=== PATIENT | female | born 1965 | race Caucasian/White ===

== ENCOUNTER 2016-03-17 17:38 | Inpatient (IN) | payer OTHER ==
[~2016-03-17] VITALS: Ht 157.5 cm; Wt 71.2 kg
[~2016-03-17 17:38] MED LIST: ATV/1 PO; BIOTIN PO; CALC-388 PO; CPR500 PO; DIPH25CA65 PO; IRON PO; LCTL45 PO; LSX20 PO; MAGNTAB4 PO; OMEP40CA PO; ONDA8TAB7 PO; POTASSIUM OTC PO; PRED10TA PO; PROP1TAB PO; SPIR50TA2 PO; VITAMIN C PO; [UNRECOGNIZED DRUG - CODE] PO
[2016-03-17 18:11] VITALS: BP 103/70; PULSE 68; TEMP 36.6; Ht 157.5 cm; Wt 71.2 kg
[2016-03-17 18:34] VITALS: O2SAT 100
--- NOTE | 2016-03-17 20:06 | History and Physical ---
History & Physical Date & Time of Service: Mar 17, 2016 at 19:18 Chief Complaint: Renal Failure Primary Care Physician: Osorio Chase M.D. History of Present Illness Source: patient, partner, clinic records, hospital records Patient seen and examined. 50 year old female with PMHx of alcoholic cirrhosis, portal HTN with esophageal varices, HTN, HLD, bipolar disorder and other problems listed below is seen as a direct admission for Dr. Rosas's office for acute renal failure. Patient was admitted to this hospital from 02/21- 02/24 for abdominal pain, ascites and possible SBP. She had a therapeutic paracentesis and was empirically treated for SBP with Rocephin and then discharged home on Cipro. She reports feeling well until today. Today she states she feels more drowsy and forgetful. She reports increase suprapubic abdominal pain that she describes as an annoyance. She states she forgot to take her afternoon dose of lactulose but otherwise has been compliant with her medications. She states her Lasix has been decreased to 20mg daily and her spironolactone to 50mg daily. She states her abdomen is starting to feel mildly distended. She reports chills and minimal dyspnea with exertion. She denies fevers URI symptoms, chest pain, palpitations, nausea, vomiting, diarrhea, dysuria, calf pain and edema. She reports she has not had alcohol in several months. As an outpatient patient's patient crea has increased from 0.8 to 2.2. K + has been elevated at 5.7. Sodium has been around 130. She was directly admitted to the medical floor. She will be transferred to [facility] for further workup and treatment. Past Medical/Surgical History Medical Problems: (1) Alcohol dependence Status: Chronic (2) Alcoholic liver disease Status: Chronic (3) Allergic rhinitis Status: Chronic (4) Anxiety Status: Chronic (5) Bipolar 1 disorder Status: Chronic (6) Depression Status: Chronic (7) GERD (gastroesophageal reflux disease) Status: Chronic (8) HTN (hypertension) Status: Chronic (9) Hypothyroidism Status: Chronic (10) Migraine Status: Chronic Surgical Problems: (1) History of section Status: Resolved (2) History of tubal ligation Status: Resolved Family History Patient reports no known family medical history. Social History Smoking Status: Former Smoker Alcohol Use: heavy (reports recent sobriety ) Drug Use: none Marital Status: , in relationship Housing status: lives with family Occupational Status: unemployed Immunizations History of Influenza Vaccine: N/A History of Tetanus Vaccine?: Yes Tetanus Immunization Date: Apr 12, 2010 History of Pneumococcal: Unknown Pneumococcal Date: Nov 09, 2010 History of Hepatitis B Vaccine: Unknown Multi-Drug Resistant Organisms History of MDRO: Yes Type of MDRO: MRSA Allergies Coded Allergies: Citalopram (Verified Allergy, Severe, ENLARED HEART VALVES, 02/22/16) Quetiapine (Verified Allergy, Intermediate, unknown., 01/30/16) Home Medications Scheduled Calcium Carbonate-Vitamin D (Calcium + D3 600-200 mg-Unit), 1 TAB PO DAILY Cyanocobalamin (Vitamin B12), 1,000 MCG PO DAILY Diphenhydramine Hcl (Benadryl Allergy), 1 CAP PO HS Folic Acid (Folvite), 1 TAB PO DAILY Furosemide (Furosemide), 20 MG PO DAILY Lactulose (Lactulose), 30 GM PO TID Levothyroxine Sodium (Levothyroxine Sodium), 1 TAB PO DAILY Magnesium Chloride (Slow-Mag Tab), 64 MG PO DAILY Multivitamin (Multivitamin), 1 TAB PO DAILY Omeprazole (Prilosec), 40 MG PO DAILY Pot Phosphate Monobasic W/ Sod (Phospha 250 Neutral), 1 TAB PO DAILY Prednisone Tab (Prednisone), 40 MG PO DAILY Propranolol (Inderal), 60 MG PO BID Rifaximin (Xifaxan), 550 MG PO BID Spironolactone (Aldactone), 1 TAB PO DAILY [Iron], 65 MG PO DAILY [Potassium Otc], 1 TAB PO DAILY [vitamin c+biotin], 1 TAB PO DAILY Scheduled PRN Albuterol (Ventolin Hfa), 2 PUFFS INH Q4H PRN for SOB/Wheezing Loratadine (Claritin), 10 MG PO DAILY PRN for ALLERGIC REACTION Lorazepam (Ativan), 1 MG PO BID PRN for Anxiety Ondansetron Tab (Zofran), 1 TAB PO Q8 PRN for Nausea Phenol (Antiseptic) (Chloraseptic), 1 SPRAY PO DAILY PRN for SORE THROAT Sumatriptan Succinate (Imitrex), 50 MG PO PRN PRN for Headache Review of Systems See above for pertinent positives & negatives. A total of 10 systems reviewed and were otherwise negative. Physical Exam Vital Signs Date Time Temp Pulse Resp B/P Pulse Ox O2 Delivery O2 Flow Rate FiO2 03/17/16 18:34 100 Room Air 03/17/16 18:11 36.6 68 18 103/70 Room Air General Appearance: + pertinent finding (Pleasant WD/WN 50 year old female lying in bed in NAD with partner at bedside ) Head: normocephalic, atraumatic Eyes: PERRL, EOMI, + pertinent finding (scleral icterus ) ENT: hearing grossly normal, pharynx normal Neck: supple, no JVD, trachea midline Respiratory/Chest: chest non-tender, lungs clear, normal breath sounds, no respiratory distress, no accessory muscle use Cardiovascular: regular rate, rhythm, no edema, no gallop, no JVD, no murmur, normal peripheral pulses Abdomen/GI: normal bowel sounds, soft, + tenderness (suprapubic, mild ), + distended (mildly ) Back: normal inspection, no muscle spasm Extremities/Musculoskelatal: no calf tenderness, normal capillary refill, no pedal edema Neurologic/Psych: + pertinent finding (Alert&Ox3, no asterixis, no focal deficits noted on gross exam ) Skin: normal color, warm/dry, no rash Lymphatic: no adenopathy Impression Assessment and Plan 50 year old female is seen as a direct admission by Dr. Rosas for acute renal failure ACUTE RENAL FAILURE -Ad[facility] 0.8 [facility] February now 2.2 -? cause, consider SBP, Hepatorenal syndrome, Medication related and other causes -blood work, urine studies pending -Dr. Rosas recommends Octerotide, Midodrine, and albumin -May need to consider nephrology consult -Additional management pending further workup -Please see Dr. Callahan's addendum for additional management HYPERKALEMIA -was 5.7 as an outpatient -repeat pending -transfer to to telemetry for close monitoring -check EKG -additional management pending workup HYPONATREMIA -130 as outpatient, repeat pending -serial daily -likely secondary to alcohol abuse -check urine sodium -additional management pending further workup ALCOHOLIC CIRRHOSIS/ABDOMINAL PAIN/MILD DISTENTION - Follows with Dr. Rosas -as outpatient has been on Bactrim for SBP prophylaxis per Dr. Rosas's recommendations switch to Rocephin while inpatient -? hepatorenal syndrome for ARF -Dr. Rosas recommends midodrine albumin and octreotide -GI consult placed -Continue outpatient prednisone for alcoholic hepatitis -continue Lactulose, Rifaximin -Follow LFTs, Ammonia level, admission lab work pending -check UA -additional management per Dr. Callahan H/O ALCOHOL ABUSE -states she has been sober for a few months -monitor closely for withdraw symptoms -alcohol level pending HTN -stable -continue Inderal per previous admission for prophylaxis for variceal bleed/ portal HTN MARY JANE -not on CPAP HYPOTHYROIDISM -continue Synthroid H/O MIGRAINES -stable -on Imitrex prn GERD -continue PPI ANXIETY -continue Ativan prn H/O MRSA -contact precautions DVT PROPHYLAXIS: SCDs RE: h/o hepatic coagulopathy CODE STATUS: FULL CODE DISPO:In my clinical judgment this beneficiary meets acute admission criteria, established by [facility], that includes being hospitalized through two midnights. Patient seen in collaboration with Dr. Callahan Advanced Directives Existing Living Will: No Existing Power of Plant Tech: No Assessment/Plan IM ATTENDING : Patient seen and examined. Preceding documentation by Ms. Alesha Mancera PA-C, reviewed. FINAL ASSESSMENT AND PLAN as follows: 1. Acute renal failure, hyperkalemia likey secondary to home meds ? developing hepatorenal syndrome history of alcoholic cirrhosis past alcohol abuse 2. abd pain ? recurrent SBP no sepsis 3. acute (?on chronic) hyponatremia, 4. chronic anemia, outpx Hg at baseline 5. hx past tobacco abuse 6. hx bipolar DSO 7. hx MRSA 8. chronic thrombocytopenia 2 to cirrhosis PCU repeat chemistries baseline UA, monitor crea response to IVF CS Limited abdominal ultrasound for ascites to determined need for paracentesis. (As per patient, no significant change in abdominal distention; what is more distressing for her is lower abdominal pain.) GI consult for abdominal pain Dr. Rosas had sent patient to hospital as a direct floor admission. He had specific recommendations for Nephrology opinion for ARF, IV Ceftriaxone for possible SBP; albumin, Midodrine, and Octreotide for poss incipient HRS. DVT prophylaxis, SCDs RE thrombocytopenia Full code.
[2016-03-17] MEDS ORDERED: LORAZEPAM 2 MG/ML 1 ML VIAL IV PRN (20:30)
[2016-03-17] MEDS ORDERED: HYDROmorphone INJ 0.5 MG/0.5 ML SYR IV PRN (20:30)
[2016-03-17] MEDS ORDERED: ALBUT/IPRATROP 3MG/0.5MG NEB 3 ML VIAL INH PRN (20:30)
[2016-03-17] MEDS ORDERED: TRAMADOL HCL 50 MG TAB PO PRN (20:30)
[2016-03-17] MEDS ORDERED: ACETAMINOPHEN 325 MG TAB PO PRN (20:30)
[2016-03-17] MEDS ORDERED: LORATADINE 10 MG TAB PO PRN (20:30)
[2016-03-17] MEDS ORDERED: LORAZEPAM 1 MG TAB PO PRN (20:30)
[2016-03-17] MEDS ORDERED: ONDANSETRON INJ 2 MG/ML 2 ML VIAL IV PRN (20:30)
[2016-03-17] MEDS ORDERED: NITROGLYCERIN 0.4 MG SL PER TAB CHARGE SL PRN (20:30)
--- NOTE | 2016-03-17 20:33 | DIAGNOSTIC IMAGING REPORT ---
CHEST ONE VIEW PORTABLE CLINICAL HISTORY: sob dyspnea COMPARISON STUDY: 02/22/2016 FINDINGS: The bones soft tissues and hemidiaphragms are normal. The cardiomediastinal silhouette is normal. The lungs are clear. The pulmonary vasculature is normal. IMPRESSION: Negative chest. Electronically signed by: Leroy Candelaria M.D. 03/17/2016 8:32 PM Dictated Date/Time: 03/17/2016 8:31 PM
[2016-03-17 20:36] LABS: INR 1.6 (0.9-1.1); PROTHROMBIN TIME (PATIENT) 17.3 SECONDS (9.0-12.0)
[2016-03-17] MEDS ORDERED: LACTULOSE SYRUP 30 GM/45 ML UDP PO SCH (21:00)
[2016-03-17] MEDS ORDERED: MIDODRINE 2.5 MG TAB PO ONE (21:00)
[2016-03-17 21:36] LABS: ALB/GLOB RATIO 0.6 (0.9-2); ALKALINE PHOSPHATASE 135 U/L (45-117); ALT/SGPT 73 U/L (12-78); AST/SGOT 68 U/L (15-37); BLOOD UREA NITROGEN 23 mg/dl (7-18); BUN/CREATININE RATIO 10.8 (10-20); CALCIUM 8.2 mg/dl (8.5-10.1); CARBON DIOXIDE 16 mmol/L (21-32); CHLORIDE 105 mmol/L (98-107); GLUCOSE 90 mg/dl (70-99); MAGNESIUM 1.7 mg/dl (1.8-2.4); POTASSIUM 5.5 mmol/L (3.5-5.1); SODIUM 130 mmol/L (136-145); THYROID STIMULATING HORMONE 0.374 uIu/ml (0.300-4.500)
[2016-03-17] MEDS: RIFAXIMIN TAB 550 MG TAB PO SCH (21:49)
--- NOTE | 2016-03-17 21:49 | DIAGNOSTIC IMAGING REPORT ---
Limited abdominal ultrasound ASCITES-ABDOMEN LIMITED CLINICAL HISTORY: abd distension ascites TECHNIQUE: Ultrasound COMPARISON STUDY: 02/23/2016 FINDINGS: Survey film of the abdomen shows no significant ascites IMPRESSION: No significant ascites by survey ultrasound Electronically signed by: Leroy Candelaria M.D. 03/17/2016 9:48 PM Dictated Date/Time: 03/17/2016 9:47 PM
[2016-03-17] MEDS: OCTREOTIDE ACETATE 100 MCG/ML VIAL SQ SCH (21:50)
[2016-03-17] MEDS: CEFTRIAXONE SOD INJ 1 GM in DEXTROSE 5% ADD-VANTAGE 50ML 50 ML IV SCH (21:51)
[2016-03-17] MEDS ORDERED: MAGNESIUM SULFATE 1GM / D5W 1 GM in PREMIXED IN D5W 100 ML IV ONE (22:00)
[2016-03-17] MEDS ORDERED: SODIUM BICARB 8.4% INJ 50 MEQ/50 ML SYR IV STA (22:14)
[2016-03-17] MEDS ORDERED: SODIUM CHLORIDE 0.9% 1000ML 1,000 ML IV ONE (22:15)
[2016-03-17] MEDS: ALBUMIN HUMAN 25% 12.5 GM/50 ML VIAL IV SCH (22:27)
[2016-03-17] MEDS: HYDROmorphone INJ 1 MG/ML SYR IV PRN (22:28)
[2016-03-17 22:41] VITALS: BP 123/73; PULSE 70; O2SAT 97
[2016-03-17 23:25] VITALS: BP 107/69; PULSE 69; TEMP 36.8; O2SAT 94
[2016-03-17 23:32] LABS: HEMATOCRIT 30.1 % (37-47); MEAN CELL VOLUME 104.9 fL (80-100); MEAN CORPUSCULAR HEMOGLOBIN 36.9 pg (25-34); RED BLOOD COUNT 2.87 M/uL (4.2-5.4); WHITE BLOOD COUNT 12.62 K/uL (4.8-10.8)
[2016-03-17 23:44] LABS: BASO % 0.6 %; BASO ABS # 0.07 K/uL (0-0.2); COMPLETE YES; EOS % 2.9 %; IG% 0.9 %; LYMPH % 20.8 %; LYMPH ABS # 2.62 K/uL (1.2-3.4); MEAN CORPUSCULAR HGB CONC 35.2 g/dl (32-36); MEAN PLATELET VOLUME 10.9 fL (7.4-10.4); MONO % 11.9 %; NEUT % 62.9 %; PLATELET COUNT 85 K/uL (130-400)
[2016-03-18] VITALS (13 sets, daily range): BP systolic 94–120; BP diastolic 58–78; PULSE 68–77; TEMP 36.3–36.8; O2SAT 91–97
[2016-03-18 00:44] LABS: URINE APPEARANCE CLEAR (CLEAR); URINE COLOR DK YELLOW; URINE EPITHELIAL CELL AUTO 20-30 /lpf (0-5); URINE NITRITE NEG (NEG); URINE PH 6.5 (4.5-7.5); URINE SPECIFIC GRAVITY 1.012 (1.000-1.030); UROBILINOGEN NEG (NEG); ZZUR CULT IF INDIC CLEAN CATCH NO
[2016-03-18 01:06] LABS: MANUAL MICROSCOPIC REQUIRED? NO; REVIEW REQ? NO; URINE BILIRUBIN 1+ (NEG)
--- NOTE | 2016-03-18 01:43 | HISTORY & PHYSICAL EXAMINATION ---
DATE OF ADMISSION: 03/17/2016 IM ATTENDING : Patient seen and examined. Preceding documentation by Ms. Alesha Mancera PA-C, reviewed. FINAL ASSESSMENT AND PLAN as follows: 1. Acute renal failure, hyperkalemia likey secondary to home meds ? developing hepatorenal syndrome history of alcoholic cirrhosis past alcohol abuse 2. abd pain ? recurrent SBP no sepsis 3. acute (?on chronic) hyponatremia, 4. chronic anemia, outpx Hg at baseline 5. hx past tobacco abuse 6. hx bipolar DSO 7. hx MRSA 8. chronic thrombocytopenia 2 to cirrhosis PCU repeat chemistries baseline UA, monitor crea response to IVF CS Limited abdominal ultrasound for ascites to determined need for paracentesis. (As per patient, no significant change in abdominal distention; what is more distressing for her is lower abdominal pain.) GI consult for abdominal pain Dr. Rosas had sent patient to hospital as a direct floor admission. He had specific recommendations for Nephrology opinion for ARF, IV Ceftriaxone for possible SBP; albumin, Midodrine, and Octreotide for poss incipient HRS. DVT prophylaxis, SCDs RE thrombocytopenia Full code. MTDD
[2016-03-18 03:17] LABS: HEMATOCRIT 31.7 % (37-47); MEAN CORPUSCULAR HEMOGLOBIN 36.1 pg (25-34); MEAN CORPUSCULAR HGB CONC 34.4 g/dl (32-36); RED BLOOD COUNT 3.02 M/uL (4.2-5.4); WHITE BLOOD COUNT 11.06 K/uL (4.8-10.8)
[2016-03-18 03:19] LABS: MEAN PLATELET VOLUME 11.1 fL (7.4-10.4); PLATELET COUNT 78 K/uL (130-400)
[2016-03-18 03:36] LABS: BUN/CREATININE RATIO 11.9 (10-20); CALCIUM 8.2 mg/dl (8.5-10.1); CREATININE 1.7 mg/dl (0.60-1.20); MAGNESIUM 1.9 mg/dl (1.8-2.4); POTASSIUM 4.9 mmol/L (3.5-5.1)
[2016-03-18 04:03] LABS: COMPLETE YES; ECHINOCYTES 1+; EOSINOPHIL % 0.9 %; LYMPH ABS # 2.52 K/uL (1.2-3.4); LYMPHOCYTE % 22.8 %; METAMYELOCYTE % 1.8 %
[2016-03-18] MEDS ORDERED: NURSING DECISION MEDICATION ORDER SCH (04:45)
[2016-03-18] MEDS ORDERED: COUGH DROP (SUGAR FREE) LOZ 24 LOZ/1 BOX PO PRN (05:00)
[2016-03-18] MEDS: OXYCODONE HCL IR 5 MG TAB (IMMEDIATE RELEASE) PO PRN ×3 (05:12→19:24)
[2016-03-18] MEDS: OCTREOTIDE ACETATE 100 MCG/ML VIAL SQ SCH ×3 (05:13→20:55)
[2016-03-18] MEDS: LEVOTHYROXINE 137 MCG TAB PO SCH (05:13)
[2016-03-18] MEDS ORDERED: MIDODRINE 2.5 MG TAB PO SCH (08:00)
--- NOTE | 2016-03-18 09:15 | GASTROINTESTINAL CONSULTATION ---
DATE OF CONSULTATION: 03/18/2016 CHIEF COMPLAINT: Abnormal labs and confusion. HISTORY OF PRESENT ILLNESS: The patient is a 50-year-old female, followed by Dr. Rosas for a history of alcohol-related cirrhosis. The patient has had numerous admissions over the past 6 months as a result of her complications from this disease. She has been abstinent for approximately 2 months per outpatient records and patient report. She was recently hospitalized from 02/22/2016 through 02/25/2016 for abdominal pain and ascites and suspected SBP. She underwent a paracentesis at that time and was placed onto antibiotic coverage. She was then placed onto an outpatient regimen which included Bactrim at home. Approximately 24-48 hours ago, the patient notes having some worsening confusion and abdominal discomfort. This morning she notes that her confusion has resolved completely but she does have some epigastric discomfort associated with cramping and occasional diarrhea. The patient was undergoing routine outpatient labs yesterday and found to have new onset renal failure. She was advised to come to the Emergency Room for further evaluation. PAST MEDICAL HISTORY: 1. Alcoholism. 2. Cirrhosis. 3. Bipolar disorder. 4. Depression. 5. Reflux. 6. Hypertension. 7. Hypothyroidism. 8. Migraine. PAST SURGICAL HISTORY: section, tubal ligation. FAMILY HISTORY: No family history of colorectal cancer, stomach cancer or liver cancer. SOCIAL HISTORY: The patient is a prior smoker. The patient did drink heavily until about 2 months ago. She is and lives with family and has a boyfriend. ALLERGIES: CITALOPRAM, QUETIAPINE. OUTPATIENT MEDICATIONS: 1. Calcium, vitamin D. 2. Vitamin B12. 3. Benadryl 25 mg at bedtime. 4. Folic acid 1 tablet daily. 5. Lasix 20 mg daily. 6. Lactulose 30 grams t.i.d. 7. Levothyroxine 1 tablet daily. 8. Magnesium chloride 64 mg daily. 9. Multivitamin 1 tablet daily. 10. Omeprazole 40 mg daily. 11. Phosphate. 12. Prednisone 40 mg daily, the patient presently off. 13. Inderal 60 mg twice daily. 14. Rifaximin 550 mg twice daily. 15. Aldactone 125 mg daily. 16. Potassium 1 tablet daily. REVIEW OF SYSTEMS: GENERAL: No fevers, no chills. CARDIAC: No chest pain, no palpitations. PULMONARY: No shortness of breath today. No cough today. NEUROLOGIC: No headache. No double vision noted. MUSCULOSKELETAL: No joint pains. No muscle pains. GASTROINTESTINAL: Please see history of present illness. GENITOURINARY: No dysuria noted by the patient. SKIN: No rashes, no itching noted by the patient. PSYCHIATRIC: No worsening depression. No suicidal ideation. ENT: No difficulty swallowing. VITAL SIGNS: Temperature is 36.5, pulse is 77, respiratory rate 20, blood pressure 104/68. PHYSICAL EXAMINATION: HEENT: Scleral icterus noted. NECK: No JVD noted. LUNGS: Clear to auscultation. CARDIAC: Regular rhythm with a faint systolic ejection murmur. ABDOMEN: Obese, soft, nontender. No fluid wave appreciated. EXTREMITIES: No edema noted today. NEUROLOGIC: No asterixis noted. Cranial nerves grossly intact. Motor grossly intact. LABORATORIES: Sodium 134 this morning, potassium 4.9, chloride 107, BUN 20, creatinine 1.7, calcium 8.2, magnesium 1.7, total bilirubin 7.5, AST 68, ALT is 73, alkaline phosphatase 135, albumin 2.5. TSH 0.34. White blood cell count 11.06, hemoglobin is 10.9, hematocrit is 31.7, platelet count is 78. PT is 17.3, INR 1.6. Alcohol screening upon admission was negative. IMAGING: Ultrasound dated 03/17/2016, no ascites noted. IMPRESSION: A 50-year-old female admitted with new onset renal failure and subtle confusion. I wonder if the patient's renal failure may be related to medications given her use of diuretics and lactulose (less likley HRS). At this point in time, I would recommend continued albumin as you are doing today at 1.5 grams per kilogram on day 1 of admission and 1 gram per kilogram on day 3 of admission. Also agree with empiric treatment for suspected SBP as per Dr. Rosas. I would suggest that we decrease her lactulose to one time daily and consult nephrology with regard to her renal insufficiency. RECOMMENDATIONS: 1. Nephrology consultation. 2. Urine sodium, urine osms, serum sodium, serum osms. 3. Decrease lactulose to one time daily. 4. Albumin 1.5 grams per kilogram on admission (done already) and 1.0 gram per kilogram on day 3 which would be Jovan. Please call with any questions or concerns. MTDD
--- NOTE | 2016-03-18 10:19 | NEPHROLOGY CONSULTATION ---
DATE OF CONSULTATION: 03/18/2016 ATTENDING OF RECORD: Dr. Morton. REASON FOR CONSULTATION: ELIZABETH with hyponatremia and hyperkalemia. HISTORY OF PRESENT ILLNESS: This is a 50-year-old female with significant history of alcoholic cirrhosis with portal hypertension and esophageal varices, who has had several hospitalizations for ELIZABETH with possible SBP and hepatorenal syndrome. The patient was doing well up until the last couple days, where she was becoming more forgetful, having some abdominal distention, nausea and abdominal pain; however, appetite was good and denies any fevers or chills. The patient had lab work done, which showed acute renal failure and hyperkalemia with hyponatremia and the patient was directly admitted. The patient admits that she has been drinking lots and lots of water. Her main complaint is overall fatigue. REVIEW OF SYSTEMS: Positive fatigue. Positive nausea. No headaches, no blurry vision, no dysphagia, no chest pain, and no shortness of breath. No vomiting. Positive abdominal tenderness. Positive loose stools. No dysuria or hematuria. No rash or itching. All other review of systems otherwise negative. PAST MEDICAL HISTORY: Alcoholic cirrhosis with portal hypertension, hypertension, hyperlipidemia, bipolar, and hypothyroidism. PAST SURGICAL HISTORY: Tubal ligation and . FAMILY HISTORY: No renal disease in the family. SOCIAL HISTORY: Former smoker. Heavy alcohol use; however, none recently in the last several months. No drugs. Lives with family. CURRENT MEDICATIONS: Folic acid 1 mg daily, multivitamin daily, propranolol 60 mg p.o. b.i.d., Protonix 40 mg daily, lactulose 30 grams daily, midodrine 5 mg p.o. t.i.d., Synthroid 137 mcg daily, normal saline at 75 mL an hour, rifaximin 550 mg p.o. b.i.d., octreotide 50 mg subQ q. 8 hours, albumin 12.5 grams IV t.i.d., and ceftriaxone 1 gram IV q. 24 hours. PHYSICAL EXAMINATION: VITAL SIGNS: Temperature 36.8, pulse 68, respiratory rate 16, blood pressure 94/58, and satting 96% on room air. GENERAL: Awake, alert, and oriented x3. EYES: Positive scleral icterus. ENT: Mucous membranes are dry. NECK: Supple. PULMONARY: Clear to auscultation. CARDIAC: Regular rate and rhythm. ABDOMEN: Mild abdominal tenderness. Mild distention. Positive bowel sounds. EXTREMITIES: No clubbing, cyanosis or edema. NEUROLOGICALLY: Nonfocal. DERMATOLOGIC: No rash or ulcers noted. LABORATORIES: Sodium level is improved from 130 to 134. Potassium has improved from 5.5 down to 4.9. Chlorides 107, bicarb 17, BUN is 20, and creatinine improved from 2.1 down to 1.7. Serum osmolality is 282. Calcium is 8.2. Ammonia level is 22. Thyroid level is 0.37. Albumin is 2.5. White count is 11, H\T\H 10 and 31, and platelet count 78. INR is 1.6. Urine random sodium 103. Ethyl alcohol is negative. Blood cultures and urine cultures are pending. Abdominal ultrasound shows no significant ascites by survey ultrasound. Chest x-ray is normal. IMPRESSION: 1. Nonoliguric acute kidney injury with random urine sodium of 103. There is a possible concern with her underlying alcoholic cirrhosis and a prior history of hepatorenal syndrome of her developing hepatorenal syndrome again. The patient was started on albumin, midodrine and octreotide. The patient's kidney function is improving this morning and the patient is urinating well. In my personal opinion, would continue the albumin and IV fluids; I would stop the midodrine and octreotide; however, I will respectfully defer to GI and primary hospitalist on this matter. I do not feel that this is hepatorenal syndrome at this time. 2. Hyponatremia. The patient's sodium levels were low at 130. The patient admits to drinking lots of water and sodium levels are improving in the setting of normal saline. Would continue the normal saline at this time and place the patient on a fluid restriction. 3. Hyperkalemia. Potassium levels are improving on a low potassium diet as well as kidney function improving, which should help mobilize the extra potassium. The patient's home meds were significant for spironolactone as well as over the counter potassium, both of which have been on hold and should continue to improve with the current therapy. Overall, I do not feel this is hepatorenal syndrome; however, would benefit from continued albumin, normal saline, low potassium diet and 1500 mL fluid restriction. It does not appear that there is any significant amount of ascites to do a diagnostic tap; however, she is prophylactically on ceftriaxone. We will discuss the case further with the primary hospitalist. LEONOR
[2016-03-18] MEDS: RIFAXIMIN TAB 550 MG TAB PO SCH ×2 (10:39→20:51)
[2016-03-18] MEDS: LACTULOSE SYRUP 30 GM/45 ML UDP PO SCH (10:39)
[2016-03-18] MEDS: MIDODRINE 2.5 MG TAB PO SCH ×3 (10:39→18:27)
[2016-03-18] MEDS: PROPRANOLOL HCL 20 MG TAB PO SCH ×2 (10:40→20:51)
[2016-03-18] MEDS: MULTIVITAMIN TAB PO SCH (10:41)
[2016-03-18] MEDS: PANTOprazole SOD 40 MG TAB PO SCH (10:41)
[2016-03-18] MEDS: ALBUMIN HUMAN 25% 12.5 GM/50 ML VIAL IV SCH ×3 (10:52→20:49)
--- NOTE | 2016-03-18 13:17 | Progress Note ---
Subjective Date of Service: Mar 18, 2016. Subjective Pt evaluation today including: conversation w/ patient, physical exam, lab review, review of studies, conversation w/ claims consultant, review of inpatient medication list Saw/examined the patient in room 277 she presented with acute kidney injury sent over by gastroenterology her diuretic dose was recently increased she feels better today, no problems/issues to note Problem List Medical Problems: (1) Abdominal pain Status: Acute (2) Abdominal pain Status: Acute (3) Headache Status: Acute (4) Hyperammonemia Status: Acute (5) Hyperbilirubinemia Status: Acute (6) Hyperbilirubinemia Status: Acute (7) Hypocalcemia Status: Acute (8) Hypomagnesemia Status: Acute (9) Hypomagnesemia Status: Acute (10) Hypophosphatemia Status: Acute (11) Thrombocytopenia Status: Acute Review of Systems Constitutional: + weakness, No chills, No fever Respiratory: No cough, No shortness of breath, No sputum Cardiac: No chest pain Abdomen: + diarrhea, No nausea, No pain, No vomiting Medications Current Inpatient Medications Medications (Trade) Dose Ordered Sig/Fariba Route Start Time Stop Time Status Last Admin Dose Admin Ceftriaxone Sodium/Dextrose (Rocephin Inj/ Dextrose Add-[place] 50ML) 50 ml @ 100 mls/hr Q24H IV 03/17/16 20:30 03/27/16 20:29 03/17/16 21:51 100 MLS/HR Acetaminophen (Tylenol Tab) 325 mg Q6H PRN PO 03/17/16 20:30 04/16/16 20:29 Nitroglycerin (Nitrostat Tab) 0.4 mg UD PRN SL 03/17/16 20:30 04/16/16 20:29 Tramadol HCl (Ultram Tab) 25 mg Q6H PRN PO 03/17/16 20:30 04/16/16 20:29 Oxycodone HCl (Roxicodone Immediate Rel Tab) 5 mg Q6H PRN PO 03/17/16 20:30 03/31/16 20:29 03/18/16 05:12 5 MG Ondansetron HCl (Zofran Inj) 4 mg Q6H PRN IV 03/17/16 20:30 04/16/16 20:29 Lorazepam (Ativan Inj) 0.5 mg Q4H PRN IV 03/17/16 20:30 04/16/16 20:29 Folic Acid (Folvite Tab) 1 mg DAILY PO 03/18/16 09:00 04/17/16 08:59 03/18/16 10:42 1 MG Levothyroxine Sodium (Synthroid Tab) 137 mcg DAILYBB PO 03/18/16 06:30 04/17/16 06:29 03/18/16 05:13 137 MCG Loratadine (Claritin Tab) 10 mg DAILY PRN PO 03/17/16 20:30 04/16/16 20:29 Lorazepam (Ativan Tab) 1 mg BID PRN PO 03/17/16 20:30 04/16/16 20:29 Multivitamins (Multivitamin Tab) 1 tab DAILY PO 03/18/16 09:00 04/17/16 08:59 03/18/16 10:41 1 TAB Propranolol HCl (Inderal Tab) 60 mg BID PO 03/18/16 09:00 04/17/16 08:59 03/18/16 10:40 60 MG Rifaximin (Xifaxan Tab) 550 mg BID PO 03/17/16 21:00 04/16/16 20:59 03/18/16 10:39 550 MG Pantoprazole Sodium (Protonix Tab) 40 mg DAILY PO 03/18/16 09:00 04/17/16 08:59 03/18/16 10:41 40 MG Midodrine (Proamatine Tab) 5 mg TID@08,,17 PO 03/18/16 08:00 04/17/16 07:59 03/18/16 10:39 5 MG Octreotide Acetate (Sandostatin Inj) 50 mcg Q8H SQ 03/17/16 21:00 04/16/16 20:29 03/18/16 05:13 50 MCG Albumin Human (Albumin 25%) 12.5 gm TID IV 03/17/16 21:00 03/20/16 20:59 03/18/16 10:52 12.5 GM Albuterol/ Ipratropium (Duoneb) 3 ml Q2H PRN INH 03/17/16 20:30 04/16/16 20:29 Hydromorphone HCl (Dilaudid Inj) 0.5 mg Q3H PRN IV 03/17/16 22:15 03/31/16 22:14 03/17/16 22:28 0.5 MG Menthol (Nice Hasmukh) 1 hasmukh PRN PRN PO 03/18/16 05:00 04/17/16 04:59 03/18/16 05:13 1 HASMUKH Lactulose (Chronulac Syrup) 30 gm DAILY PO 03/18/16 09:00 04/22/16 20:59 03/18/16 10:39 30 GM Objective Vital Signs Date Time Temp Pulse Resp B/P Pulse Ox O2 Delivery O2 Flow Rate FiO2 03/18/16 11:50 36.7 69 18 111/78 97 Room Air 03/18/16 11:10 69 18 105/62 97 Room Air 03/18/16 10:55 36.7 69 18 101/68 97 Room Air 03/18/16 08:00 96 Room Air 03/18/16 07:16 36.8 68 16 94/58 96 Room Air 03/18/16 04:48 36.5 77 20 104/68 97 Room Air 03/18/16 04:07 Room Air 03/18/16 00:07 Room Air 03/17/16 23:25 36.8 69 20 107/69 94 Room Air 03/17/16 22:41 70 18 123/73 97 Room Air 03/17/16 21:45 Room Air 03/17/16 18:34 100 Room Air 03/17/16 18:11 36.6 68 18 103/70 Room Air Physical Exam General Appearance: no apparent distress Eyes: + abnormal sclerae exam Respiratory/Chest: lungs clear, normal breath sounds, no respiratory distress, no accessory muscle use Cardiovascular: regular rate, rhythm, no edema, no murmur Abdomen: non tender, soft, + distended Extremities: normal inspection, no pedal edema Skin: + jaundice Laboratory Results Last 24 Hours Test 03/17/16 20:00 03/17/16 20:05 03/17/16 23:24 03/18/16 00:15 Prothrombin Time 17.3 SECONDS Prothromb Time International Ratio 1.6 Sodium Level 130 mmol/L Potassium Level 5.5 mmol/L Chloride Level 105 mmol/L Carbon Dioxide Level 16 mmol/L Anion Gap 9.0 mmol/L Blood Urea Nitrogen 23 mg/dl Creatinine 2.10 mg/dl Est Creatinine Clear Calc Drug Dose 29.7 ml/min Estimated GFR () 31.0 Estimated GFR (Non- 26.8 BUN/Creatinine Ratio 10.8 Random Glucose 90 mg/dl Calcium Level 8.2 mg/dl Magnesium Level 1.7 mg/dl Total Bilirubin 7.5 mg/dl Aspartate Amino Transf (AST/SGOT) 68 U/L Alanine Aminotransferase (ALT/SGPT) 73 U/L Alkaline Phosphatase 135 U/L Troponin I < 0.015 ng/ml Total Protein 7.0 gm/dl Albumin 2.5 gm/dl Globulin 4.5 gm/dl Albumin/Globulin Ratio 0.6 Thyroid Stimulating Hormone (TSH) 0.374 uIu/ml Ethyl Alcohol mg/dL < 3.0 mg/dl White Blood Count 12.62 K/uL Red Blood Count 2.87 M/uL Hemoglobin 10.6 g/dL Hematocrit 30.1 % Mean Corpuscular Volume 104.9 fL Mean Corpuscular Hemoglobin 36.9 pg Mean Corpuscular Hemoglobin Concent 35.2 g/dl Platelet Count 85 K/uL Mean Platelet Volume 10.9 fL Neutrophils (%) (Auto) 62.9 % Lymphocytes (%) (Auto) 20.8 % Monocytes (%) (Auto) 11.9 % Eosinophils (%) (Auto) 2.9 % Basophils (%) (Auto) 0.6 % Neutrophils # (Auto) 7.96 K/uL Lymphocytes # (Auto) 2.62 K/uL Monocytes # (Auto) 1.50 K/uL Eosinophils # (Auto) 0.36 K/uL Basophils # (Auto) 0.07 K/uL RDW Standard Deviation 54.8 fL RDW Coefficient of Variation 14.3 % Immature Granulocyte % (Auto) 0.9 % Immature Granulocyte # (Auto) 0.11 K/uL Osmolality 282 mOsm/kg Ammonia 22.0 umol/L Urine Color DK YELLOW Urine Appearance CLEAR Urine pH 6.5 Urine Specific [place] 1.012 Urine Protein NEG Urine Glucose (UA) NEG Urine Ketones NEG Urine Occult Blood TRACE Urine Nitrite NEG Urine Bilirubin 1+ Urine Urobilinogen NEG Urine Leukocyte Esterase TRACE Urine WBC (Auto) 1-5 /hpf Urine RBC (Auto) 0-4 /hpf Urine Hyaline Casts (Auto) 1-5 /lpf Urine Epithelial Cells (Auto) 20-30 /lpf Urine Bacteria (Auto) NEG Urine Random Sodium 103 mEq/L Test 03/18/16 03:02 03/18/16 12:00 White Blood Count 11.06 K/uL Red Blood Count 3.02 M/uL Hemoglobin 10.9 g/dL Hematocrit 31.7 % Mean Corpuscular Volume 105.0 fL Mean Corpuscular Hemoglobin 36.1 pg Mean Corpuscular Hemoglobin Concent 34.4 g/dl Platelet Count 78 K/uL Mean Platelet Volume 11.1 fL RDW Standard Deviation 55.1 fL RDW Coefficient of Variation 14.2 % Neutrophils % (Manual) 71.0 % Lymphocytes % (Manual) 22.8 % Monocytes % (Manual) 3.5 % Eosinophils % (Manual) 0.9 % Metamyelocytes % 1.8 % Neutrophils # (Manual) 7.85 K/uL Total Absolute Neutrophils 7.85 K/uL Lymphocytes # (Manual) 2.52 K/uL Total Absolute Lymphocytes 2.52 K/uL Monocytes # (Manual) 0.39 K/uL Eosinophils # (Manual) 0.10 K/uL Metamyelocytes # 0.20 K/uL Echinocytes 1+ Sodium Level 134 mmol/L Potassium Level 4.9 mmol/L Chloride Level 107 mmol/L Carbon Dioxide Level 17 mmol/L Anion Gap 10.0 mmol/L Blood Urea Nitrogen 20 mg/dl Creatinine 1.70 mg/dl Est Creatinine Clear Calc Drug Dose 36.7 ml/min Estimated GFR () 40.1 Estimated GFR (Non- 34.6 BUN/Creatinine Ratio 11.9 Random Glucose 91 mg/dl Calcium Level 8.2 mg/dl Magnesium Level 1.9 mg/dl Assessment and Plan This is a 50 year old female with PMH of alcoholic liver cirrhosis with complications including esophageal varices, and hx. of hepatorenal syndrome, HTN , HLD, bipolar disorder sent over to the ER by gastroenterology due to acute kidney injury Acute Kidney Injury Hepatorenal syndrome? appreciate nephrology management patient presented with 2.1 creat after an increase in diuretics at this point, giving albumin and fluids creat down to 1.7 for now, I'll continue midodrine and octreotide as per GI fluid restriction and monitor BMP daily Alcoholic Liver Cirrhosis appreciate GI input for now, continue Rocephin for possible SBP abdomen does not seem distended enough for tap patient jaundiced and icteric continue Protonix, rifaximin, lactulose, propranolol holding diuretics: Lasix and Aldactone until improvement in kidney function HTN blood pressure stable continue propranolol for esophageal varices ppx hold diuretics and giving fluids, monitor BP Hypothyroidism continue home medds Bipolar Disorder continue home medications DVT ppx SCDs FULL CODE
[2016-03-18] MEDS: CEFTRIAXONE SOD INJ 1 GM in DEXTROSE 5% ADD-VANTAGE 50ML 50 ML IV SCH (20:55)
[2016-03-19] VITALS (9 sets, daily range): BP systolic 96–111; BP diastolic 57–70; PULSE 79–87; TEMP 36.7–37.1; O2SAT 93–97
[2016-03-19] MEDS: OXYCODONE HCL IR 5 MG TAB (IMMEDIATE RELEASE) PO PRN (04:04)
[2016-03-19] MEDS: LEVOTHYROXINE 137 MCG TAB PO SCH (05:28)
[2016-03-19] MEDS: OCTREOTIDE ACETATE 100 MCG/ML VIAL SQ SCH (05:28)
[2016-03-19 06:33] LABS: HEMATOCRIT 28.1 % (37-47); MEAN CELL VOLUME 106.8 fL (80-100); MEAN CORPUSCULAR HEMOGLOBIN 36.5 pg (25-34); MEAN CORPUSCULAR HGB CONC 34.2 g/dl (32-36); RED BLOOD COUNT 2.63 M/uL (4.2-5.4); WHITE BLOOD COUNT 11.37 K/uL (4.8-10.8)
[2016-03-19 06:37] LABS: BASO % 0.6 %; BASO ABS # 0.07 K/uL (0-0.2); COMPLETE YES; EOS % 2.6 %; IG% 0.6 %; LYMPH % 19.3 %; LYMPH ABS # 2.19 K/uL (1.2-3.4); NEUT % 64.9 %; PLATELET COUNT 80 K/uL (130-400)
[2016-03-19 07:01] LABS: BUN/CREATININE RATIO 15.3 (10-20); CALCIUM 8.1 mg/dl (8.5-10.1); POTASSIUM 5.1 mmol/L (3.5-5.1)
--- NOTE | 2016-03-19 07:03 | Gastroenterology Progress Note ---
Progress Note Date of Service: Mar 19, 2016 Subjective Pt evaluation today including: conversation w/ patient, physical exam The patient notes feeling improved today. No nausea or vomiting overnight. She does have periodic abdominal pain although it is better since we decreased her lactulose dose yesterday. Review of Systems Constitutional: No chills, No fatigue, No fever Respiratory: No cough, No dyspnea at rest, No wheezing Cardiac: No chest pain, No palpitations Abdomen: No GI bleeding, No pain Medications Current Inpatient Medications Medications (Trade) Dose Ordered Sig/Fariba Route Start Time Stop Time Status Last Admin Dose Admin Ceftriaxone Sodium/Dextrose (Rocephin Inj/ Dextrose Add-[place] 50ML) 50 ml @ 100 mls/hr Q24H IV 03/17/16 20:30 03/27/16 20:29 03/18/16 20:55 100 MLS/HR Nitroglycerin (Nitrostat Tab) 0.4 mg UD PRN SL 03/17/16 20:30 04/16/16 20:29 Tramadol HCl (Ultram Tab) 25 mg Q6H PRN PO 03/17/16 20:30 04/16/16 20:29 Oxycodone HCl (Roxicodone Immediate Rel Tab) 5 mg Q6H PRN PO 03/17/16 20:30 03/31/16 20:29 03/19/16 04:04 5 MG Ondansetron HCl (Zofran Inj) 4 mg Q6H PRN IV 03/17/16 20:30 04/16/16 20:29 Lorazepam (Ativan Inj) 0.5 mg Q4H PRN IV 03/17/16 20:30 04/16/16 20:29 Folic Acid (Folvite Tab) 1 mg DAILY PO 03/18/16 09:00 04/17/16 08:59 03/18/16 10:42 1 MG Levothyroxine Sodium (Synthroid Tab) 137 mcg DAILYBB PO 03/18/16 06:30 04/17/16 06:29 03/19/16 05:28 137 MCG Loratadine (Claritin Tab) 10 mg DAILY PRN PO 03/17/16 20:30 04/16/16 20:29 Lorazepam (Ativan Tab) 1 mg BID PRN PO 03/17/16 20:30 04/16/16 20:29 Multivitamins (Multivitamin Tab) 1 tab DAILY PO 03/18/16 09:00 04/17/16 08:59 03/18/16 10:41 1 TAB Propranolol HCl (Inderal Tab) 60 mg BID PO 03/18/16 09:00 04/17/16 08:59 03/18/16 20:51 60 MG Rifaximin (Xifaxan Tab) 550 mg BID PO 03/17/16 21:00 04/16/16 20:59 03/18/16 20:51 550 MG Pantoprazole Sodium (Protonix Tab) 40 mg DAILY PO 03/18/16 09:00 04/17/16 08:59 03/18/16 10:41 40 MG Midodrine (Proamatine Tab) 5 mg TID@ PO 03/18/16 08:00 04/17/16 07:59 03/18/16 18:27 5 MG Octreotide Acetate (Sandostatin Inj) 50 mcg Q8H SQ 03/17/16 21:00 04/16/16 20:29 03/19/16 05:28 50 MCG Albumin Human (Albumin 25%) 12.5 gm TID IV 03/17/16 21:00 03/20/16 20:59 03/18/16 20:49 12.5 GM Albuterol/ Ipratropium (Duoneb) 3 ml Q2H PRN INH 03/17/16 20:30 04/16/16 20:29 Hydromorphone HCl (Dilaudid Inj) 0.5 mg Q3H PRN IV 03/17/16 22:15 03/31/16 22:14 03/17/16 22:28 0.5 MG Menthol (Nice Hasmukh) 1 hasmukh PRN PRN PO 03/18/16 05:00 04/17/16 04:59 03/18/16 05:13 1 HASMUKH Lactulose (Chronulac Syrup) 30 gm DAILY PO 03/18/16 09:00 04/22/16 20:59 03/18/16 10:39 30 GM Objective Vital Signs Date Time Temp Pulse Resp B/P Pulse Ox O2 Delivery O2 Flow Rate FiO2 03/19/16 04:13 Room Air 03/19/16 03:49 36.7 80 20 97/58 94 Room Air 03/19/16 00:36 Room Air 03/18/16 23:05 36.6 70 16 109/64 94 03/18/16 20:12 95 Room Air 03/18/16 19:06 36.3 70 20 113/66 95 Room Air 03/18/16 18:28 73 117/74 03/18/16 16:00 Room Air 03/18/16 15:30 70 16 114/73 Room Air 03/18/16 15:01 36.7 69 16 118/76 91 Room Air 03/18/16 14:35 72 18 120/71 97 Room Air 03/18/16 12:00 Room Air 03/18/16 11:50 36.7 69 18 111/78 97 Room Air 03/18/16 11:10 69 18 105/62 97 Room Air 03/18/16 10:55 36.7 69 18 101/68 97 Room Air 03/18/16 08:00 96 Room Air 03/18/16 07:16 36.8 68 16 94/58 96 Room Air Physical Exam General Appearance: no apparent distress Eyes: PERRL Neck: no JVD Respiratory/Chest: normal breath sounds Cardiovascular: + systolic murmur Abdomen: soft Extremities: no pedal edema Neurologic/Psych: oriented x 3 Laboratory Results Last 24 Hours Test 03/18/16 12:00 03/19/16 06:11 Urine Osmolality 483 mOms/kg White Blood Count 11.37 K/uL Red Blood Count 2.63 M/uL Hemoglobin 9.6 g/dL Hematocrit 28.1 % Mean Corpuscular Volume 106.8 fL Mean Corpuscular Hemoglobin 36.5 pg Mean Corpuscular Hemoglobin Concent 34.2 g/dl Platelet Count 80 K/uL Mean Platelet Volume 11.0 fL Neutrophils (%) (Auto) 64.9 % Lymphocytes (%) (Auto) 19.3 % Monocytes (%) (Auto) 12.0 % Eosinophils (%) (Auto) 2.6 % Basophils (%) (Auto) 0.6 % Neutrophils # (Auto) 7.38 K/uL Lymphocytes # (Auto) 2.19 K/uL Monocytes # (Auto) 1.36 K/uL Eosinophils # (Auto) 0.30 K/uL Basophils # (Auto) 0.07 K/uL RDW Standard Deviation 55.9 fL RDW Coefficient of Variation 14.2 % Immature Granulocyte % (Auto) 0.6 % Immature Granulocyte # (Auto) 0.07 K/uL Assessment and Plan Patient appears to have had prerenal azotemia likely from her use of diuretics and lactulose. As per nephrology I would suggest discontinuing the octreotide admitted to drinking at this point in time. This can be done by the hospitalist service. Recommendations Continue with antibiotic coverage Please give albumin on Sunday 1 g/kg Please discontinue octreotide admitted to drinking Please call with any questions or concerns
[2016-03-19] MEDS: MIDODRINE 2.5 MG TAB PO SCH (08:07)
[2016-03-19] MEDS: LACTULOSE SYRUP 30 GM/45 ML UDP PO SCH (08:08)
[2016-03-19] MEDS: RIFAXIMIN TAB 550 MG TAB PO SCH ×2 (08:09→21:07)
[2016-03-19] MEDS: PROPRANOLOL HCL 20 MG TAB PO SCH ×2 (08:10→21:06)
[2016-03-19] MEDS: PANTOprazole SOD 40 MG TAB PO SCH (08:10)
[2016-03-19] MEDS: MULTIVITAMIN TAB PO SCH (08:11)
[2016-03-19] MEDS: ALBUMIN HUMAN 25% 12.5 GM/50 ML VIAL IV SCH ×3 (09:19→19:44)
--- NOTE | 2016-03-19 12:17 | Nephrology Progress Note ---
Nephrology Progress Note Date of Service: Mar 19, 2016. Subjective 50 yo female seen for follow up of adria in setting of liver cirrhosis. pt was on lasix 40, spironolactone 100 for the past month and was complaining of frequent urination. complaining of mild abdominal pain. pt treated with albumin and fluids and creatinine improving. Objective Date Time Temp Pulse Resp B/P Pulse Ox O2 Delivery O2 Flow Rate FiO2 03/19/16 11:51 36.8 81 20 111/70 94 Room Air 03/19/16 08:00 93 Room Air 03/19/16 07:34 36.9 82 20 97/60 93 Room Air 03/19/16 04:13 Room Air 03/19/16 03:49 36.7 80 20 97/58 94 Room Air 03/19/16 00:36 Room Air 03/18/16 23:05 36.6 70 16 109/64 94 03/18/16 20:12 95 Room Air 03/18/16 19:06 36.3 70 20 113/66 95 Room Air 03/18/16 18:28 73 117/74 03/18/16 16:00 Room Air 03/18/16 15:30 70 16 114/73 Room Air 03/18/16 15:01 36.7 69 16 118/76 91 Room Air 03/18/16 14:35 72 18 120/71 97 Room Air Physical Exam: General-[id number] Eyes-+scleral icterus ENT-mmm Neck-supple Lungs-cta Heart-rrr Abdomen-bs+ s, +mild tendernes Extremities-no c/c/e Neuro-nonfocal Current Inpatient Medications Medications (Trade) Dose Ordered Sig/Fariba Route Start Time Stop Time Status Last Admin Dose Admin Ceftriaxone Sodium/Dextrose (Rocephin Inj/ Dextrose Add-[place] 50ML) 50 ml @ 100 mls/hr Q24H IV 03/17/16 20:30 03/27/16 20:29 03/18/16 20:55 100 MLS/HR Nitroglycerin (Nitrostat Tab) 0.4 mg UD PRN SL 03/17/16 20:30 04/16/16 20:29 Tramadol HCl (Ultram Tab) 25 mg Q6H PRN PO 03/17/16 20:30 04/16/16 20:29 Oxycodone HCl (Roxicodone Immediate Rel Tab) 5 mg Q6H PRN PO 03/17/16 20:30 03/31/16 20:29 03/19/16 04:04 5 MG Ondansetron HCl (Zofran Inj) 4 mg Q6H PRN IV 03/17/16 20:30 04/16/16 20:29 Lorazepam (Ativan Inj) 0.5 mg Q4H PRN IV 03/17/16 20:30 04/16/16 20:29 Folic Acid (Folvite Tab) 1 mg DAILY PO 03/18/16 09:00 04/17/16 08:59 03/19/16 08:10 1 MG Levothyroxine Sodium (Synthroid Tab) 137 mcg DAILYBB PO 03/18/16 06:30 04/17/16 06:29 03/19/16 05:28 137 MCG Loratadine (Claritin Tab) 10 mg DAILY PRN PO 03/17/16 20:30 04/16/16 20:29 Lorazepam (Ativan Tab) 1 mg BID PRN PO 03/17/16 20:30 04/16/16 20:29 Multivitamins (Multivitamin Tab) 1 tab DAILY PO 03/18/16 09:00 04/17/16 08:59 03/19/16 08:11 1 TAB Propranolol HCl (Inderal Tab) 60 mg BID PO 03/18/16 09:00 04/17/16 08:59 03/18/16 20:51 60 MG Rifaximin (Xifaxan Tab) 550 mg BID PO 03/17/16 21:00 04/16/16 20:59 03/19/16 08:09 550 MG Pantoprazole Sodium (Protonix Tab) 40 mg DAILY PO 03/18/16 09:00 04/17/16 08:59 03/19/16 08:10 40 MG Midodrine (Proamatine Tab) 5 mg TID@ PO 03/18/16 08:00 04/17/16 07:59 03/19/16 08:07 5 MG Albumin Human (Albumin 25%) 12.5 gm TID IV 03/17/16 21:00 03/20/16 20:59 03/19/16 09:19 12.5 GM Albuterol/ Ipratropium (Duoneb) 3 ml Q2H PRN INH 03/17/16 20:30 04/16/16 20:29 Hydromorphone HCl (Dilaudid Inj) 0.5 mg Q3H PRN IV 03/17/16 22:15 03/31/16 22:14 03/17/16 22:28 0.5 MG Menthol (Nice Nic) 1 nic PRN PRN PO 03/18/16 05:00 04/17/16 04:59 03/18/16 05:13 1 NIC Lactulose (Chronulac Syrup) 30 gm DAILY PO 03/18/16 09:00 04/22/16 20:59 03/19/16 08:08 30 GM Last 24 Hours Test 03/19/16 06:11 White Blood Count 11.37 K/uL Red Blood Count 2.63 M/uL Hemoglobin 9.6 g/dL Hematocrit 28.1 % Mean Corpuscular Volume 106.8 fL Mean Corpuscular Hemoglobin 36.5 pg Mean Corpuscular Hemoglobin Concent 34.2 g/dl Platelet Count 80 K/uL Mean Platelet Volume 11.0 fL Neutrophils (%) (Auto) 64.9 % Lymphocytes (%) (Auto) 19.3 % Monocytes (%) (Auto) 12.0 % Eosinophils (%) (Auto) 2.6 % Basophils (%) (Auto) 0.6 % Neutrophils # (Auto) 7.38 K/uL Lymphocytes # (Auto) 2.19 K/uL Monocytes # (Auto) 1.36 K/uL Eosinophils # (Auto) 0.30 K/uL Basophils # (Auto) 0.07 K/uL RDW Standard Deviation 55.9 fL RDW Coefficient of Variation 14.2 % Immature Granulocyte % (Auto) 0.6 % Immature Granulocyte # (Auto) 0.07 K/uL Sodium Level 134 mmol/L Potassium Level 5.1 mmol/L Chloride Level 108 mmol/L Carbon Dioxide Level 16 mmol/L Anion Gap 10.0 mmol/L Blood Urea Nitrogen 15 mg/dl Creatinine 1.00 mg/dl Est Creatinine Clear Calc Drug Dose 62.7 ml/min Estimated GFR () 76.1 Estimated GFR (Non- 65.6 BUN/Creatinine Ratio 15.3 Random Glucose 85 mg/dl Calcium Level 8.1 mg/dl Assessment & Plan [id number]-do not feel she has hepatorenal syndrome. creatinine improving. currently off octreotide and fluids. still on midodrine and albumin. will stop the midodrine today and continue the albumin. feel she was more volume depleted compared to HRS. would recommend lasix 20/spironolactone 50 upon discharge however respectfully defer to GI. would need repeat bmp a week after discharge to follow creatinine trend. metabolic acidosis-perhaps from continued diarrhea from the lactulose. to start sodium bicarb 650mg po bid. hyponatremia-likely from drinking lots of water in setting of adria. has improved wiht nromal saline. currently off fluids. on a fluid restriction. sodium is stable at 134. hyperkalemia-k is trending up. may improve is acidosis is corrected. on low k diet. continue to monitor.
--- NOTE | 2016-03-19 12:50 | Progress Note ---
Subjective Date of Service: Mar 19, 2016. Subjective Pt evaluation today including: conversation w/ patient, physical exam, lab review, review of studies, conversation w/ category consultant, review of inpatient medication list Saw/examined the patient in room 277 She is doing well today, eating well Ambulating, no other issues Denies abdominal pain, denies fevers/chills Problem List Medical Problems: (1) Abdominal pain Status: Acute (2) Abdominal pain Status: Acute (3) Headache Status: Acute (4) Hyperammonemia Status: Acute (5) Hyperbilirubinemia Status: Acute (6) Hyperbilirubinemia Status: Acute (7) Hypocalcemia Status: Acute (8) Hypomagnesemia Status: Acute (9) Hypomagnesemia Status: Acute (10) Hypophosphatemia Status: Acute (11) Thrombocytopenia Status: Acute Review of Systems Constitutional: No chills, No fever Respiratory: No shortness of breath Cardiac: No chest pain Abdomen: No diarrhea, No nausea, No pain, No vomiting Heme: No abnormal bleeding/bruising Medications Current Inpatient Medications Medications (Trade) Dose Ordered Sig/Fariba Route Start Time Stop Time Status Last Admin Dose Admin Ceftriaxone Sodium/Dextrose (Rocephin Inj/ Dextrose Add-[place] 50ML) 50 ml @ 100 mls/hr Q24H IV 03/17/16 20:30 03/27/16 20:29 03/18/16 20:55 100 MLS/HR Nitroglycerin (Nitrostat Tab) 0.4 mg UD PRN SL 03/17/16 20:30 04/16/16 20:29 Tramadol HCl (Ultram Tab) 25 mg Q6H PRN PO 03/17/16 20:30 04/16/16 20:29 Oxycodone HCl (Roxicodone Immediate Rel Tab) 5 mg Q6H PRN PO 03/17/16 20:30 03/31/16 20:29 03/19/16 04:04 5 MG Ondansetron HCl (Zofran Inj) 4 mg Q6H PRN IV 03/17/16 20:30 04/16/16 20:29 Lorazepam (Ativan Inj) 0.5 mg Q4H PRN IV 03/17/16 20:30 04/16/16 20:29 Folic Acid (Folvite Tab) 1 mg DAILY PO 03/18/16 09:00 04/17/16 08:59 03/19/16 08:10 1 MG Levothyroxine Sodium (Synthroid Tab) 137 mcg DAILYBB PO 03/18/16 06:30 04/17/16 06:29 03/19/16 05:28 137 MCG Loratadine (Claritin Tab) 10 mg DAILY PRN PO 03/17/16 20:30 04/16/16 20:29 Lorazepam (Ativan Tab) 1 mg BID PRN PO 03/17/16 20:30 04/16/16 20:29 Multivitamins (Multivitamin Tab) 1 tab DAILY PO 03/18/16 09:00 04/17/16 08:59 03/19/16 08:11 1 TAB Propranolol HCl (Inderal Tab) 60 mg BID PO 03/18/16 09:00 04/17/16 08:59 03/18/16 20:51 60 MG Rifaximin (Xifaxan Tab) 550 mg BID PO 03/17/16 21:00 04/16/16 20:59 03/19/16 08:09 550 MG Pantoprazole Sodium (Protonix Tab) 40 mg DAILY PO 03/18/16 09:00 04/17/16 08:59 03/19/16 08:10 40 MG Albumin Human (Albumin 25%) 12.5 gm TID IV 03/17/16 21:00 03/20/16 20:59 03/19/16 09:19 12.5 GM Albuterol/ Ipratropium (Duoneb) 3 ml Q2H PRN INH 03/17/16 20:30 04/16/16 20:29 Hydromorphone HCl (Dilaudid Inj) 0.5 mg Q3H PRN IV 03/17/16 22:15 03/31/16 22:14 03/17/16 22:28 0.5 MG Menthol (Nice Hasmukh) 1 hasmukh PRN PRN PO 03/18/16 05:00 04/17/16 04:59 03/18/16 05:13 1 HASMUKH Lactulose (Chronulac Syrup) 30 gm DAILY PO 03/18/16 09:00 04/22/16 20:59 03/19/16 08:08 30 GM Sodium Bicarbonate (Sodium Bicarbonate Tab) 650 mg BID PO 03/19/16 12:45 04/18/16 12:44 Objective Vital Signs Date Time Temp Pulse Resp B/P Pulse Ox O2 Delivery O2 Flow Rate FiO2 03/19/16 11:51 36.8 81 20 111/70 94 Room Air 03/19/16 08:00 93 Room Air 03/19/16 07:34 36.9 82 20 97/60 93 Room Air 03/19/16 04:13 Room Air 03/19/16 03:49 36.7 80 20 97/58 94 Room Air 03/19/16 00:36 Room Air 03/18/16 23:05 36.6 70 16 109/64 94 03/18/16 20:12 95 Room Air 03/18/16 19:06 36.3 70 20 113/66 95 Room Air 03/18/16 18:28 73 117/74 03/18/16 16:00 Room Air 03/18/16 15:30 70 16 114/73 Room Air 03/18/16 15:01 36.7 69 16 118/76 91 Room Air 03/18/16 14:35 72 18 120/71 97 Room Air Physical Exam General Appearance: no apparent distress Eyes: + abnormal sclerae exam (icteric) Respiratory/Chest: lungs clear, normal breath sounds, no respiratory distress, no accessory muscle use Cardiovascular: regular rate, rhythm, no edema, no murmur Abdomen: normal bowel sounds, non tender, soft Skin: + jaundice Laboratory Results Last 24 Hours Test 03/19/16 06:11 White Blood Count 11.37 K/uL Red Blood Count 2.63 M/uL Hemoglobin 9.6 g/dL Hematocrit 28.1 % Mean Corpuscular Volume 106.8 fL Mean Corpuscular Hemoglobin 36.5 pg Mean Corpuscular Hemoglobin Concent 34.2 g/dl Platelet Count 80 K/uL Mean Platelet Volume 11.0 fL Neutrophils (%) (Auto) 64.9 % Lymphocytes (%) (Auto) 19.3 % Monocytes (%) (Auto) 12.0 % Eosinophils (%) (Auto) 2.6 % Basophils (%) (Auto) 0.6 % Neutrophils # (Auto) 7.38 K/uL Lymphocytes # (Auto) 2.19 K/uL Monocytes # (Auto) 1.36 K/uL Eosinophils # (Auto) 0.30 K/uL Basophils # (Auto) 0.07 K/uL RDW Standard Deviation 55.9 fL RDW Coefficient of Variation 14.2 % Immature Granulocyte % (Auto) 0.6 % Immature Granulocyte # (Auto) 0.07 K/uL Sodium Level 134 mmol/L Potassium Level 5.1 mmol/L Chloride Level 108 mmol/L Carbon Dioxide Level 16 mmol/L Anion Gap 10.0 mmol/L Blood Urea Nitrogen 15 mg/dl Creatinine 1.00 mg/dl Est Creatinine Clear Calc Drug Dose 62.7 ml/min Estimated GFR () 76.1 Estimated GFR (Non- 65.6 BUN/Creatinine Ratio 15.3 Random Glucose 85 mg/dl Calcium Level 8.1 mg/dl Assessment and Plan This is a 50 year old female with PMH of alcoholic liver cirrhosis with complications including esophageal varices, and hx. of hepatorenal syndrome, HTN , HLD, bipolar disorder sent over to the ER by gastroenterology due to acute kidney injury Acute Kidney Injury Hepatorenal syndrome? 03/19 doing well, creat is now down to 1.0 d/c midodrine and octreotide albumin tomorrow / appreciate nephrology management patient presented with 2.1 creat after an increase in diuretics at this point, giving albumin and fluids creat down to 1.7 for now, I'll continue midodrine and octreotide as per GI fluid restriction and monitor BMP daily Alcoholic Liver Cirrhosis appreciate GI input for now, continue Rocephin for possible SBP abdomen does not seem distended enough for tap patient jaundiced and icteric continue Protonix, rifaximin, lactulose, propranolol holding diuretics: Lasix and Aldactone until improvement in kidney function HTN blood pressure stable continue propranolol for esophageal varices ppx hold diuretics and giving fluids, monitor BP Hypothyroidism continue home medds Bipolar Disorder continue home medications DVT ppx SCDs FULL CODE
[2016-03-19] MEDS: SODIUM BICARBONATE 650 MG TAB PO SCH ×2 (15:01→21:07)
[2016-03-19] MEDS: HYDROmorphone INJ 1 MG/ML SYR IV PRN (19:43)
[2016-03-19] MEDS: CEFTRIAXONE SOD INJ 1 GM in DEXTROSE 5% ADD-VANTAGE 50ML 50 ML IV SCH (21:07)
[2016-03-20] VITALS (10 sets, daily range): BP systolic 92–114; BP diastolic 54–65; PULSE 70–83; TEMP 36.8–37.1; O2SAT 93–95
[2016-03-20] MEDS: OXYCODONE HCL IR 5 MG TAB (IMMEDIATE RELEASE) PO PRN ×3 (00:09→23:57)
[2016-03-20] MEDS: HYDROmorphone INJ 1 MG/ML SYR IV PRN (03:31)
[2016-03-20] MEDS: LEVOTHYROXINE 137 MCG TAB PO SCH (06:42)
[2016-03-20] MEDS: LACTULOSE SYRUP 30 GM/45 ML UDP PO SCH (07:37)
--- NOTE | 2016-03-20 07:55 | Clinical Documentation Query ---
RICH Champion : CLINICAL DOCUMENTATION QUERY Patient is a 50 year old female admitted for acute kidney injury, ?hepatorenal syndrome. Documentation includes note of "Rocephin for possible SBP". Unfortunately, "SBP" is not a hospital approved abbreviation and therefore is not amenable to coding. Please explicitly state the clinical diagnosis associated with this acronym. Thank you. In your clinical opinion is this patient being managed for: ( X ) Possible spontaneous bacterial peritonitis ( ) Other explanation of clinical findings (Please Explain) ( ) Unable to determine (Please Define) ( ) Need to Discuss ( ) Not Agree The medical record reflects the following clinical findings, treatment, and risk factors. Clinical Indicators: As above Treatment: IV Rocephin Risk Factors: Alcoholic liver cirrhosis. Please clarify and document your clinical opinion in the progress notes and discharge summary. Terms such as "probable", "suspected", "likely", "questionable", "possible", or "still to be ruled out" are acceptable. IF IN AGREEMENT, YOU MUST DOCUMENT ABOVE DIAGNOSTIC STATEMENT IN DAILY PROGRESS NOTES AND DISCHARGE SUMMARY. This document is not part of the patient's record. Thank You, Bao Ackerman, RN [phone]
[2016-03-20 08:10] LABS: BUN/CREATININE RATIO 11.3 (10-20); CALCIUM 8.1 mg/dl (8.5-10.1); CREATININE 0.85 mg/dl (0.60-1.20); POTASSIUM 4.6 mmol/L (3.5-5.1)
[2016-03-20 08:24] LABS: HEMATOCRIT 26.3 % (37-47); MEAN CELL VOLUME 109.1 fL (80-100); MEAN CORPUSCULAR HEMOGLOBIN 36.9 pg (25-34); MEAN CORPUSCULAR HGB CONC 33.8 g/dl (32-36); MEAN PLATELET VOLUME 11.3 fL (7.4-10.4); PLATELET COUNT 77 K/uL (130-400); RED BLOOD COUNT 2.41 M/uL (4.2-5.4)
[2016-03-20 08:25] LABS: BASO % 0.5 %; BASO ABS # 0.04 K/uL (0-0.2); COMPLETE YES; ECHINOCYTES 2+; EOS % 2.6 %; IG% 0.5 %; LYMPH % 25.5 %; LYMPH ABS # 2.17 K/uL (1.2-3.4); MONO % 10.1 %; NEUT % 60.8 %; VACUOLIZATION 1+
[2016-03-20] MEDS: MULTIVITAMIN TAB PO SCH (09:41)
[2016-03-20] MEDS: SODIUM BICARBONATE 650 MG TAB PO SCH ×2 (09:41→20:44)
[2016-03-20] MEDS: ALBUMIN HUMAN 25% 12.5 GM/50 ML VIAL IV SCH ×2 (09:41→15:53)
[2016-03-20] MEDS: PROPRANOLOL HCL 20 MG TAB PO SCH ×3 (09:42→20:45)
[2016-03-20] MEDS: PANTOprazole SOD 40 MG TAB PO SCH (09:42)
[2016-03-20] MEDS: RIFAXIMIN TAB 550 MG TAB PO SCH ×2 (09:43→20:44)
--- NOTE | 2016-03-20 10:57 | Gastroenterology Progress Note ---
Progress Note Date of Service: Mar 20, 2016 Subjective Pt evaluation today including: conversation w/ patient, physical exam, chart review, lab review Patient was seen and examined this morning. She has no complaints. He abdominal distention and cramping is slightly relieved since decreasing her lactulose to once daily. She has been having difficulty complying with a fluid restriction as an outpatient and has been drinking a lot of water. She denies any relapse in ETOH use for me this morning. Review of Systems Constitutional: No chills, No fever, No weight loss Respiratory: No cough, No shortness of breath, No sputum, No wheezing Cardiac: No chest pain, No edema Abdomen: No GI bleeding, No constipation, No diarrhea, No nausea, No pain, No vomiting Medications Current Inpatient Medications Medications (Trade) Dose Ordered Sig/Fariba Route Start Time Stop Time Status Last Admin Dose Admin Ceftriaxone Sodium/Dextrose (Rocephin Inj/ Dextrose Add-[place] 50ML) 50 ml @ 100 mls/hr Q24H IV 03/17/16 20:30 03/27/16 20:29 03/19/16 21:07 100 MLS/HR Nitroglycerin (Nitrostat Tab) 0.4 mg UD PRN SL 03/17/16 20:30 04/16/16 20:29 Tramadol HCl (Ultram Tab) 25 mg Q6H PRN PO 03/17/16 20:30 04/16/16 20:29 03/19/16 18:04 25 MG Oxycodone HCl (Roxicodone Immediate Rel Tab) 5 mg Q6H PRN PO 03/17/16 20:30 03/31/16 20:29 03/20/16 00:09 5 MG Ondansetron HCl (Zofran Inj) 4 mg Q6H PRN IV 03/17/16 20:30 04/16/16 20:29 Lorazepam (Ativan Inj) 0.5 mg Q4H PRN IV 03/17/16 20:30 04/16/16 20:29 Folic Acid (Folvite Tab) 1 mg DAILY PO 03/18/16 09:00 04/17/16 08:59 03/20/16 09:41 1 MG Levothyroxine Sodium (Synthroid Tab) 137 mcg DAILYBB PO 03/18/16 06:30 04/17/16 06:29 03/20/16 06:42 137 MCG Loratadine (Claritin Tab) 10 mg DAILY PRN PO 03/17/16 20:30 04/16/16 20:29 Lorazepam (Ativan Tab) 1 mg BID PRN PO 03/17/16 20:30 04/16/16 20:29 Multivitamins (Multivitamin Tab) 1 tab DAILY PO 03/18/16 09:00 04/17/16 08:59 03/20/16 09:41 1 TAB Propranolol HCl (Inderal Tab) 60 mg BID PO 03/18/16 09:00 04/17/16 08:59 03/20/16 09:53 60 MG Rifaximin (Xifaxan Tab) 550 mg BID PO 03/17/16 21:00 04/16/16 20:59 03/20/16 09:43 550 MG Pantoprazole Sodium (Protonix Tab) 40 mg DAILY PO 03/18/16 09:00 04/17/16 08:59 03/20/16 09:42 40 MG Albumin Human (Albumin 25%) 12.5 gm TID IV 03/17/16 21:00 03/20/16 20:59 03/20/16 09:41 12.5 GM Albuterol/ Ipratropium (Duoneb) 3 ml Q2H PRN INH 03/17/16 20:30 04/16/16 20:29 Hydromorphone HCl (Dilaudid Inj) 0.5 mg Q3H PRN IV 03/17/16 22:15 03/31/16 22:14 03/20/16 03:31 0.5 MG Menthol (Nice Hasmukh) 1 hasmukh PRN PRN PO 03/18/16 05:00 04/17/16 04:59 03/18/16 05:13 1 HASMUKH Lactulose (Chronulac Syrup) 30 gm DAILY PO 03/18/16 09:00 04/22/16 20:59 03/19/16 08:08 30 GM Sodium Bicarbonate (Sodium Bicarbonate Tab) 650 mg BID PO 03/19/16 12:45 04/18/16 12:44 03/20/16 09:41 650 MG Objective Vital Signs Date Time Temp Pulse Resp B/P Pulse Ox O2 Delivery O2 Flow Rate FiO2 03/20/16 10:15 74 100/62 03/20/16 09:40 76 100/62 Room Air 03/20/16 08:00 Room Air 03/20/16 07:25 36.9 72 16 101/54 93 Room Air 03/20/16 04:35 37.0 83 20 93/57 95 Room Air 03/20/16 04:00 Room Air 03/20/16 00:00 Room Air 03/19/16 22:59 37.0 79 18 98/57 94 Room Air 03/19/16 20:13 37.1 79 18 96/60 97 Room Air 03/19/16 20:00 Room Air 03/19/16 16:00 93 Room Air 03/19/16 14:58 36.7 87 22 99/63 93 Room Air 03/19/16 12:00 95 Room Air 03/19/16 11:51 36.8 81 20 111/70 94 Room Air Physical Exam General Appearance: no apparent distress Eyes: PERRL Neck: supple, trachea midline Respiratory/Chest: lungs clear, normal breath sounds, no respiratory distress, no accessory muscle use Cardiovascular: regular rate, rhythm, no edema, no gallop, no JVD, no murmur Abdomen: normal bowel sounds, non tender, soft, no organomegaly, + pertinent finding (no ascites appreciated) Extremities: normal range of motion, no pedal edema Neurologic/Psych: alert, normal mood/affect, oriented x 3 Skin: warm/dry, no rash Laboratory Results Last 24 Hours Test 03/20/16 07:00 White Blood Count 8.50 K/uL Red Blood Count 2.41 M/uL Hemoglobin 8.9 g/dL Hematocrit 26.3 % Mean Corpuscular Volume 109.1 fL Mean Corpuscular Hemoglobin 36.9 pg Mean Corpuscular Hemoglobin Concent 33.8 g/dl Platelet Count 77 K/uL Mean Platelet Volume 11.3 fL Neutrophils (%) (Auto) 60.8 % Lymphocytes (%) (Auto) 25.5 % Monocytes (%) (Auto) 10.1 % Eosinophils (%) (Auto) 2.6 % Basophils (%) (Auto) 0.5 % Neutrophils # (Auto) 5.17 K/uL Lymphocytes # (Auto) 2.17 K/uL Monocytes # (Auto) 0.86 K/uL Eosinophils # (Auto) 0.22 K/uL Basophils # (Auto) 0.04 K/uL RDW Standard Deviation 56.6 fL RDW Coefficient of Variation 14.3 % Immature Granulocyte % (Auto) 0.5 % Immature Granulocyte # (Auto) 0.04 K/uL Toxic Vacuolation 1+ Echinocytes 2+ Sodium Level 136 mmol/L Potassium Level 4.6 mmol/L Chloride Level 108 mmol/L Carbon Dioxide Level 18 mmol/L Anion Gap 10.0 mmol/L Blood Urea Nitrogen 10 mg/dl Creatinine 0.85 mg/dl Est Creatinine Clear Calc Drug Dose 73.3 ml/min Estimated GFR () 92.6 Estimated GFR (Non- 79.9 BUN/Creatinine Ratio 11.3 Random Glucose 86 mg/dl Calcium Level 8.1 mg/dl Assessment and Plan Patient appears to have had prerenal azotemia likely from her use of diuretics and lactulose Continue with antibiotic coverage Please give albumin 1g/kg today Nephrology suggest lasix 20/spironolactone 50 at discharge - we will use this dosing of diuretics and monitor fluid status Please call with any questions or concerns Attg addendum: I interviewed and examined pt, reviewed chart and labs. Pt without complaints. Creat promptly improved with volume, suggesting that renal failure was due to volume depletion. Plan for d/c tomorrow - can cont rocephin until d/c for empiric rx SBP.
--- NOTE | 2016-03-20 12:08 | Progress Note ---
Subjective Date of Service: Mar 20, 2016. Subjective Pt evaluation today including: conversation w/ patient, physical exam, lab review, review of studies, review of inpatient medication list Saw/examined the patient in room 277 Doing well today; some abdominal discomfort, but soft good PO intake Problem List Medical Problems: (1) Abdominal pain Status: Acute (2) Abdominal pain Status: Acute (3) Headache Status: Acute (4) Hyperammonemia Status: Acute (5) Hyperbilirubinemia Status: Acute (6) Hyperbilirubinemia Status: Acute (7) Hypocalcemia Status: Acute (8) Hypomagnesemia Status: Acute (9) Hypomagnesemia Status: Acute (10) Hypophosphatemia Status: Acute (11) Thrombocytopenia Status: Acute Review of Systems Constitutional: No chills, No fever Respiratory: No cough, No shortness of breath Cardiac: No chest pain Abdomen: + pain, No diarrhea, No nausea, No vomiting Medications Current Inpatient Medications Medications (Trade) Dose Ordered Sig/Fariba Route Start Time Stop Time Status Last Admin Dose Admin Ceftriaxone Sodium/Dextrose (Rocephin Inj/ Dextrose Add-[place] 50ML) 50 ml @ 100 mls/hr Q24H IV 03/17/16 20:30 03/27/16 20:29 03/19/16 21:07 100 MLS/HR Nitroglycerin (Nitrostat Tab) 0.4 mg UD PRN SL 03/17/16 20:30 04/16/16 20:29 Tramadol HCl (Ultram Tab) 25 mg Q6H PRN PO 03/17/16 20:30 04/16/16 20:29 03/19/16 18:04 25 MG Oxycodone HCl (Roxicodone Immediate Rel Tab) 5 mg Q6H PRN PO 03/17/16 20:30 03/31/16 20:29 03/20/16 00:09 5 MG Ondansetron HCl (Zofran Inj) 4 mg Q6H PRN IV 03/17/16 20:30 04/16/16 20:29 Lorazepam (Ativan Inj) 0.5 mg Q4H PRN IV 03/17/16 20:30 04/16/16 20:29 Folic Acid (Folvite Tab) 1 mg DAILY PO 03/18/16 09:00 04/17/16 08:59 03/20/16 09:41 1 MG Levothyroxine Sodium (Synthroid Tab) 137 mcg DAILYBB PO 03/18/16 06:30 04/17/16 06:29 03/20/16 06:42 137 MCG Loratadine (Claritin Tab) 10 mg DAILY PRN PO 03/17/16 20:30 04/16/16 20:29 Lorazepam (Ativan Tab) 1 mg BID PRN PO 03/17/16 20:30 04/16/16 20:29 Multivitamins (Multivitamin Tab) 1 tab DAILY PO 03/18/16 09:00 04/17/16 08:59 03/20/16 09:41 1 TAB Propranolol HCl (Inderal Tab) 60 mg BID PO 03/18/16 09:00 04/17/16 08:59 03/20/16 09:53 60 MG Rifaximin (Xifaxan Tab) 550 mg BID PO 03/17/16 21:00 04/16/16 20:59 03/20/16 09:43 550 MG Pantoprazole Sodium (Protonix Tab) 40 mg DAILY PO 03/18/16 09:00 04/17/16 08:59 03/20/16 09:42 40 MG Albumin Human (Albumin 25%) 12.5 gm TID IV 03/17/16 21:00 03/20/16 20:59 03/20/16 09:41 12.5 GM Albuterol/ Ipratropium (Duoneb) 3 ml Q2H PRN INH 03/17/16 20:30 04/16/16 20:29 Hydromorphone HCl (Dilaudid Inj) 0.5 mg Q3H PRN IV 03/17/16 22:15 03/31/16 22:14 03/20/16 03:31 0.5 MG Menthol (Nice Hasmukh) 1 hasmukh PRN PRN PO 03/18/16 05:00 04/17/16 04:59 03/18/16 05:13 1 HASMUKH Lactulose (Chronulac Syrup) 30 gm DAILY PO 03/18/16 09:00 04/22/16 20:59 03/19/16 08:08 30 GM Sodium Bicarbonate (Sodium Bicarbonate Tab) 650 mg BID PO 03/19/16 12:45 04/18/16 12:44 03/20/16 09:41 650 MG Objective Vital Signs Date Time Temp Pulse Resp B/P Pulse Ox O2 Delivery O2 Flow Rate FiO2 03/20/16 11:48 37.1 73 16 99/58 94 03/20/16 10:15 74 100/62 03/20/16 09:40 76 100/62 Room Air 03/20/16 08:00 Room Air 03/20/16 07:25 36.9 72 16 101/54 93 Room Air 03/20/16 04:35 37.0 83 20 93/57 95 Room Air 03/20/16 04:00 Room Air 03/20/16 00:00 Room Air 03/19/16 22:59 37.0 79 18 98/57 94 Room Air 03/19/16 20:13 37.1 79 18 96/60 97 Room Air 03/19/16 20:00 Room Air 03/19/16 16:00 93 Room Air 03/19/16 14:58 36.7 87 22 99/63 93 Room Air Physical Exam General Appearance: no apparent distress Eyes: + pertinent finding (scleral icterus) Respiratory/Chest: lungs clear, normal breath sounds, no respiratory distress, no accessory muscle use Cardiovascular: regular rate, rhythm, no edema, no murmur Abdomen: normal bowel sounds, non tender, soft Extremities: normal inspection, no pedal edema Neurologic/Psychiatric: no motor/sensory deficits, alert, normal mood/affect Skin: + jaundice Laboratory Results Last 24 Hours Test 03/20/16 07:00 White Blood Count 8.50 K/uL Red Blood Count 2.41 M/uL Hemoglobin 8.9 g/dL Hematocrit 26.3 % Mean Corpuscular Volume 109.1 fL Mean Corpuscular Hemoglobin 36.9 pg Mean Corpuscular Hemoglobin Concent 33.8 g/dl Platelet Count 77 K/uL Mean Platelet Volume 11.3 fL Neutrophils (%) (Auto) 60.8 % Lymphocytes (%) (Auto) 25.5 % Monocytes (%) (Auto) 10.1 % Eosinophils (%) (Auto) 2.6 % Basophils (%) (Auto) 0.5 % Neutrophils # (Auto) 5.17 K/uL Lymphocytes # (Auto) 2.17 K/uL Monocytes # (Auto) 0.86 K/uL Eosinophils # (Auto) 0.22 K/uL Basophils # (Auto) 0.04 K/uL RDW Standard Deviation 56.6 fL RDW Coefficient of Variation 14.3 % Immature Granulocyte % (Auto) 0.5 % Immature Granulocyte # (Auto) 0.04 K/uL Toxic Vacuolation 1+ Echinocytes 2+ Sodium Level 136 mmol/L Potassium Level 4.6 mmol/L Chloride Level 108 mmol/L Carbon Dioxide Level 18 mmol/L Anion Gap 10.0 mmol/L Blood Urea Nitrogen 10 mg/dl Creatinine 0.85 mg/dl Est Creatinine Clear Calc Drug Dose 73.3 ml/min Estimated GFR () 92.6 Estimated GFR (Non- 79.9 BUN/Creatinine Ratio 11.3 Random Glucose 86 mg/dl Calcium Level 8.1 mg/dl Assessment and Plan This is a 50 year old female with PMH of alcoholic liver cirrhosis with complications including esophageal varices, and hx. of hepatorenal syndrome, HTN , HLD, bipolar disorder sent over to the ER by gastroenterology due to acute kidney injury Acute Kidney Injury Hepatorenal syndrome? 03/20 resolved creat < 1.0 today will give albumin today discharge on Lasix 20/Aldactone 50 on discharge likely d/c in AM (03/21) if okay with GI 03/19 doing well, creat is now down to 1.0 d/c midodrine and octreotide albumin tomorrow 03/18 appreciate nephrology management patient presented with 2.1 creat after an increase in diuretics at this point, giving albumin and fluids creat down to 1.7 for now, I'll continue midodrine and octreotide as per GI fluid restriction and monitor BMP daily Alcoholic Liver Cirrhosis appreciate GI input for now, continue Rocephin for possible SBP abdomen does not seem distended enough for tap patient jaundiced and icteric continue Protonix, rifaximin, lactulose, propranolol holding diuretics: Lasix and Aldactone until improvement in kidney function HTN blood pressure stable continue propranolol for esophageal varices ppx hold diuretics and giving fluids, monitor BP Hypothyroidism continue home medds Bipolar Disorder continue home medications DVT ppx SCDs FULL CODE
[2016-03-20] MEDS: CEFTRIAXONE SOD INJ 1 GM in DEXTROSE 5% ADD-VANTAGE 50ML 50 ML IV SCH (20:43)
[2016-03-21 00:06] VITALS: BP 110/61; PULSE 70; TEMP 36.8; O2SAT 94
[2016-03-21 04:51] VITALS: BP 106/62; PULSE 71; TEMP 36.8; O2SAT 95
[2016-03-21] MEDS: OXYCODONE HCL IR 5 MG TAB (IMMEDIATE RELEASE) PO PRN (05:40)
[2016-03-21] MEDS: LEVOTHYROXINE 137 MCG TAB PO SCH (05:40)
[2016-03-21] MEDS: LACTULOSE SYRUP 30 GM/45 ML UDP PO SCH (07:38)
[2016-03-21] MEDS: PANTOprazole SOD 40 MG TAB PO SCH (07:38)
[2016-03-21] MEDS: RIFAXIMIN TAB 550 MG TAB PO SCH (07:38)
[2016-03-21] MEDS: PROPRANOLOL HCL 20 MG TAB PO SCH (07:38)
[2016-03-21] MEDS: SODIUM BICARBONATE 650 MG TAB PO SCH (07:38)
[2016-03-21] MEDS: MULTIVITAMIN TAB PO SCH (07:38)
[2016-03-21 07:40] VITALS: BP 89/50; PULSE 70; TEMP 37.7; O2SAT 95
[2016-03-21 07:47] LABS: HEMATOCRIT 25.3 % (37-47); MEAN CELL VOLUME 107.2 fL (80-100); MEAN CORPUSCULAR HEMOGLOBIN 36.4 pg (25-34); MEAN PLATELET VOLUME 10.7 fL (7.4-10.4); PLATELET COUNT 71 K/uL (130-400); RED BLOOD COUNT 2.36 M/uL (4.2-5.4)
[2016-03-21 08:13] LABS: BUN/CREATININE RATIO 9.7 (10-20); CALCIUM 7.9 mg/dl (8.5-10.1); CREATININE 0.63 mg/dl (0.60-1.20); POTASSIUM 3.9 mmol/L (3.5-5.1)
[2016-03-21 08:18] LABS: ACANTHOCYTES 1+; BASO % 0.7 %; BASO ABS # 0.04 K/uL (0-0.2); COMPLETE YES; EOS % 2.6 %; IG% 0.3 %; LYMPH % 33.4 %; LYMPH ABS # 1.94 K/uL (1.2-3.4); VACUOLIZATION 1+
[2016-03-21 11:16] VITALS: BP 93/52; PULSE 76; TEMP 37.1; O2SAT 94
--- NOTE | 2016-03-21 14:17 | Progress Note ---
Internal Med Progress Note Date of Service: Mar 21, 2016. Provider Documentation: SUBJECTIVE: Patient is alert/awake and is lying in her bed in no apparent distress. Denies any chest pain/pressure or SOB. No nausea/vomiting. Has been able to ambulate in the hallway. No other new change or complaint. OBJECTIVE: Vital Signs-as noted below Examination: General Appearance: Alert/Awake and is in no apparent distress Eyes: + pertinent finding (scleral icterus) ENT: Ears, Nose & Throat are normal looking. Neck: Supple, Midline trachea Respiratory/Chest: lungs clear, normal breath sounds, no respiratory distress, no accessory muscle use Cardiovascular: regular rate, rhythm, no edema, no murmur Abdomen: normal bowel sounds, non tender, soft Extremities: normal inspection, no pedal edema Neurologic/Psychiatric: no motor/sensory deficits, alert, normal mood/affect Skin: + jaundice Lab data as noted below. ASSESSMENT & PLAN: 50 year old female with PMH of alcoholic liver cirrhosis with complications including esophageal varices, and hx. of hepatorenal syndrome, HTN, HLD, bipolar disorder sent over to the ER by gastroenterology due to acute kidney injury Acute Kidney Injury: Resolved now and Creatinine is at baseline. Hepatorenal syndrome? -Will discharge on Lasix 20/Aldactone 25 on discharge -Educated patient in detail about dietary precautions. Alcoholic Liver Cirrhosis: Stable. -Appreciate GI input -Abdomen does not seem distended enough for tap -Continue Protonix, rifaximin, lactulose, propranolol -Lasix and Aldactone to be started after discharge at reduced dose Hypertension: BP is stable. -Continue propranolol for esophageal varices ppx -Holding diuretics and giving fluids, monitor BP Hypothyroidism: Continue home meds Bipolar Disorder: Continue home medications DVT Prophylaxis: SCDs FULL CODE Disposition: Discharge home later today. Follow up with PCP on 03/27/2016 @ 11.10 AM. Follow up with GI in 1-2 weeks. Patient to call to make appointment. Vital Signs: Date Time Temp Pulse Resp B/P Pulse Ox O2 Delivery O2 Flow Rate FiO2 03/21/16 12:00 Room Air 03/21/16 11:16 37.1 76 16 93/52 94 Room Air 03/21/16 07:45 Room Air 03/21/16 07:40 37.7 70 16 89/50 95 Room Air 03/21/16 04:51 36.8 71 16 106/62 95 Room Air 03/21/16 04:00 Room Air 03/21/16 00:06 36.8 70 16 110/61 94 Room Air 03/21/16 00:00 Room Air 03/20/16 20:41 77 107/58 03/20/16 20:10 37.0 75 17 92/59 94 Room Air 03/20/16 20:00 Room Air 03/20/16 16:15 74 101/61 03/20/16 16:08 36.8 77 19 95/58 95 Room Air 03/20/16 16:00 Room Air 03/20/16 15:50 70 16 114/65 Room Air Lab Results: Results Past 24 Hours Test 03/21/16 06:40 Range/Units White Blood Count 5.80 4.8-10.8 K/uL Red Blood Count 2.36 4.2-5.4 M/uL Hemoglobin 8.6 12.0-16.0 g/dL Hematocrit 25.3 37-47 % Mean Corpuscular Volume 107.2 80-100 fL Mean Corpuscular Hemoglobin 36.4 25-34 pg Mean Corpuscular Hemoglobin Concent 34.0 32-36 g/dl Platelet Count 71 130-400 K/uL Mean Platelet Volume 10.7 7.4-10.4 fL Neutrophils (%) (Auto) 49.0 % Lymphocytes (%) (Auto) 33.4 % Monocytes (%) (Auto) 14.0 % Eosinophils (%) (Auto) 2.6 % Basophils (%) (Auto) 0.7 % Neutrophils # (Auto) 2.84 1.4-6.5 K/uL Lymphocytes # (Auto) 1.94 1.2-3.4 K/uL Monocytes # (Auto) 0.81 0.11-0.59 K/uL Eosinophils # (Auto) 0.15 0-0.5 K/uL Basophils # (Auto) 0.04 0-0.2 K/uL RDW Standard Deviation 55.6 36.4-46.3 fL RDW Coefficient of Variation 14.3 11.5-14.5 % Immature Granulocyte % (Auto) 0.3 % Immature Granulocyte # (Auto) 0.02 0.00-0.02 K/uL Toxic Vacuolation 1+ Acanthocytes 1+ Sodium Level 136 136-145 mmol/L Potassium Level 3.9 3.5-5.1 mmol/L Chloride Level 109 98-107 mmol/L Carbon Dioxide Level 17 21-32 mmol/L Anion Gap 10.0 3-11 mmol/L Blood Urea Nitrogen 6 7-18 mg/dl Creatinine 0.63 0.60-1.20 mg/dl Est Creatinine Clear Calc Drug Dose 98.7 ml/min Estimated GFR () 121.2 Estimated GFR (Non- 104.6 BUN/Creatinine Ratio 9.7 10-20 Random Glucose 80 70-99 mg/dl Calcium Level 7.9 8.5-10.1 mg/dl
[2016-03-21] MEDS ORDERED: SPIR25TA PO (14:26)
[2016-03-21] MEDS ORDERED: PROP10TA7 PO (14:26)
--- NOTE | 2016-03-21 14:28 | Discharge Instructions ---
Discharge Instructions Admission Reason for Admission: Renal Failure Discharge Discharge Diagnosis / Problem: Acute Renal failure (Resolved) Discharge Goals Goal(s): Decrease discomfort, Improve function, Increase independence, Improve disease control, Learn about illness, Diagnostic testing, Therapeutic intervention Activity Recommendations Activity Limitations: resume your previous activity ( Tolerated.) Exercise/Sports Limitations: as tolerated May Resume Sexual Activity: when tolerated Shower/Bathe: no limitations Driving or Machine Use: no limitations . Instructions / Follow-Up Instructions / Follow-Up 1. Follow dietary precautions as explained. 2. Please clarify with your PCP and/or GI regarding Prednisone. Follow up with PCP on 03/27/2016 @ 11.10 AM. Follow up with GI in 1-2 weeks. Patient to call to make appointment. Current Hospital Diet Patient's current hospital diet: Low Sodium Diet (2gm Na), Low Potassium Diet ( 2g K) Discharge Diet Recommended Diet: Low Potassium Diet (2g K) (Low Sodium Low Potassium Diet with 1800 ml fluid daily) Pending Studies Studies pending at discharge: no Medical Emergencies . Who to Call and When: Medical Emergencies: If at any time you feel your situation is an emergency, please call 911 immediately. . Non-Emergent Contact Non-Emergency issues call your: Primary Care Provider . . "Provider Documentation" section prepared by Guillermo Bee. VTE Core Measure Inpt VTE Proph given/why not?: SCD's
--- NOTE | 2016-03-21 14:31 | Discharge Summary ---
Discharge Summary Admission Date: Mar 17, 2016 at 17:44 Discharge Date: Mar 21, 2016 Discharge Disposition: Home Principal Diagnosis: Acute Renal failure Secondary Diagnoses/Problems: History Hypertension Hypothyroidism Alcoholic Liver Cirrhosis Bipolar Disorder Procedures: Limited abdominal ultrasound ASCITES-ABDOMEN LIMITED CLINICAL HISTORY: abd distension ascites TECHNIQUE: Ultrasound COMPARISON STUDY: 02/23/2016 FINDINGS: Survey film of the abdomen shows no significant ascites IMPRESSION: No significant ascites by survey ultrasound Vaccinations: NONE Consultations: GI Consultation Pending Studies/Follow-Up: Follow up BMP in 3-4 days Medication Reconciliation New Medications: Propranolol (Inderal) 10 Mg Tab 20 MG PO TIDM for 30 Days, TAB Spironolactone (Aldactone) 25 Mg Tab 1 TAB PO DAILY for 30 Days, #30 TAB 1 Refill Continued Medications: Albuterol (Ventolin Hfa) 60 Puffs/5400 Mcg Aers 2 PUFFS INH Q4H PRN for SOB/Wheezing Calcium Carbonate-Vitamin D (Calcium + D3 600-200 mg-Unit) 1 Tab Tab 1 TAB PO DAILY Cyanocobalamin (Vitamin B12) 1,000 Mcg Tab 1000 MCG PO DAILY Diphenhydramine Hcl (Benadryl Allergy) 25 Mg Cap 1 CAP PO HS for 30 Days, #30 CAP 1 Refill Folic Acid (Folvite) 1 Mg Tab 1 TAB PO DAILY for 90 Days, #90 TAB 1 Refill Furosemide (Furosemide) 20 Mg Tab 20 MG PO DAILY, #90 Lactulose (Lactulose) 30 Gm/45 Ml Syrp 30 GM PO TID for 30 Days, #4050 ML Levothyroxine Sodium (Levothyroxine Sodium) 137 Mcg Tab 1 TAB PO DAILY for 90 Days, #90 TAB 3 Refills Loratadine (Claritin) 10 Mg Tab 10 MG PO DAILY PRN for ALLERGIC REACTION, TAB Lorazepam (Ativan) 1 Mg Tab 1 MG PO BID PRN for Anxiety, TAB Magnesium Chloride (Slow-Mag Tab) 64 Mg Tab 64 MG PO DAILY, TAB Multivitamin (Multivitamin) Tab 1 TAB PO DAILY, TAB Omeprazole (Prilosec) 40 Mg Capcr 40 MG PO DAILY, CAP Ondansetron Tab (Zofran) 8 Mg Tab 1 TAB PO Q8 PRN for Nausea for 10 Days, #30 TAB 1 Refill Phenol (Antiseptic) (Chloraseptic) 1.4 % Spr 1 SPRAY PO DAILY PRN for SORE THROAT Pot Phosphate Monobasic W/ Sod (Phospha 250 Neutral) 1 Tab Tab 1 TAB PO DAILY Rifaximin (Xifaxan) 550 Mg Tab 550 MG PO BID, TAB Sumatriptan Succinate (Imitrex) 50 Mg Tab 50 MG PO PRN PRN for Headache, TAB [Iron] () 65 MG PO DAILY [Potassium Otc] () 1 TAB PO DAILY [vitamin c+biotin] () 1 TAB PO DAILY take 1 vitamin c 60mg + biotin 2500 mcg daily Discontinued Medications: Prednisone Tab (Prednisone) 10 Mg Tab 40 MG PO DAILY for 30 Days, #120 TAB Propranolol (Inderal) 60 Mg Tab 60 MG PO BID, TAB Spironolactone (Aldactone) 50 Mg Tab 1 TAB PO DAILY for 30 Days, #30 TAB 3 Refills Admission Information HPI (per Admitting provider): Patient seen and examined. 50 year old female with PMHx of alcoholic cirrhosis, portal HTN with esophageal varices, HTN, HLD, bipolar disorder and other problems listed below is seen as a direct admission for Dr. Rosas's office for acute renal failure. Patient was admitted to this hospital from 02/21- 02/24 for abdominal pain, ascites and possible SBP. She had a therapeutic paracentesis and was empirically treated for SBP with Rocephin and then discharged home on Cipro. She reports feeling well until today. Today she states she feels more drowsy and forgetful. She reports increase suprapubic abdominal pain that she describes as an annoyance. She states she forgot to take her afternoon dose of lactulose but otherwise has been compliant with her medications. She states her Lasix has been decreased to 20mg daily and her spironolactone to 50mg daily. She states her abdomen is starting to feel mildly distended. She reports chills and minimal dyspnea with exertion. She denies fevers URI symptoms, chest pain, palpitations, nausea, vomiting, diarrhea, dysuria, calf pain and edema. She reports she has not had alcohol in several months. As an outpatient patient's patient crea has increased from 0.8 to 2.2. K + has been elevated at 5.7. Sodium has been around 130. She was directly admitted to the medical floor. [facility] for further workup and treatment. Physical Exam (per Admitting): General Appearance: + pertinent finding (Pleasant WD/WN 50 year old female lying in bed in NAD with partner at bedside ) Head: normocephalic, atraumatic Eyes: PERRL, EOMI, + pertinent finding (scleral icterus ) ENT: hearing grossly normal, pharynx normal Neck: supple, no JVD, trachea midline Respiratory/Chest: chest non-tender, lungs clear, normal breath sounds, no respiratory distress, no accessory muscle use Cardiovascular: regular rate, rhythm, no edema, no gallop, no JVD, no murmur , normal peripheral pulses Abdomen/GI: normal bowel sounds, soft, + tenderness (suprapubic, mild ), + distended (mildly ) Back: normal inspection, no muscle spasm Extremities/Musculoskelatal: no calf tenderness, normal capillary refill, no pedal edema Neurologic/Psych: + pertinent finding (Alert&Ox3, no asterixis, no focal deficits noted on gross exam ) Skin: normal color, warm/dry, no rash Lymphatic: no adenopathy Hospital Course 50 year old female with PMH of alcoholic liver cirrhosis with complications including esophageal varices, and hx. of hepatorenal syndrome, HTN, HLD, bipolar disorder sent over to the ER by gastroenterology due to acute kidney injury Acute Kidney Injury: Resolved now and Creatinine is at baseline. -Will discharge on Lasix 20/Aldactone 25 on discharge -Educated patient in detail about dietary precautions. Alcoholic Liver Cirrhosis: Stable. -Appreciate GI input -Abdomen does not seem distended enough for tap -Continue Protonix, rifaximin, lactulose, propranolol -Lasix and Aldactone to be started after discharge at reduced dose Hypertension: BP is stable. -Continue propranolol for esophageal varices ppx -Holding diuretics and giving fluids, monitor BP Hypothyroidism: Continue home meds Bipolar Disorder: Continue home medications DVT Prophylaxis: SCDs FULL CODE Disposition: Discharge home later today. Follow up with PCP on 03/27/2016 @ 11.10 AM. Follow up with GI in 1-2 weeks. Patient to call to make appointment. Total time spent on discharge = 45 minutes. This includes examination of the patient, discharge planning, medication reconciliation, and communication with other providers. Discharge Instructions Discharge Goals Goal(s): Decrease discomfort, Improve function, Increase independence, Improve disease control, Learn about illness, Diagnostic testing, Therapeutic intervention Activity Recommendations Activity Limitations: resume your previous activity ( Tolerated.) Exercise/Sports Limitations: as tolerated May Resume Sexual Activity: when tolerated Shower/Bathe: no limitations Driving or Machine Use: no limitations . Instructions / Follow-Up Instructions / Follow-Up 1. Follow dietary precautions as explained. 2. Please clarify with your PCP and/or GI regarding Prednisone. Follow up with PCP on 03/27/2016 @ 11.10 AM. Follow up with GI in 1-2 weeks. Patient to call to make appointment. Additional Copies To Osorio Chase M.D.
[2016-03-21 14:36] VITALS: BP 93/52; PULSE 76; TEMP 37.1; O2SAT 94
[2016-04-14] MEDS ORDERED: MELA1TAB5 PO (08:20)
[2016-05-17] MEDS ORDERED: CIPR-255 PO (10:31)
[2016-09-16] MEDS ORDERED: FRS/40 PO (10:31)
[2016-09-16] MEDS ORDERED: BIOT1CHW PO (10:31)
[2016-09-16] MEDS ORDERED: LACT10SO17 PO (10:31)
[2016-09-16] MEDS ORDERED: SPIR100T PO (10:31)
[2016-09-16] MEDS ORDERED: POTA10CA28 PO (10:31)
[2016-09-16] MEDS ORDERED: PROP10TA7 PO (10:31)
[2016-09-16] MEDS ORDERED: MAGNTAB17 PO (10:31)
[2016-09-16] MEDS ORDERED: OMEP40CA41 PO (13:15)
[2016-09-16] MEDS ORDERED: ONDA8TAB12 PO (13:15)
[2016-09-16] MEDS ORDERED: LEVO137T3 PO (14:39)
[2016-09-16] MEDS ORDERED: POTTAB2 PO (15:08)
== END 2016-03-21 15:15 | disposition home or self-care (01) | DRG 682 ==
LOC: ENRESERVTM → ENRESERVDT → C.MS2W 17:44 → C.MED 21:15
PROVIDERS: ADMIT Internal Medicine; ATTEND Emergency Medicine
DX: N17.9 Acute kidney failure, unspecified (principal); K65.2 Spontaneous bacterial peritonitis; K76.7 Hepatorenal syndrome; E87.1 Hypo-osmolality and hyponatremia; I85.10 Secondary esophageal varices without bleeding; K76.6 Portal hypertension; E87.2 Acidosis; K70.10 Alcoholic hepatitis without ascites; E78.5 Hyperlipidemia, unspecified; F31.9 Bipolar disorder, unspecified; D64.9 Anemia, unspecified; F41.9 Anxiety disorder, unspecified; F10.20 Alcohol dependence, uncomplicated; G47.33 Obstructive sleep apnea (adult) (pediatric); K21.9 Gastro-esophageal reflux disease without esophagitis; I10 Essential (primary) hypertension; D69.6 Thrombocytopenia, unspecified; E03.9 Hypothyroidism, unspecified; G43.909 Migraine, unspecified, not intractable, without status migrainosus; E87.5 Hyperkalemia; K70.31 Alcoholic cirrhosis of liver with ascites; J30.9 Allergic rhinitis, unspecified; E86.9 Volume depletion, unspecified; T50.2X5A Adverse effect of carbonic-anhydrase inhibitors, benzothiadiazides and other diuretics, initial encounter; T47.3X5A Adverse effect of saline and osmotic laxatives, initial encounter; R19.7 Diarrhea, unspecified; R41.0 Disorientation, unspecified; R10.9 Unspecified abdominal pain; R14.0 Abdominal distension (gaseous); Z87.891 Personal history of nicotine dependence; Z86.14 Personal history of Methicillin resistant Staphylococcus aureus infection; Z79.899 Other long term (current) drug therapy; Z79.52 Long term (current) use of systemic steroids

== ENCOUNTER 2016-04-03 09:36 | Inpatient (IN) | payer OTHER ==
[~2016-04-03] VITALS: Ht 157.5 cm; Wt 71.1 kg
[~2016-04-03 09:36] MED LIST changes: -CPR500 PO; -PRED10TA PO; +PROP10TA7 PO; -PROP1TAB PO; +SPIR25TA PO; -SPIR50TA2 PO
[2016-04-03 10:55] VITALS: BP 100/67; PULSE 68; TEMP 36.4; O2SAT 100; Ht 157.5 cm; Wt 71.1 kg
[2016-04-03 13:12] LABS: BASO ABS # 0.09 K/uL (0-0.2); COMPLETE YES; EOS % 4.1 %; HEMATOCRIT 28.1 % (37-47); IG% 0.5 %; LYMPH % 32.5 %; LYMPH ABS # 2.84 K/uL (1.2-3.4); MEAN CELL VOLUME 99.3 fL (80-100); MEAN CORPUSCULAR HGB CONC 35.2 g/dl (32-36); MEAN PLATELET VOLUME 10.8 fL (7.4-10.4); MONO % 7.4 %; NEUT % 54.5 %; PLATELET COUNT 159 K/uL (130-400); RED BLOOD COUNT 2.83 M/uL (4.2-5.4); WHITE BLOOD COUNT 8.73 K/uL (4.8-10.8)
[2016-04-03] MEDS ORDERED: LCTL45 PO (13:14)
[2016-04-03] MEDS ORDERED: LORAZEPAM 1 MG TAB PO PRN (13:15)
[2016-04-03] MEDS ORDERED: ALBUTEROL HFA 8 GM INHALER INH PRN (13:15)
[2016-04-03] MEDS ORDERED: LORATADINE 10 MG TAB PO PRN (13:15)
[2016-04-03] MEDS ORDERED: SUMATRIPTAN SUCCINATE 50 MG TAB PO PRN (13:15)
[2016-04-03] MEDS ORDERED: CHLORASEPTIC 1.4% SOLN 180 ML BTL PO PRN (13:15)
[2016-04-03] MEDS ORDERED: SODIUM CHLORIDE 0.9% 1000ML 1,000 ML IV SCH (13:45)
--- NOTE | 2016-04-03 13:56 | History and Physical ---
History & Physical Date & Time of Service: Apr 03, 2016 at 13:16 Chief Complaint: Renal Failure Primary Care Physician: Osorio Chase M.D. History of Present Illness Source: patient, clinic records, hospital records This is a 50 y/o female with PMH of alcoholic cirrhosis, portal HTN, esophageal varices, HTN, dyslipidemia, bipolar disorder, who was sent as direct admission by Dr. Rosas for ELIZABETH. Patient was recently admitted from Mar 17-Mar 21 2016 for ARF. She was discharged on decreased dose of spironolactone 25 mg daily and Lasix 20 mg daily. She was kept on low K, low sodium diet with fluid restriction 1500 mL. Pt states since after discharge she is feeling the same as before she was admitted described as "tired, cold, hungry, and cranky". She reports eating normally and compliant with low sodium diet and fluid restriction - in fact has only been drinking approx 500 mL per day. She had 1 episode of vomiting a few days ago. She is no longer feeling nauseous. She did not eat today but is hungry. She reports diarrhea with the lactulose up to 5 BM/ day, but holds the lactulose if > 3 bm. Yesterday had 3 BM and none yet today. She reports chronic FRANZ with walking up stairs. She reports itching for several months. Jaundice has been improving. Denies fever, sweats, cough, SOB at rest, edema, increased abdominal girth, abdominal pain, dysuria, frequency, GI bleeding or other abnormal bleeding, confusion, weight gain, increased abdominal girth, edema. Past Medical/Surgical History Medical Problems: (1) Alcohol dependence Status: Chronic (2) Alcoholic liver disease Status: Chronic (3) Allergic rhinitis Status: Chronic (4) Anxiety Status: Chronic (5) Bipolar 1 disorder Status: Chronic (6) Depression Status: Chronic (7) Essential tremor Status: Chronic (8) GERD (gastroesophageal reflux disease) Status: Chronic (9) History of gastric ulcer Status: Chronic (10) History of GI bleed Permanent Comment: due to NSAIDs Status: Chronic (11) HTN (hypertension) Status: Chronic (12) Hypothyroidism Status: Chronic (13) Migraine Status: Chronic (14) Portal hypertension with esophageal varices Status: Chronic Surgical Problems: (1) H/O colonoscopy Permanent Comment: 08/20/2014- Diverticulosis in the sigmoid colon and in the descending colon. benign polyps. Status: Chronic (2) H/O esophagogastroduodenoscopy Permanent Comment: 07/20/2014- reflux esophagitis. benign eso stricture, dilated. Small hiatus hernia with Reilly erosions Status: Chronic (3) History of section Status: Resolved (4) History of tubal ligation Status: Resolved Family History Anxiety disorder BROTHER FH: bipolar disorder MOTHER Social History Smoking Status: Former Smoker Alcohol Use: last drink December 2015 Drug Use: none Marital Status: , in relationship Housing status: lives with family Occupational Status: unemployed Immunizations History of Influenza Vaccine: N/A History of Tetanus Vaccine?: Yes Tetanus Immunization Date: Apr 12, 2010 History of Pneumococcal: Unknown Pneumococcal Date: Nov 09, 2010 History of Hepatitis B Vaccine: Unknown Multi-Drug Resistant Organisms History of MDRO: Yes Type of MDRO: MRSA Allergies Coded Allergies: Citalopram (Verified Allergy, Severe, ENLARED HEART VALVES, 02/22/16) Quetiapine (Verified Allergy, Intermediate, unknown., 01/30/16) Home Medications Scheduled Calcium Carbonate-Vitamin D (Calcium + D3 600-200 mg-Unit), 1 TAB PO DAILY Cyanocobalamin (Vitamin B12), 1,000 MCG PO DAILY Diphenhydramine Hcl (Benadryl Allergy), 1 CAP PO HS Folic Acid (Folvite), 1 TAB PO DAILY Lactulose (Lactulose), 30 GM PO TID Levothyroxine Sodium (Levothyroxine Sodium), 1 TAB PO DAILY Magnesium Chloride (Slow-Mag Tab), 64 MG PO BID Multivitamin (Multivitamin), 1 TAB PO DAILY Omeprazole (Prilosec), 40 MG PO DAILY Pot Phosphate Monobasic W/ Sod (Phospha 250 Neutral), 1 TAB PO DAILY Propranolol (Inderal), 20 MG PO TIDM Rifaximin (Xifaxan), 550 MG PO BID [Iron], 65 MG PO DAILY [vitamin c+biotin], 1 TAB PO DAILY Scheduled PRN Albuterol (Ventolin Hfa), 2 PUFFS INH Q4H PRN for SOB/Wheezing Loratadine (Claritin), 10 MG PO DAILY PRN for ALLERGIC REACTION Lorazepam (Ativan), 1 MG PO BID PRN for Anxiety Ondansetron Tab (Zofran), 1 TAB PO Q8 PRN for Nausea Phenol (Antiseptic) (Chloraseptic), 1 SPRAY PO DAILY PRN for SORE THROAT Sumatriptan Succinate (Imitrex), 50 MG PO UD PRN for Headache Review of Systems Constitutional: + chills, + fatigue, No fever, No sweats Eyes: No worsening of vision ENT: + dental problems (foul breath, 2 "bad teeth", recently seen by dentist and given Rx for unknown abx- did not take because wanted to check with primary doc. one tooth planned for extraction and one for repair. not having tooth ache. ) Respiratory: + dyspnea on exertion, No cough, No dyspnea at rest Cardiovascular: No chest pain, No edema Abdomen: + diarrhea, + nausea (resolved), + vomiting (x1 a few days ago- resolved), No GI bleeding, No pain Genitourinary - Female: + problem reported (voided x 2 today), No dysuria, No urinary frequency Neurologic: No problem reported (no confusion) Psychiatric: + problem reported (irritable mood) Hematologic / Lymphatic: No problem reported (denies abnormal bleeding) Integumentary: + color change (jaundice- improving), + itch Physical Exam Vital Signs Date Time Temp Pulse Resp B/P Pulse Ox O2 Delivery O2 Flow Rate FiO2 04/03/16 10:55 36.4 68 18 100/67 100 Room Air General Appearance: WD/WN, no apparent distress, + pertinent finding (alert cooperative 50 year old female, lying in bed, no distress, boyfriend at bedside) Head: normocephalic, atraumatic Eyes: PERRL, EOMI, + pertinent finding (mild scleral icterus) ENT: hearing grossly normal, pharynx normal, + pertinent finding (poor dentition, appears to have multiple caries) Neck: supple, trachea midline Respiratory/Chest: lungs clear, normal breath sounds, no respiratory distress Cardiovascular: regular rate, rhythm, no murmur, normal peripheral pulses Abdomen/GI: normal bowel sounds, non tender, soft Extremities/Musculoskelatal: normal inspection, no calf tenderness, no pedal edema Neurologic/Psych: alert, normal mood/affect, oriented x 3, + pertinent finding (grossly nonfocal ) Skin: normal color, warm/dry, + pertinent finding (few excoriated areas on bilateral lower legs) Diagnostics Laboratory Results Results Past 24 Hours Test 2/20/17 12:55 04/03/16 12:57 Range/Units White Blood Count 8.73 4.8-10.8 K/uL Red Blood Count 2.83 4.2-5.4 M/uL Hemoglobin 9.9 12.0-16.0 g/dL Hematocrit 28.1 37-47 % Mean Corpuscular Volume 99.3 80-100 fL Mean Corpuscular Hemoglobin 35.0 25-34 pg Mean Corpuscular Hemoglobin Concent 35.2 32-36 g/dl Platelet Count 159 130-400 K/uL Mean Platelet Volume 10.8 7.4-10.4 fL Neutrophils (%) (Auto) 54.5 % Lymphocytes (%) (Auto) 32.5 % Monocytes (%) (Auto) 7.4 % Eosinophils (%) (Auto) 4.1 % Basophils (%) (Auto) 1.0 % Neutrophils # (Auto) 4.75 1.4-6.5 K/uL Lymphocytes # (Auto) 2.84 1.2-3.4 K/uL Monocytes # (Auto) 0.65 0.11-0.59 K/uL Eosinophils # (Auto) 0.36 0-0.5 K/uL Basophils # (Auto) 0.09 0-0.2 K/uL RDW Standard Deviation 52.7 36.4-46.3 fL RDW Coefficient of Variation 14.7 11.5-14.5 % Immature Granulocyte % (Auto) 0.5 % Immature Granulocyte # (Auto) 0.04 0.00-0.02 K/uL Impression Assessment and Plan ELIZABETH ON CKD STAGE III Likely prerenal from diuretics and fluid restriction On spironolactone 25 mg daily (reduced on recent admission) and Lasix 20 mg daily Cr increased from 1.5 ->2.4 on 03/31/16 as outpatient; now 1.3 in hospital today ; baseline is approx 0.7 K is WNL; mag is low- will replace Check UA, random urine sodium Hold diuretics Albumin 25 g q6h NSS at 80 mL/hour Renal diet without fluid restriction Consult nephrology; case d/w Dr. Self; appreciate recommendations ALCOHOLIC LIVER CIRRHOSIS Complicated by portal HTN with esophageal varices Pt reports abstinence from alcohol since Dec 2015 Continue Protonix, rifaximin, lactulose, propranolol Follows with Dr. Rosas HYPERTENSION BP is stable On propranolol due to esophageal varices Diuretics on hold for ELIZABETH Monitor BP CHRONIC ANEMIA Hg is 9.9; baseline approx 8's-10's Denies bleeding HYPOTHYROIDISM Continue levothyroxine BIPOLAR DISORDER Continue home medications DVT PROPHYLAXIS SCD's CODE STATUS Full code per preference on recent admission DISPOSITION Follows with Dr. Chase for primary care and Dr. Rosas for GI. Patient seen in collaboration with Dr. Hurd. Please see his addendum. Chris with above h and P. briefly 50F with hx of alcoholic liver cirrhosis was sent in BY GI for ARF.Recently her diuretics were decresed for renal function. Syas she tired and sleeps a lot. Half of the time stays alone and other half with her boy friend. Denies fever/chils. No chest pain or soob. 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 ARF cr 1.3 today in hospital received fluids and albumin G felt ok for discharge outpatient labs followup. Hypomagnesemia replaced f/u labs discharged home to followup with pcp and GI. Advanced Directives Existing Living Will: No Existing Power of Business Planning Analyst: No VTE Prophylaxis VTE Risk Assessment Done? Y/N: Yes Risk Level: Moderate
[2016-04-03] MEDS: LACTULOSE SYRUP 30 GM/45 ML UDP PO SCH ×2 (14:07→19:50)
[2016-04-03 14:22] LABS: BUN/CREATININE RATIO 12.9 (10-20); CALCIUM 8.6 mg/dl (8.5-10.1); CREATININE 1.3 mg/dl (0.60-1.20); MAGNESIUM 1.2 mg/dl (1.8-2.4); POTASSIUM 4.1 mmol/L (3.5-5.1)
[2016-04-03 14:53] LABS: URINE APPEARANCE CLEAR (CLEAR); URINE BILIRUBIN NEG (NEG); URINE COLOR YELLOW; URINE EPITHELIAL CELL AUTO 20-30 /lpf (0-5); URINE NITRITE NEG (NEG); URINE SPECIFIC GRAVITY 1.004 (1.000-1.030); UROBILINOGEN NEG (NEG); ZZUR CULT IF INDIC CLEAN CATCH NO
[2016-04-03 14:55] LABS: MANUAL MICROSCOPIC REQUIRED? NO; REVIEW REQ? NO
[2016-04-03 15:35] VITALS: BP 94/59; PULSE 79; TEMP 36.7; O2SAT 97
[2016-04-03] MEDS: MAGNESIUM SULFATE 1GM / D5W 1 GM in PREMIXED IN D5W 100 ML IV SCH ×2 (15:53→17:02)
[2016-04-03] MEDS ORDERED: ALBUMIN HUMAN 25% 12.5 GM/50 ML VIAL IV SCH ×2 (16:00→16:15)
[2016-04-03] MEDS ORDERED: PROPRANOLOL HCL 20 MG TAB PO SCH (17:00)
[2016-04-03] MEDS ORDERED: MAGNTAB4 PO (17:26)
--- NOTE | 2016-04-03 17:47 | Discharge Instructions ---
Discharge Instructions Admission Reason for Admission: Acute Kidney Injury Discharge Discharge Diagnosis / Problem: Acute Kidney Injury Discharge Goals Goal(s): Prevent Disease Progression Activity Recommendations Activity Limitations: resume your previous activity . Instructions / Follow-Up Instructions / Follow-Up Please hold spironolactone and furosemide until otherwise instructed by your physician. Your magnesium supplement was increased to twice per day. Please take all other medications as prescribed. Please continue the renal diet. You are not on a fluid restriction for the time being. You have a follow up appointment with Dr. Shi on 04/06/16 at 1 pm at [facility]. Please have labs drawn on prior to your appointment. It was a pleasure taking care of you! Call if you have any questions or problems. You can reach a [facility] hospitalist on duty at [facility] 24 hours a day by calling [phone]. Take care of yourself. Prema Sage PA-C [facility] Hospitalist Current Hospital Diet Patient's current hospital diet: Renal Diet Discharge Diet Recommended Diet: Renal Diet Pending Studies Studies pending at discharge: yes List of pending studies: Urine culture Medical Emergencies . Who to Call and When: Medical Emergencies: If at any time you feel your situation is an emergency, please call [phone] immediately. . Non-Emergent Contact Non-Emergency issues call your: Primary Care Provider . . "Provider Documentation" section prepared by Prema Sage. VTE Core Measure Inpt VTE Proph given/why not?: SCD's
[2016-04-03] MEDS ORDERED: MAGNESIUM SULFATE 1GM / D5W 1 GM in PREMIXED IN D5W 100 ML IV ONE (18:00)
[2016-04-03 18:02] VITALS: BP 100/64; PULSE 75
[2016-04-03] MEDS: ALBUMIN HUMAN 25% 12.5 GM/50 ML VIAL IV SCH ×2 (18:45→19:50)
[2016-04-03 19:03] VITALS: BP 99/67; PULSE 71; TEMP 36.5; O2SAT 97
[2016-04-03 19:38] VITALS: BP 99/67; PULSE 71; TEMP 36.5; O2SAT 97
[2016-04-03 20:32] VITALS: BP 106/68; PULSE 76; TEMP 36.7; O2SAT 98
[2016-04-03] MEDS ORDERED: RIFAXIMIN TAB 550 MG TAB PO SCH (21:00)
[2016-04-04] MEDS ORDERED: LEVOTHYROXINE 137 MCG TAB PO SCH (06:30)
--- NOTE | 2016-04-04 08:50 | NEPHROLOGY CONSULTATION ---
DATE OF CONSULTATION: 04/03/2016 ATTENDING OF RECORD: Dr. Rosales. REASON FOR CONSULTATION: ELIZABETH in the setting of cirrhosis. HISTORY OF PRESENT ILLNESS: This is a 50-year-old female who presented with ELIZABETH thought to be prerenal in nature. The patient was given fluids and creatinine has improved down to 1.3 compared to above 2. The patient was discharged yesterday prior to me seeing the patient. Consult was a routine consult. We will follow up with her as an outpatient. The patient was discharged off diuretics given the fact that the patient was on low dose spironolactone and Lasix and came in with a prerenal ELIZABETH. If patient starts to reaccumulate fluid, we will need diuretics restarted. The patient did receive 1 dose of albumin 12.5 grams as well as normal saline at 80 mL an hour. There was no bill for this consultation which was ordered. [facility]
[2016-04-04] MEDS ORDERED: MAGNESIUM CHLORIDE 64MG DELAYED REL TAB PO SCH (09:00)
[2016-04-04] MEDS ORDERED: CYANOCOBALAMIN 500 MCG TAB (VIT B-12) PO SCH (09:00)
[2016-04-04] MEDS ORDERED: POT PHOSPHATE MONOBASIC W/ SOD TAB PO SCH (09:00)
[2016-04-04] MEDS ORDERED: CALCIUM 600MG + VIT D 400 IU TAB PO SCH (09:00)
[2016-04-04] MEDS ORDERED: VITAMIN C PO SCH (09:00)
[2016-04-04] MEDS ORDERED: PANTOprazole SOD 40 MG TAB PO SCH (09:00)
[2016-04-04] MEDS ORDERED: BIOTIN PO SCH (09:00)
[2016-04-04] MEDS ORDERED: FERROUS SULFATE 325 MG TAB PO SCH (09:00)
[2016-04-04] MEDS ORDERED: MULTIVITAMIN TAB PO SCH (09:00)
[2016-04-14] MEDS ORDERED: MELA1TAB5 PO (08:20)
--- NOTE | 2016-04-18 14:32 | Discharge Summary ---
Discharge Summary Date of Service Apr 18, 2016. Discharge Summary Admission Date: Apr 03, 2016 at 10:12 Discharge Date: Apr 03, 2016 Discharge Disposition: Home Principal Diagnosis: arf hypomagnesemia Secondary Diagnoses/Problems: (1) Alcohol dependence Status: Chronic (2) Alcoholic liver disease Status: Chronic (3) Allergic rhinitis Status: Chronic (4) Anxiety Status: Chronic (5) Bipolar 1 disorder Status: Chronic (6) Depression Status: Chronic (7) Essential tremor Status: Chronic (8) GERD (gastroesophageal reflux disease) Status: Chronic (9) History of gastric ulcer Status: Chronic (10) History of GI bleed Permanent Comment: due to NSAIDs Status: Chronic (11) HTN (hypertension) Status: Chronic (12) Hypothyroidism Status: Chronic (13) Migraine Status: Chronic (14) Portal hypertension with esophageal varices Status: Chronic Consultations: NEPHROLOGY Medication Reconciliation New Medications: Magnesium Chloride (Slow-Mag Tab) 64 Mg Tabcr 64 MG PO BID for 30 Days, #60 TAB Continued Medications: Albuterol (Ventolin Hfa) 60 Puffs/5400 Mcg Aers 2 PUFFS INH Q4H PRN for SOB/Wheezing Calcium Carbonate-Vitamin D (Calcium + D3 600-200 mg-Unit) 1 Tab Tab 1 TAB PO DAILY Cyanocobalamin (Vitamin B12) 1,000 Mcg Tab 1000 MCG PO DAILY Diphenhydramine Hcl (Benadryl Allergy) 25 Mg Cap 1 CAP PO HS for 30 Days, #30 CAP 1 Refill Folic Acid (Folvite) 1 Mg Tab 1 TAB PO DAILY for 90 Days, #90 TAB 1 Refill Lactulose (Lactulose) 30 Gm/45 Ml Syrp 30 GM PO TID for 30 Days, #4050 ML Hold for greater than 3 BM per day. Levothyroxine Sodium (Levothyroxine Sodium) 137 Mcg Tab 1 TAB PO DAILY for 90 Days, #90 TAB 3 Refills Loratadine (Claritin) 10 Mg Tab 10 MG PO DAILY PRN for ALLERGIC REACTION, TAB Lorazepam (Ativan) 1 Mg Tab 1 MG PO BID PRN for Anxiety, TAB Multivitamin (Multivitamin) Tab 1 TAB PO DAILY, TAB Omeprazole (Prilosec) 40 Mg Capcr 40 MG PO DAILY, CAP Ondansetron Tab (Zofran) 8 Mg Tab 1 TAB PO Q8 PRN for Nausea for 10 Days, #30 TAB 1 Refill Phenol (Antiseptic) (Chloraseptic) 1.4 % Spr 1 SPRAY PO DAILY PRN for SORE THROAT Pot Phosphate Monobasic W/ Sod (Phospha 250 Neutral) 1 Tab Tab 1 TAB PO DAILY Propranolol (Inderal) 10 Mg Tab 20 MG PO TIDM for 30 Days, TAB Rifaximin (Xifaxan) 550 Mg Tab 550 MG PO BID, TAB Sumatriptan Succinate (Imitrex) 50 Mg Tab 50 MG PO UD PRN for Headache, TAB [Iron] () 65 MG PO DAILY [vitamin c+biotin] () 1 TAB PO DAILY take 1 vitamin c 60mg + biotin 2500 mcg daily Discontinued Medications: Furosemide (Furosemide) 20 Mg Tab 20 MG PO DAILY, #90 Magnesium Chloride (Slow-Mag Tab) 64 Mg Tab 64 MG PO DAILY, TAB Spironolactone (Aldactone) 25 Mg Tab 1 TAB PO DAILY for 30 Days, #30 TAB 1 Refill [Potassium Otc] () 1 TAB PO DAILY Admission Information HPI (per Admitting provider): This is a 50 y/o female with PMH of alcoholic cirrhosis, portal HTN, esophageal varices, HTN, dyslipidemia, bipolar disorder, who was sent as direct admission by Dr. Rosas for ELIZABETH. Patient was recently admitted from Mar 17-Mar 21 2016 for ARF. She was discharged on decreased dose of spironolactone 25 mg daily and Lasix 20 mg daily. She was kept on low K, low sodium diet with fluid restriction 1500 mL. Pt states since after discharge she is feeling the same as before she was admitted described as "tired, cold, hungry, and cranky". She reports eating normally and compliant with low sodium diet and fluid restriction - in fact has only been drinking approx 500 mL per day. She had 1 episode of vomiting a few days ago. She is no longer feeling nauseous. She did not eat today but is hungry. She reports diarrhea with the lactulose up to 5 BM/ day, but holds the lactulose if > 3 bm. Yesterday had 3 BM and none yet today. She reports chronic FRANZ with walking up stairs. She reports itching for several months. Jaundice has been improving. Denies fever, sweats, cough, SOB at rest, edema, increased abdominal girth, abdominal pain, dysuria, frequency, GI bleeding or other abnormal bleeding, confusion, weight gain, increased abdominal girth, edema. Physical Exam (per Admitting): General Appearance: WD/WN, no apparent distress, + pertinent finding (alert cooperative 50 year old female, lying in bed, no distress, boyfriend at bedside) Head: normocephalic, atraumatic Eyes: PERRL, EOMI, + pertinent finding (mild scleral icterus) ENT: hearing grossly normal, pharynx normal, + pertinent finding (poor dentition, appears to have multiple caries) Neck: supple, trachea midline Respiratory/Chest: lungs clear, normal breath sounds, no respiratory distress Cardiovascular: regular rate, rhythm, no murmur, normal peripheral pulses Abdomen/GI: normal bowel sounds, non tender, soft Extremities/Musculoskelatal: normal inspection, no calf tenderness, no pedal edema Neurologic/Psych: alert, normal mood/affect, oriented x 3, + pertinent finding (grossly nonfocal ) Skin: normal color, warm/dry, + pertinent finding (few excoriated areas on bilateral lower legs) Hospital Course PATINET WAS S[facility]. ELIZABETH ON CKD STAGE III Likely prerenal from diuretics and fluid restriction On spironolactone 25 mg daily (reduced on recent admission) and Lasix 20 mg daily Cr increased from 1.5 ->2.4 on 03/31/16 as outpatient; now 1.3 in hospital today ; baseline is approx 0.7 K is WNL; mag is low- will replace Check UA, random urine sodium Hold diuretics Albumin 25 g q6h NSS at 80 mL/hour Renal diet without fluid restriction Consult nephrology; case d/w Dr. Self; appreciate recommendations CR 1.3 IN THE LABS DONE IN HOSPITAL GI FELT OK FOR D/C PATIENT HOME AND FOLLOW OUT PATIENT PATIENT AGREED AND WAS DISCHARGED SAME DAY. ALCOHOLIC LIVER CIRRHOSIS Complicated by portal HTN with esophageal varices Pt reports abstinence from alcohol since Dec 2015 Continue Protonix, rifaximin, lactulose, propranolol Follows with Dr. Rosas HYPERTENSION BP is stable On propranolol due to esophageal varices Diuretics on hold for ELIZABETH Monitor BP CHRONIC ANEMIA Hg is 9.9; baseline approx 8's-10's Denies bleeding HYPOTHYROIDISM Continue levothyroxine BIPOLAR DISORDER Continue home medications DISCHARGED HOME Total time spent on discharge = 30MINUTES This includes examination of the patient, discharge planning, medication reconciliation, and communication with other providers. Discharge Instructions Please take this sheet to every appointment for the next month Discharge Instructions Admission Reason for Admission: Acute Kidney Injury Discharge Discharge Diagnosis / Problem: Acute Kidney Injury Discharge Goals Goal(s): Prevent Disease Progression Activity Recommendations Activity Limitations: resume your previous activity . Instructions / Follow-Up Instructions / Follow-Up Please hold spironolactone and furosemide until otherwise instructed by your physician. Your magnesium supplement was increased to twice per day. Please take all other medications as prescribed. Please continue the renal diet. You are not on a fluid restriction for the time being. You have a follow up appointment with Dr. Shi on 04/06/16 at 1 pm at [facility]. Please have labs drawn on prior to your appointment. It was a pleasure taking care of you! Call if you have any questions or problems. You can reach a [facility] hospitalist on duty at [facility] 24 hours a day by calling [phone]. Take care of yourself. Prema Sage PA-C [facility] Hospitalist Current Hospital Diet Patient's current hospital diet: Renal Diet Discharge Diet Recommended Diet: Renal Diet Pending Studies Studies pending at discharge: yes List of pending studies: Urine culture Medical Emergencies . Who to Call and When: Medical Emergencies: If at any time you feel your situation is an emergency, please call 911 immediately. . Non-Emergent Contact Non-Emergency issues call your: Primary Care Provider . . "Provider Documentation" section prepared by Prema Sage. VTE Core Measure Inpt VTE Proph given/why not?: SCD's
[2016-05-17] MEDS ORDERED: CIPR-255 PO (10:31)
[2016-09-16] MEDS ORDERED: PROP10TA7 PO (10:31)
[2016-09-16] MEDS ORDERED: MAGNTAB17 PO (10:31)
[2016-09-16] MEDS ORDERED: LACT10SO17 PO (10:31)
[2016-09-16] MEDS ORDERED: SPIR100T PO (10:31)
[2016-09-16] MEDS ORDERED: BIOT1CHW PO (10:31)
[2016-09-16] MEDS ORDERED: POTA10CA28 PO (10:31)
[2016-09-16] MEDS ORDERED: FRS/40 PO (10:31)
[2016-09-16] MEDS ORDERED: ONDA8TAB12 PO (13:15)
[2016-09-16] MEDS ORDERED: OMEP40CA41 PO (13:15)
[2016-09-16] MEDS ORDERED: LEVO137T3 PO (14:39)
[2016-09-16] MEDS ORDERED: POTTAB2 PO (15:08)
== END 2016-04-03 20:42 | disposition home or self-care (01) | DRG 683 ==
LOC: C.MS2W 10:12
PROVIDERS: ADMIT Hospitalist; ATTEND Hospitalist
DX: N17.9 Acute kidney failure, unspecified (principal); I85.10 Secondary esophageal varices without bleeding; K76.6 Portal hypertension; K70.30 Alcoholic cirrhosis of liver without ascites; E03.9 Hypothyroidism, unspecified; F31.9 Bipolar disorder, unspecified; Z79.899 Other long term (current) drug therapy; E78.5 Hyperlipidemia, unspecified; D64.9 Anemia, unspecified; N18.3 Chronic kidney disease, stage 3 (moderate); K21.9 Gastro-esophageal reflux disease without esophagitis; I12.9 Hypertensive chronic kidney disease with stage 1 through stage 4 chronic kidney disease, or unspecified chronic kidney disease; F10.20 Alcohol dependence, uncomplicated; F41.9 Anxiety disorder, unspecified; G43.909 Migraine, unspecified, not intractable, without status migrainosus; E83.42 Hypomagnesemia; G25.0 Essential tremor; J30.9 Allergic rhinitis, unspecified; Z87.19 Personal history of other diseases of the digestive system; Z87.891 Personal history of nicotine dependence; Z79.2 Long term (current) use of antibiotics

== ENCOUNTER → 2016-04-14 | Day surgery (SDC) | payer OTHER ==
[2016-02-24 10:31] VITALS: O2SAT 96
[~2016-04-14] VITALS: Ht 154.9 cm; Wt 76.0 kg
[~2016-04-14] MED LIST changes: +ATV1 PO; +BIOT1CHW PO; +CHOL1000 PO; +CIPR-255 PO; +CLR10 PO; +CPR500HP PO; +CYAN100020 PO; +FOLI1TAB7 PO; +FRS/40 PO; +LACT10SO17 PO; +LEVO137T3 PO; -LSX20 PO; +MAGNTAB17 PO; +MELA1TAB5 PO; +MULT-506 PO; +OMEP40CA41 PO; +ONDA8TAB12 PO; +POTA10CA28 PO; -POTASSIUM OTC PO; +POTTAB2 PO; +PRVHFAIN INH; +RIFA550T2 PO; +SPIR100T PO; -SPIR25TA PO; +SUMA50TA15 PO; +ZLF/50 PO
[2016-04-14 08:21] VITALS: BP 106/61; PULSE 68; TEMP 36.6; O2SAT 96; Ht 154.9 cm; Wt 76.0 kg
[2016-04-14] MEDS: ALBUMIN HUMAN 25% 12.5 GM/50 ML VIAL IV SCH ×4 (08:42→12:12)
[2016-04-14 08:44] LABS: HEMATOCRIT 24.7 % (37-47); MEAN CELL VOLUME 97.2 fL (80-100); MEAN CORPUSCULAR HEMOGLOBIN 33.9 pg (25-34); MEAN PLATELET VOLUME 10.5 fL (7.4-10.4); PLATELET COUNT 137 K/uL (130-400); RED BLOOD COUNT 2.54 M/uL (4.2-5.4); WHITE BLOOD COUNT 10.26 K/uL (4.8-10.8)
[2016-04-14 09:02] LABS: INR 2.2 (0.9-1.1); PARTIAL THROMBOPLASTIN RATIO 1.9; PROTHROMBIN TIME (PATIENT) 23.9 SECONDS (9.0-12.0)
[2016-04-14 09:17] LABS: ALB/GLOB RATIO 0.4 (0.9-2); BUN/CREATININE RATIO 11.8 (10-20); CREATININE 1.2 mg/dl (0.60-1.20)
[2016-04-14 09:30] LABS: MEAN CORPUSCULAR HGB CONC 34.8 g/dl (32-36)
--- NOTE | 2016-04-14 11:05 | Discharge Instructions ---
Discharge Instructions Procedure Procedure Date: Apr 14, 2016. Reason for visit: Ascites, Chest Pain, Leukocytosis W/Pre & Post Alb. Discharge Discharge Date: Apr 14, 2016. Discharge Diagnosis: Ascites Instructions Activity Recommendations: 1 Day-May resume regular activity, 48 Hours of decreased exertion, 1 Day with no exercise/sex/sports, 1 Day with no driving/ machine use Return to School/Work: limitations (light activity x 48 hours) Recommended Home Diet: Resume Previous Diet Provider Instructions: Ultrasound guided paracentesis was performed in the left lower quadrant. Approximately 2.8 liters of straw-colored ascitic fluid was removed by vacuum suction. The procedure was well tolerated and without immediate complication. Allergies Coded Allergies: Citalopram (Verified Allergy, Severe, ENLARED HEART VALVES, 04/14/16) Quetiapine (Verified Allergy, Intermediate, unknown., 04/14/16) Krista Simpson Recommendations: Call your doctor if: * Temperature above 101 degrees * Pain not relieved by pain medicine ordered * There is increased drainage or redness from any incision * You have any unanswered questions or concerns. Your Doctors Instructions noted above were prepared by provider Jarod Trevizo. Patient Signature Section: Patient Instructions Signature Page Alejandra Nash Patient (or Guardian) Signature/Date: I have read and understand the instructions given to me by my caregivers. Caregiver/RN/Doctor Signature/Date: The above-named patient and/or guardian has received patient instructions on this date. + Original Patient Signature Page (only) stays with chart. Please make copy for patient.
[2016-04-14 11:15] VITALS: BP 119/55; PULSE 66; TEMP 36.6; O2SAT 100
[2016-04-14 12:01] VITALS: BP 110/65; PULSE 65; TEMP 36.5; O2SAT 100
--- NOTE | 2016-04-14 12:03 | DIAGNOSTIC IMAGING REPORT ---
PARACENTESIS UNDER ULTRASOUND GUIDANCE CLINICAL HISTORY: Cirrhosis. PROCEDURE: The risks, benefits, and alternatives to the procedure were discussed with the patient who voiced understanding. Written informed consent was obtained. Following real-time ultrasound localization of a suitable pocket of fluid in the left lower quadrant, the abdomen was prepped and draped in the usual sterile fashion. The skin and soft tissues were anesthetized with 1% lidocaine. The sheathed paracentesis was inserted and approximately 2.8 liters of straw-colored ascitic fluid was removed by vacuum suction. The procedure was well tolerated and without immediate complication. The patient left the department in satisfactory condition. IMPRESSION: Successful ultrasound-guided paracentesis with removal of approximately 2.8 liters of ascitic fluid. Electronically signed by: Jarod Trevizo M.D. 04/14/2016 12:02 PM Dictated Date/Time: 04/14/2016 12:00 PM
[2016-04-14 12:13] VITALS: BP 109/69; PULSE 66; TEMP 36.6; O2SAT 100
[2016-04-14 13:00] VITALS: BP 106/67; PULSE 66; TEMP 36.4; O2SAT 100
== END | disposition home or self-care (01) ==
LOC: C.ACU 07:41 → EDSTATUS 08:00
PROVIDERS: ATTEND Internal Medicine Gastroenterology
DX: R18.8 Other ascites (principal); K74.60 Unspecified cirrhosis of liver

== ENCOUNTER → 2016-05-24 | Day surgery (SDC) | payer OTHER ==
[2016-05-17 10:32] VITALS: BMI 27.0
[~2016-05-24] VITALS: Ht 154.9 cm; Wt 68.2 kg
[~2016-05-24] MED LIST changes: -BIOTIN PO; -CALC-388 PO; -IRON PO; -LCTL45 PO; +LIDOCAINE HCL 2% 2 ML VIAL (20MG/ML) ONE; -MAGNTAB4 PO; +PROPOFOL IV EMULSION 10 MG/ML 20 ML VIAL IV ONE; +SODIUM CHLORIDE 0.9% 500ML 500 ML IV ONE; -VITAMIN C PO; -[UNRECOGNIZED DRUG - CODE] PO
[2016-05-24 12:09] VITALS: Ht 154.9 cm; Wt 68.2 kg
--- NOTE | 2016-05-24 12:29 | Endo History and Physical ---
History & Physical Date of Service: May 24, 2016. Chief Complaint: hx cirrhosis Referring Physician: Dr. Chase History of Present Illness 50 yo presenting for evaluation of screening for varices-no history of bleeding Past Medical History Other Psy. Disorders, Asthma, Reflux, Hypertension, Thyroid Disease, Kidney Disease, Liver Disease, Other, Depression Past Surgical History Hx Cardiac Surgery: No Hx Internal Defibrillator: No Hx Pacemaker: No Hx Abdominal Surgery: Yes (3 C-sections) Hx of Implantable Prosthesis: No Hx Post-Op Nausea and Vomiting: No Hx Cancer Surgery: No Hx Thoracic Surgery: No Hx Orthopedic: No Hx Urinary Tract Surgery: No Social History Smoking Status: Former Smoker Hx Substance Use: No Hx Alcohol Use: Yes (QUIT 12/2015 - ALCOHOLIC) Allergies Coded Allergies: Citalopram (Verified Allergy, Severe, ENLARED HEART VALVES, 05/24/16) Quetiapine (Verified Allergy, Intermediate, unknown., 05/24/16) Current Medications Reported Home Medications Medications Dose Route/Sig Max Daily Dose Days Date Category Slow-Mag (Magnesium Chloride-Calcium Car) 1 Tab Tab 1 Tab PO BID 05/17/16 Reported Hair Skin & Nails ... 1250-7.5-7.5 Mcg-mg-Unt (Biotin W/ Vitamins C & E) 1 Chw Chw 1 Tab PO QAM 05/17/16 Reported Inderal (Propranolol HCl) 10 Mg Tab 20 Mg PO TID 05/17/16 Reported Chronulac (Lactulose) 10 Gm/15 Ml Syrp 1 Dose PO TID 05/17/16 Reported Micro-K Ext Rel (Potassium Chloride) 10 Meq Capcr 10 Meq PO BID 05/17/16 Reported Aldactone (Spironolactone) 100 Mg Tab 100 Mg PO QAM 05/17/16 Reported Lasix (Furosemide) 40 Mg Tab 40 Mg PO QAM 05/17/16 Reported Cipro (Ciprofloxacin Hcl) 500 Mg Tab 500 Mg PO QAM 05/17/16 Reported Kp Melatonin (Melatonin) 3 Mg Tab 1 Tab PO HS 30 04/14/16 Reported Phospha 250 Neutral (Pot Phosphate Monobasic W/ Sod) 1 Tab Tab 1 Tab PO QAM 01/30/16 Reported Levothyroxine Sodium 137 Mcg Tab 1 Tab PO QAM 90 01/30/16 Reported Xifaxan (Rifaximin) 550 Mg Tab 550 Mg PO BID 07/23/15 Reported Ativan (Lorazepam) 1 Mg Tab 1 Mg PO BID PRN 06/12/15 Reported Vitamin B12 (Cyanocobalamin) 1,000 Mcg Tab 1,000 Mcg PO QAM 05/26/15 Reported Zofran (Ondansetron HCl) 8 Mg Tab 1 Tab PO Q8 PRN 10 05/07/15 Reported Folvite (Folic Acid) 1 Mg Tab 1 Tab PO QAM 90 05/07/15 Reported Prilosec (Omeprazole) 40 Mg Capcr 40 Mg PO QAM 05/07/15 Reported Multivitamin (Multivitamins) Tab 1 Tab PO QAM 05/07/15 Reported Benadryl Allergy (Diphenhydramine Hcl) 25 Mg Cap 2 Cap PO HS 05/07/15 Reported Imitrex (Sumatriptan Succinate) 50 Mg Tab 50 Mg PO UD PRN 05/07/15 Reported Ventolin Hfa (Albuterol) 60 Puffs/5400 Mcg Aers 2 Puffs INH Q4H PRN 05/07/15 Reported Claritin (Loratadine) 10 Mg Tab 10 Mg PO DAILY PRN 05/07/15 Reported Vital Signs Weight (Kilograms): 68.18 Height (Feet): 5 Height (Inches): 1 Date Time Temp Pulse Resp B/P Pulse Ox O2 Delivery O2 Flow Rate FiO2 05/24/16 12:16 36.9 70 20 103/60 100 Room Air Physical Exam General Appearance: WD/WN, no apparent distress Respiratory/Chest: Respiratory effort: no dyspnea Auscultation: breath sounds normal, CTA except as noted, no wheezing Cardiovascular: Apical Impulse: not displaced Heart Auscultation: RRR, normal S1, normal S2 Abdomen: Bowel Sounds: normal Inspection & Palpation: soft, non-distended Assessment and Plan 50 yo presenting for variceal screening
--- NOTE | 2016-05-24 13:01 | GI REPORT ---
Procedure Date: 05/24/2016 12:46 PM Procedure: Upper GI endoscopy Indications: Cirrhosis rule out esophageal varices Medicines: General Anesthesia Complications: No immediate complications. Estimated blood loss: None. Estimated Blood Loss: Estimated blood loss: none. Procedure: Pre-Anesthesia Assessment: - Pre-Anesthesia Assessment: - Prior to the procedure, a History and Physical was performed, and patient medications, allergies and sensitivities were reviewed. The patient's tolerance of previous anesthesia was reviewed. Please see [employer] for complete details. - The risks and benefits of the procedure and the sedation options and risks were discussed with the patient. All questions were answered and informed consent was obtained. - Patient identification and proposed procedure were verified prior to the procedure by the physician and the nurse. The procedure was verified in the pre-procedure area in the procedure room. After obtaining informed consent, the endoscope was passed carefully and meticuously under direct vision and only advanced when the lumen was clearly identified, C02 insuflation was utilized throughout the entirity of the procedure. Throughout the procedure, the patient's blood pressure, pulse, and oxygen saturations were monitored continuously. After obtaining informed consent, the endoscope was passed under direct vision. Throughout the procedure, the patient's blood pressure, pulse, and oxygen saturations were monitored continuously. The scope was introduced through the mouth, and advanced to the body of the stomach. The upper GI endoscopy was accomplished without difficulty. The patient tolerated the procedure well. Findings: Grade I varices were found in the lower third of the esophagus. A large amount of food (residue) was found in the gastric body. procedure aborted after visualizing food An examination of the duodenum was not performed. Impression: - Grade I esophageal varices. - A large amount of food (residue) in the stomach. - No specimens collected. Recommendation: - Discharge patient to home (with escort). - Return to referring physician as previously scheduled. - Discuss merits of beta-blockade for prophyaxis with Dr. Ralph Parson MD 05/24/2016 1:00:39 PM This report has been signed electronically. Note Initiated On: 05/24/2016 12:46 PM I attest to the content of the Intraoperative Record and orders documented therein, exceptions below
--- NOTE | 2016-05-24 13:02 | Discharge Instructions ---
Endoscopy Patient Instructions Date / Procedure(s) Performed May 24, 2016. EGD Allergy Information Coded Allergies: Citalopram (Verified Allergy, Severe, ENLARED HEART VALVES, 05/24/16) Quetiapine (Verified Allergy, Intermediate, unknown., 05/24/16) Discharge Date / Findings May 24, 2016. Small varices Significant food in stomach Follow up with Dr. Rosas Medication Instructions Stopped Medication(s): just didn't take anything Provider Instructions Activity Restrictions - No exercising or heavy lifting for 24 hours. - Do not drink alcohol the day of the procedure. - Do not drive a car or operate machinery until the day after the procedure. - Do not make any important decisions or sign important papers in 24 hours after the procedure. Following Day: - Return to full activity which may include returning to work/school. Diet Start your diet with liquids and light foods (jello, soup, juice, toast). Then eat your usual diet if not nauseated. Treatment For Common After Affects For mild abdominal pain, bloating, or excessive gas: - Rest - Eat lightly - Lie on right side Follow-Up Information Follow-up with Dr. Chase as scheduled Anesthesia Information What You Should Know You have had a procedure that required some medicine to reduce anxiety and discomfort. This treatment is called moderate sedation. After receiving the treatment, you may be sleepy, but you will be able to breathe on your own. The effects of the treatment may last for several hours. Follow these instructions along with Activity/Diet recommendations noted above: * Do NOT do anything where dizziness or clumsiness would be dangerous. * Rest quietly at home today, then you can be up and about tomorrow. * Have a responsible person stay with you the rest of today. * You may have had an I.V. today. If so, you may take the dressing off later today. Recommendations Call your doctor if: * Trouble breathing * Continuous vomiting for more than 24 hours * Temperature above 101 degrees * Severe abdominal pain or bloating * Pain not relieved by pain medicine ordered * There is increased drainage or redness from any incision * A large amount of rectal bleeding greater than 2-3 tablespoons. (If you had a polyp/s removed or have hemorrhoids, a small amount of blood - from the rectum is to be expected.) * You have any unanswered questions or concerns. IN THE EVENT OF A SERIOUS EMERGENCY, GO TO THE NEAREST EMERGENCY ROOM Your discharge instructions were prepared by provider He Parson. Patient Instructions Signature Page Alejandra Saad Patient (or Guardian) Signature/Date: I have read and understand the instructions given to me by my caregivers. Caregiver/RN/Doctor Signature/Date: The above-named patient and/or guardian has received patient instructions on this date. + Original Patient Signature Page (only) stays with chart. Please make copy for patient.
[2016-05-24 13:31] VITALS: BP 110/66; PULSE 70; O2SAT 100
--- NOTE | 2016-05-24 14:54 | Anesthesiology Progress Note ---
Anesthesia Post Op Note Date & Time May 24, 2016 at 14:53 Vital Signs Pain Intensity: 0 Vital Signs Past 12 Hours Date Time Temp Pulse Resp B/P Pulse Ox O2 Delivery O2 Flow Rate FiO2 05/24/16 13:31 70 20 110/66 100 Room Air 05/24/16 13:15 76 12 109/58 100 Room Air 05/24/16 13:08 100/57 05/24/16 13:00 69 12 89/47 98 Room Air 05/24/16 12:16 36.9 70 20 103/60 100 Room Air Notes Mental Status: alert / awake / arousable, participated in evaluation Pt Amnestic to Procedure: Yes Nausea / Vomiting: adequately controlled Pain: adequately controlled Airway Patency, RR, SpO2: stable & adequate BP & HR: stable & adequate Hydration State: stable & adequate Anesthetic Complications: no major complications apparent
== END | disposition home or self-care (01) ==
LOC: C.GI 11:25
PROVIDERS: ATTEND Internal Medicine
DX: I85.00 Esophageal varices without bleeding (principal); J45.909 Unspecified asthma, uncomplicated; K21.9 Gastro-esophageal reflux disease without esophagitis; I10 Essential (primary) hypertension; Z87.891 Personal history of nicotine dependence

== ENCOUNTER 2016-07-11 19:41 | Inpatient (IN) | payer OTHER ==
[~2016-07-11] VITALS: Ht 156.2 cm; Wt 68.7 kg
[~2016-07-11 19:41] MED LIST changes: -ATV1 PO; -BIOT1CHW PO; -CHOL1000 PO; -CLR10 PO; -CPR500HP PO; -CYAN100020 PO; -FOLI1TAB7 PO; -FRS/40 PO; -LACT10SO17 PO; -LEVO137T3 PO; -LIDOCAINE HCL 2% 2 ML VIAL (20MG/ML) ONE; -MAGNTAB17 PO; -MULT-506 PO; -OMEP40CA41 PO; -ONDA8TAB12 PO; -POTA10CA28 PO; -POTTAB2 PO; -PROP10TA7 PO; -PROPOFOL IV EMULSION 10 MG/ML 20 ML VIAL IV ONE; -PRVHFAIN INH; -RIFA550T2 PO; -SODIUM CHLORIDE 0.9% 500ML 500 ML IV ONE; -SPIR100T PO; -SUMA50TA15 PO; -ZLF/50 PO
--- NOTE | 2016-07-11 20:29 | EMERGENCY ROOM VISIT NOTE ---
History Report prepared by Elda: Urvashi Vail Under the Supervision of: Dr. Chris Lowry M.D. First contact with patient: 20:11 Chief Complaint: GI ASSESSMENT Stated Complaint: HEPATIC ENCEPHALOPATHY History of Present Illness The patient is a 50 year old female who presents to the Emergency Room for a GI assessment. The patient has a history of alcoholism and cirrhosis of the liver. She states that she is no longer drinking alcohol and has not had anything to drink since December 13. The patient states that she is using her lactulose every day. Per daughter, the patient has been more confused over the past 4 days. She has hepatic encephalopathy and is refusing to get treatment. She has been slurring her words and saying things that do not make sense. She has been weak and falling down often. The patient's mother called an ambulance 4 days ago and the patient refused to come in and get treatment at that time. Today her PCP's office called and spoke with the patient. They were concerned after talking with her and sent [facility] to evaluate the patient. Daughter states that the patient said she wanted to live for her daughter's wedding and then . The wedding is on August 05. 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 Please see Additional Medical History Sheet. Past Medical & Surgical Medical Problems: (1) Abdominal pain (2) Alcohol dependence (3) Alcoholic liver disease (4) Allergic rhinitis (5) Anxiety (6) ARF (acute renal failure) (7) Bipolar 1 disorder (8) Chest pain (9) Depression (10) Encephalopathy (11) Essential tremor (12) GERD (gastroesophageal reflux disease) (13) History of gastric ulcer (14) History of GI bleed (15) HTN (hypertension) (16) Hyperkalemia (17) Hypothyroidism (18) Migraine (19) Portal hypertension with esophageal varices Surgical Problems: (1) H/O colonoscopy (2) H/O esophagogastroduodenoscopy (3) History of section (4) History of tubal ligation Family History Anxiety disorder BROTHER FH: bipolar disorder MOTHER Social History Smoking Status: Former Smoker Alcohol Use: other (Former alcoholic) Drug Use: none Marital Status: , in relationship Occupation Status: unemployed Current/Historical Medications Scheduled Biotin W/ Vitamins C & E (Hair Skin & Nails ... 1250-7.5-7.5 Mcg-mg-Unt), 1 TAB PO QAM Ciprofloxacin Hcl (Cipro), 500 MG PO QAM Cyanocobalamin (Vitamin B12), 1,000 MCG PO QAM Diphenhydramine Hcl (Benadryl Allergy), 2 CAP PO HS Folic Acid (Folvite), 1 TAB PO QAM Furosemide (Lasix), 40 MG PO QAM Lactulose (Chronulac), 1 DOSE PO TID Levothyroxine Sodium (Levothyroxine Sodium), 1 TAB PO QAM Magnesium Chloride-Calcium Car (Slow-Mag), 1 TAB PO BID Melatonin (Kp Melatonin), 1 TAB PO HS Multivitamin (Multivitamin), 1 TAB PO QAM Omeprazole (Prilosec), 40 MG PO QAM Pot Phosphate Monobasic W/ Sod (Phospha 250 Neutral), 1 TAB PO QAM Potassium Chloride (Micro-K Ext Rel), 10 MEQ PO BID Propranolol (Inderal), 10 MG PO TID Rifaximin (Xifaxan), 550 MG PO BID Spironolactone (Aldactone), 100 MG PO QAM Scheduled PRN Albuterol (Ventolin Hfa), 2 PUFFS INH Q4H PRN for SOB/Wheezing Loratadine (Claritin), 10 MG PO DAILY PRN for ALLERGIC REACTION Lorazepam (Ativan), 1 MG PO BID PRN for Anxiety Ondansetron Tab (Zofran), 1 TAB PO Q8 PRN for Nausea Sumatriptan Succinate (Imitrex), 50 MG PO UD PRN for Headache Allergies Coded Allergies: Citalopram (Verified Allergy, Severe, ENLARED HEART VALVES, 07/11/16) Quetiapine (Verified Allergy, Intermediate, unknown., 07/11/16) Physical Exam Vital Signs Date Time Temp Pulse Resp B/P Pulse Ox O2 Delivery O2 Flow Rate FiO2 07/12/16 00:01 104/63 07/11/16 23:46 90 16 97 07/11/16 23:31 126/71 07/11/16 23:16 85 24 98 07/11/16 23:11 87 18 97 07/11/16 23:02 119/72 5/30/17 22:41 92 22 98 07/11/16 22:31 142/94 07/11/16 22:23 97 07/11/16 22:11 97 Room Air 07/11/16 22:10 133/79 07/11/16 19:50 36.8 91 18 116/75 95 Room Air Physical Exam GENERAL: Patient awake, slow to answer questions, disoriented to date. Patient follows commands. Patient does not appear toxic. Patient is adequately hydrated and well-nourished. SKIN: Jaundiced. No erythema, pallor, cyanosis or rash HEENT: Normal head, pupils equal, reactive to light and accommodation, eyes icteric. Oral cavity and posterior pharynx appear normal. Neck: Without adenopathy, no neck vein distention. LUNGS: Clear to auscultation. No wheezes, no rales, no rhonchi. HEART: No murmurs. No gallops. No rubs ABDOMEN: Slightly distended, nontender. No masses, no rebound, no hepatomegaly or splenomegaly. EXTREMITIES: No signs of trauma. No pedal or pretibial edema. No calf or thigh tenderness. NEUROLOGIC: Cranial nerves II-XII within normal limits. No gross motor sensory function deficits. Medical Decision & Procedures ER Provider Diagnostic Interpretation: Radiology results as stated below per my review and radiologist interpretation: SINGLE VIEW CHEST CLINICAL HISTORY: Hepatic encephalopathy. FINDINGS: An AP, portable, upright chest radiograph is compared to study dated 03/17/2016 and correlated with chest CT dated 07/24/2015. The examination is degraded by portable technique and patient rotation. The heart is top normal for projection. The pulmonary vasculature is noncongested. A hiatal hernia is noted. There is bibasilar atelectasis. Linear atelectasis versus scarring is present in the right midlung. No airspace consolidation typical for pneumonia or large pleural effusion is identified. No pneumothorax is seen. The skeletal structures are osteopenic. The bony thorax is grossly intact. Scoliosis is noted in the thoracic spine. IMPRESSION: No acute cardiopulmonary abnormality. Electronically signed by: Jarod Trevizo M.D. 07/11/2016 10:01 PM Dictated Date/Time: 07/11/2016 9:[address] SCAN OF THE BRAIN WITHOUT IV CONTRAST CLINICAL HISTORY: Hepatic encephalopathy. COMPARISON STUDY: CT of the brain dated 01/30/2016. TECHNIQUE: Unenhanced axial CT scan of the brain is performed from the vertex to the skull base. CT DOSE: 709.48 mGy.cm FINDINGS: Brain parenchyma: There are mildly age-advanced involutional changes with minimal subcortical and periventricular microangiopathic change. There is no hemorrhage, mass effect, or evidence of acute territorial ischemia by CT criteria. Garcia-white matter is preserved. No extra-axial fluid collection is seen. Ventricles, sulci, cisterns: Prominent secondary to involutional change. Intracranial vasculature: Partially visualized intracranial vessels at the skull base are grossly unremarkable. Calvarium: Unremarkable. Sinuses and mastoids: The visualized paranasal sinuses are clear. The mastoid air cells are well pneumatized. Orbits: The bony orbits are grossly intact. IMPRESSION: There is no hemorrhage, mass effect, or evidence of acute territorial ischemia by CT criteria. Electronically signed by: Jarod Trevizo M.D. 07/11/2016 10:09 PM Dictated Date/Time: 07/11/2016 10:07 PM Laboratory Results 07/11/16 20:30 Red Blood Count 3.14, Mean Corpuscular Volume 99.7, Mean Corpuscular Hemoglobin 34.7, Mean Corpuscular Hemoglobin Concent 34.8, Neutrophils (%) (Auto) 26.8, Lymphocytes (%) (Auto) 31.0, Monocytes (%) (Auto) 3.5, Eosinophils (%) (Auto) 35.8, Basophils (%) (Auto) 2.4, Neutrophils # (Auto) 2.00, Lymphocytes # (Auto) 2.32, Monocytes # (Auto) 0.26, Eosinophils # (Auto) 2.68, Basophils # (Auto) 0.18 07/11/16 20:40 Test 07/11/16 20:30 07/11/16 20:40 White Blood Count 7.48 K/uL (4.8-10.8) Red Blood Count 3.14 M/uL (4.2-5.4) Hemoglobin 10.9 g/dL (12.0-16.0) Hematocrit 31.3 % (37-47) Mean Corpuscular Volume 99.7 fL (80-100) Mean Corpuscular Hemoglobin 34.7 pg (25-34) Mean Corpuscular Hemoglobin Concent 34.8 g/dl (32-36) Platelet Count 74 K/uL (130-400) Neutrophils (%) (Auto) 26.8 % Lymphocytes (%) (Auto) 31.0 % Monocytes (%) (Auto) 3.5 % Eosinophils (%) (Auto) 35.8 % Basophils (%) (Auto) 2.4 % Neutrophils # (Auto) 2.00 K/uL (1.4-6.5) Lymphocytes # (Auto) 2.32 K/uL (1.2-3.4) Monocytes # (Auto) 0.26 K/uL (0.11-0.59) Eosinophils # (Auto) 2.68 K/uL (0-0.5) Basophils # (Auto) 0.18 K/uL (0-0.2) Immature Granulocyte % (Auto) 0.5 % Immature Granulocyte # (Auto) 0.04 K/uL (0.00-0.02) Platelet Estimate DECREASED Acanthocytes 1+ Prothrombin Time 18.8 SECONDS (9.0-12.0) Prothromb Time International Ratio 1.7 (0.9-1.1) Activated Partial Thromboplast Time 36.3 SECONDS (21.0-31.0) Partial Thromboplastin Ratio 1.4 Anion Gap 15.0 mmol/L (3-11) Estimated GFR () 117.6 Estimated GFR (Non- 101.5 BUN/Creatinine Ratio 7.8 (10-20) Calcium Level 8.2 mg/dl (8.5-10.1) Total Bilirubin 6.9 mg/dl (0.2-1) Direct Bilirubin 3.9 mg/dl (0-0.2) Aspartate Amino Transf (AST/SGOT) 83 U/L (15-37) Alanine Aminotransferase (ALT/SGPT) 36 U/L (12-78) Alkaline Phosphatase 143 U/L (45-117) Ammonia 73.0 umol/L (11-32) Troponin I < 0.015 ng/ml (0-0.045) Total Protein 8.1 gm/dl (6.4-8.2) Albumin 3.0 gm/dl (3.4-5.0) Ethyl Alcohol mg/dL 418.0 mg/dl (0-3) Laboratory results as stated above per my review. ECG Indication: altered mental status Rate (beats per minute): 92 Rhythm: normal sinus Findings: no acute ischemic change, prolonged QT, no ectopy ED Course 2010: Past medical records reviewed. The patient was evaluated in room B11B. A complete history and physical examination was performed. 2303: I reassessed the patient at this time. She is resting comfortably. I discussed the results and treatment plan with the patient and her daughter. I answered all pertaining questions that they had. They expressed understanding and verbalized agreement. 2313: I spoke with Dr. Callahan. We discussed the patients results and treatment plan. The patient will be evaluated by the [facility] for further management. Medical Decision Differential diagnoses includes hepatic encephalopathy, metabolic disorder, hyperammonemia, anemia, CVA, TIA. Medication Reconciliation: I attest that I have personally reviewed the patient' s current medication list. Blood pressure Screening: Patient was found to have normal blood pressure on screening and does not require follow up. Multiple labs, EKG and imaging were obtained. Please see above. The patient's alcohol level was 418. Patient continues to deny drinking any alcohol. She states that she has been gargling with Listerine and may have swallowed some. She denies use of isopropyl alcohol or other types of alcohol. The patient remains slightly confused and very jaundiced. Some of her problem is chronic from her cirrhosis and encephalopathy. Some of her confusion is most likely related to her current intoxication. In either case the patient is unable to care for herself at home. Family is very concerned and a 302 was generated. At this point, the patient is reluctantly coming into the hospital. I discussed care with the patient, her daughter and with the hospitalist. Consults Time Called: 2308 Consulting Physician: Dr. Callahan Returned Call: [address] Callahan. We discussed the patients results and treatment plan. The patient will be evaluated by the [facility] for further management. Impression Primary Impression: Acute alcohol intoxication Additional Impressions: Hepatic encephalopathy Hyperammonemia Alcoholic cirrhosis Scribe Attestation The scribe's documentation has been prepared under my direction and personally reviewed by me in its entirety. I confirm that the note above accurately reflects all work, treatment, procedures, and medical decision making performed by me. Departure Information Dispostion Being Evaluated By Hospitalist Referrals No Doctor, Assigned (PCP) Patient Instructions My [facility] Problem Qualifiers Primary Impression: Acute alcohol intoxication Complication of substance-induced condition: uncomplicated Qualified Codes: F10.920 - Alcohol use, unspecified with intoxication, uncomplicated
[2016-07-11 21:15] LABS: INR 1.7 (0.9-1.1); PARTIAL THROMBOPLASTIN RATIO 1.4; PROTHROMBIN TIME (PATIENT) 18.8 SECONDS (9.0-12.0)
[2016-07-11 21:28] LABS: ALKALINE PHOSPHATASE 143 U/L (45-117); ALT/SGPT 36 U/L (12-78); AST/SGOT 83 U/L (15-37); BLOOD UREA NITROGEN 5 mg/dl (7-18); BUN/CREATININE RATIO 7.8 (10-20); CARBON DIOXIDE 20 mmol/L (21-32); CHLORIDE 108 mmol/L (98-107); CREATININE 0.69 mg/dl (0.60-1.20); GLUCOSE 89 mg/dl (70-99); POTASSIUM 3.6 mmol/L (3.5-5.1); SODIUM 143 mmol/L (136-145)
--- NOTE | 2016-07-11 22:02 | DIAGNOSTIC IMAGING REPORT ---
SINGLE VIEW CHEST CLINICAL HISTORY: Hepatic encephalopathy. FINDINGS: An AP, portable, upright chest radiograph is compared to study dated 03/17/2016 and correlated with chest CT dated 07/24/2015. The examination is degraded by portable technique and patient rotation. The heart is top normal for projection. The pulmonary vasculature is noncongested. A hiatal hernia is noted. There is bibasilar atelectasis. Linear atelectasis versus scarring is present in the right midlung. No airspace consolidation typical for pneumonia or large pleural effusion is identified. No pneumothorax is seen. The skeletal structures are osteopenic. The bony thorax is grossly intact. Scoliosis is noted in the thoracic spine. IMPRESSION: No acute cardiopulmonary abnormality. Electronically signed by: Jarod Trevizo M.D. 07/11/2016 10:01 PM Dictated Date/Time: 07/11/2016 9:59 PM
[2016-07-11 22:04] LABS: HEMATOCRIT 31.3 % (37-47); MEAN CELL VOLUME 99.7 fL (80-100); MEAN CORPUSCULAR HEMOGLOBIN 34.7 pg (25-34); MEAN CORPUSCULAR HGB CONC 34.8 g/dl (32-36); PLATELET COUNT 74 K/uL (130-400); RED BLOOD COUNT 3.14 M/uL (4.2-5.4); WHITE BLOOD COUNT 7.48 K/uL (4.8-10.8)
[2016-07-11 22:04] LABS: CALCIUM 8.2 mg/dl (8.5-10.1)
--- NOTE | 2016-07-11 22:11 | DIAGNOSTIC IMAGING REPORT ---
CT SCAN OF THE BRAIN WITHOUT IV CONTRAST CLINICAL HISTORY: Hepatic encephalopathy. COMPARISON STUDY: CT of the brain dated 01/30/2016. TECHNIQUE: Unenhanced axial CT scan of the brain is performed from the vertex to the skull base. CT DOSE: 709.48 mGy.cm FINDINGS: Brain parenchyma: There are mildly age-advanced involutional changes with minimal subcortical and periventricular microangiopathic change. There is no hemorrhage, mass effect, or evidence of acute territorial ischemia by CT criteria. Garcia-white matter is preserved. No extra-axial fluid collection is seen. Ventricles, sulci, cisterns: Prominent secondary to involutional change. Intracranial vasculature: Partially visualized intracranial vessels at the skull base are grossly unremarkable. Calvarium: Unremarkable. Sinuses and mastoids: The visualized paranasal sinuses are clear. The mastoid air cells are well pneumatized. Orbits: The bony orbits are grossly intact. IMPRESSION: There is no hemorrhage, mass effect, or evidence of acute territorial ischemia by CT criteria. Electronically signed by: Jarod Trevizo M.D. 07/11/2016 10:09 PM Dictated Date/Time: 07/11/2016 10:07 PM
[2016-07-11 23:14] LABS: ACANTHOCYTES 1+; BASO % 2.4 %; BASO ABS # 0.18 K/uL (0-0.2); COMPLETE YES; EOS % 35.8 %; IG% 0.5 %; LYMPH ABS # 2.32 K/uL (1.2-3.4); MONO % 3.5 %; NEUT % 26.8 %; PLT ESTIMATE DECREASED
[2016-07-12] VITALS (7 sets, daily range): BP systolic 106–131; BP diastolic 65–82; PULSE 69–95; TEMP 36.6–36.9; O2SAT 94–98; Ht 156.2 cm; Wt 68.7 kg
[2016-07-12] MEDS ORDERED: THIAMINE HCL 100 MG/ML 2 ML VIAL IV STA (00:12)
[2016-07-12] MEDS ORDERED: THIAMINE HCL INJ 100 MG in SYRINGE 9 ML IV STA (00:22)
[2016-07-12] MEDS ORDERED: RIFAXIMIN TAB 550 MG TAB PO ONE (00:25)
[2016-07-12] MEDS ORDERED: LACTULOSE SYRUP 20 GM/30 ML UDC PO ONE (00:25)
[2016-07-12] MEDS ORDERED: LORATADINE 10 MG TAB PO PRN (00:30)
[2016-07-12] MEDS ORDERED: LORAZEPAM 2 MG/ML 1 ML VIAL IV PRN (00:30)
[2016-07-12] MEDS ORDERED: GABAPENTIN 600 MG TAB PO SCH (00:30)
[2016-07-12] MEDS ORDERED: ACETAMINOPHEN 325 MG TAB PO PRN (00:30)
[2016-07-12] MEDS ORDERED: GABAPENTIN 1200MG LOADING DOSE PO STA (01:20)
[2016-07-12] MEDS ORDERED: LORAZEPAM 1MG IV PHA DISPENSED IV PRN (01:30)
[2016-07-12 03:42] LABS: URINE APPEARANCE CLEAR (CLEAR); URINE COLOR DK YELLOW; URINE EPITHELIAL CELL AUTO >30 /lpf (0-5); URINE NITRITE NEG (NEG); URINE PH 6.5 (4.5-7.5); URINE SPECIFIC GRAVITY 1.011 (1.000-1.030); UROBILINOGEN NEG (NEG); ZZUR CULT IF INDIC CLEAN CATCH NO
[2016-07-12 04:31] LABS: MANUAL MICROSCOPIC REQUIRED? NO; REVIEW REQ? YES; URINE BILIRUBIN 1+ (NEG)
[2016-07-12 06:30] LABS: HEMATOCRIT 28.8 % (37-47); MEAN CORPUSCULAR HEMOGLOBIN 34.4 pg (25-34); MEAN CORPUSCULAR HGB CONC 34.4 g/dl (32-36); RED BLOOD COUNT 2.88 M/uL (4.2-5.4); WHITE BLOOD COUNT 7.31 K/uL (4.8-10.8)
[2016-07-12] MEDS: LEVOTHYROXINE 137 MCG TAB PO SCH (06:30)
[2016-07-12 06:31] LABS: BASO % 1.8 %; BASO ABS # 0.13 K/uL (0-0.2); COMPLETE YES; EOS % 27.4 %; IG% 0.3 %; LYMPH % 37.6 %; LYMPH ABS # 2.75 K/uL (1.2-3.4); MEAN PLATELET VOLUME 9.2 fL (7.4-10.4); MONO % 5.6 %; NEUT % 27.3 %; PLATELET COUNT 57 K/uL (130-400)
--- NOTE | 2016-07-12 06:54 | HISTORY & PHYSICAL EXAMINATION ---
DATE OF ADMISSION: 07/11/2016 PRIMARY CARE DOCTOR: Dr. Chase. CHIEF COMPLAINT: Confusion as per records. HISTORY OF PRESENT ILLNESS: History obtained from patient, patient's daughter, and records. Medical history significant for alcoholic cirrhosis, hypertension, mood disorder , past tobacco abuse, portal hypertension as per records, hypothyroidism, chronic anemia (baseline hemoglobin of 8-9), hx MRSA as per records, hx recurrent SBP on Cipro rx. Recent confinement April 2016 for renal failure. As per daughter, the last two weeks, patient having intermittent confusion, slurring words, px not making sense; weakness and falling down. No chest pain, no shortness of breath. Daughter worried about patient possibly drinking again and not complying with home medications. PX unable to name her pills and schedule. Patient recently broke up with her boyfriend. No unusual belly pain, no black, no bloody stools. Patient acting like crazy as per daughter. The patient claims mood not the best because of some med allergies. Denies suicidality. Px denies recent alcohol intake. Claims last drink was last [place]. Admits to Beatris chandler following recent dental procedures. The patient brought to the Emergency Room. MEDICAL HISTORY: As above. SURGERIES: She has had a section, tubal ligation, dental procedures. HOME MEDICATIONS: Inderal, Xifaxan, Aldactone, Imitrex, melatonin, multivitamins, Prilosec, Zofran, Micro-K, Lasix, levothyroxine, Ativan, lactulose, loratadine, albuterol, Cipro, vitamin B12, Benadryl, Folvite. ALLERGIES: CITALOPRAM, Seroquel FAMILY HISTORY: Alcohol abuse, heart disease, diabetes. PERSONAL AND SOCIAL HISTORY: Past tobacco/ETOH abuse, currently on disability. REVIEW OF SYSTEMS: As per HPI, all other ROS negative. PHYSICAL EXAMINATION: VITAL SIGNS: Blood pressure 120/80, pulse 85, RR 16, temperature 36.9, sats 96% on room air. GENERAL: No respiratory distress, looks older for stated age, alcoholic fetor SKIN: Pallor. HEENT: Pale palpebral conjunctivae. Dry mucosa. NECK: No JVD. supple CHEST: Clear to auscultation. HEART: Regular rate and rhythm. ABDOMEN: Some distention, nontender. EXTREMITIES: Minimal LE edema, no tenderness NEUROLOGIC: No gross focality except for slurred speech and some tremors. LABORATORY DATA: Hemoglobin was noted to be 10.9, white blood cell count 7.4, platelets are 74. Sodium 140, potassium 3.6 chloride 108, CO2 20, BUN 5, creatinine 0.6, glucose was noted to be 89. ammonia was 73. alcohol level was noted to be 418. IMAGING DATA: CT of the head, no acute pathology. Chest x-ray showed no acute cardiopulmonary abnormality. EKG as per my interpretation : rate 90, NSR, TWI septal leads ASSESSMENT: 1. Episodic encephalopathy multifactorial : Hepatic encephalopathy ? medication noncompliance. Alcoholic intoxication/poss relapse (patient denies recent alcohol intake) 2. hx ETOH cirrhosis mild decompensation of disease. 3. Chronic anemia, hemoglobin at baseline. 4. Past tobacco abuse. 5. mood DSO, suboptimal 6. hx MRSA as per records 7. hx recurrent SBP on chronic Cipro prophylaxis tx PLAN: GMF facilitate lactulose, Xifaxan ff ammonia level. GI consult RE hepatic encephalopathy DT precautions. Social service RE discharge planning. Psych consult for mood issues if patient amenable PT/OT eval DVT prophylaxis, SCDs RE thrombocytopenia Full code. Patient's daughter requesting for updates from providers. Miss Francy Manzano at . MTDD
[2016-07-12 07:06] LABS: BUN/CREATININE RATIO 8.8 (10-20); CALCIUM 7.9 mg/dl (8.5-10.1); CREATININE 0.59 mg/dl (0.60-1.20); POTASSIUM 3.7 mmol/L (3.5-5.1)
[2016-07-12 07:11] LABS: ALB/GLOB RATIO 0.7 (0.9-2)
[2016-07-12] MEDS: MULTIVITAMIN TAB PO SCH (07:35)
[2016-07-12] MEDS: PANTOprazole SOD 40 MG TAB PO SCH (07:35)
[2016-07-12] MEDS: FUROSEMIDE 40 MG TAB PO SCH (07:36)
[2016-07-12] MEDS: POTASSIUM CHLORIDE 10 MEQ TABCR PO SCH ×2 (07:36→20:35)
[2016-07-12] MEDS: CIPROFLOXACIN 500 MG TAB PO SCH (07:36)
[2016-07-12] MEDS: GABAPENTIN 600MG Q6H DOSE PO SCH ×2 (07:37→14:37)
[2016-07-12] MEDS: SPIRONOLACTONE 100 MG TAB PO SCH (07:37)
[2016-07-12] MEDS: PROPRANOLOL HCL 10 MG TAB PO SCH ×3 (07:37→20:36)
[2016-07-12] MEDS: RIFAXIMIN TAB 550 MG TAB PO SCH ×2 (07:38→20:37)
[2016-07-12] MEDS ORDERED: LACTULOSE SYRUP 20 GM/30 ML UDC PO SCH (09:00)
--- NOTE | 2016-07-12 10:24 | Progress Note ---
Internal Med Progress Note Date of Service: July 12, 2016. Provider Documentation: SUBJECTIVE: Patient denies any complaints at this point. Admits that she did have few drinks 2 days ago but still wants to quit. Denies any abdominal pain, nausea, vomiting, chest pain, SOB, cough. AAOX3. No suicidal ideations OBJECTIVE: Vital Signs-as noted below Exam: General-AAOX3, no distress Eyes-Icterus Neck-Supple Lungs-AEBE decreased, no wheezing, crackles Heart-S1, S2 normal , no murmurs Abdomen-Slight distension, soft, non tender, BS present Extremities-Trace edema Lab data as noted below. ASSESSMENT & PLAN: ASSESSMENT AND PLAN : EPISODIC CONFUSION: Likely secondary to alcohol intoxication versus Hepatic encephalopathy, however , ammonia level was 59 on presentation -Back to baseline: AAOX3. Has 1:1 as she was very disoriented. No suicidal ideations -Questionable compliance with medications per daughter -Continue with lactulose with a goal of 2-3 BMs -Monitor ALCOHOL INTOXICATION Patient claims had she quit drinking since 12/2015, but alcohol level is 418. Admitted that she did have few drinks 2 days ago. Has had multiple admissions in past for the same reason and keeps going back to alcohol consumption. -Alcohol withdrawal protocol with gabapentin, Ativan -Monitor closely for DTs LIVER CIRRHOSIS -On lasix 40 mg, aldactone 100 mg , rifaximin, lactulose 10 gram TID at home, but doubtful about compliance per daughter -Continue with medications as above. MOOD DISORDER No suicidal ideations Okay to dc 1:1 observation FULL CODE DVT PROPHYLAXIS SCDS RE: Cirrhosis DISPOSITION Watch for alcohol withdrawal The patient's daughter requesting for updates from providers Ashley Manzano - [phone]. Vital Signs: Date Time Temp Pulse Resp B/P Pulse Ox O2 Delivery O2 Flow Rate FiO2 07/12/16 08:00 Room Air 07/12/16 07:14 36.7 95 18 107/68 95 Room Air 07/12/16 04:04 36.6 92 18 114/75 94 Room Air 07/12/16 00:42 36.9 91 16 131/78 96 Room Air 07/12/16 00:01 104/63 07/11/16 23:46 90 16 97 07/11/16 23:31 126/71 07/11/16 23:16 85 24 98 07/11/16 23:11 87 18 97 5/30/17 23:02 119/72 07/11/16 22:41 92 22 98 07/11/16 22:31 142/94 07/11/16 22:23 97 07/11/16 22:11 97 Room Air 07/11/16 22:10 133/79 07/11/16 19:50 36.8 91 18 116/75 95 Room Air Lab Results: Results Past 24 Hours Test 07/11/16 20:30 07/11/16 20:40 07/12/16 03:25 07/12/16 05:16 Range/Units White Blood Count 7.48 7.31 4.8-10.8 K/uL Red Blood Count 3.14 2.88 4.2-5.4 M/uL Hemoglobin 10.9 9.9 12.0-16.0 g/dL Hematocrit 31.3 28.8 37-47 % Mean Corpuscular Volume 99.7 100.0 80-100 fL Mean Corpuscular Hemoglobin 34.7 34.4 25-34 pg Mean Corpuscular Hemoglobin Concent 34.8 34.4 32-36 g/dl Platelet Count 74 57 130-400 K/uL Neutrophils (%) (Auto) 26.8 27.3 % Lymphocytes (%) (Auto) 31.0 37.6 % Monocytes (%) (Auto) 3.5 5.6 % Eosinophils (%) (Auto) 35.8 27.4 % Basophils (%) (Auto) 2.4 1.8 % Neutrophils # (Auto) 2.00 2.00 1.4-6.5 K/uL Lymphocytes # (Auto) 2.32 2.75 1.2-3.4 K/uL Monocytes # (Auto) 0.26 0.41 0.11-0.59 K/uL Eosinophils # (Auto) 2.68 2.00 0-0.5 K/uL Basophils # (Auto) 0.18 0.13 0-0.2 K/uL Immature Granulocyte % (Auto) 0.5 0.3 % Immature Granulocyte # (Auto) 0.04 0.02 0.00-0.02 K/uL Platelet Estimate DECREASED Acanthocytes 1+ Prothrombin Time 18.8 9.0-12.0 SECONDS Prothromb Time International Ratio 1.7 0.9-1.1 Activated Partial Thromboplast Time 36.3 21.0-31.0 SECONDS Partial Thromboplastin Ratio 1.4 Sodium Level 143 140 136-145 mmol/L Potassium Level 3.6 3.7 3.5-5.1 mmol/L Chloride Level 108 107 98-107 mmol/L Carbon Dioxide Level 20 22 21-32 mmol/L Anion Gap 15.0 11.0 3-11 mmol/L Blood Urea Nitrogen 5 5 7-18 mg/dl Creatinine 0.69 0.59 0.60-1.20 mg/dl Estimated GFR () 117.6 123.9 Estimated GFR (Non- 101.5 106.9 BUN/Creatinine Ratio 7.8 8.8 10-20 Random Glucose 89 78 70-99 mg/dl Calcium Level 8.2 7.9 8.5-10.1 mg/dl Total Bilirubin 6.9 7.3 0.2-1 mg/dl Direct Bilirubin 3.9 0-0.2 mg/dl Aspartate Amino Transf (AST/SGOT) 83 75 15-37 U/L Alanine Aminotransferase (ALT/SGPT) 36 32 12-78 U/L Alkaline Phosphatase 143 130 45-117 U/L Ammonia 73.0 11-32 umol/L Troponin I < 0.015 0-0.045 ng/ml Total Protein 8.1 7.1 6.4-8.2 gm/dl Albumin 3.0 2.8 3.4-5.0 gm/dl Ethyl Alcohol mg/dL 418.0 0-3 mg/dl Urine Color DK YELLOW Urine Appearance CLEAR CLEAR Urine pH 6.5 4.5-7.5 Urine Specific [place] 1.011 1.000-1.030 Urine Protein NEG NEG Urine Glucose (UA) NEG NEG Urine Ketones TRACE NEG Urine Occult Blood NEG NEG Urine Nitrite NEG NEG Urine Bilirubin 1+ NEG Urine Urobilinogen NEG NEG Urine Leukocyte Esterase SMALL NEG Urine WBC (Auto) 1-5 0-5 /hpf Urine RBC (Auto) 0-4 0-4 /hpf Urine Hyaline Casts (Auto) 0 0-5 /lpf Urine Epithelial Cells (Auto) >30 0-5 /lpf Urine Bacteria (Auto) NEG NEG Mean Platelet Volume 9.2 7.4-10.4 fL RDW Standard Deviation 69.9 36.4-46.3 fL RDW Coefficient of Variation 19.2 11.5-14.5 % Est Creatinine Clear Calc Drug Dose 102.4 ml/min Globulin 4.3 2.5-4.0 gm/dl Albumin/Globulin Ratio 0.7 0.9-2 Test 07/12/16 06:16 Range/Units Ammonia 59.0 11-32 umol/L
--- NOTE | 2016-07-12 11:47 | Gastrointestinal Consultation ---
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 She was brought into ED by her daughter for confusion, and "acting like crazy". She was note to have ammonia level of 73, ETOH level of 418. CT head negative for acute process, cxr unremarkable. Her other labs otherwise showed chronic anemia, coagulopathy, thrombocytopenia, elevated LFTs but these are stable from her baseline. Pt is seen awake in bed today, oriented x 3. She is able to answer my questions appropriately. She admits that she broke up w her boyfriend recently and after being sober from 12/2015, she started drinking ETOH again yesterday. Admitted that she shouldn't have relapsed since she now may not be able to get considered for liver transplant. She drank 4 vodka w OJ yesterday. She denies any suicidal ideation. Admits to be compliant w her med including her Lactulose & Rifaximin but her daughter is questioning this (per admit note). BM 3x a day w the Lactulose. Denies any rectal bleeding. She denies any issues w VALENCIA, dizziness, CP, SOB. Abd doesn't feel distended or painful. Last paracentesis in April 3 L removed. She denies any edema. Past Medical/Surgical History Medical Problems: (1) Abdominal pain Status: Acute (2) Abdominal pain Status: Acute (3) Acute alcohol intoxication Status: Acute (4) Alcoholic cirrhosis Status: Acute (5) Headache Status: Acute (6) Hepatic encephalopathy Status: Acute (7) Hyperammonemia Status: Acute (8) Hyperammonemia Status: Acute (9) Hyperbilirubinemia Status: Acute (10) Hyperbilirubinemia Status: Acute (11) Hypocalcemia Status: Acute (12) Hypomagnesemia Status: Acute (13) Hypomagnesemia Status: Acute (14) Hypophosphatemia Status: Acute (15) Thrombocytopenia Status: Acute Past Medical History: See above, HTN, portal HTN, hypothyroidism, hx of MRSA Past Surgical History: C section, tubal ligation, dental procedures. Family History Anxiety disorder BROTHER FH: bipolar disorder MOTHER Social History Smoking Status: Former Smoker Alcohol Use: other (hx of etoh abuse, relapse 2 days ago) Drug Use: none Marital Status: , in relationship Occupation Status: unemployed Allergies Coded Allergies: Citalopram (Verified Allergy, Severe, ENLARED HEART VALVES, 07/11/16) Quetiapine (Verified Allergy, Intermediate, unknown., 07/11/16) Current Medications Home Meds and Scripts Medications Dose Route/Sig Max Daily Dose Days Date Category Slow-Mag (Magnesium Chloride-Calcium Car) 1 Tab Tab 1 Tab PO BID 05/17/16 Reported Hair Skin & Nails ... 1250-7.5-7.5 Mcg-mg-Unt (Biotin W/ Vitamins C & E) 1 Chw Chw 1 Tab PO QAM 05/17/16 Reported Inderal (Propranolol HCl) 10 Mg Tab 10 Mg PO TID 05/17/16 Reported Chronulac (Lactulose) 10 Gm/15 Ml Syrp 1 Dose PO TID 05/17/16 Reported Micro-K Ext Rel (Potassium Chloride) 10 Meq Capcr 10 Meq PO BID 05/17/16 Reported Aldactone (Spironolactone) 100 Mg Tab 100 Mg PO QAM 05/17/16 Reported Lasix (Furosemide) 40 Mg Tab 40 Mg PO QAM 05/17/16 Reported Cipro (Ciprofloxacin Hcl) 500 Mg Tab 500 Mg PO QAM 05/17/16 Reported Kp Melatonin (Melatonin) 3 Mg Tab 1 Tab PO HS 30 04/14/16 Reported Phospha 250 Neutral (Pot Phosphate Monobasic W/ Sod) 1 Tab Tab 1 Tab PO QAM 01/30/16 Reported Levothyroxine Sodium 137 Mcg Tab 1 Tab PO QAM 90 01/30/16 Reported Xifaxan (Rifaximin) 550 Mg Tab 550 Mg PO BID 07/23/15 Reported Ativan (Lorazepam) 1 Mg Tab 1 Mg PO BID PRN 06/12/15 Reported Vitamin B12 (Cyanocobalamin) 1,000 Mcg Tab 1,000 Mcg PO QAM 05/26/15 Reported Zofran (Ondansetron HCl) 8 Mg Tab 1 Tab PO Q8 PRN 10 05/07/15 Reported Folvite (Folic Acid) 1 Mg Tab 1 Tab PO QAM 90 05/07/15 Reported Prilosec (Omeprazole) 40 Mg Capcr 40 Mg PO QAM 05/07/15 Reported Multivitamin (Multivitamins) Tab 1 Tab PO QAM 05/07/15 Reported Benadryl Allergy (Diphenhydramine Hcl) 25 Mg Cap 2 Cap PO HS 05/07/15 Reported Imitrex (Sumatriptan Succinate) 50 Mg Tab 50 Mg PO UD PRN 05/07/15 Reported Ventolin Hfa (Albuterol) 60 Puffs/5400 Mcg Aers 2 Puffs INH Q4H PRN 05/07/15 Reported Claritin (Loratadine) 10 Mg Tab 10 Mg PO DAILY PRN 05/07/15 Reported Review of Systems Constitutional: No chills, No fever Respiratory: No cough, No shortness of breath Cardiac: No chest pain, No edema Abdomen: No nausea, No pain, No vomiting Psych: + substance abuse Endo: No fatigue Skin: No itch, No jaundice, No rash Physical Exam Date Time Temp Pulse Resp B/P Pulse Ox O2 Delivery O2 Flow Rate FiO2 07/12/16 08:00 Room Air 07/12/16 07:14 36.7 95 18 107/68 95 Room Air 07/12/16 04:04 36.6 92 18 114/75 94 Room Air 07/12/16 00:42 36.9 91 16 131/78 96 Room Air 07/12/16 00:01 104/63 07/11/16 23:46 90 16 97 07/11/16 23:31 126/71 07/11/16 23:16 85 24 98 07/11/16 23:11 87 18 97 07/11/16 23:02 119/72 07/11/16 22:41 92 22 98 07/11/16 22:31 142/94 07/11/16 22:23 97 07/11/16 22:11 97 Room Air 07/11/16 22:10 133/79 07/11/16 19:50 36.8 91 18 116/75 95 Room Air General Appearance: WD/WN, no apparent distress Eyes: normal inspection, PERRL, EOMI Neck: supple, no JVD, trachea midline Respiratory/Chest: normal breath sounds, no respiratory distress, no accessory muscle use Cardiovascular: regular rate, rhythm, no gallop, no murmur Abdomen: normal bowel sounds, non tender, soft Extremities: normal inspection, no pedal edema, no calf tenderness Neurologic/Psych: alert, normal mood/affect, oriented x 3 Skin: normal color, no jaundice, no rash Laboratory Results Last 24 Hours Test 07/11/16 20:30 07/11/16 20:40 07/12/16 03:25 07/12/16 05:16 White Blood Count 7.48 K/uL 7.31 K/uL Red Blood Count 3.14 M/uL 2.88 M/uL Hemoglobin 10.9 g/dL 9.9 g/dL Hematocrit 31.3 % 28.8 % Mean Corpuscular Volume 99.7 fL 100.0 fL Mean Corpuscular Hemoglobin 34.7 pg 34.4 pg Mean Corpuscular Hemoglobin Concent 34.8 g/dl 34.4 g/dl Platelet Count 74 K/uL 57 K/uL Neutrophils (%) (Auto) 26.8 % 27.3 % Lymphocytes (%) (Auto) 31.0 % 37.6 % Monocytes (%) (Auto) 3.5 % 5.6 % Eosinophils (%) (Auto) 35.8 % 27.4 % Basophils (%) (Auto) 2.4 % 1.8 % Neutrophils # (Auto) 2.00 K/uL 2.00 K/uL Lymphocytes # (Auto) 2.32 K/uL 2.75 K/uL Monocytes # (Auto) 0.26 K/uL 0.41 K/uL Eosinophils # (Auto) 2.68 K/uL 2.00 K/uL Basophils # (Auto) 0.18 K/uL 0.13 K/uL Immature Granulocyte % (Auto) 0.5 % 0.3 % Immature Granulocyte # (Auto) 0.04 K/uL 0.02 K/uL Platelet Estimate DECREASED Acanthocytes 1+ Prothrombin Time 18.8 SECONDS Prothromb Time International Ratio 1.7 Activated Partial Thromboplast Time 36.3 SECONDS Partial Thromboplastin Ratio 1.4 Sodium Level 143 mmol/L 140 mmol/L Potassium Level 3.6 mmol/L 3.7 mmol/L Chloride Level 108 mmol/L 107 mmol/L Carbon Dioxide Level 20 mmol/L 22 mmol/L Anion Gap 15.0 mmol/L 11.0 mmol/L Blood Urea Nitrogen 5 mg/dl 5 mg/dl Creatinine 0.69 mg/dl 0.59 mg/dl Estimated GFR () 117.6 123.9 Estimated GFR (Non- 101.5 106.9 BUN/Creatinine Ratio 7.8 8.8 Random Glucose 89 mg/dl 78 mg/dl Calcium Level 8.2 mg/dl 7.9 mg/dl Total Bilirubin 6.9 mg/dl 7.3 mg/dl Direct Bilirubin 3.9 mg/dl Aspartate Amino Transf (AST/SGOT) 83 U/L 75 U/L Alanine Aminotransferase (ALT/SGPT) 36 U/L 32 U/L Alkaline Phosphatase 143 U/L 130 U/L Ammonia 73.0 umol/L Troponin I < 0.015 ng/ml Total Protein 8.1 gm/dl 7.1 gm/dl Albumin 3.0 gm/dl 2.8 gm/dl Ethyl Alcohol mg/dL 418.0 mg/dl Urine Color DK YELLOW Urine Appearance CLEAR Urine pH 6.5 Urine Specific [place] 1.011 Urine Protein NEG Urine Glucose (UA) NEG Urine Ketones TRACE Urine Occult Blood NEG Urine Nitrite NEG Urine Bilirubin 1+ Urine Urobilinogen NEG Urine Leukocyte Esterase SMALL Urine WBC (Auto) 1-5 /hpf Urine RBC (Auto) 0-4 /hpf Urine Hyaline Casts (Auto) 0 /lpf Urine Epithelial Cells (Auto) >30 /lpf Urine Bacteria (Auto) NEG Mean Platelet Volume 9.2 fL RDW Standard Deviation 69.9 fL RDW Coefficient of Variation 19.2 % Est Creatinine Clear Calc Drug Dose 102.4 ml/min Globulin 4.3 gm/dl Albumin/Globulin Ratio 0.7 Test 07/12/16 06:16 Ammonia 59.0 umol/L Impression Patient is a 50 year old female w ETOH cirrhosis, admitted for AMS, likely from ETOH intoxication rather than hepatic encephalopathy. MELD: 20. Plan - Continue Xifaxan, Lactulose (titrate for goal BM 3-5 daily). - Propanolol 20mg TID. Last EGD 05/201617 Grade I varices. - Continue current diuretics dose of Lasix and Spironolactone. - Low salt diet - If abd getting distended, will check for ascites for possible paracentesis. - Cipro for SBP prophylaxis as dosed - Will monitor, no new plans for now. - DT protocol. Consider psych consult for depression, ETOH cessation program resources.
[2016-07-12] MEDS: LACTULOSE SYRUP 10 GM/15 ML BTL 473 ML PO SCH ×2 (14:00→20:31)
[2016-07-12] MEDS: TRAMADOL HCL 50 MG TAB PO PRN (20:34)
[2016-07-12] MEDS: GABAPENTIN 600MG Q8H DOSE PO SCH (20:40)
[2016-07-13 00:05] VITALS: O2SAT 97
[2016-07-13 00:18] VITALS: BP 113/64; PULSE 69; TEMP 37.1; O2SAT 95
[2016-07-13] MEDS: LEVOTHYROXINE 137 MCG TAB PO SCH (06:11)
[2016-07-13] MEDS: GABAPENTIN 600MG Q8H DOSE PO SCH ×2 (06:11→15:08)
[2016-07-13] MEDS: MULTIVITAMIN TAB PO SCH (08:37)
[2016-07-13] MEDS: THIAMINE HCL 100 MG TAB PO SCH (08:37)
[2016-07-13] MEDS: POTASSIUM CHLORIDE 10 MEQ TABCR PO SCH ×2 (08:38→20:14)
[2016-07-13] MEDS: CIPROFLOXACIN 500 MG TAB PO SCH (08:38)
[2016-07-13] MEDS: PROPRANOLOL HCL 10 MG TAB PO SCH ×3 (08:38→20:15)
[2016-07-13] MEDS: SPIRONOLACTONE 100 MG TAB PO SCH (08:38)
[2016-07-13] MEDS: PANTOprazole SOD 40 MG TAB PO SCH (08:38)
[2016-07-13] MEDS: RIFAXIMIN TAB 550 MG TAB PO SCH ×2 (08:38→20:14)
[2016-07-13] MEDS: FUROSEMIDE 40 MG TAB PO SCH (08:38)
[2016-07-13] MEDS: LACTULOSE SYRUP 10 GM/15 ML BTL 473 ML PO SCH ×3 (08:40→20:01)
[2016-07-13 08:50] LABS: BUN/CREATININE RATIO 11.8 (10-20); CREATININE 0.83 mg/dl (0.60-1.20); POTASSIUM 3.4 mmol/L (3.5-5.1)
[2016-07-13 08:51] VITALS: BP 100/61; PULSE 61; TEMP 36.7; O2SAT 97
[2016-07-13 08:56] LABS: CALCIUM 8.3 mg/dl (8.5-10.1)
--- NOTE | 2016-07-13 09:26 | Progress Note ---
Internal Med Progress Note Date of Service: Jul 13, 2016. Provider Documentation: SUBJECTIVE : Patient denies any complaints at this point. Admits that she did have few drinks 2 days ago but still wants to quit and regrets drinking. Denies any abdominal pain, nausea, vomiting, chest pain, SOB, cough. AAOX3. Had 5-6 BMs yesterday No suicidal ideations OBJECTIVE: Vital Signs-as noted below Exam: General-AAOX3, no distress Eyes-Icterus Neck-Supple Lungs-AEBE decreased, no wheezing, crackles Heart-S1, S2 normal , no murmurs Abdomen-Slight distension, soft, non tender, BS present Extremities-Trace edema Lab data as noted below. ASSESSMENT & PLAN: ASSESSMENT AND PLAN : EPISODIC CONFUSION : Likely secondary to alcohol intoxication than Hepatic encephalopathy, however, ammonia level was 59 on presentation -Back to baseline: AAOX3 -Questionable compliance with medications per daughter -Continue with lactulose with a goal of 2-3 BMs --> decreased to 10 gram TID -Monitor ALCOHOL INTOXICATION : Patient claims had she quit drinking since 12/2015, but alcohol level is 418. Admitted that she did have few drinks 2 days ago. Has had multiple admissions in past for the same reason and keeps going back to alcohol consumption. -Alcohol withdrawal protocol with gabapentin, Ativan -Monitor closely for DTs LIVER CIRRHOSIS -On lasix 40 mg, aldactone 100 mg , rifaximin, lactulose 10 gram TID at home, but doubtful about compliance per daughter -Continue with medications as at home MOOD DISORDER No suicidal ideations -Had 302 signed in ED --> psychiatry consulted. Off 1:1 observation yesterday FULL CODE DVT PROPHYLAXIS SCDS RE: Cirrhosis DISPOSITION Watch for alcohol withdrawal The patient's daughter requesting for updates from providers Ashley Manzano - [phone]. Vital Signs: Date Time Temp Pulse Resp B/P (MAP) Pulse Ox O2 Delivery O2 Flow Rate FiO2 07/13/16 08:51 36.7 61 18 100/61 (74) 97 Room Air 07/13/16 00:18 37.1 69 20 113/64 (80) 95 Room Air 07/13/16 00:05 97 Room Air 07/12/16 20:32 69 106/65 (79) 07/12/16 16:00 98 Room Air 07/12/16 15:03 36.7 74 20 125/82 (96) 98 Room Air 07/12/16 12:06 36.8 76 20 112/67 (82) 96 Room Air Lab Results: Results Past 24 Hours Test 07/13/16 07:35 07/13/16 08:32 Range/Units Sodium Level 136 136-145 mmol/L Potassium Level 3.4 3.5-5.1 mmol/L Chloride Level 101 98-107 mmol/L Carbon Dioxide Level 22 21-32 mmol/L Anion Gap 13.0 3-11 mmol/L Creatinine 0.83 0.60-1.20 mg/dl Est Creatinine Clear Calc Drug Dose 72.8 ml/min Estimated GFR () 95.3 Estimated GFR (Non- 82.2 BUN/Creatinine Ratio 11.8 10-20 Random Glucose 86 70-99 mg/dl Calcium Level 8.3 8.5-10.1 mg/dl
[2016-07-13] MEDS ORDERED: POTASSIUM CHLORIDE 10 MEQ TABCR PO ONE (10:00)
--- NOTE | 2016-07-13 11:21 | Gastroenterology Progress Note ---
Progress Note Date of Service: Jul 13, 2016 Subjective Pt evaluation today including: conversation w/ patient, physical exam, chart review, lab review, review of inpatient medication list Pt having multiple BMs up to 6 yesterday, Lactulose dose decreased, now only 1 BM this AM. She feels well overall, just felt bad about having ETOH relapse. Denies any CP, SOB, abd pain, n/v. Review of Systems Constitutional: No fever, No chills Respiratory: No cough, No shortness of breath Cardiac: No chest pain Abdomen: + diarrhea, No pain, No nausea, No vomiting Medications Current Inpatient Medications Medications (Trade) Dose Ordered Sig/Fariba Route Start Time Stop Time Status Last Admin Dose Admin Thiamine HCl (Vitamin B-1 Tab) 100 mg QAM PO 07/13/16 09:00 08/12/16 08:59 07/13/16 08:37 100 MG Acetaminophen (Tylenol Tab) 325 mg Q6H PRN PO 07/12/16 00:30 08/11/16 00:29 Ciprofloxacin (Cipro Tab) 500 mg QAM PO 07/12/16 09:00 08/11/16 08:59 07/13/16 08:38 500 MG Folic Acid (Folvite Tab) 1 mg QAM PO 07/12/16 09:00 08/11/16 08:59 07/13/16 08:39 1 MG Furosemide (Lasix Tab) 40 mg QAM PO 07/12/16 09:00 08/11/16 08:59 07/13/16 08:38 40 MG Levothyroxine Sodium (Synthroid Tab) 137 mcg DAILYBB PO 07/12/16 06:30 08/11/16 06:29 07/13/16 06:11 137 MCG Loratadine (Claritin Tab) 10 mg DAILY PRN PO 07/12/16 00:30 08/11/16 00:29 Multivitamins (Multivitamin Tab) 1 tab QAM PO 07/12/16 09:00 08/11/16 08:59 07/13/16 08:37 1 TAB Potassium Chloride (Klor-Con M10) 10 meq BID PO 07/12/16 09:00 08/11/16 08:59 07/13/16 08:38 10 MEQ Propranolol HCl (Inderal Tab) 20 mg TID PO 07/12/16 09:00 08/11/16 08:59 07/13/16 08:38 20 MG Rifaximin (Xifaxan Tab) 550 mg BID PO 07/12/16 09:00 08/11/16 08:59 07/13/16 08:38 550 MG Spironolactone (Aldactone Tab) 100 mg QAM PO 07/12/16 09:00 08/11/16 08:59 07/13/16 08:38 100 MG Pantoprazole Sodium (Protonix Tab) 40 mg QAM PO 07/12/16 09:00 08/11/16 08:59 07/13/16 08:38 40 MG Lorazepam (Ativan Inj) PRN Dosing -Active Protocol Q1H PRN IV 07/12/16 00:30 08/11/16 00:29 Lorazepam 1 mg/ Syringe 1 ml @ 1 mls/min Q1H PRN IV 07/12/16 01:30 08/11/16 01:29 Gabapentin (Neurontin Tab) 600 mg Q8H PO 07/12/16 22:00 07/13/16 14:01 07/13/16 06:11 600 MG Gabapentin (Neurontin Tab) 600 mg Q12H PO 07/14/16 02:00 07/14/16 14:01 Gabapentin (Neurontin Tab) 600 mg Q24H PO 07/15/16 14:00 07/15/16 14:01 Lactulose (Chronulac Syrup) 10 gm TID PO 07/12/16 14:00 08/11/16 13:59 07/13/16 08:40 10 GM Tramadol HCl (Ultram Tab) 25 mg Q6H PRN PO 07/12/16 20:15 08/11/16 20:14 07/12/16 20:34 25 MG Objective Vital Signs Date Time Temp Pulse Resp B/P (MAP) Pulse Ox O2 Delivery O2 Flow Rate FiO2 07/13/16 08:51 36.7 61 18 100/61 (74) 97 Room Air 07/13/16 08:00 Room Air 07/13/16 00:18 37.1 69 20 113/64 (80) 95 Room Air 07/13/16 00:05 97 Room Air 07/12/16 20:32 69 106/65 (79) 07/12/16 16:00 98 Room Air 07/12/16 15:03 36.7 74 20 125/82 (96) 98 Room Air 07/12/16 12:06 36.8 76 20 112/67 (82) 96 Room Air Physical Exam General Appearance: WD/WN, no apparent distress Eyes: normal inspection, PERRL, EOMI Neck: supple, no JVD, trachea midline Respiratory/Chest: normal breath sounds, no respiratory distress, no accessory muscle use Cardiovascular: regular rate, rhythm, no gallop, no murmur Abdomen: non tender, soft Extremities: normal inspection, no pedal edema, no calf tenderness Neurologic/Psych: alert, normal mood/affect, oriented x 3 Skin: normal color, no jaundice, no rash Laboratory Results Last 24 Hours Test 07/13/16 07:35 07/13/16 09:17 Sodium Level 136 mmol/L Potassium Level 3.4 mmol/L Chloride Level 101 mmol/L Carbon Dioxide Level 22 mmol/L Anion Gap 13.0 mmol/L Blood Urea Nitrogen 10 mg/dl Creatinine 0.83 mg/dl Est Creatinine Clear Calc Drug Dose 72.8 ml/min Estimated GFR () 95.3 Estimated GFR (Non- 82.2 BUN/Creatinine Ratio 11.8 Random Glucose 86 mg/dl Calcium Level 8.3 mg/dl Ammonia 55.0 umol/L Assessment and Plan Impression Patient is a 50 year old female w ETOH cirrhosis, admitted for AMS, likely from ETOH intoxication rather than hepatic encephalopathy. Confusion has resolved. MELD: 20. Plan - Continue Xifaxan, Lactulose (titrate for goal BM 3-5 daily). No need to continue checking ammonia level. - Propanolol 20mg TID. Last EGD 05/201617 Grade I varices. - Continue current diuretics dose of Lasix and Spironolactone. - Low salt diet - If abd getting distended, will check for ascites for possible paracentesis. - Cipro for SBP prophylaxis as dosed - DT protocol. Consider psych consult for depression, ETOH cessation program resources. - No new GI plans, will sign off. Pls call for new questions or concerns.
[2016-07-13 12:44] LABS: BENZODIAZEPINE, URINE NEG (NEG); COCAINE,URINE NEG (NEG); PHENCYCLIDINE, URINE NEG (NEG)
[2016-07-13 15:11] VITALS: BP 128/78; PULSE 79; TEMP 36.7; O2SAT 97
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
[2016-07-13] MEDS: TRAMADOL HCL 50 MG TAB PO PRN (18:45)
[2016-07-13 20:15] VITALS: BP 110/56; PULSE 80
[2016-07-14] VITALS: BP 90/48; PULSE 68; TEMP 37; O2SAT 97
[2016-07-14] MEDS: GABAPENTIN 600MG Q12H DOSE PO SCH ×2 (01:12→14:01)
[2016-07-14] MEDS: TRAMADOL HCL 50 MG TAB PO PRN ×2 (01:13→10:17)
[2016-07-14] MEDS: LEVOTHYROXINE 137 MCG TAB PO SCH (05:48)
[2016-07-14 06:00] VITALS: BP 100/54; PULSE 65
[2016-07-14 06:52] LABS: BUN/CREATININE RATIO 9.9 (10-20); CREATININE 1.4 mg/dl (0.60-1.20); MAGNESIUM 1.4 mg/dl (1.8-2.4); POTASSIUM 3.3 mmol/L (3.5-5.1)
[2016-07-14 07:41] VITALS: BP 101/62; PULSE 74; TEMP 36.5; O2SAT 98
[2016-07-14] MEDS ORDERED: POTASSIUM CHLORIDE 10 MEQ TABCR PO STA (07:45)
[2016-07-14] MEDS: CIPROFLOXACIN 500 MG TAB PO SCH (08:15)
[2016-07-14] MEDS: MULTIVITAMIN TAB PO SCH (08:15)
[2016-07-14] MEDS: THIAMINE HCL 100 MG TAB PO SCH (08:15)
[2016-07-14] MEDS: POTASSIUM CHLORIDE 10 MEQ TABCR PO SCH ×2 (08:15→21:16)
[2016-07-14] MEDS: RIFAXIMIN TAB 550 MG TAB PO SCH ×2 (08:15→21:16)
[2016-07-14] MEDS: PANTOprazole SOD 40 MG TAB PO SCH (08:15)
[2016-07-14] MEDS: MAGNESIUM SULFATE 1GM / D5W 1 GM in PREMIXED IN D5W 100 ML IV SCH ×2 (08:16→09:40)
[2016-07-14] MEDS: LACTULOSE SYRUP 10 GM/15 ML BTL 473 ML PO SCH ×3 (08:16→21:11)
[2016-07-14] MEDS: PROPRANOLOL HCL 10 MG TAB PO SCH ×3 (08:16→21:15)
--- NOTE | 2016-07-14 10:21 | Progress Note ---
Internal Med Progress Note Date of Service: Jul 14, 2016. Provider Documentation: SUBJECTIVE : Patient denies any complaints at this point. Last drink was day of admission Denies any abdominal pain, nausea, vomiting, chest pain, SOB, cough. AAOX3. Had 2-3 BMs yesterday No suicidal ideations OBJECTIVE: Vital Signs-as noted below Exam: General-AAOX3, no distress Eyes-Icterus Neck-Supple Lungs-AEBE decreased, no wheezing, crackles Heart-S1, S2 normal , no murmurs Abdomen-Slight distension, soft, non tender, BS present Extremities-Trace edema Lab data as noted below. ASSESSMENT & PLAN: ASSESSMENT AND PLAN : EPISODIC CONFUSION : Likely secondary to alcohol intoxication more than Hepatic encephalopathy. Ammonia level was 59 on presentation -Back to baseline: AAOX3 -Questionable compliance with medications per daughter -Continue with lactulose with a goal of 2-3 BMs --> decreased to 10 gram TID back to her home dose -Monitor ELIZABETH Creatinine bumped up to 1.40 -Hold lasix, aldactone -Monitor HYPOKALEMIA/HYPOMAGNESEMIA -Replace -Monitor ALCOHOL INTOXICATION : Patient claims had she quit drinking since 12/2015, but alcohol level is 418. Admitted that she did have few drinks 2 days ago. Has had multiple admissions in past for the same reason and keeps going back to alcohol consumption. -Alcohol withdrawal protocol with gabapentin, Ativan -Monitor closely for DTs LIVER CIRRHOSIS -On lasix 40 mg, aldactone 100 mg , rifaximin, lactulose 10 gram TID at home, but doubtful about compliance per daughter -Continue with medications as at home MOOD DISORDER No suicidal ideations -Had 302 signed in ED --> psychiatry consulted. Off 1:1 observation yesterday FULL CODE DVT PROPHYLAXIS SCDS RE: Cirrhosis DISPOSITION Watch for alcohol withdrawal, electrolyte abnormalities, Creatinine Motivated to quit SS involved to help with alcoholism The patient's daughter requesting for updates from providers Ashley Manzano - [phone]. Vital Signs: Date Time Temp Pulse Resp B/P (MAP) Pulse Ox O2 Delivery O2 Flow Rate FiO2 07/14/16 07:41 36.5 74 16 101/62 (75) 98 Room Air 07/14/16 06:00 65 100/54 (69) 07/14/16 00:00 37.0 68 18 90/48 (62) 97 Room Air 07/14/16 00:00 Room Air 07/13/16 20:15 80 110/56 (74) 07/13/16 20:00 Room Air 07/13/16 16:00 Room Air 07/13/16 15:11 36.7 79 18 128/78 (95) 97 Room Air Lab Results: Results Past 24 Hours Test 07/13/16 12:00 07/14/16 05:47 Range/Units Urine Opiates Screen NEG NEG Urine Methadone, Qualitative NEG NEG Urine Barbiturates NEG NEG Urine Phencyclidine (PCP) Level NEG NEG Ur Amphetamine/Methamphetamine NEG NEG MDMA (Ecstasy) Screen NEG NEG Urine Benzodiazepines Screen NEG NEG Urine Cocaine Metabolite NEG NEG Urine Marijuana (THC) NEG NEG Sodium Level 135 136-145 mmol/L Potassium Level 3.3 3.5-5.1 mmol/L Chloride Level 101 98-107 mmol/L Carbon Dioxide Level 24 21-32 mmol/L Anion Gap 10.0 3-11 mmol/L Blood Urea Nitrogen 14 7-18 mg/dl Creatinine 1.40 0.60-1.20 mg/dl Est Creatinine Clear Calc Drug Dose 43.1 ml/min Estimated GFR () 50.6 Estimated GFR (Non- 43.7 BUN/Creatinine Ratio 9.9 10-20 Random Glucose 89 70-99 mg/dl Calcium Level 8.0 8.5-10.1 mg/dl Magnesium Level 1.4 1.8-2.4 mg/dl
[2016-07-14 14:02] VITALS: BP 103/66; PULSE 72
--- NOTE | 2016-07-14 15:41 | Psychiatric Progress Notes ---
Psychiatric Progress Note Date of Service Jul 14, 2016. Notes ID: Patient reviewed with liaison nurse. I personally participated in the medical decision making outlined in the initial consultation by TRUDI Coelho. Recommendation was for ongoing monitoring on 302 warrant (petition by daughter) and drug and alcohol treatment. CC: "I don't remember what happened but I am fine now" HPI: Seen with her partner at her request. He relates that he has been with her "04/09" since when she stopped drinking in December. He denies that there is alcohol in their home but states that she was drinking excessive amounts of mouthwash during time she seemed confused. Patient herself is unsure if she took additional Ativan. She currently denies any thoughts to harm herself and family has confirmed that her mood seemed good leading up to delirium. ROS: denies tremors, GI complaints, confusion at this time MSE: alert and oriented, thoughts organized, affect pleasant/calm, she denies SI /HI/treviño and did not appear to be responding to internal stimuli. Imp: alcohol use disorder, would not take much increase in ammonia to cause confusion with ETOH and Ativan, likely minimizing level of relapse. No signs of brian or SI on exam. Plan: behavior prior to admission described on 302 petition/warrant is related to medical condition/delirium and she doesn't meet criteria for inpatient psychiatric hospitalization at this time, particularly not on an involuntary basis. Discussed with family member and patient that she should not resume Ativan on discharge and she states she will desire to discuss with her longstanding PCP upon discharge she is not agreeable to inpatient rehab and would truthfully be an extremely difficult placement given her medical co-morbidities, she states that she will agree to outpatient services as recommended by primary team/case management. She is interested in mental health case management and liaison working with [facility] on initial contact. 302 will need to be completed, ie dispositioned (declined) when medically cleared. Team should ensure daughter aware as initial petitioner.
[2016-07-14 16:00] VITALS: O2SAT 98
[2016-07-14 21:13] VITALS: BP 107/63; PULSE 75; O2SAT 100
[2016-07-15 00:05] VITALS: BP 101/59; PULSE 61; TEMP 36.8; O2SAT 99
[2016-07-15] MEDS: TRAMADOL HCL 50 MG TAB PO PRN (03:41)
[2016-07-15 06:27] LABS: HEMATOCRIT 27.3 % (37-47); MEAN CELL VOLUME 104.2 fL (80-100); MEAN CORPUSCULAR HEMOGLOBIN 35.5 pg (25-34); MEAN CORPUSCULAR HGB CONC 34.1 g/dl (32-36); RED BLOOD COUNT 2.62 M/uL (4.2-5.4); WHITE BLOOD COUNT 6.07 K/uL (4.8-10.8)
[2016-07-15 06:28] LABS: BASO % 1.6 %; COMPLETE YES; EOS % 13.8 %; IG% 0.2 %; LYMPH % 35.1 %; LYMPH ABS # 2.13 K/uL (1.2-3.4); MEAN PLATELET VOLUME 11.2 fL (7.4-10.4); MONO % 11.5 %; NEUT % 37.8 %; PLATELET COUNT 47 K/uL (130-400)
[2016-07-15] MEDS: LEVOTHYROXINE 137 MCG TAB PO SCH (06:30)
[2016-07-15 07:02] LABS: BUN/CREATININE RATIO 12.1 (10-20); CALCIUM 8.1 mg/dl (8.5-10.1); CREATININE 1.1 mg/dl (0.60-1.20); POTASSIUM 4.1 mmol/L (3.5-5.1)
[2016-07-15 07:42] VITALS: BP 94/55; PULSE 62; TEMP 36.5; O2SAT 96
[2016-07-15] MEDS: PROPRANOLOL HCL 10 MG TAB PO SCH (08:41)
[2016-07-15] MEDS: CIPROFLOXACIN 500 MG TAB PO SCH (08:42)
[2016-07-15] MEDS: MULTIVITAMIN TAB PO SCH (08:43)
[2016-07-15] MEDS: PANTOprazole SOD 40 MG TAB PO SCH (08:43)
[2016-07-15] MEDS: LACTULOSE SYRUP 10 GM/15 ML BTL 473 ML PO SCH (08:43)
[2016-07-15] MEDS: RIFAXIMIN TAB 550 MG TAB PO SCH (08:43)
--- NOTE | 2016-07-15 09:58 | Progress Note ---
Internal Med Progress Note Date of Service: Jul 15, 2016. Provider Documentation: SUBJECTIVE : Patient denies any complaints at this point and eager to be discharged. Last drink was day of admission. No symptoms of withdrawal. Denies any abdominal pain, nausea, vomiting, chest pain, SOB, cough. AAOX3. Had 2-3 BMs yesterday No suicidal ideations OBJECTIVE: Vital Signs-as noted below Exam: General-AAOX3, no distress Eyes-Icterus Neck-Supple Lungs-AEBE decreased, no wheezing, crackles Heart-S1, S2 normal , no murmurs Abdomen-Slight distension, soft, non tender, BS present Extremities-Trace edema Lab data as noted below. ASSESSMENT & PLAN: ASSESSMENT AND PLAN : EPISODIC CONFUSION : Resolved Likely secondary to alcohol intoxication more than Hepatic encephalopathy. Ammonia level was 59 on presentation -Back to baseline: AAOX3 -Questionable compliance with medications per daughter -Continue with lactulose with a goal of 2-3 BMs --> decreased to 10 gram TID back to her home dose ELIZABETH - Resolved Creatinine bumped up to 1.40 and now down to 1.10 -Hold lasix, aldactone today as well and okay to restart from tomorrow. -Monitor outpatient HYPOKALEMIA/HYPOMAGNESEMIA -Resolved ALCOHOL INTOXICATION : Patient claims had she quit drinking since 12/2015, but alcohol level is 418. Admitted that she did have few drinks 2 days ago. Has had multiple admissions in past for the same reason and keeps going back to alcohol consumption. -Alcohol withdrawal protocol with gabapentin, Ativan -No DTs. > 72 hours since last drink. Remains AAOX3. -Counseling done about alcohol cessation -Psychiatry on board as well. Appreciate inputs -Refused inpatient rehab, but willing to go for outpatient services to help with cessation of alcohol. LIVER CIRRHOSIS -On lasix 40 mg, aldactone 100 mg , rifaximin, lactulose 10 gram TID at home, but doubtful about compliance per daughter -Hold lasix/aldactone 07/14 and today. Okay to restart from yesterday. MOOD DISORDER No suicidal ideations -Had 302 signed in ED --> psychiatry consulted. 302 cancelled. As it was done in ER on admission when she was intoxicated secondary to alcohol consumption. -Appreciate psychiatric inputs. Plan is to follow up outpatient with them and also participate in outpatient services for alcohol cessation FULL CODE DVT PROPHYLAXIS SCDS RE: Cirrhosis DISPOSITION Okay to discharge home today. Arrangements for outpatient services made per psychiatry and outpatient case manager Tried to call daughter to update about discharge plan, but went into voice message. Vital Signs: Date Time Temp Pulse Resp B/P (MAP) Pulse Ox O2 Delivery O2 Flow Rate FiO2 07/15/16 08:00 Room Air 07/15/16 07:42 36.5 62 16 94/55 (68) 96 Room Air 07/15/16 00:05 36.8 61 61 101/59 (73) 99 Room Air 07/15/16 00:00 Room Air 07/14/16 21:13 75 18 107/63 (78) 100 07/14/16 16:00 98 Room Air 07/14/16 14:02 72 103/66 (78) Lab Results: Results Past 24 Hours Test 07/15/16 06:07 Range/Units White Blood Count 6.07 4.8-10.8 K/uL Red Blood Count 2.62 4.2-5.4 M/uL Hemoglobin 9.3 12.0-16.0 g/dL Hematocrit 27.3 37-47 % Mean Corpuscular Volume 104.2 80-100 fL Mean Corpuscular Hemoglobin 35.5 25-34 pg Mean Corpuscular Hemoglobin Concent 34.1 32-36 g/dl Platelet Count 47 130-400 K/uL Mean Platelet Volume 11.2 7.4-10.4 fL Neutrophils (%) (Auto) 37.8 % Lymphocytes (%) (Auto) 35.1 % Monocytes (%) (Auto) 11.5 % Eosinophils (%) (Auto) 13.8 % Basophils (%) (Auto) 1.6 % Neutrophils # (Auto) 2.29 1.4-6.5 K/uL Lymphocytes # (Auto) 2.13 1.2-3.4 K/uL Monocytes # (Auto) 0.70 0.11-0.59 K/uL Eosinophils # (Auto) 0.84 0-0.5 K/uL Basophils # (Auto) 0.10 0-0.2 K/uL RDW Standard Deviation 72.0 36.4-46.3 fL RDW Coefficient of Variation 19.7 11.5-14.5 % Immature Granulocyte % (Auto) 0.2 % Immature Granulocyte # (Auto) 0.01 0.00-0.02 K/uL Sodium Level 135 136-145 mmol/L Potassium Level 4.1 3.5-5.1 mmol/L Chloride Level 102 98-107 mmol/L Carbon Dioxide Level 24 21-32 mmol/L Anion Gap 9.0 3-11 mmol/L Blood Urea Nitrogen 13 7-18 mg/dl Creatinine 1.10 0.60-1.20 mg/dl Est Creatinine Clear Calc Drug Dose 54.9 ml/min Estimated GFR () 67.8 Estimated GFR (Non- 58.5 BUN/Creatinine Ratio 12.1 10-20 Random Glucose 84 70-99 mg/dl Calcium Level 8.1 8.5-10.1 mg/dl Magnesium Level 1.9 1.8-2.4 mg/dl
--- NOTE | 2016-07-15 10:02 | Discharge Instructions ---
Discharge Instructions Date of Service Jul 15, 2016. Admission Reason for Admission: Encephalopathy Discharge Discharge Diagnosis / Problem: 1. Alcohol intoxication Discharge Goals Goal(s): Prevent Disease Progression, Specific goals (QUIT ALCOHOL) Activity Recommendations Activity Limitations: resume your previous activity . Instructions / Follow-Up Instructions / Follow-Up MEDICATION CHANGES: 1. Hold lasix/Aldactone today and okay to restart tomorrow at previous home doses 2. Discontinued Ativan QUIT ALCOHOL FOLLOW UP 1. Follow up with Dr Chase 07/24/16 at 11:00 AM 2. Follow up with psychiatry as per schedule Current Hospital Diet Patient's current hospital diet: Low Sodium Diet (2gm Na) Discharge Diet Recommended Diet: Low Sodium Diet (2gm Na) Pending Studies Studies pending at discharge: no Medical Emergencies . Who to Call and When: Medical Emergencies: If at any time you feel your situation is an emergency, please call 911 immediately. . Non-Emergent Contact Non-Emergency issues call your: Primary Care Provider . . "Provider Documentation" section prepared by Kennedi Mendes. . VTE Core Measure Inpt VTE Proph given/why not?: TEdith Stockings, SCD's, Contraindicated (RE: THROMBOCYTOPENIA)
[2016-07-15] MEDS: POTASSIUM CHLORIDE 10 MEQ TABCR PO SCH (10:05)
[2016-07-15] MEDS: THIAMINE HCL 100 MG TAB PO SCH (10:05)
--- NOTE | 2016-07-15 10:05 | Discharge Summary ---
Discharge Summary Date of Service Jul 15, 2016. Discharge Summary Admission Date: July 11, 2016 at 23:41 Discharge Date: Jul 15, 2016 Discharge Disposition: Home Principal Diagnosis: 1. Alcohol intoxication 2. Electrolyte abnormalities- Hypokalemia/Hypomagnesemia 3. ELIZABETH Secondary Diagnoses/Problems: 1. Liver cirrhosis 2. Thrombocytopenia 3. Mood disorder Procedures: CXR CT head IVF Consultations: Psychiatry GI Pending Studies/Follow-Up: Instructions / Follow-Up Instructions / Follow-Up MEDICATION CHANGES: 1. Hold lasix/Aldactone today and okay to restart tomorrow at previous home doses 2. Discontinued Ativan QUIT ALCOHOL FOLLOW UP 1. Follow up with Dr Chase 07/24/16 at 11:00 AM 2. Follow up with psychiatry as per schedule Medication Reconciliation Continued Medications: Albuterol (Ventolin Hfa) 60 Puffs/5400 Mcg Aers 2 PUFFS INH Q4H PRN for SOB/Wheezing Biotin W/ Vitamins C & E (Hair Skin & Nails ... 1250-7.5-7.5 Mcg-mg-Unt) 1 Chw Chw 1 TAB PO QAM Ciprofloxacin Hcl (Cipro) 500 Mg Tab 500 MG PO QAM, TAB Cyanocobalamin (Vitamin B12) 1,000 Mcg Tab 1000 MCG PO QAM Folic Acid (Folvite) 1 Mg Tab 1 TAB PO QAM for 90 Days, #90 TAB 1 Refill Furosemide (Lasix) 40 Mg Tab 40 MG PO QAM, TAB Lactulose (Chronulac) 10 Gm/15 Ml Syrp 1 DOSE PO TID Levothyroxine Sodium (Levothyroxine Sodium) 137 Mcg Tab 1 TAB PO QAM for 90 Days, #90 TAB 3 Refills Loratadine (Claritin) 10 Mg Tab 10 MG PO DAILY PRN for ALLERGIC REACTION, TAB Magnesium Chloride-Calcium Car (Slow-Mag) 1 Tab Tab 1 TAB PO BID Melatonin (Kp Melatonin) 3 Mg Tab 1 TAB PO HS for 30 Days, #30 TAB 2 Refills Multivitamin (Multivitamin) Tab 1 TAB PO QAM, TAB Omeprazole (Prilosec) 40 Mg Capcr 40 MG PO QAM, CAP Ondansetron Tab (Zofran) 8 Mg Tab 1 TAB PO Q8 PRN for Nausea for 10 Days, #30 TAB 1 Refill Pot Phosphate Monobasic W/ Sod (Phospha 250 Neutral) 1 Tab Tab 1 TAB PO QAM Potassium Chloride (Micro-K Ext Rel) 10 Meq Capcr 10 MEQ PO BID, CAP Propranolol (Inderal) 10 Mg Tab 10 MG PO TID, TAB Rifaximin (Xifaxan) 550 Mg Tab 550 MG PO BID, TAB Spironolactone (Aldactone) 100 Mg Tab 100 MG PO QAM, TAB Sumatriptan Succinate (Imitrex) 50 Mg Tab 50 MG PO UD PRN for Headache, TAB Discontinued Medications: Diphenhydramine Hcl (Benadryl Allergy) 25 Mg Cap 2 CAP PO HS, #30 CAP 1 Refill Lorazepam (Ativan) 1 Mg Tab 1 MG PO BID PRN for Anxiety, TAB Admission Information HPI (per Admitting provider): HISTORY OF PRESENT ILLNESS: History obtained from patient, patient's daughter, and records. Medical history significant for alcoholic cirrhosis, hypertension, mood disorder , past tobacco abuse, portal hypertension as per records, hypothyroidism, chronic anemia (baseline hemoglobin of 8-9), hx MRSA as per records, hx recurrent SBP on Cipro rx. Recent confinement April 2016 for renal failure. As per daughter, the last two weeks, patient having intermittent confusion, slurring words, px not making sense; weakness and falling down. No chest pain, no shortness of breath. Daughter worried about patient possibly drinking again and not complying with home medications. PX unable to name her pills and schedule. Patient recently broke up with her boyfriend. No unusual belly pain, no black, no bloody stools. Patient acting like crazy as per daughter. The patient claims mood not the best because of some med allergies. Denies suicidality. Px denies recent alcohol intake. Claims last drink was last [place]. Admits to [facility] following recent dental procedures. The patient brought to the Emergency Room. Hospital Course ASSESSMENT AND PLAN : EPISODIC CONFUSION : Resolved Likely secondary to alcohol intoxication more than Hepatic encephalopathy. Ammonia level was 59 on presentation -Back to baseline: AAOX3 -Questionable compliance with medications per daughter -Continue with lactulose with a goal of 2-3 BMs --> decreased to 10 gram TID back to her home dose ALCOHOL INTOXICATION : Patient claims had she quit drinking since 12/2015, but alcohol level is 418. Admitted that she did have few drinks 2 days ago. Has had multiple admissions in past for the same reason and keeps going back to alcohol consumption. -Alcohol withdrawal protocol with gabapentin, Ativan -No DTs. > 72 hours since last drink. Remains AAOX3. -Counseling done about alcohol cessation -Psychiatry on board as well. Appreciate inputs -Refused inpatient rehab, but willing to go for outpatient services to help with cessation of alcohol. ELIZABETH - Resolved Creatinine bumped up to 1.40 and now down to 1.10 -Hold lasix, aldactone today as well and okay to restart from tomorrow. -Monitor outpatient HYPOKALEMIA/HYPOMAGNESEMIA -Resolved LIVER CIRRHOSIS -On lasix 40 mg, aldactone 100 mg , rifaximin, lactulose 10 gram TID at home, but doubtful about compliance per daughter -Hold lasix/aldactone 07/14 and today. Okay to restart from yesterday. -Continue with ciprofloxacin for SBP prophylaxis THROMBOCYTOPENIA No signs of active bleeding -Secondary to alcoholism -Monitor MOOD DISORDER No suicidal ideations -Had 302 signed in ED --> psychiatry consulted. 302 cancelled. As it was done in ER on admission when she was intoxicated secondary to alcohol consumption. -Appreciate psychiatric inputs. Plan is to follow up outpatient with them and also participate in outpatient services for alcohol cessation FULL CODE DVT PROPHYLAXIS SCDS RE: Cirrhosis DISPOSITION Okay to discharge home today. 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 Total time spent on discharge = 35 minutes This includes examination of the patient, discharge planning, medication reconciliation, and communication with other providers. Discharge Instructions Activity Recommendations Activity Limitations: resume your previous activity . Instructions / Follow-Up Instructions / Follow-Up MEDICATION CHANGES: 1. Hold lasix/Aldactone today and okay to restart tomorrow at previous home doses 2. Discontinued Ativan QUIT ALCOHOL FOLLOW UP 1. Follow up with Dr Chase 07/24/16 at 11:00 AM 2. Follow up with psychiatry as per schedule Current Hospital Diet Patient's current hospital diet: Low Sodium Diet (2gm Na) Discharge Diet Recommended Diet: Low Sodium Diet (2gm Na) Pending Studies Studies pending at discharge: no Medical Emergencies . Who to Call and When: Medical Emergencies: If at any time you feel your situation is an emergency, please call 911 immediately. . Non-Emergent Contact Non-Emergency issues call your: Primary Care Provider . . "Provider Documentation" section prepared by Kennedi Mendes. . VTE Core Measure Inpt VTE Proph given/why not?: T.E.D. Stockings, SCD's, Contraindicated (RE: THROMBOCYTOPENIA)
[2016-07-15 13:19] VITALS: BP 94/55; PULSE 62; TEMP 36.5; O2SAT 96
[2016-07-15] MEDS ORDERED: GABAPENTIN 600MG Q24H DOSE PO SCH (14:00)
[2016-09-16] MEDS ORDERED: POTA10CA28 PO (10:31)
[2016-09-16] MEDS ORDERED: MAGNTAB17 PO (10:31)
[2016-09-16] MEDS ORDERED: PROP10TA7 PO (10:31)
[2016-09-16] MEDS ORDERED: LACT10SO17 PO (10:31)
[2016-09-16] MEDS ORDERED: BIOT1CHW PO (10:31)
[2016-09-16] MEDS ORDERED: FRS/40 PO (10:31)
[2016-09-16] MEDS ORDERED: SPIR100T PO (10:31)
[2016-09-16] MEDS ORDERED: OMEP40CA41 PO (13:15)
[2016-09-16] MEDS ORDERED: ONDA8TAB12 PO (13:15)
[2016-09-16] MEDS ORDERED: LEVO137T3 PO (14:39)
[2016-09-16] MEDS ORDERED: POTTAB2 PO (15:08)
== END 2016-07-15 13:45 | disposition home or self-care (01) | DRG 897 ==
LOC: ENRESERVTM → ENRESERVDT → CANRESERV → C.EDB 19:42 → EEVIPCON 23:41 → C.MED 23:41 → EDBEDREQ 23:52
PROVIDERS: ADMIT Internal Medicine; ATTEND Internal Medicine
DX: F10.229 Alcohol dependence with intoxication, unspecified (principal); E72.20 Disorder of urea cycle metabolism, unspecified; K70.30 Alcoholic cirrhosis of liver without ascites; D69.6 Thrombocytopenia, unspecified; K72.90 Hepatic failure, unspecified without coma; K21.9 Gastro-esophageal reflux disease without esophagitis; E03.9 Hypothyroidism, unspecified; F31.9 Bipolar disorder, unspecified; I10 Essential (primary) hypertension; D64.9 Anemia, unspecified; Z98.51 Tubal ligation status; Z87.891 Personal history of nicotine dependence

== ENCOUNTER 2016-07-18 12:51 | Emergency (ER) | payer OTHER ==
[~2016-07-18] VITALS: Ht 156.2 cm; Wt 71.9 kg
[~2016-07-18 12:51] MED LIST changes: -ATV/1 PO; -DIPH25CA65 PO
[2016-07-18 13:06] VITALS: TEMP 36.5; O2SAT 94; Ht 156.2 cm; Wt 71.9 kg
[2016-07-18] MEDS ORDERED: SODIUM CHLORIDE 0.9% 1000ML 1,000 ML IV STA (13:14)
[2016-07-18] MEDS ORDERED: SODIUM CHLORIDE 0.9% 500ML 500 ML IV STA (13:14)
--- NOTE | 2016-07-18 13:27 | EMERGENCY ROOM VISIT NOTE ---
History Report prepared by Elda: Inés Portillo Under the Supervision of: Dr. Manju Jovel M.D. 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 The patient states that she was seen in the hospital 1 week ago. She notes that prior to that visit she had a "bad week" and was not coherent and cannot remember anything. She reports that she has been drinking today and Dr. Rosas sent her in today after seeing her blood work. The patient states that she drank a small amount of alcohol today and since leaving the hospital she has not had any alcohol. She reports that she is tired. She denies any bleeding from her rectum or hematuria. The patient reports that if Dr. Rosas had not called her she would not be here. She states that she has been drinking and eating normally. The patient's states that the patient was not drinking from Thanksgiving until just prior to her hospital visit last week. Source of History: patient Onset: today Position: other (global) Quality: other (alcohol overdose) Timing: other (episode) Note: Pt complains of tiredness. She denies any bleeding from her rectum or hematuria. Review of Systems See HPI for pertinent positives & negatives. A total of 10 systems reviewed and were otherwise negative. Past Medical & Surgical Medical Problems: (1) Abdominal pain (2) Alcohol dependence (3) Alcoholic liver disease (4) Allergic rhinitis (5) Anxiety (6) ARF (acute renal failure) (7) Bipolar 1 disorder (8) Chest pain (9) Depression (10) Encephalopathy (11) Essential tremor (12) GERD (gastroesophageal reflux disease) (13) History of gastric ulcer (14) History of GI bleed (15) HTN (hypertension) (16) Hyperkalemia (17) Hypothyroidism (18) Migraine (19) Portal hypertension with esophageal varices Surgical Problems: (1) H/O colonoscopy (2) H/O esophagogastroduodenoscopy (3) History of section (4) History of tubal ligation Family History Anxiety disorder BROTHER FH: bipolar disorder MOTHER Social History Smoking Status: Former Smoker Alcohol Use: other Drug Use: none Marital Status: , in relationship Occupation Status: unemployed Current/Historical Medications Scheduled Biotin W/ Vitamins C & E (Hair Skin & Nails ... 1250-7.5-7.5 Mcg-mg-Unt), 1 TAB PO QAM Cyanocobalamin (Vitamin B12), 1,000 MCG PO QAM Folic Acid (Folvite), 1 MG PO QAM Furosemide (Lasix), 40 MG PO QAM Lactulose (Chronulac), 1 DOSE PO TID Levothyroxine Sodium (Levothyroxine Sodium), 137 MCG PO QAM Magnesium Chloride-Calcium Car (Slow-Mag), 1 TAB PO BID Melatonin (Kp Melatonin), 3 MG PO HS Multivitamin (Multivitamin), 1 TAB PO QAM Omeprazole (Prilosec), 40 MG PO DAILY Pot Phosphate Monobasic W/ Sod (Phospha 250 Neutral), 1 TAB PO QAM Potassium Chloride (Micro-K Ext Rel), 10 MEQ PO BID Propranolol (Inderal), 10 MG PO TID Rifaximin (Xifaxan), 550 MG PO BID Spironolactone (Aldactone), 100 MG PO QAM Scheduled PRN Albuterol (Ventolin Hfa), 2 PUFFS INH Q4H PRN for SOB/Wheezing Loratadine (Claritin), 10 MG PO DAILY PRN for ALLERGIC REACTION Ondansetron Hcl (Zofran), 8 MG PO Q8H PRN for Nausea Sumatriptan Succinate (Imitrex), 50 MG PO UD PRN for Headache Allergies Coded Allergies: Citalopram (Verified Allergy, Severe, ENLARED HEART VALVES, 07/18/16) Quetiapine (Verified Allergy, Intermediate, unknown., 07/18/16) Physical Exam Vital Signs Date Time Temp Pulse Resp B/P (MAP) Pulse Ox O2 Delivery O2 Flow Rate FiO2 07/18/16 15:05 69 21 101/62 100 07/18/16 14:38 66 100/59 69 102/63 71 101/62 07/18/16 14:26 67 20 97/67 97 Room Air 07/18/16 13:06 36.5 68 18 83/51 99 Room Air 07/18/16 13:06 94 Room Air 07/18/16 13:00 67 Physical Exam Vital signs reviewed. General: Chronically ill-appearing, jaundice, slurring her words, answers questions appropriately HEENT: No scleral icterus, PERRLA, neck supple. Atraumatic. Cardiovascular: Regular rate and rhythm, no extra sounds. Pulmonary: Clear to auscultation bilaterally, normal work of breathing. Abdomen: Soft, nontender, mild diffuse abdominal tenderness, positive bowel sounds. Musculoskeletal: Atraumatic, no peripheral edema. Neurologic: Patient awake alert and oriented x 3 Skin: Warm, dry, no rash Medical Decision & Procedures ER Provider Diagnostic Interpretation: CT results as stated below per my review and radiologist interpretation: CT OF THE HEAD WITHOUT CONTRAST FINDINGS: No acute intracranial hemorrhage, midline shift or mass effect is present. Ventricular system is normal. Basilar cisterns are patent. No extra axial collections are present. Garcia-white differentiation is maintained. There are no findings to suggest acute dural sinus thrombosis or acute territorial infarct. There is no calvarial fracture. Visualized portions of the sinuses and mastoid air cells are clear. IMPRESSION: 1. No acute intracranial findings. 2. No calvarial fracture Electronically signed by: Raphael Gifford M.D. 07/18/2016 2:34 PM Dictated Date/Time: 07/18/2016 2:32 PM Laboratory Results 07/18/16 13:00 Red Blood Count 2.90, Mean Corpuscular Volume 105.5, Mean Corpuscular Hemoglobin 36.6, Mean Corpuscular Hemoglobin Concent 34.6, Mean Platelet Volume 12.1, Neutrophils (%) (Auto) 34.6, Lymphocytes (%) (Auto) 32.0, Monocytes (%) ( Auto) 6.9, Eosinophils (%) (Auto) 24.0, Basophils (%) (Auto) 2.2, Neutrophils # (Auto) 2.24, Lymphocytes # (Auto) 2.08, Monocytes # (Auto) 0.45, Eosinophils # ( Auto) 1.56, Basophils # (Auto) 0.14 07/18/16 13:00 Test 07/18/16 13:00 07/18/16 13:44 07/18/16 13:50 White Blood Count 6.49 K/uL (4.8-10.8) Red Blood Count 2.90 M/uL (4.2-5.4) Hemoglobin 10.6 g/dL (12.0-16.0) Hematocrit 30.6 % (37-47) Mean Corpuscular Volume 105.5 fL (80-100) Mean Corpuscular Hemoglobin 36.6 pg (25-34) Mean Corpuscular Hemoglobin Concent 34.6 g/dl (32-36) Platelet Count 72 K/uL (130-400) Mean Platelet Volume 12.1 fL (7.4-10.4) Neutrophils (%) (Auto) 34.6 % Lymphocytes (%) (Auto) 32.0 % Monocytes (%) (Auto) 6.9 % Eosinophils (%) (Auto) 24.0 % Basophils (%) (Auto) 2.2 % Neutrophils # (Auto) 2.24 K/uL (1.4-6.5) Lymphocytes # (Auto) 2.08 K/uL (1.2-3.4) Monocytes # (Auto) 0.45 K/uL (0.11-0.59) Eosinophils # (Auto) 1.56 K/uL (0-0.5) Basophils # (Auto) 0.14 K/uL (0-0.2) RDW Standard Deviation 78.6 fL (36.4-46.3) RDW Coefficient of Variation 20.4 % (11.5-14.5) Immature Granulocyte % (Auto) 0.3 % Immature Granulocyte # (Auto) 0.02 K/uL (0.00-0.02) Anisocytosis PRESENT Macrocytosis PRESENT Echinocytes 1+ Acanthocytes 1+ Prothrombin Time 20.6 SECONDS (9.0-12.0) Prothromb Time International Ratio 1.9 (0.9-1.1) Activated Partial Thromboplast Time 36.7 SECONDS (21.0-31.0) Partial Thromboplastin Ratio 1.4 Est Creatinine Clear Calc Drug Dose 65.0 ml/min Estimated GFR () 80.9 Estimated GFR (Non- 69.8 BUN/Creatinine Ratio 9.6 (10-20) Calcium Level 8.3 mg/dl (8.5-10.1) Magnesium Level 1.9 mg/dl (1.8-2.4) Total Bilirubin 5.4 mg/dl (0.2-1) Direct Bilirubin 3.5 mg/dl (0-0.2) Aspartate Amino Transf (AST/SGOT) 59 U/L (15-37) Alanine Aminotransferase (ALT/SGPT) 29 U/L (12-78) Alkaline Phosphatase 140 U/L (45-117) Total Protein 7.4 gm/dl (6.4-8.2) Albumin 3.0 gm/dl (3.4-5.0) Lipase 168 U/L (73-393) Ammonia < 10.0 umol/L (11-32) Ethyl Alcohol mg/dL 282.0 mg/dl (0-3) Bedside Hemoglobin 11.6 g/dl (12.0-16.0) Bedside Hematocrit 34 % (37-47) Bedside Sodium 144 mEq/L (135-144) Bedside Potassium 3.7 mEq/L (3.3-5.0) Bedside Chloride 105 mEq/L (101-112) Bedside Total CO2 21 mEq/l (24-31) Anion Gap 22.0 mmol/L (16-25) Bedside Blood Urea Nitrogen 8 mg/dl (7-18) Bedside Creatinine 1.2 mg/dl (0.6-1.3) Bedside Glucose (other) 85 mg/dl (70-99) Bedside Ionized Calcium (Andrey) 1.07 mmol/l (1.12-1.32) Laboratory results per my review. Medications Administered Medications (Trade) Dose Ordered Sig/Fariba Route Start Time Stop Time Status Last Admin Dose Admin Sodium Chloride 1,000 ml @ 125 mls/hr Q8H STAT IV 07/18/16 13:14 07/18/16 15:29 DC 07/18/16 13:14 125 MLS/HR Sodium Chloride 500 ml @ 999 mls/hr Q31M STAT IV 07/18/16 13:14 07/18/16 13:44 DC 07/18/16 13:18 999 MLS/HR ECG Indication: other (abnormal labs) Rate (beats per minute): 65 Rhythm: normal sinus Findings: no acute ischemic change, no ectopy, other (prolonged QTC 505) ED Course 1254: Past medical records reviewed. The patient was evaluated in room B2. A complete history and physical examination was performed. 1314: Sodium Chloride 500 ml @ 999 mls/hr IV, Sodium Chloride 1000 ml @ 125 mls/ hr IV. 1451: Upon reevaluation, the patient appeared to have improvement of her symptoms. I discussed findings with the patient. She verbalized agreement of the treatment plan. The patient was discharged home. Medical Decision The differential diagnosis of the patient's presentation includes alcohol intoxication, acute liver failure, renal failure, platelet dysfunction. Medication Reconciliation: I attest that I have personally reviewed the patient' s current medication list. Blood Pressure Screening: Patient was found to have low blood pressure on screening that is consistent with her alcoholism and liver disease and does not require follow-up. This patient was evaluated and appeared to be in no significant distress. IV access was obtained and laboratory work was drawn. Patient was hydrated with normal saline solution. Laboratory work indicates a normal ammonia level, improving INR and acute alcohol intoxication. The patient was informed of the findings. Family was at the bedside. At this time the patient is felt to be stable for discharge. She was referred back to her primary care physician, gastroenterology and alcohol rehabilitation. They will return to the ER for worsening of symptoms or any medical concerns. Impression Primary Impression: Alcoholic liver disease Additional Impression: Alcohol use with intoxication Scribe Attestation The scribe's documentation has been prepared under my direction and personally reviewed by me in its entirety. I confirm that the note above accurately reflects all work, treatment, procedures, and medical decision making performed by me. Departure Information Dispostion Home / Self-Care Referrals Osorio Chase M.D. (PCP) Forms HOME CARE DOCUMENTATION FORM, IMPORTANT VISIT INFORMATION Patient Instructions My [facility] Additional Instructions Diagnosis: Alcohol intoxication, alcoholic liver disease. Please drink clear fluids this evening. Avoid any additional alcohol. Continue your medications as prescribed. Follow-up with your physician this week for reevaluation. Return to the ER for worsening of symptoms or any medical concerns. Problem Qualifiers
[2016-07-18 13:32] LABS: INR 1.9 (0.9-1.1); PARTIAL THROMBOPLASTIN RATIO 1.4; PROTHROMBIN TIME (PATIENT) 20.6 SECONDS (9.0-12.0)
[2016-07-18 13:42] LABS: HEMATOCRIT 30.6 % (37-47); MEAN CELL VOLUME 105.5 fL (80-100); MEAN CORPUSCULAR HEMOGLOBIN 36.6 pg (25-34); MEAN CORPUSCULAR HGB CONC 34.6 g/dl (32-36); MEAN PLATELET VOLUME 12.1 fL (7.4-10.4); PLATELET COUNT 72 K/uL (130-400); WHITE BLOOD COUNT 6.49 K/uL (4.8-10.8)
[2016-07-18 13:44] LABS: BUN/CREATININE RATIO 9.6 (10-20); CREATININE 0.95 mg/dl (0.60-1.20); MAGNESIUM 1.9 mg/dl (1.8-2.4); POTASSIUM 3.7 mmol/L (3.5-5.1)
[2016-07-18 13:51] LABS: CALCIUM 8.3 mg/dl (8.5-10.1)
[2016-07-18 14:02] LABS: ISTAT CREATININE 1.2 mg/dl (0.6-1.3); ISTAT HEMOGLOBIN 11.6 g/dl (12.0-16.0); ISTAT IONIZED CALCIUM 1.07 mmol/l (1.12-1.32)
[2016-07-18 14:10] LABS: ACANTHOCYTES 1+; ANISOCYTOSIS PRESENT; BASO % 2.2 %; BASO ABS # 0.14 K/uL (0-0.2); COMPLETE YES; ECHINOCYTES 1+; IG% 0.3 %; LYMPH ABS # 2.08 K/uL (1.2-3.4); MONO % 6.9 %; NEUT % 34.6 %
--- NOTE | 2016-07-18 14:36 | DIAGNOSTIC IMAGING REPORT ---
CT OF THE HEAD WITHOUT CONTRAST CLINICAL HISTORY: AMS, ETOH abuse, ?falls, elevated INR COMPARISON STUDY: Head CT July 11, 2016. CT DOSE: 537.48 mGy.cm TECHNIQUE: Helical axial images of the head were obtained without IV contrast. Automated exposure control was utilized for the study. FINDINGS: No acute intracranial hemorrhage, midline shift or mass effect is present. Ventricular system is normal. Basilar cisterns are patent. No extra axial collections are present. Garcia-white differentiation is maintained. There are no findings to suggest acute dural sinus thrombosis or acute territorial infarct. There is no calvarial fracture. Visualized portions of the sinuses and mastoid air cells are clear. IMPRESSION: 1. No acute intracranial findings. 2. No calvarial fracture Electronically signed by: Raphael Gifford M.D. 07/18/2016 2:34 PM Dictated Date/Time: 07/18/2016 2:32 PM
[2016-07-18 15:05] VITALS: BP 101/62; PULSE 69; O2SAT 100
[2016-09-16] MEDS ORDERED: POTA10CA28 PO (10:31)
[2016-09-16] MEDS ORDERED: MAGNTAB17 PO (10:31)
[2016-09-16] MEDS ORDERED: PROP10TA7 PO (10:31)
[2016-09-16] MEDS ORDERED: BIOT1CHW PO (10:31)
[2016-09-16] MEDS ORDERED: LACT10SO17 PO (10:31)
[2016-09-16] MEDS ORDERED: SPIR100T PO (10:31)
[2016-09-16] MEDS ORDERED: FRS/40 PO (10:31)
[2016-09-16] MEDS ORDERED: ONDA8TAB12 PO (13:15)
[2016-09-16] MEDS ORDERED: OMEP40CA41 PO (13:15)
[2016-09-16] MEDS ORDERED: LEVO137T3 PO (14:39)
[2016-09-16] MEDS ORDERED: POTTAB2 PO (15:08)
== END 2016-07-18 15:00 | disposition home or self-care (01) ==
LOC: EDBD 12:51 → C.EDB 12:52
DX: K70.9 Alcoholic liver disease, unspecified (principal); F10.129 Alcohol abuse with intoxication, unspecified; Y90.8 Blood alcohol level of 240 mg/100 ml or more; I10 Essential (primary) hypertension; E03.9 Hypothyroidism, unspecified; G93.40 Encephalopathy, unspecified; F31.9 Bipolar disorder, unspecified; K21.9 Gastro-esophageal reflux disease without esophagitis; Z87.11 Personal history of peptic ulcer disease; Z87.19 Personal history of other diseases of the digestive system; Z98.51 Tubal ligation status; Z98.890 Other specified postprocedural states; Z79.899 Other long term (current) drug therapy; Z87.891 Personal history of nicotine dependence; Z88.8 Allergy status to other drugs, medicaments and biological substances; Z81.8 Family history of other mental and behavioral disorders

== ENCOUNTER 2016-09-16 15:31 | Emergency (ER) | payer OTHER ==
[~2016-09-16] VITALS: Ht 154.9 cm; Wt 77.5 kg
[~2016-09-16 15:31] MED LIST changes: +BIOT1CHW PO; -CIPR-255 PO; +FRS/40 PO; +LACT10SO17 PO; +LEVO137T3 PO; +MAGNTAB17 PO; -OMEP40CA PO; +OMEP40CA41 PO; +ONDA8TAB12 PO; -ONDA8TAB7 PO; +POTA10CA28 PO; +POTTAB2 PO; +PROP10TA7 PO; +SPIR100T PO
[2016-09-16 15:35] VITALS: TEMP 36.6; Ht 154.9 cm; Wt 77.5 kg
--- NOTE | 2016-09-16 15:57 | EMERGENCY ROOM VISIT NOTE ---
History Report prepared by Elda: Inés Portillo Under the Supervision of: Dr. Mason Ohara M.D. First contact with patient: 15:41 Chief Complaint: ABDOMINAL PAIN Stated Complaint: ABDOMINAL PAIN History of Present Illness The patient is a 51 year old white female with a past medical history of cirrhosis who presents to the ED with a cc of constant shortness of breath beginning 1 week ago. Positive dizziness, ascites, abdominal bloating, chills, stumbling. Negative nausea, vomiting, chest pain, fever, cough. She notes that her SOB is worsened with exertion. Pt states that she takes Lactulose and has not missed any doses. She notes a history of varices and a small bleed that was repaired year prior.. Source of History: patient Onset: 1 week ago Position: other (global) Quality: other (SOB) Timing: constant Associated Symptoms: + chills, No fevers, No cough, No chest pain, No nausea , No vomiting Note: Positive dizziness, abdominal bloating, ascites, stumbling. Review of Systems See HPI for pertinent positives and negatives. A total of ten systems were reviewed and were otherwise negative. Past Medical & Surgical Medical Problems: (1) Abdominal pain (2) Alcohol dependence (3) Alcoholic liver disease (4) Allergic rhinitis (5) Anxiety (6) ARF (acute renal failure) (7) Bipolar 1 disorder (8) Chest pain (9) Depression (10) Encephalopathy (11) Essential tremor (12) GERD (gastroesophageal reflux disease) (13) History of gastric ulcer (14) History of GI bleed (15) HTN (hypertension) (16) Hyperkalemia (17) Hypothyroidism (18) Migraine (19) Portal hypertension with esophageal varices Surgical Problems: (1) H/O colonoscopy (2) H/O esophagogastroduodenoscopy (3) History of section (4) History of tubal ligation Family History Anxiety disorder BROTHER FH: bipolar disorder MOTHER Social History Smoking Status: Former Smoker Alcohol Use: other Drug Use: none Marital Status: , in relationship Housing Status: lives with family Occupation Status: unemployed Current/Historical Medications Scheduled Biotin W/ Vitamins C & E (Hair Skin & Nails ... 1250-7.5-7.5 Mcg-mg-Unt), 1 TAB PO QAM Cholecalciferol (Vitamin D3), 1 TAB PO DAILY Ciprofloxacin (Ciprofloxacin HCl), 500 MG PO BID Cyanocobalamin (Vitamin B12), 1,000 MCG PO QAM Folic Acid (Folvite), 1 MG PO QAM Furosemide (Lasix), 40 MG PO QAM Levothyroxine Sodium (Levothyroxine Sodium), 137 MCG PO QAM Magnesium Chloride-Calcium Car (Slow-Mag), 1 TAB PO BID Multivitamin (Multivitamin), 1 TAB PO QAM Omeprazole (Prilosec), 40 MG PO DAILY Pot Phosphate Monobasic W/ Sod (Phospha 250 Neutral), 1 TAB PO QAM Potassium Chloride (Micro-K Ext Rel), 10 MEQ PO BID Propranolol (Inderal), 10 MG PO TID Rifaximin (Xifaxan), 550 MG PO BID Sertraline HCl (Sertraline HCl), 50 MG PO DAILY Spironolactone (Aldactone), 100 MG PO QAM Scheduled PRN Albuterol (Ventolin Hfa), 2 PUFFS INH Q4H PRN for SOB/Wheezing Lactulose (Chronulac), 1 DOSE PO TID PRN for Constipation Loratadine (Claritin), 10 MG PO DAILY PRN for ALLERGIC REACTION Lorazepam (Lorazepam), 1 MG PO BID PRN for Anxiety Melatonin (Kp Melatonin), 3 MG PO HS PRN for Sleep Ondansetron Hcl (Zofran), 8 MG PO Q8H PRN for Nausea Sumatriptan Succinate (Imitrex), 50 MG PO UD PRN for Headache Allergies Coded Allergies: Citalopram (Verified Allergy, Severe, ENLARED HEART VALVES, 07/18/16) Quetiapine (Verified Allergy, Intermediate, unknown., 07/18/16) Physical Exam Vital Signs Date Time Temp Pulse Resp B/P (MAP) Pulse Ox O2 Delivery O2 Flow Rate FiO2 09/16/16 18:41 58 17 98/57 98 09/16/16 18:00 62 16 98/55 95 Room Air 09/16/16 17:01 58 09/16/16 16:53 58 16 97/52 95 Room Air 09/16/16 15:35 36.6 80 20 90/53 98 Room Air Physical Exam GENERAL: Awake, alert, chronically ill-appearing, NAD HENT: Normocephalic, atraumatic. EYES: Normal conjunctiva. Scleral icterus present. NECK: Supple. No nuchal rigidity. FROM. RESPIRATORY: CTAB, no rhonchi, wheezing, crackles CARDIAC: RRR, no MRG ABDOMEN: Soft, BS+, RUQ tenderness, - Goldstein's. MSK: No chest wall TTP, trace pre-tibial edema. NEURO: GCS 15, CN 2-12 intact, moves all 4s on command SKIN: No rash or jaundice noted. Medical Decision & Procedures ER Provider Diagnostic Interpretation: Radiology results as stated below per my review and radiologist interpretation: CHEST ONE VIEW PORTABLE FINDINGS: The heart is mildly enlarged. There is no failure. There is no lobar consolidation. There is a retrocardiac opacity consistent with a hiatal hernia. There is mild thickening of the right minor fissure. A subcentimeter density at the level of the left cardiophrenic angle is felt to reflect focal atelectatic change. IMPRESSION: AP portable study. No acute findings. Electronically signed by: Isaiah Thrasher M.D. 09/16/2016 4:28 PM Dictated Date/Time: 09/16/2016 4:27 PM Bedside Abdominal Ultrasound: Trace volume ascites, full bladder. Laboratory Results 09/16/16 16:30 Red Blood Count 2.38, Mean Corpuscular Volume 108.0, Mean Corpuscular Hemoglobin 36.1, Mean Corpuscular Hemoglobin Concent 33.5, Mean Platelet Volume 10.3, Neutrophils (%) (Auto) 57.4, Lymphocytes (%) (Auto) 21.5, Monocytes (%) ( Auto) 7.3, Eosinophils (%) (Auto) 12.1, Basophils (%) (Auto) 1.1, Neutrophils # (Auto) 3.78, Lymphocytes # (Auto) 1.42, Monocytes # (Auto) 0.48, Eosinophils # ( Auto) 0.80, Basophils # (Auto) 0.07 09/16/16 16:30 Test 09/16/16 16:30 09/16/16 16:35 White Blood Count 6.59 K/uL (4.8-10.8) Red Blood Count 2.38 M/uL (4.2-5.4) Hemoglobin 8.6 g/dL (12.0-16.0) Hematocrit 25.7 % (37-47) Mean Corpuscular Volume 108.0 fL (80-100) Mean Corpuscular Hemoglobin 36.1 pg (25-34) Mean Corpuscular Hemoglobin Concent 33.5 g/dl (32-36) Platelet Count 100 K/uL (130-400) Mean Platelet Volume 10.3 fL (7.4-10.4) Neutrophils (%) (Auto) 57.4 % Lymphocytes (%) (Auto) 21.5 % Monocytes (%) (Auto) 7.3 % Eosinophils (%) (Auto) 12.1 % Basophils (%) (Auto) 1.1 % Neutrophils # (Auto) 3.78 K/uL (1.4-6.5) Lymphocytes # (Auto) 1.42 K/uL (1.2-3.4) Monocytes # (Auto) 0.48 K/uL (0.11-0.59) Eosinophils # (Auto) 0.80 K/uL (0-0.5) Basophils # (Auto) 0.07 K/uL (0-0.2) RDW Standard Deviation 57.0 fL (36.4-46.3) RDW Coefficient of Variation 14.7 % (11.5-14.5) Immature Granulocyte % (Auto) 0.6 % Immature Granulocyte # (Auto) 0.04 K/uL (0.00-0.02) Poikilocytosis PRESENT Anisocytosis PRESENT Acanthocytes 1+ Schistocytes OCCASIONAL Anion Gap 6.0 mmol/L (3-11) Est Creatinine Clear Calc Drug Dose 62.7 ml/min Estimated GFR () 75.5 Estimated GFR (Non- 65.2 BUN/Creatinine Ratio 15.2 (10-20) Lactic Acid Level 1.2 mmol/L (0.4-2.0) Calcium Level 8.2 mg/dl (8.5-10.1) Total Bilirubin 8.5 mg/dl (0.2-1) Direct Bilirubin 5.8 mg/dl (0-0.2) Aspartate Amino Transf (AST/SGOT) 62 U/L (15-37) Alanine Aminotransferase (ALT/SGPT) 28 U/L (12-78) Alkaline Phosphatase 137 U/L (45-117) Ammonia 22.0 umol/L (11-32) Troponin I < 0.015 ng/ml (0-0.045) Pro-B-Type Natriuretic Peptide 570 pg/ml (0-900) Total Protein 7.1 gm/dl (6.4-8.2) Albumin 2.3 gm/dl (3.4-5.0) Lipase 180 U/L (73-393) Venous Blood pH 7.43 (7.36-7.41) Venous Blood Partial Pressure CO2 38 mmHg (38.0-50.0) Venous Blood Partial Pressure O2 35 mmHg Venous Blood HCO3 25 mmol/L Venous Blood Oxygen Saturation 66.7 % Venous Blood Base Excess 0.4 mEq/L Laboratory results reviewed by me ECG Indication: SOB/dyspnea Rate (beats per minute): 58 Rhythm: sinus bradycardia Findings: 1st degree AV block, other (normal QRS, prolonged QT, No ST changes or T wave inversions) Comparison ECG Date: 07/18/16 Change: no significant change ED Course 1541: The patient was evaluated in room C10. A complete history and physical exam was performed. 1747: I reevaluated the patient and updated her. I performed a bedside ultrasound. See diagnostic section for interpretation. 1820: I reevaluated the patient. Discussed results and discharge instructions: She verbalized understanding and agreement. The patient is ready for discharge. Medical Decision Differential diagnosis includes heart failure, liver failure, hepatic encephalopathy, UTI, pneumonia, anemia. The patient is a 51 year old white female with a past medical history of cirrhosis who presents to the ED with a cc of constant shortness of breath beginning 1 week ago. Patient w/ noted recent EGD completed in May w/ low grade distal varices w/o bleeding. No complaints of bleeding today. Taking meds per patient. Patient CXR clear w/ fairly normal BNP and trop. EKG showed prolonged QT but relatively unchanged from prior w/ noted 1st degree block. She was told to avoid taking zofran at home as this may prolong her QTc. Less likely ACS given h/o, physical , and EKG w/o acute ischemic changes or +trop. BNP and CXR clear and only trace LE edema, less likely CHF exacerbation. No CXR consolidation less likely PNA. Hgb > 8. Mild elevations in her bili but not very much in other LFTs. Her mild RUQ likely chronic from her disease. Patient WBC WNL. Platelets 100K. UA neg for infection. Ammonia 20s. BSUS showed full bladder and trace ascites, unsafe for any tap at this time. Of note patient w/ BP 90s/50s; however this appears to be baseline and not uncommon given her hepatic dysfunction. LA < 2 and renal function WNL. Patient not PERC neg; however, unlikely PE given her sleeping in bed, not hypoxic nor tachycardic and upon reassessment w/o intervention. Patient informed of all findings, was given f/u, d/c, and return precautions. She agreed w/ POC and was d/c'ed to home. Medication Reconcilliation Current Medication List: was personally reviewed by me Blood Pressure Screening Patient's blood pressure: Low blood pressure Blood pressure disposition: Did not require urgent referral Impression Primary Impression: Hyperbilirubinemia Additional Impressions: SOB (shortness of breath) Hepatic dysfunction Scribe Attestation The scribe's documentation has been prepared under my direction and personally reviewed by me in its entirety. I confirm that the note above accurately reflects all work, treatment, procedures, and medical decision making performed by me. Departure Information Dispostion Home / Self-Care Referrals No Doctor, Assigned (PCP) [facility] Forms Call Back Authorization, HOME CARE DOCUMENTATION FORM, IMPORTANT VISIT INFORMATION Patient Instructions ED Ascites, ED Dyspnea Shortness of Breath, [facility] Additional Instructions Please return to the emergency department if worsening or recurrent symptoms not amenable to treatment. Please continue taking medications as prescribed. Please follow up with her PCP as well as her GI specialist as needed. Problem Qualifiers
[2016-09-16] MEDS ORDERED: PRVHFAIN INH (16:16)
[2016-09-16] MEDS ORDERED: SUMA50TA15 PO (16:16)
[2016-09-16] MEDS ORDERED: MULT-506 PO (16:16)
[2016-09-16] MEDS ORDERED: CLR10 PO (16:16)
[2016-09-16] MEDS ORDERED: FOLI1TAB7 PO (16:17)
[2016-09-16] MEDS ORDERED: CHOL1000 PO (16:20)
[2016-09-16] MEDS ORDERED: ZLF/50 PO (16:20)
[2016-09-16] MEDS ORDERED: CPR500HP PO (16:20)
[2016-09-16] MEDS ORDERED: ATV1 PO (16:21)
--- NOTE | 2016-09-16 16:29 | DIAGNOSTIC IMAGING REPORT ---
CHEST ONE VIEW PORTABLE CLINICAL HISTORY: SOB COMPARISON STUDY: 07/11/2016 FINDINGS: The heart is mildly enlarged. There is no failure. There is no lobar consolidation. There is a retrocardiac opacity consistent with a hiatal hernia. There is mild thickening of the right minor fissure. A subcentimeter density at the level of the left cardiophrenic angle is felt to reflect focal atelectatic change.[ IMPRESSION: AP portable study. No acute findings. Electronically signed by: Isaiah Thrasher M.D. 09/16/2016 4:28 PM Dictated Date/Time: 09/16/2016 4:27 PM
[2016-09-16 16:43] LABS: BASO % 1.1 %; BASO ABS # 0.07 K/uL (0-0.2); EOS % 12.1 %; HEMATOCRIT 25.7 % (37-47); IG% 0.6 %; LYMPH % 21.5 %; LYMPH ABS # 1.42 K/uL (1.2-3.4); MEAN CORPUSCULAR HEMOGLOBIN 36.1 pg (25-34); MEAN CORPUSCULAR HGB CONC 33.5 g/dl (32-36); MEAN PLATELET VOLUME 10.3 fL (7.4-10.4); MONO % 7.3 %; NEUT % 57.4 %; PLATELET COUNT 100 K/uL (130-400); RED BLOOD COUNT 2.38 M/uL (4.2-5.4); WHITE BLOOD COUNT 6.59 K/uL (4.8-10.8)
[2016-09-16 16:46] LABS: VEN BLD GAS O2 SATURATION 66.7 %; VEN BLOOD GAS BASE EXCESS 0.4 mEq/L
[2016-09-16 17:11] LABS: ALKALINE PHOSPHATASE 137 U/L (45-117); ALT/SGPT 28 U/L (12-78); AST/SGOT 62 U/L (15-37); BLOOD UREA NITROGEN 15 mg/dl (7-18); BUN/CREATININE RATIO 15.2 (10-20); CALCIUM 8.2 mg/dl (8.5-10.1); CARBON DIOXIDE 26 mmol/L (21-32); CHLORIDE 106 mmol/L (98-107); GLUCOSE 88 mg/dl (70-99); POTASSIUM 4.2 mmol/L (3.5-5.1); SODIUM 138 mmol/L (136-145)
[2016-09-16 17:22] LABS: ACANTHOCYTES 1+; ANISOCYTOSIS PRESENT; COMPLETE YES; POIKILOCYTOSIS PRESENT; SCHISTOCYTES OCCASIONAL
[2016-09-16] MEDS ORDERED: CYAN100020 PO (17:37)
[2016-09-16 18:41] VITALS: BP 98/57; PULSE 58; O2SAT 98
[2016-09-16] MEDS ORDERED: RIFA550T2 PO (23:17)
== END 2016-09-16 18:39 | disposition home or self-care (01) ==
LOC: C.EDB 15:32 → C.EDC 18:39
DX: E80.6 Other disorders of bilirubin metabolism (principal); R06.02 Shortness of breath; K76.89 Other specified diseases of liver; K70.9 Alcoholic liver disease, unspecified; F41.9 Anxiety disorder, unspecified; N17.9 Acute kidney failure, unspecified; F31.9 Bipolar disorder, unspecified; F32.9 Major depressive disorder, single episode, unspecified; K21.9 Gastro-esophageal reflux disease without esophagitis; G93.40 Encephalopathy, unspecified; G25.0 Essential tremor; I10 Essential (primary) hypertension; E03.9 Hypothyroidism, unspecified; E87.5 Hyperkalemia; G43.909 Migraine, unspecified, not intractable, without status migrainosus; Z87.891 Personal history of nicotine dependence; Z79.899 Other long term (current) drug therapy

== ENCOUNTER 2016-12-01 11:22 | Day surgery (SDC) | payer OTHER ==
[~2016-12-01] VITALS: Ht 156.2 cm; Wt 70.5 kg
[~2016-12-01 11:22] MED LIST changes: +ATV1 PO; +CHOL1000 PO; +CLR10 PO; +CPR500HP PO; +CYAN100020 PO; +FOLI1TAB7 PO; +MULT-506 PO; +PRVHFAIN INH; +RIFA550T2 PO; +SUMA50TA15 PO; +ZLF/50 PO
[2016-12-01 12:36] VITALS: BP 112/56; PULSE 55; TEMP 36.5; O2SAT 100; Ht 156.2 cm; Wt 70.5 kg
[2016-12-01 13:12] LABS: HEMATOCRIT 25.4 % (37-47); MEAN CELL VOLUME 105.8 fL (80-100); MEAN CORPUSCULAR HEMOGLOBIN 35.4 pg (25-34); WHITE BLOOD COUNT 4.11 K/uL (4.8-10.8)
[2016-12-01 13:14] LABS: MEAN CORPUSCULAR HGB CONC 33.5 g/dl (32-36); MEAN PLATELET VOLUME 11.2 fL (7.4-10.4); PLATELET COUNT 67 K/uL (130-400)
[2016-12-01 13:15] LABS: PARTIAL THROMBOPLASTIN RATIO 1.5; PROTHROMBIN TIME (PATIENT) 22.1 SECONDS (9.0-12.0)
[2016-12-01 13:29] LABS: ALB/GLOB RATIO 0.6 (0.9-2); BUN/CREATININE RATIO 23.8 (10-20); CALCIUM 8.7 mg/dl (8.5-10.1); CREATININE 0.69 mg/dl (0.60-1.20); POTASSIUM 4.5 mmol/L (3.5-5.1)
[2016-12-01 13:30] LABS: ACANTHOCYTES 2+; BASO % 1.2 %; BASO ABS # 0.05 K/uL (0-0.2); COMPLETE YES; EOS % 14.6 %; IG% 0.5 %; LYMPH % 22.1 %; LYMPH ABS # 0.91 K/uL (1.2-3.4); NEUT % 52.6 %
[2016-12-01 15:00] VITALS: BP 106/45; PULSE 82; TEMP 36.8; O2SAT 98
--- NOTE | 2016-12-01 15:12 | DIAGNOSTIC IMAGING REPORT ---
ASCITES-ABDOMEN LIMITED CLINICAL HISTORY: ASCITES. COMPARISON STUDY: Ultrasound guided paracentesis April 14, 2016. FINDINGS: The patient presented today for possible paracentesis. However, there was only a small amount of ascites within the 4 quadrants. The amount of fluid was insufficient for a paracentesis. Therefore, no paracentesis was performed. This was discussed with the patient and Sil Mandel. IMPRESSION: Small amount of ascites, insufficient for paracentesis. Electronically signed by: Raphael Gifford M.D. 12/01/2016 3:11 PM Dictated Date/Time: 12/01/2016 3:09 PM
== END 2016-12-01 15:55 | disposition home or self-care (01) ==
LOC: C.ACU 11:22
PROVIDERS: ATTEND Nurse Practitioner
DX: K70.31 Alcoholic cirrhosis of liver with ascites (principal)

== ENCOUNTER 2017-04-14 20:27 | Inpatient (IN) | payer OTHER ==
[~2017-04-14] VITALS: Ht 154.9 cm; Wt 73.0 kg
[~2017-04-14 20:27] MED LIST changes: -CHOL1000 PO; -FOLI1TAB7 PO; +FOLI1TAB8 PO; -POTTAB2 PO; -PRVHFAIN INH; -RIFA550T2 PO
[2017-04-14] MEDS ORDERED: ONDANSETRON INJ 2 MG/ML 2 ML VIAL IV STA (20:50)
[2017-04-14] MEDS ORDERED: ALBUT/IPRATROP 3MG/0.5MG NEB 3 ML VIAL INH STA (20:59)
[2017-04-14] MEDS ORDERED: CEFTRIAXONE SOD INJ 1 GM ADDVIAL IV STA (20:59)
[2017-04-14] MEDS ORDERED: AZITHROMYCIN IV 500 MG in DEXTROSE 5% 250ML 250 ML IV ONE (21:00)
--- NOTE | 2017-04-14 21:05 | EMERGENCY ROOM VISIT NOTE ---
History Report prepared by Elda: Delvis Snyder Under the Supervision of: Dr. Mason Ohara M.D. First contact with patient: 20:43 Chief Complaint: VOMITING Stated Complaint: THROWING UP, TORUBLE BREATHING, RENATA DISEASE History of Present Illness The patient is a 51 year old white female with a past medical history of cirrhosis, ARF, and HTN who presents to the ED with a cc of intermittent vomiting beginning this morning. She rates her discomfort as a 10/10 in severity. The patient states that she has been wheezing and coughing for the last 4 days. She reports that she recently saw Dr. Chase, her PCP at [facility], for her symptoms. The patient states that she was given cough medication and Prednisone, which she admits to taking. She states that over the last couple of days, she has been experiencing LE and abdominal swelling. The patient reports she started to experience vomiting today with 6-8 episodes throughout the day. Positive SOB, abdominal distension, wheezing, productive cough with green mucous, LE swelling, flu shot. Negative smoking, alcohol or drug use. The patient states that she had fluid removed from her abdomen over a year ago. Source of History: patient Onset: this morning Position: other (global) Symptom Intensity: 10/10 Quality: other (global) Timing: intermittent Associated Symptoms: + cough, + SOB, + nausea Review of Systems See HPI for pertinent positives and negatives. A total of ten systems were reviewed and were otherwise negative. Past Medical & Surgical Medical Problems: (1) Abdominal pain (2) Alcohol dependence (3) Alcoholic liver disease (4) Allergic rhinitis (5) Anxiety (6) ARF (acute renal failure) (7) Bipolar 1 disorder (8) Chest pain (9) Depression (10) Encephalopathy (11) Essential tremor (12) GERD (gastroesophageal reflux disease) (13) History of gastric ulcer (14) History of GI bleed (15) HTN (hypertension) (16) Hyperkalemia (17) Hypothyroidism (18) Migraine (19) Portal hypertension with esophageal varices Surgical Problems: (1) H/O colonoscopy (2) H/O esophagogastroduodenoscopy (3) History of section (4) History of tubal ligation Family History Anxiety disorder BROTHER FH: bipolar disorder MOTHER Social History Smoking Status: Former Smoker Alcohol Use: other Drug Use: none Marital Status: , in relationship Housing Status: lives with family Occupation Status: unemployed Current/Historical Medications Scheduled Biotin W/ Vitamins C & E (Hair Skin & Nails ... 1250-7.5-7.5 Mcg-mg-Unt), 1 TAB PO QAM Cholecalciferol (Vitamin D 1000 Unit), 1,000 INTER.UNIT PO DAILY Ciprofloxacin Hcl (Cipro), 500 MG PO DAILY Cranberry (Vaccinium Macrocarp (Cranberry), 1 TAB PO DAILY Cyanocobalamin (Vitamin B12), 1,000 MCG PO QAM Folic Acid (Folvite), 1 MG PO QAM Furosemide (Lasix), 40 MG PO QAM Levothyroxine Sodium (Levothyroxine Sodium), 137 MCG PO QAM Lorazepam (Lorazepam), 1 MG PO BID Magnesium Chloride-Calcium Car (Slow-Mag), 1 TAB PO BID Milk Thistle (Silybum Marianum (Milk Thistle), 1 TAB PO DAILY Multivitamin (Multivitamin), 1 TAB PO QAM Omeprazole (Prilosec), 40 MG PO DAILY Potassium Chloride (Micro-K Ext Rel), 10 MEQ PO BID Pramoxine Hcl (Sarna Sensitive Anti-Itch), 1 APPLN TOP BID Propranolol (Inderal), 10 MG PO TID Rifaximin (Xifaxan), 550 MG PO BID Sertraline HCl (Sertraline HCl), 50 MG PO HS Spironolactone (Aldactone), 100 MG PO HS Scheduled PRN Benzonatate (Tessalon Perles), 1 CAP PO TID PRN for Cough Lactulose (Chronulac), 30 ML PO TID PRN for severe constipation Loratadine (Claritin), 10 MG PO DAILY PRN for ALLERGIC REACTION Melatonin (Kp Melatonin), 3 MG PO HS PRN for Sleep Ondansetron Hcl (Zofran), 8 MG PO Q8H PRN for Nausea Sumatriptan Succinate (Imitrex), 50 MG PO UD PRN for Headache Tramadol (Ultram), 50 MG PO Q6 PRN for Pain Allergies Coded Allergies: Alcohol (Verified Allergy, Severe, LIVER DAMAGE, 04/14/17) Citalopram (Verified Allergy, Severe, ENLARED HEART VALVES, 12/01/16) Quetiapine (Verified Allergy, Intermediate, unknown., 12/01/16) NSAIDs (Verified Adverse Reaction, Severe, GI PROBLEMS, 04/14/17) Uncoded Allergies: SEASONAL (Allergy, Intermediate, nasal congestion and headache scratchy throat, 12/01/16) Physical Exam Vital Signs Date Time Temp Pulse Resp B/P (MAP) Pulse Ox O2 Delivery O2 Flow Rate FiO2 04/14/17 22:45 80 24 125/62 99 Room Air 04/14/17 21:44 76 26 106/73 99 Room Air 04/14/17 21:04 83 04/14/17 20:32 37.1 79 22 120/72 100 Room Air Physical Exam GENERAL: Jaundice in appearance, awake, alert, NAD HENT: Normocephalic, atraumatic. EYES: Normal conjunctiva. Sclera icteric. NECK: Supple. No nuchal rigidity. FROM. RESPIRATORY: CTAB, no rhonchi or crackles, there is diffuse expiratory wheezing throughout. CARDIAC: RRR, no MRG ABDOMEN: Soft, Mild diffuse abdominal tenderness nonfocal, ND, BS+ MSK: No chest wall TTP, 3-4+ pitting edema at bilateral LE. NEURO: GCS 15, CN 2-12 intact, moves all 4s on command SKIN: No rash. Jaundice noted. Medical Decision & Procedures ER Provider Diagnostic Interpretation: X-ray: Per my interpretation, radiologist review. CHEST ONE VIEW PORTABLE CLINICAL HISTORY: 51 years-old Female presenting with ABDOMINAL PAIN/GI. TECHNIQUE: Portable upright AP view of the chest was obtained. COMPARISON: 09/16/2016. FINDINGS: Cardiomediastinal silhouette normal. Mildly low lung volumes. Bandlike opacity in the right mid lung persists. No new focal opacity. No large effusion or pneumothorax. Osseous structures normal. Hiatal hernia suspected. IMPRESSION: 1. Chronic scarring or atelectasis in the right midlung. No convincing evidence of acute cardiopulmonary disease. Electronically signed by: Augustine Do M.D. 04/14/2017 9:07 PM Dictated Date/Time: 04/14/2017 9:07 PM Laboratory Results 04/14/17 21:18 Red Blood Count 2.26, Mean Corpuscular Volume 99.1, Mean Corpuscular Hemoglobin 34.5, Mean Corpuscular Hemoglobin Concent 34.8, Neutrophils (%) (Auto) 68.0, Lymphocytes (%) (Auto) 13.9, Monocytes (%) (Auto) 10.7, Eosinophils (%) (Auto) 6.5, Basophils (%) (Auto) 0.2, Neutrophils # (Auto) 3.13, Lymphocytes # (Auto) 0.64, Monocytes # (Auto) 0.49, Eosinophils # (Auto) 0.30, Basophils # (Auto) 0.01 04/14/17 22:04 Test 04/14/17 20:50 04/14/17 21:18 04/14/17 22:04 04/14/17 22:40 Urine Color DK YELLOW Urine Appearance CLEAR (CLEAR) Urine pH 6.0 (4.5-7.5) Urine Specific [place] 1.015 (1.000-1.030) Urine Protein NEG (NEG) Urine Glucose (UA) NEG (NEG) Urine Ketones NEG (NEG) Urine Occult Blood NEG (NEG) Urine Nitrite NEG (NEG) Urine Bilirubin NEG (NEG) Urine Urobilinogen NEG (NEG) Urine Leukocyte Esterase NEG (NEG) White Blood Count 4.60 K/uL (4.8-10.8) Red Blood Count 2.26 M/uL (4.2-5.4) Hemoglobin 7.8 g/dL (12.0-16.0) Hematocrit 22.4 % (37-47) Mean Corpuscular Volume 99.1 fL (80-100) Mean Corpuscular Hemoglobin 34.5 pg (25-34) Mean Corpuscular Hemoglobin Concent 34.8 g/dl (32-36) Platelet Count 95 K/uL (130-400) Neutrophils (%) (Auto) 68.0 % Lymphocytes (%) (Auto) 13.9 % Monocytes (%) (Auto) 10.7 % Eosinophils (%) (Auto) 6.5 % Basophils (%) (Auto) 0.2 % Neutrophils # (Auto) 3.13 K/uL (1.4-6.5) Lymphocytes # (Auto) 0.64 K/uL (1.2-3.4) Monocytes # (Auto) 0.49 K/uL (0.11-0.59) Eosinophils # (Auto) 0.30 K/uL (0-0.5) Basophils # (Auto) 0.01 K/uL (0-0.2) RDW Standard Deviation 62.8 fL (36.4-46.3) RDW Coefficient of Variation 18.3 % (11.5-14.5) Immature Granulocyte % (Auto) 0.7 % Immature Granulocyte # (Auto) 0.03 K/uL (0.00-0.02) Toxic Vacuolation 1+ Echinocytes 2+ Schistocytes OCCASIONAL Venous Blood pH 7.35 (7.36-7.41) Venous Blood Partial Pressure CO2 33 mmHg (38.0-50.0) Venous Blood Partial Pressure O2 29 mmHg Venous Blood HCO3 18 mmol/L Venous Blood Oxygen Saturation < 60.0 % Venous Blood Base Excess -7.2 mEq/L Lactic Acid Level 2.2 mmol/L (0.4-2.0) Prothrombin Time 22.7 SECONDS (9.0-12.0) Prothromb Time International Ratio 2.2 (0.9-1.1) Activated Partial Thromboplast Time 42.2 SECONDS (21.0-31.0) Partial Thromboplastin Ratio 1.6 Anion Gap 8.0 mmol/L (3-11) Est Creatinine Clear Calc Drug Dose 39.0 ml/min Estimated GFR () 44.1 Estimated GFR (Non- 38.1 BUN/Creatinine Ratio 23.4 (10-20) Calcium Level 8.0 mg/dl (8.5-10.1) Magnesium Level 2.2 mg/dl (1.8-2.4) Total Bilirubin 6.7 mg/dl (0.2-1) Direct Bilirubin 4.2 mg/dl (0-0.2) Aspartate Amino Transf (AST/SGOT) 96 U/L (15-37) Alanine Aminotransferase (ALT/SGPT) 65 U/L (12-78) Alkaline Phosphatase 203 U/L (45-117) Ammonia < 10.0 umol/L (11-32) Troponin I < 0.015 ng/ml (0-0.045) Total Protein 5.8 gm/dl (6.4-8.2) Albumin 2.1 gm/dl (3.4-5.0) Lipase 300 U/L (73-393) Ethyl Alcohol mg/dL < 3.0 mg/dl (0-3) Influenza Type A Antigen POS for Influ A (NEG) Influenza Type B Antigen Neg for Influ B (NEG) Laboratory results reviewed by me Medications Administered Medications (Trade) Dose Ordered Sig/Fariba Route Start Time Stop Time Status Last Admin Dose Admin Ondansetron HCl (Zofran Inj) 4 mg NOW STAT IV 04/14/17 20:50 04/14/17 20:52 DC 04/14/17 21:48 4 MG Azithromycin 500 mg/Dextrose 255 ml @ 125 mls/hr ONE ONCE IV 04/14/17 21:00 04/14/17 23:02 DC 04/14/17 22:27 125 MLS/HR Ceftriaxone Sodium (Rocephin Inj) 1 gm NOW STAT IV 04/14/17 20:59 04/14/17 21:01 DC 04/14/17 21:49 1 GM Albuterol/ Ipratropium (Duoneb) 3 ml ONE STAT INH 04/14/17 20:59 04/14/17 21:01 DC 04/14/17 21:19 3 ML Sodium Chloride 500 ml @ 999 mls/hr Q31M STAT IV 04/14/17 22:05 04/14/17 22:35 DC 04/14/17 22:27 999 MLS/HR ECG Per My Interpretation Indication: SOB/dyspnea Rate (beats per minute): 73 Rhythm: normal sinus Findings: other (Prolonged QT, Normal axis, A lot of motion artifact. No acute STS changes or TWI.) ED Course 2051: The patient was evaluated in room A02. A complete history and physical exam was performed. 6: I reevaluated the patient and updated her on her results. I discussed the treatment plan, which she agrees to. The patient will be further evaluated. 3: I [facility] the [facility] understands the patients condition and agrees to accept the patient. The patient will be further evaluated. Medical Decision Prior records/ancillary studies reviewed. Triage Nursing notes reviewed. Additional history obtained from the family. The patient is a 51 year old white female with a past medical history of cirrhosis, ARF, and HTN who presents to the ED with a cc of intermittent vomiting beginning this morning. The patient's presentation and history were concerning for etiologies such as infections, reactive airway disease, pneumonia, pneumothorax, COPD, CHF, cardiac ischemia, pulmonary embolism, musculoskeletal, gastrointestinal, as well as others were entertained. Patient was seen and evaluated the bedside. Patient was presented with the complaints of being volume overloaded and she noticed some swelling in her abdomen as well as her lower extremities. Patient has not had any sort of paracentesis in some time. Patient also did complain of some wheezing and shortness of breath. Also of note the patient did complain of some nausea and vomiting. On exam the patient is icteric and jaundiced. Patient does have 3-4 + pitting of the bilateral lower extremities. Patient does have mild abdominal discomfort but is nonfocal the patient is not peritoneal Dyk. Patient did have blood work completed, EKG, troponin, chest x-ray. Given the patient's diffuse wheezing on exam the patient patient was treated as a COPD exacerbation but also also with azithromycin and Rocephin given the patient's chronic illness and complaints of productive sputum. Patient's blood work did show hyperbilirubinemia. Patient does have acute kidney injury is the patient's creatinine is elevated compared to prior. Patient does have some mild leukopenia. The patient does have chronic stable anemia. The patient has not complained of any blood in her vomit or stool. Patient did receive 500 cc bolus. Patient has been able tolerate water at the bedside. Given the patient' s AK I and medical comorbidities I did discuss the patient with the on-call hospitalist. They agreed to further evaluate and treat the patient. Medication Reconcilliation Current Medication List: was personally reviewed by me Blood Pressure Screening Patient's blood pressure: Normal blood pressure Consults Time Called: [phone] [facility] Returned Call: [phone] [facility] the patients [facility] He understands the patients condition and agrees to accept the patient. The patient will be further evaluated. Impression Primary Impression: Dehydration Additional Impressions: Elevated INR History of liver disease Anemia Hyperbilirubinemia ELIZABETH (acute kidney injury) Influenza A Scribe Attestation The scribe's documentation has been prepared under my direction and personally reviewed by me in its entirety. I confirm that the note above accurately reflects all work, treatment, procedures, and medical decision making performed by me. Departure Information Dispostion Being Evaluated By Hospitalist Referrals Osorio Chase M.D. (PCP) Patient Instructions My [facility] Problem Qualifiers Additional Impressions: Anemia Anemia type: unspecified type Qualified Codes: D64.9 - Anemia, unspecified
--- NOTE | 2017-04-14 21:09 | DIAGNOSTIC IMAGING REPORT ---
CHEST ONE VIEW PORTABLE CLINICAL HISTORY: 51 years-old Female presenting with ABDOMINAL PAIN/GI. TECHNIQUE: Portable upright AP view of the chest was obtained. COMPARISON: 09/16/2016. FINDINGS: Cardiomediastinal silhouette normal. Mildly low lung volumes. Bandlike opacity in the right mid lung persists. No new focal opacity. No large effusion or pneumothorax. Osseous structures normal. Hiatal hernia suspected. IMPRESSION: 1. Chronic scarring or atelectasis in the right midlung. No convincing evidence of acute cardiopulmonary disease. Electronically signed by: Augustine Do M.D. 04/14/2017 9:07 PM Dictated Date/Time: 04/14/2017 9:07 PM
[2017-04-14] MEDS ORDERED: SODIUM CHLORIDE 0.9% 500ML 500 ML IV STA (22:05)
[2017-04-14 22:24] LABS: HEMATOCRIT 22.4 % (37-47); HEMOGLOBIN 7.8 g/dL (12.0-16.0); MEAN CELL VOLUME 99.1 fL (80-100); MEAN CORPUSCULAR HEMOGLOBIN 34.5 pg (25-34); MEAN CORPUSCULAR HGB CONC 34.8 g/dl (32-36); PLATELET COUNT 95 K/uL (130-400); RED CELL DISTRIBUTION WIDTH CV 18.3 % (11.5-14.5); RED CELL DISTRIBUTION WIDTH SD 62.8 fL (36.4-46.3)
[2017-04-14 22:28] LABS: INR 2.2 (0.9-1.1); PTT PATIENT 42.2 SECONDS (21.0-31.0)
[2017-04-14 22:36] LABS: ALBUMIN 2.1 gm/dl (3.4-5.0); ALT/SGPT 65 U/L (12-78); BLOOD UREA NITROGEN 37 mg/dl (7-18); CARBON DIOXIDE 19 mmol/L (21-32); CREATININE 1.56 mg/dl (0.60-1.20); GLUCOSE 86 mg/dl (70-99); LIPASE 300 U/L (73-393); POTASSIUM 3.6 mmol/L (3.5-5.1); SODIUM 135 mmol/L (136-145)
[2017-04-14 22:43] LABS: ALKALINE PHOSPHATASE 203 U/L (45-117); AST/SGOT 96 U/L (15-37); TOTAL PROTEIN 5.8 gm/dl (6.4-8.2)
[2017-04-14 22:52] LABS: BASO % 0.2 %; BASO ABS # 0.01 K/uL (0-0.2); EOS % 6.5 %; IG# 0.03 K/uL (0.00-0.02); LYMPH % 13.9 %; LYMPH ABS # 0.64 K/uL (1.2-3.4); MONO % 10.7 %; MONO ABS # 0.49 K/uL (0.11-0.59); NEUT ABS # 3.13 K/uL (1.4-6.5)
[2017-04-14] MEDS ORDERED: TRAM-10 PO (23:10)
[2017-04-14] MEDS ORDERED: BENZ100C84 PO (23:10)
[2017-04-14] MEDS ORDERED: PRAM1LOT TOP (23:10)
[2017-04-14] MEDS ORDERED: CIPR1TAB10 PO (23:10)
[2017-04-14] MEDS ORDERED: MILK140C PO (23:10)
[2017-04-14] MEDS ORDERED: CRAN1TAB PO (23:10)
[2017-04-14] MEDS ORDERED: CHOL100027 PO (23:10)
[2017-04-14] MEDS ORDERED: RIFA550T2 PO (23:17)
[2017-04-14 23:29] LABS: INFLUENZA B ANTIGEN Neg for Influ B (NEG)
[2017-04-15] VITALS (12 sets, daily range): BP systolic 102–127; BP diastolic 64–78; PULSE 68–89; TEMP 36.3–37.4; O2SAT 93–100; Ht 154.9 cm; Wt 73.0 kg
[2017-04-15] MEDS ORDERED: ALBUT/IPRATROP 3MG/0.5MG NEB 3 ML VIAL INH STA (00:09)
[2017-04-15] MEDS ORDERED: HYDROmorphone INJ 0.5 MG/0.5 ML SYR IV ONE (00:18)
[2017-04-15] MEDS ORDERED: OXYCODONE HCL IR 5 MG TAB (IMMEDIATE RELEASE) PO PRN (00:30)
[2017-04-15] MEDS ORDERED: PROCHLORPERAZINE INJ 5 MG in SYRINGE 4 ML IV PRN ×2 (00:30→02:15)
[2017-04-15] MEDS ORDERED: AMPICILLIN/SULBACTAM SOD INJ 3,000 MG in SODIUM CHLORIDE 0.9% 100ML 100 ML IV STA (01:00)
[2017-04-15] MEDS ORDERED: LORAZEPAM 1 MG TAB PO ONE (02:09)
[2017-04-15] MEDS ORDERED: TRAMADOL HCL 50 MG TAB PO PRN (02:15)
[2017-04-15] MEDS ORDERED: ACETAMINOPHEN 325 MG TAB PO PRN (02:15)
[2017-04-15] MEDS ORDERED: LEVALBUTEROL/IPRATROPIUM NEB INH PRN (02:15)
[2017-04-15] MEDS ORDERED: LORATADINE 10 MG TAB PO PRN (02:15)
[2017-04-15] MEDS ORDERED: ALBUMIN HUMAN 25% 12.5 GM/50 ML VIAL IV SCH (02:45)
[2017-04-15] MEDS ORDERED: LEVALBUTEROL/IPRATROPIUM NEB INH SCH (03:00)
[2017-04-15] MEDS: HYDROmorphone INJ 0.5 MG/0.5 ML SYR IV PRN ×2 (03:33→09:50)
[2017-04-15 04:55] LABS: ALBUMIN 2.1 gm/dl (3.4-5.0); CALCIUM 7.6 mg/dl (8.5-10.1); CREATININE 1.29 mg/dl (0.60-1.20); POTASSIUM 3.6 mmol/L (3.5-5.1); TOTAL PROTEIN 5.8 gm/dl (6.4-8.2)
[2017-04-15 05:38] LABS: HEMATOCRIT 20.6 % (37-47); HEMOGLOBIN 7.3 g/dL (12.0-16.0); MEAN CELL VOLUME 96.7 fL (80-100); MEAN CORPUSCULAR HEMOGLOBIN 34.3 pg (25-34); MEAN CORPUSCULAR HGB CONC 35.4 g/dl (32-36); PLATELET COUNT 56 K/uL (130-400); RED CELL DISTRIBUTION WIDTH CV 18.2 % (11.5-14.5); WHITE BLOOD COUNT 4.06 K/uL (4.8-10.8)
[2017-04-15 05:40] LABS: BASO % 0.7 %; BASO ABS # 0.03 K/uL (0-0.2); EOS % 7.9 %; EOS ABS # 0.32 K/uL (0-0.5); IG# 0.05 K/uL (0.00-0.02); LYMPH % 20.4 %; LYMPH ABS # 0.83 K/uL (1.2-3.4); MONO % 10.1 %; MONO ABS # 0.41 K/uL (0.11-0.59); NEUT % 59.7 %; NEUT ABS # 2.42 K/uL (1.4-6.5)
[2017-04-15] MEDS: LEVOTHYROXINE 137 MCG TAB PO SCH (06:03)
[2017-04-15] MEDS ORDERED: DEXTROSE 50% 50 ML SYR IV ONE (06:15)
[2017-04-15] MEDS ORDERED: DEXTROSE 50% 50 ML SYR ONE (06:22)
[2017-04-15] MEDS: IPRATROPIUM BROMIDE NEB SOLN 0.02% 2.5 ML VIAL INH SCH ×3 (07:14→19:03)
[2017-04-15] MEDS: LEVALBUTEROL 1.25MG/0.5ML NEB INH SCH ×3 (07:14→19:04)
--- NOTE | 2017-04-15 07:33 | DIAGNOSTIC IMAGING REPORT ---
CT SCAN OF THE ABDOMEN AND PELVIS WITHOUT IV CONTRAST CLINICAL HISTORY: Nausea and vomiting. COMPARISON STUDY: Abdominal CT dated 02/22/2016. TECHNIQUE: CT scan of the abdomen and pelvis is performed from the lung bases to the proximal femora. Images are reviewed in the axial, sagittal, and coronal planes. IV contrast was not administered for this examination as per the referring clinician. Note that the examination was performed and significantly suboptimal fashion without oral and IV contrast. A dose lowering technique was utilized adhering to the principles of ALARA. CT DOSE: 796.40 mGy.cm FINDINGS: Lung bases: The heart is normal in size and without pericardial effusion. There are foci of bibasilar scarring versus atelectasis. Trace pleural effusions are identified. Esophageal varices are suspected. Liver: The unenhanced liver is cirrhotic in morphology and heterogeneous in attenuation. There is marked nodularity of the surface contour. There is no intrahepatic biliary ductal dilatation. Calcified hepatic granuloma is incidentally noted. Gallbladder: There are small calcified gallstones. Nonspecific gallbladder wall thickening is identified. Spleen: The spleen is markedly enlarged, measuring 19.5 cm in length. Pancreas: The unenhanced pancreas is atrophic and grossly unremarkable. Adrenal glands: Unremarkable. Kidneys: The unenhanced kidneys demonstrate mild cortical atrophy and are without hydronephrosis. There are no renal calculi identified. There is no evidence of contour deforming renal mass lesion. Abdominal vasculature: The abdominal aorta is normal in course and caliber noting mild atherosclerotic calcification. Stomach and bowel: There is a moderate to large hiatal hernia. Approximately 1/3 of the stomach is located in the thoracic cavity. The small bowel and colon are normal in course and caliber. The appendix is normal as visualized. Peritoneum: There is no intraperitoneal free air is seen. There is a small to moderate volume of abdominal ascites. Ascitic fluid is contained with an umbilical hernia. Lymphadenopathy: None. Pelvic viscera: The bladder, uterus, and adnexa are normal as visualized. Skeletal structures: The skeletal structures are osteopenic. Mild lumbosacral spondylosis is observed. Sclerotic change is seen in the sacroiliac joints. No lytic or blastic lesions are seen. Soft tissues: There is body wall edema. IMPRESSION: 1. Suboptimal examination without oral and IV contrast. 2. Cirrhotic liver morphology with evidence of portal hypertension including abdominal ascites and marked splenomegaly. Esophageal varices are suspected. 3. Cholelithiasis. Gallbladder wall thickening is nonspecific and similar to the 02/22/2016 examination. This is likely related to ascites and liver disease. Correlate clinically for evidence of acute cholecystitis. 4. Trace pleural effusions. 5. Body wall edema. 6. Moderate to large hiatal hernia. 7. Additional findings as above. Electronically signed by: Jarod Trevizo M.D. 04/15/2017 7:32 AM Dictated Date/Time: 04/15/2017 7:24 AM
[2017-04-15] MEDS ORDERED: METHYLPREDNISOLONE IV 20 MG in SYRINGE 0 ML IV STA (07:45)
[2017-04-15] MEDS ORDERED: AMPICILLIN/SULBACTAM CONSULT ACTIVE PRN (08:00)
--- NOTE | 2017-04-15 08:48 | DIAGNOSTIC IMAGING REPORT ---
CT SCAN OF THE BRAIN WITHOUT IV CONTRAST CLINICAL HISTORY: Headache. COMPARISON STUDY: CT of the brain dated 07/18/2016. TECHNIQUE: Unenhanced axial CT scan of the brain is performed from the vertex to the skull base. A dose lowering technique was utilized adhering to the principles of ALARA. CT DOSE: 537.48 mGy.cm FINDINGS: Brain parenchyma: The brain parenchyma is normal in appearance. There is no hemorrhage, mass effect, or evidence of acute territorial ischemia by CT criteria. Garcia-white matter is preserved. No extra-axial fluid collection is seen. Ventricles, sulci, cisterns: Normal in configuration. Intracranial vasculature: The visualized intracranial vasculature at the skull base is normal in appearance. Calvarium: Unremarkable. Sinuses and mastoids: Trace fluid is seen within the left sphenoid and right frontal sinuses. Mild mucosal thickening is seen within the ethmoid and right sphenoid sinuses. The mastoid air cells are well pneumatized. Orbits: The bony orbits are grossly intact. IMPRESSION: There is no hemorrhage, mass effect, or evidence of acute territorial ischemia by CT criteria. Electronically signed by: Jarod Trevizo M.D. 04/15/2017 8:46 AM Dictated Date/Time: 04/15/2017 8:44 AM
[2017-04-15] MEDS: BENZONATATE 100MG CAP PO PRN ×2 (09:45→19:59)
[2017-04-15] MEDS: D5NSS + 20MEQ KCL 1,000 ML IV SCH (09:45)
[2017-04-15] MEDS: LACTULOSE SYRUP 20 GM/30 ML UDC PO SCH ×3 (09:45→19:53)
[2017-04-15] MEDS: RIFAXIMIN TAB 550 MG TAB PO SCH ×2 (09:45→19:55)
[2017-04-15] MEDS: PROPRANOLOL HCL 10 MG TAB PO SCH ×3 (09:45→19:55)
[2017-04-15] MEDS: PANTOprazole SOD 40 MG TAB PO SCH (09:46)
[2017-04-15] MEDS: LORAZEPAM 1 MG TAB PO SCH ×2 (09:46→19:53)
[2017-04-15] MEDS: MULTIVITAMIN TAB PO SCH (09:46)
[2017-04-15] MEDS: OSELTAMIVIR PHOSPHATE SUSP 30 MG/5 ML UDP PO SCH ×2 (09:46→19:53)
[2017-04-15] MEDS: AMPICILLIN/SULBACTAM SOD INJ 3,000 MG in SODIUM CHLORIDE 0.9% 100ML 100 ML IV SCH ×3 (09:49→20:39)
--- NOTE | 2017-04-15 10:27 | HISTORY & PHYSICAL EXAMINATION ---
DATE OF ADMISSION: 04/15/2017 PRIMARY CARE PHYSICIAN: Dr. Chase. CHIEF COMPLAINT: Vomiting, shortness of breath, abdominal pain. HISTORY OF PRESENT ILLNESS: History obtained from patient and records. Medical history significant for history of alcoholic cirrhosis, past tobacco/ ETOH abuse, chronic anemia (baseline hemoglobin 8), mood disorder, portal hypertension, recurrent SBP on Cipro Rx, hypothyroidism. Recent confinement last June 2016 for alcoholic intoxication, acute renal failure. Patient seen at PCP's office about 2 weeks ago for flu-like illness, cough with wheezing. Prescribed prednisone course. Patient noted increased fluid retention following steroid prescription. Increased abdominal distention, bilateral leg swelling. Compliant with home diuretics. Cough productive of yellow sputum, increased shortness of breath, generalized headache symptoms. Patient subsequently noted achy epigastric pain, nausea, vomiting, good bowel movement. Denies black/bloody stools. Patient brought to the Emergency Room. MEDICAL HISTORY: As above. SURGERIES: She has had section, tubal ligation, dental procedures. HOME MEDICATIONS: Include Tessalon Perles, Biotene, Cipro, cranberry, vitamin B12, Folvite, Lasix, levothyroxine, Chronulac, Claritin, lorazepam, Slow-Mag, melatonin, multivitamins, Prilosec, Zofran, pramoxine, Micro-K, Inderal, sertraline, Aldactone, Imitrex, Ultram. ALLERGIES: ALCOHOL, CITALOPRAM, NSAIDs. FAMILY HISTORY: Alcohol abuse, heart disease. PERSONAL AND SOCIAL HISTORY: Past tobacco and alcohol abuse, currently on disability. REVIEW OF SYSTEMS: As per HPI. All 10 systems reviewed. All other ROS negative. PHYSICAL EXAMINATION: VITAL SIGNS: Blood pressure was noted to be 120/72, pulse rate 79, RR 26, T 37 sats 99 on room air. GENERAL: Noted to be uncomfortable, respiratory distress. Obese. SKIN: Pallor. Warm HEENT: Pale palpebral conjunctivae. No ptosis. Dry mucosa. Wearing a mask. NECK: Supple, nontender. CHEST: Expiratory wheezes. No tenderness. HEART: Regular rate and rhythm, no murmur. ABDOMEN: Epigastric tenderness. No Goldstein sign. Increased abdominal distention, positive fluid wave. EXTREMITIES: Bilateral lower extremity edema, no tenderness. No other gross deformities. NEUROLOGIC: Coherent. No gross focality. RECTAL: Intact sphincter, dark stool, heme negative. LABORATORY DATA: Hemoglobin 7.8, hematocrit 20.6, white blood cell count 5, platelets noted to be 56. Sodium 135, potassium 3.6, chloride 108, CO2 19, BUN 37, creatinine 1.5, glucose 86. Lactic acid was 2.2, AST 96, ALT 65, alkaline phosphatase was 203. Ammonia level was less than 10. UA dark yellow, clear. Flu swab positive. Chest x-ray chronic scarring, atelectasis right mid lung. CT head initial read, no acute pathology. CT abdomen and pelvis initial read possible consolidation, right middle lobe, cirrhosis, cholelithiasis with gallbladder wall thickening, possible acute cholecystitis , splenomegaly, moderate volume ascites, diffuse anasarca, mild hiatal hernia, mild wall thickening of the colon, small bowel likely enteropathy, appendix not truly identified. ASSESSMENT: 1. Decompensated cirrhosis possibly from fluid retention from recent steroid course. Although patient manifests with third spacing, she seems to be intravascularly dry. 2. Complicated bronchitis secondary to influenza possible aspiration pneumonia no sepsis 3. Abdominal pain, emesis possible cholecystitis No sepsis 3. Acute renal failure secondary to illness. 4. Past tobacco and alcohol abuse. 5. Acute on chronic anemia. No overt bleeding noted. 6. P recurrent SBP on Cipro RX prophylaxis PLAN: GMF IV albumin, diagnostic/tx paracentesis Hold the home diuretics for now given ARF, monitor creatinine response to gentle IV hydration GI consult R decompensated cirrhosis Unasyn for aspiration pneumonia and possible cholecystitis Tamiflu course. Nebs RTC, prn Solu-Medrol for 1 dose due to persistent wheezing post neb treatment. follow official CT abd pelvis results May need Surgery opinion for possible acute cholecystitis although patient likely not to have surgery owing to chronic liver disease. Trend H&H, transfuse if hemoglobin less than 7 and/or for symptomatic anemia. DVT prophylaxis, SCDs regarding thrombocytopenia. Full code. MTDD
[2017-04-15] MEDS ORDERED: LEVALBUTEROL/IPRATROPIUM NEB INH ONE (13:15)
[2017-04-15] MEDS ORDERED: IPRATROPIUM BROMIDE NEB SOLN 0.02% 2.5 ML VIAL INH ONE (13:45)
[2017-04-15] MEDS ORDERED: LEVALBUTEROL 1.25MG/0.5ML NEB INH ONE (13:45)
--- NOTE | 2017-04-15 14:56 | Progress Note ---
Subjective Date of Service: Apr 15, 2017. Subjective Pt evaluation today including: conversation w/ patient, physical exam, lab review, review of studies, review of inpatient medication list Saw/examined the patient in room 422 she is tearful during my exam abdominal swelling persists she is wheezing at times Tells me she is hungry Problem List Medical Problems: (1) Abdominal pain Status: Acute (2) Abdominal pain Status: Acute (3) Acute alcohol intoxication Status: Acute (4) Alcohol intoxication Status: Acute (5) Alcoholic cirrhosis Status: Acute (6) Anemia Status: Acute (7) Dehydration Status: Acute (8) Elevated INR Status: Acute (9) Headache Status: Acute (10) Hepatic encephalopathy Status: Acute (11) History of liver disease Status: Acute (12) Hyperammonemia Status: Acute (13) Hyperammonemia Status: Acute (14) Hyperbilirubinemia Status: Acute (15) Hyperbilirubinemia Status: Acute (16) Hyperbilirubinemia Status: Acute (17) Hyperbilirubinemia Status: Acute (18) Hypocalcemia Status: Acute (19) Hypomagnesemia Status: Acute (20) Hypomagnesemia Status: Acute (21) Hypophosphatemia Status: Acute (22) Influenza A Status: Acute (23) SOB (shortness of breath) Status: Acute (24) Thrombocytopenia Status: Acute Review of Systems Constitutional: + weakness, + problem reported (+hungry) Respiratory: + cough, + sputum, + wheezing, + shortness of breath, + dyspnea on exertion Cardiac: No chest pain Abdomen: + problem reported (swelling), No pain, No nausea, No vomiting, No diarrhea, No constipation Musculoskeletal: No joint pain Medications Current Inpatient Medications Medications (Trade) Dose Ordered Sig/Fariba Route Start Time Stop Time Status Last Admin Dose Admin Oseltamivir Phosphate (Tamiflu Susp) 30 mg BID PO 04/15/17 08:00 04/20/17 08:59 04/15/17 09:46 30 MG Hydromorphone HCl (Dilaudid Inj) 0.5 mg Q6H PRN IV 04/15/17 00:30 04/29/17 00:29 04/15/17 09:50 0.5 MG Prochlorperazine Edisylate 5 mg/ Syringe 5 ml @ 5 mls/min Q6H PRN IV 04/15/17 00:30 05/15/17 00:29 Acetaminophen (Tylenol Tab) 325 mg Q6H PRN PO 04/15/17 02:15 05/15/17 02:14 Prochlorperazine Edisylate 5 mg/ Syringe 5 ml @ 5 mls/min Q6H PRN IV 04/15/17 02:15 05/15/17 02:14 Benzonatate (Tessalon Perles Cap) 100 mg TID PRN PO 04/15/17 02:15 05/15/17 02:14 04/15/17 09:45 100 MG Folic Acid (Folvite Tab) 1 mg QAM PO 04/15/17 08:00 05/15/17 08:59 04/15/17 09:46 1 MG Lactulose (Chronulac Syrup) 20 gm TID PO 04/15/17 08:00 05/15/17 08:59 04/15/17 09:45 20 GM Levothyroxine Sodium (Synthroid Tab) 137 mcg DAILYBB PO 04/15/17 06:30 05/15/17 06:29 04/15/17 06:03 137 MCG Loratadine (Claritin Tab) 10 mg DAILY PRN PO 04/15/17 02:15 05/15/17 02:14 Lorazepam (Ativan Tab) 1 mg BID PO 04/15/17 08:00 05/15/17 08:59 04/15/17 09:46 1 MG Multivitamins (Multivitamin Tab) 1 tab QAM PO 04/15/17 08:00 05/15/17 08:59 04/15/17 09:46 1 TAB Propranolol HCl (Inderal Tab) 10 mg TID PO 04/15/17 08:00 05/15/17 08:59 04/15/17 09:45 10 MG Rifaximin (Xifaxan Tab) 550 mg BID PO 04/15/17 08:00 05/15/17 08:59 04/15/17 09:45 550 MG Sertraline HCl (Zoloft Tab) 50 mg HS PO 04/15/17 21:00 05/15/17 20:59 Pantoprazole Sodium (Protonix Tab) 40 mg DAILY PO 04/15/17 08:00 05/15/17 08:59 04/15/17 09:46 40 MG Tramadol HCl (Ultram Tab) not relieved ... Q6H PRN PO 04/15/17 02:15 05/15/17 02:14 Ampicillin Sodium/ Sulbactam Sodium (Consult) 1 ea UD PRN N/A 04/15/17 08:00 05/15/17 07:59 Ampicillin Sodium/ Sulbactam Sodium 3000 mg/Sodium Chloride 108 ml @ 216 mls/hr Q6H IV 04/15/17 08:00 04/22/17 07:59 04/15/17 09:49 216 MLS/HR Ipratropium [place] (Atrovent 0.02% 0.5MG/2.5ML Neb) 0.5 mg Q6R INH 04/15/17 09:00 05/15/17 08:59 04/15/17 07:14 0.5 MG Levalbuterol (Xopenex 1.25MG/ 0.5ML Neb) 1.25 mg Q6R INH 04/15/17 09:00 05/15/17 08:59 04/15/17 07:14 1.25 MG Ipratropium [place] (Atrovent 0.02% 0.5MG/2.5ML Neb) 0.5 mg Q4H PRN INH 04/15/17 03:15 05/15/17 03:14 Levalbuterol (Xopenex 1.25MG/ 0.5ML Neb) 1.25 mg Q4H PRN INH 04/15/17 03:15 05/15/17 03:14 Potassium Chloride/Dextrose/ Sod Cl 1,000 ml @ 50 mls/hr Q20H IV 04/15/17 05:15 05/15/17 05:14 04/15/17 09:45 50 MLS/HR Objective Vital Signs Date Time Temp Pulse Resp B/P (MAP) Pulse Ox O2 Delivery O2 Flow Rate FiO2 04/15/17 09:45 Room Air 04/15/17 07:53 36.8 77 22 105/66 (79) 98 Room Air 04/15/17 07:14 85 18 95 Room Air 04/15/17 03:00 96 Room Air 04/15/17 03:00 36.9 72 20 107/65 04/15/17 02:07 79 22 121/57 96 04/15/17 02:05 79 22 121/57 96 Room Air 04/15/17 00:48 76 20 104/59 99 Room Air 04/15/17 00:10 78 24 118/62 99 Room Air 04/14/17 22:45 80 24 125/62 99 Room Air 04/14/17 21:44 76 26 106/73 99 Room Air 04/14/17 21:04 83 04/14/17 20:32 37.1 79 22 120/72 100 Room Air Physical Exam General Appearance: + mild distress (+anxious/tearful) Respiratory/Chest: chest non-tender, lungs clear, normal breath sounds, no respiratory distress, no accessory muscle use Cardiovascular: regular rate, rhythm, no murmur Abdomen: + distended, + pertinent finding (non-tender) Extremities: + swelling, + pertinent finding (+1 pitting edema b/l LE) Laboratory Results Last 24 Hours Test 04/14/17 20:50 04/14/17 21:18 04/14/17 22:04 04/14/17 22:40 Urine Color DK YELLOW Urine Appearance CLEAR Urine pH 6.0 Urine Specific Dawson 1.015 Urine Protein NEG Urine Glucose (UA) NEG Urine Ketones NEG Urine Occult Blood NEG Urine Nitrite NEG Urine Bilirubin NEG Urine Urobilinogen NEG Urine Leukocyte Esterase NEG White Blood Count 4.60 K/uL Red Blood Count 2.26 M/uL Hemoglobin 7.8 g/dL Hematocrit 22.4 % Mean Corpuscular Volume 99.1 fL Mean Corpuscular Hemoglobin 34.5 pg Mean Corpuscular Hemoglobin Concent 34.8 g/dl Platelet Count 95 K/uL Neutrophils (%) (Auto) 68.0 % Lymphocytes (%) (Auto) 13.9 % Monocytes (%) (Auto) 10.7 % Eosinophils (%) (Auto) 6.5 % Basophils (%) (Auto) 0.2 % Neutrophils # (Auto) 3.13 K/uL Lymphocytes # (Auto) 0.64 K/uL Monocytes # (Auto) 0.49 K/uL Eosinophils # (Auto) 0.30 K/uL Basophils # (Auto) 0.01 K/uL RDW Standard Deviation 62.8 fL RDW Coefficient of Variation 18.3 % Immature Granulocyte % (Auto) 0.7 % Immature Granulocyte # (Auto) 0.03 K/uL Toxic Vacuolation 1+ Echinocytes 2+ Schistocytes OCCASIONAL Venous Blood pH 7.35 Venous Blood Partial Pressure CO2 33 mmHg Venous Blood Partial Pressure O2 29 mmHg Venous Blood HCO3 18 mmol/L Venous Blood Oxygen Saturation < 60.0 % Venous Blood Base Excess -7.2 mEq/L Lactic Acid Level 2.2 mmol/L Prothrombin Time 22.7 SECONDS Prothromb Time International Ratio 2.2 Activated Partial Thromboplast Time 42.2 SECONDS Partial Thromboplastin Ratio 1.6 Sodium Level 135 mmol/L Potassium Level 3.6 mmol/L Chloride Level 108 mmol/L Carbon Dioxide Level 19 mmol/L Anion Gap 8.0 mmol/L Blood Urea Nitrogen 37 mg/dl Creatinine 1.56 mg/dl Est Creatinine Clear Calc Drug Dose 39.0 ml/min Estimated GFR () 44.1 Estimated GFR (Non- 38.1 BUN/Creatinine Ratio 23.4 Random Glucose 86 mg/dl Calcium Level 8.0 mg/dl Magnesium Level 2.2 mg/dl Total Bilirubin 6.7 mg/dl Direct Bilirubin 4.2 mg/dl Aspartate Amino Transf (AST/SGOT) 96 U/L Alanine Aminotransferase (ALT/SGPT) 65 U/L Alkaline Phosphatase 203 U/L Ammonia < 10.0 umol/L Troponin I < 0.015 ng/ml Total Protein 5.8 gm/dl Albumin 2.1 gm/dl Lipase 300 U/L Ethyl Alcohol mg/dL < 3.0 mg/dl Influenza Type A Antigen POS for Influ A Influenza Type B Antigen Neg for Influ B Test 04/15/17 04:15 04/15/17 08:00 White Blood Count 4.06 K/uL Red Blood Count 2.13 M/uL Hemoglobin 7.3 g/dL Hematocrit 20.6 % Mean Corpuscular Volume 96.7 fL Mean Corpuscular Hemoglobin 34.3 pg Mean Corpuscular Hemoglobin Concent 35.4 g/dl Platelet Count 56 K/uL Neutrophils (%) (Auto) 59.7 % Lymphocytes (%) (Auto) 20.4 % Monocytes (%) (Auto) 10.1 % Eosinophils (%) (Auto) 7.9 % Basophils (%) (Auto) 0.7 % Neutrophils # (Auto) 2.42 K/uL Lymphocytes # (Auto) 0.83 K/uL Monocytes # (Auto) 0.41 K/uL Eosinophils # (Auto) 0.32 K/uL Basophils # (Auto) 0.03 K/uL RDW Standard Deviation 62.0 fL RDW Coefficient of Variation 18.2 % Immature Granulocyte % (Auto) 1.2 % Immature Granulocyte # (Auto) 0.05 K/uL Platelet Estimate DECREASED Anisocytosis PRESENT Ovalocytes 1+ Echinocytes 1+ Sodium Level 134 mmol/L Potassium Level 3.6 mmol/L Chloride Level 109 mmol/L Carbon Dioxide Level 16 mmol/L Anion Gap 9.0 mmol/L Blood Urea Nitrogen 33 mg/dl Creatinine 1.29 mg/dl Est Creatinine Clear Calc Drug Dose 47.1 ml/min Estimated GFR () 55.5 Estimated GFR (Non- 47.9 BUN/Creatinine Ratio 25.9 Random Glucose 75 mg/dl Lactic Acid Level 0.9 mmol/L Calcium Level 7.6 mg/dl Total Bilirubin 7.0 mg/dl Aspartate Amino Transf (AST/SGOT) 101 U/L Alanine Aminotransferase (ALT/SGPT) 67 U/L Alkaline Phosphatase 189 U/L Total Protein 5.8 gm/dl Albumin 2.1 gm/dl Globulin 3.7 gm/dl Albumin/Globulin Ratio 0.6 Bedside Glucose 117 mg/dl Assessment and Plan This is a 51 year old female with a PMH of alcoholic liver cirrhosis and complications including ascites, esophageal varices, pulmonary HTN, hyperammonemia, anemia; depression/anxiety, hypothyroidism - presents with flu- like symptoms, shortness of breath, cough Influenza A Acute Complicated Bronchitis patient presents with positive influenza A has had flu-like symptoms for weeks unsure if Tamiflu will help, but patient states her breathing is an issue will complete a five day course at renal dosing patient is started on Unasyn for bronchitis vs. aspiration pneumonia - leaning towards bronchitis at this point will continue Unasyn for now continue Xopenex/Atrovent breathing treatments as this helps avoiding steroids as this caused significant edema Ascites secondary to Alcoholic Liver Cirrhosis patient with significant abdominal swelling abdominal/pelvis CT suggests abdominal ascites; gallbladder thickening is not new plan for ultrasound guided paracentesis in AM continue Rifaximin, lactulose, folic acid, thiamine; holding diuretics due to intravascular depletion Acute Kidney Injury due to dehydration currently on gentle IV fluids, will monitor due to third spacing/ascites Anemia/Thrombocytopenia noted to have both anemia and thrombocytopenia secondary to alcoholic liver cirrhosis Liver Disease Coagulopathy INR = 2.2 monitor for any bleeding Mood Disorder continue home medications Hypothyroidism continue Synthroid DVT ppx SCDs FULL CODE
[2017-04-15] MEDS: SERTRALINE HCL 50 MG TAB PO SCH (19:54)
[2017-04-16] VITALS (20 sets, daily range): BP systolic 104–133; BP diastolic 61–82; PULSE 59–98; TEMP 36.5–37.1; O2SAT 95–100
[2017-04-16] MEDS: IPRATROPIUM BROMIDE NEB SOLN 0.02% 2.5 ML VIAL INH SCH ×4 (01:53→19:47)
[2017-04-16] MEDS: LEVALBUTEROL 1.25MG/0.5ML NEB INH SCH ×4 (01:54→19:47)
[2017-04-16] MEDS: AMPICILLIN/SULBACTAM SOD INJ 3,000 MG in SODIUM CHLORIDE 0.9% 100ML 100 ML IV SCH ×4 (02:19→22:37)
[2017-04-16] MEDS: LEVOTHYROXINE 137 MCG TAB PO SCH (06:09)
[2017-04-16 06:50] LABS: CALCIUM 7.6 mg/dl (8.5-10.1); CREATININE 1.22 mg/dl (0.60-1.20)
[2017-04-16 06:51] LABS: HEMATOCRIT 18.3 % (37-47); HEMOGLOBIN 6.3 g/dL (12.0-16.0); MEAN CELL VOLUME 98.9 fL (80-100); MEAN CORPUSCULAR HEMOGLOBIN 34.1 pg (25-34); MEAN CORPUSCULAR HGB CONC 34.4 g/dl (32-36); MEAN PLATELET VOLUME 10.2 fL (7.4-10.4); PLATELET COUNT 73 K/uL (130-400); RED CELL DISTRIBUTION WIDTH CV 18.5 % (11.5-14.5); WHITE BLOOD COUNT 5.13 K/uL (4.8-10.8)
[2017-04-16 06:59] LABS: EOS % 0.2 %; EOS ABS # 0.01 K/uL (0-0.5); IG# 0.02 K/uL (0.00-0.02); LYMPH % 10.5 %; LYMPH ABS # 0.54 K/uL (1.2-3.4); MONO % 4.3 %; MONO ABS # 0.22 K/uL (0.11-0.59); NEUT % 84.6 %; NEUT ABS # 4.34 K/uL (1.4-6.5)
[2017-04-16] MEDS ORDERED: PHYTONADIONE 5 MG TAB PO ONE (08:15)
[2017-04-16] MEDS: OSELTAMIVIR PHOSPHATE SUSP 30 MG/5 ML UDP PO SCH ×2 (08:19→20:35)
[2017-04-16] MEDS: RIFAXIMIN TAB 550 MG TAB PO SCH ×2 (08:19→20:22)
[2017-04-16] MEDS: LACTULOSE SYRUP 20 GM/30 ML UDC PO SCH ×3 (08:19→20:00)
[2017-04-16] MEDS: LORAZEPAM 1 MG TAB PO SCH ×2 (08:19→20:20)
[2017-04-16] MEDS: PROPRANOLOL HCL 10 MG TAB PO SCH ×3 (08:20→20:21)
[2017-04-16] MEDS: PANTOprazole SOD 40 MG TAB PO SCH (08:20)
[2017-04-16] MEDS: MULTIVITAMIN TAB PO SCH (08:20)
[2017-04-16] MEDS ORDERED: CHLORASEPTIC 1.4% SOLN 180 ML BTL MT PRN (09:15)
[2017-04-16] MEDS: GUAIFENESIN SUGAR FREE 100 MG/5 ML UDC PO PRN (10:32)
--- NOTE | 2017-04-16 10:42 | Gastrointestinal Consultation ---
Gastrointestinal Consultation Date of Consultation: Apr 16, 2017 Attending Physician: Tadeo Consulting Physician: Ralph Reason for Consultation: decompensated cirrhosis History of Present Illness Patient is a 51 year old female with cirrhosis and others listed below who presented to [facility] for fever, vomiting, diarrhea, chills, cough SOB positive for flu-a. GI was asked to evaluate the pt for cirrhosis. Pt was seen and evaluated , chart reviewed. Follow with Dr. Rosas for ETOH cirrhosis, ETOH free June 2916. Has had a referral to transplant evaluation. Pt notes that she was given steroids from her PCP and noted a few days afterwords she had a lot of lower extremity edema and abdominal swelling. Unsure of weight gained. This persisted despite low NA diet. Few days later, developed fever, chills, nausea, vomiting, diarrhea, cough, SOB which was positive for flu. Diagnosis: ETOH Cirrhosis, sober June 2016 Decompensations Ascites: yes SBP: yes on cipro prophylaxis Varices: Grade 1 HE: yes Screenings Immunizations: unknown HCC: Due October Varices: Due 2018 CT ABD/Pelvis 04/15/17: Suboptimal examination without oral and IV contrast. Cirrhotic liver morphology with evidence of portal hypertension includingabdominal ascites and marked splenomegaly. Esophageal varices are suspected. Cholelithiasis. Gallbladder wall thickening is nonspecific and similar to the 02/22/2016 examination. This is likely related to ascites and liver disease.Correlate clinically for evidence of acute cholecystitis.Trace pleural effusions.Body wall edema. Moderate to large hiatal hernia. Past Medical/Surgical History Medical Problems: (1) Abdominal pain Status: Acute (2) Abdominal pain Status: Acute (3) Acute alcohol intoxication Status: Acute (4) Alcohol intoxication Status: Acute (5) Alcoholic cirrhosis Status: Acute (6) Anemia Status: Acute (7) Dehydration Status: Acute (8) Elevated INR Status: Acute (9) Headache Status: Acute (10) Hepatic encephalopathy Status: Acute (11) History of liver disease Status: Acute (12) Hyperammonemia Status: Acute (13) Hyperammonemia Status: Acute (14) Hyperbilirubinemia Status: Acute (15) Hyperbilirubinemia Status: Acute (16) Hyperbilirubinemia Status: Acute (17) Hyperbilirubinemia Status: Acute (18) Hypocalcemia Status: Acute (19) Hypomagnesemia Status: Acute (20) Hypomagnesemia Status: Acute (21) Hypophosphatemia Status: Acute (22) Influenza A Status: Acute (23) SOB (shortness of breath) Status: Acute (24) Thrombocytopenia Status: Acute Past Medical History: ascites, lower extremity edema, HE, cirrhosis, ETOH abuse Hyperammonemia Hyperbilirubinemia Thrombocytopenia, HTN, portal HTN, hypothyroidism, hx of MRSA Past Surgical History: C section, tubal ligation, dental procedures. Family History Anxiety disorder BROTHER FH: bipolar disorder MOTHER Social History Smoking Status: Former Smoker Alcohol Use: other Drug Use: none Marital Status: , in relationship Housing Status: lives with family Occupation Status: unemployed Allergies Coded Allergies: Alcohol (Verified Allergy, Severe, LIVER DAMAGE, 04/14/17) Citalopram (Verified Allergy, Severe, ENLARED HEART VALVES, 12/01/16) Quetiapine (Verified Allergy, Intermediate, unknown., 12/01/16) NSAIDs (Verified Adverse Reaction, Severe, GI PROBLEMS, 04/14/17) Uncoded Allergies: SEASONAL (Allergy, Intermediate, nasal congestion and headache scratchy throat, 12/01/16) Current Medications Home Meds and Scripts Medications Dose Route/Sig Max Daily Dose Days Date Category Milk Thistle (Milk Thistle (Silybum Marianum) Unknown Strength Cap 1 Tab PO DAILY 04/14/17 Reported Cranberry (Cranberry (Vaccinium Macrocarp) 125 Mg Tab 1 Tab PO DAILY 04/14/17 Reported Vitamin D 1000 Unit (Cholecalciferol) 1,000 Unit Cap 1,000 Inter.unit PO DAILY 04/14/17 Reported Sarna Sensitive Anti-Itch (Pramoxine Hcl) 1 % Lot 1 Appln TOP BID 04/14/17 Reported Cipro (Ciprofloxacin Hcl) 500 Mg Tab 500 Mg PO DAILY 04/14/17 Reported Ultram (Tramadol HCl) 50 Mg Tab 50 Mg PO Q6 PRN 04/14/17 Reported Tessalon Perles (Benzonatate) 100 Mg Cap 1 Cap PO TID PRN 10 04/14/17 Reported Lorazepam 1 Mg Tab 1 Mg PO BID 09/16/16 Reported Sertraline HCl 50 Mg Tab 50 Mg PO HS 09/16/16 Reported Zofran (Ondansetron Hcl) 8 Mg Tab 8 Mg PO Q8H PRN 07/18/16 Reported Prilosec (Omeprazole) 40 Mg Cap 40 Mg PO DAILY 07/18/16 Reported Slow-Mag (Magnesium Chloride-Calcium Car) 1 Tab Tab 1 Tab PO BID 05/17/16 Reported Hair Skin & Nails ... 1250-7.5-7.5 Mcg-mg-Unt (Biotin W/ Vitamins C & E) 1 Chw Chw 1 Tab PO QAM 05/17/16 Reported Inderal (Propranolol HCl) 10 Mg Tab 10 Mg PO TID 05/17/16 Reported Chronulac (Lactulose) 10 Gm/15 Ml Syrp 30 Ml PO TID PRN 05/17/16 Reported Micro-K Ext Rel (Potassium Chloride) 10 Meq Capcr 10 Meq PO BID 05/17/16 Reported Aldactone (Spironolactone) 100 Mg Tab 100 Mg PO HS 05/17/16 Reported Lasix (Furosemide) 40 Mg Tab 40 Mg PO QAM 05/17/16 Reported Kp Melatonin (Melatonin) 3 Mg Tab 3 Mg PO HS PRN 30 04/14/16 Reported Levothyroxine Sodium 137 Mcg Tab 137 Mcg PO QAM 90 01/30/16 Reported Xifaxan (Rifaximin) 550 Mg Tab 550 Mg PO BID 07/23/15 Reported Vitamin B12 (Cyanocobalamin) 1,000 Mcg Tab 1,000 Mcg PO QAM 05/26/15 Reported Folvite (Folic Acid) 1 Mg Tab 1 Mg PO QAM 90 05/07/15 Reported Multivitamin (Multivitamins) Tab 1 Tab PO QAM 05/07/15 Reported Imitrex (Sumatriptan Succinate) 50 Mg Tab 50 Mg PO UD PRN 05/07/15 Reported Claritin (Loratadine) 10 Mg Tab 10 Mg PO DAILY PRN 05/07/15 Reported Review of Systems Constitutional: No fever, No chills, No weakness, No fatigue ENT: + hearing loss Respiratory: + cough, + wheezing, + shortness of breath Cardiac: + edema, No chest pain Abdomen: + problem reported (abd distention), No pain, No nausea, No vomiting, No diarrhea, No constipation, No GI bleeding Endo: + fatigue Skin: + jaundice, No rash, No itch, No color change Physical Exam Date Time Temp Pulse Resp B/P (MAP) Pulse Ox O2 Delivery O2 Flow Rate FiO2 04/16/17 10:20 37.1 68 16 120/71 100 04/16/17 09:45 36.6 63 16 119/69 100 04/16/17 08:02 36.8 72 19 127/73 (91) 100 Room Air 04/16/17 06:24 70 20 100 Room Air 04/16/17 02:10 36.9 75 22 119/64 98 04/16/17 01:55 76 20 95 Room Air 04/16/17 01:20 36.8 85 20 109/69 (82) 96 Room Air 04/16/17 01:10 36.8 78 20 116/70 98 04/16/17 00:40 37.1 78 20 110/67 97 04/16/17 00:25 36.9 74 20 106/61 96 04/16/17 00:10 Room Air 04/16/17 00:07 37.0 76 20 119/63 95 0.0 04/15/17 23:40 37.0 84 20 127/72 95 04/15/17 22:40 36.8 89 20 102/65 95 04/15/17 22:10 37.3 77 20 107/69 97 04/15/17 21:40 37.3 76 20 120/69 97 04/15/17 21:25 37.4 71 20 120/64 97 04/15/17 21:09 36.7 75 20 118/64 98 04/15/17 20:15 Room Air 04/15/17 19:06 73 20 93 Room Air 04/15/17 16:20 Room Air 04/15/17 15:20 36.3 68 20 118/78 (91) 100 04/15/17 14:57 88 18 95 Room Air General Appearance: no apparent distress Eyes: PERRL ENT: hearing grossly normal Neck: supple, no JVD, trachea midline Respiratory/Chest: chest non-tender, lungs clear, no respiratory distress, no accessory muscle use, + wheezing (expiratory wheezes) Cardiovascular: regular rate, rhythm, no edema, no JVD, no murmur Abdomen: normal bowel sounds, non tender, soft, no organomegaly, no pulsatile mass, + pertinent finding (non tense ascites) Extremities: + pertinent finding (bilater lower extremity edema ) Neurologic/Psych: alert, normal mood/affect, oriented x 3 Skin: warm/dry, no rash, + jaundice Laboratory Results Last 24 Hours Test 04/16/17 05:47 04/16/17 08:00 White Blood Count 5.13 K/uL Red Blood Count 1.85 M/uL Hemoglobin 6.3 g/dL Hematocrit 18.3 % Mean Corpuscular Volume 98.9 fL Mean Corpuscular Hemoglobin 34.1 pg Mean Corpuscular Hemoglobin Concent 34.4 g/dl Platelet Count 73 K/uL Mean Platelet Volume 10.2 fL Neutrophils (%) (Auto) 84.6 % Lymphocytes (%) (Auto) 10.5 % Monocytes (%) (Auto) 4.3 % Eosinophils (%) (Auto) 0.2 % Basophils (%) (Auto) 0.0 % Neutrophils # (Auto) 4.34 K/uL Lymphocytes # (Auto) 0.54 K/uL Monocytes # (Auto) 0.22 K/uL Eosinophils # (Auto) 0.01 K/uL Basophils # (Auto) 0.00 K/uL RDW Standard Deviation 66.0 fL RDW Coefficient of Variation 18.5 % Immature Granulocyte % (Auto) 0.4 % Immature Granulocyte # (Auto) 0.02 K/uL Echinocytes 2+ Acanthocytes 1+ Schistocytes 1+ Prothrombin Time 20.9 SECONDS Prothromb Time International Ratio 2.0 Sodium Level 137 mmol/L Potassium Level 4.0 mmol/L Chloride Level 110 mmol/L Carbon Dioxide Level 17 mmol/L Anion Gap 10.0 mmol/L Blood Urea Nitrogen 22 mg/dl Creatinine 1.22 mg/dl Est Creatinine Clear Calc Drug Dose 49.8 ml/min Estimated GFR () 59.4 Estimated GFR (Non- 51.3 BUN/Creatinine Ratio 18.0 Random Glucose 143 mg/dl Calcium Level 7.6 mg/dl Impression Patient is a 51 year old female with decompensated cirrhosis, admitted with influenzae a with bilateral lower extremity edema, ascites and weight gain. Thinking clearly, no black or bloody stools/emesis. Plan - Electrolyte management per the primary service - Bilateral lower extremity duplex - ELIZABETH Management - urine NA - Daily CMP - Albumin 25% 25G TID - Varices - propranolol 10 TID - Monitor stools for s/s of GI blood loss - Ascites Management - Less than 2G NA daily - hepatic duplex - Diagnostic and therapeutic paracentesis - cell count, culture, protein, albumin - albumin 25% 25G before and after - Cipro 500 daily for prophylaxis - Cirrhosis Management - No ETOH - Transplant follow up - OP follow up - less than 2G tylenol daily - HCC screen every 6 months - Immunizations towards Hep A/Hep B GI will follow. Please call with any questions or concerns. Attg add: I interviewed and examined pt, reviewed chart and labs. Pt with Flu, now with volume overload. Weight is same, CT shows mod ascites, creat mildly above baseline. Agree with albumin, cont outpt diuretics, follow creat and weight. R/o SBP.
[2017-04-16] MEDS: D5NSS + 20MEQ KCL 1,000 ML IV SCH ×2 (12:35→22:36)
[2017-04-16 13:51] LABS: HEMATOCRIT 21.2 % (37-47); HEMOGLOBIN 7.4 g/dL (12.0-16.0); MEAN CELL VOLUME 97.2 fL (80-100); MEAN CORPUSCULAR HEMOGLOBIN 33.9 pg (25-34); MEAN CORPUSCULAR HGB CONC 34.9 g/dl (32-36); RED CELL DISTRIBUTION WIDTH SD 62.9 fL (36.4-46.3); WHITE BLOOD COUNT 5.28 K/uL (4.8-10.8)
[2017-04-16 14:01] LABS: MEAN PLATELET VOLUME 9.7 fL (7.4-10.4); PLATELET COUNT 62 K/uL (130-400)
[2017-04-16 14:04] LABS: INR 2.2 (0.9-1.1)
--- NOTE | 2017-04-16 15:47 | DIAGNOSTIC IMAGING REPORT ---
ULTRASOUND ASCITES CHECK CLINICAL HISTORY: Generalized abdominal pain. Cirrhosis and ascites. COMPARISON STUDY: Abdominal CT dated 04/15/2017. FINDINGS: Real-time grayscale sonography of all 4 quadrants of the abdomen was performed to assess for abdominal ascites. There is a small volume of abdominal ascites. There was insufficient fluid for paracentesis. A safe window was not identified for diagnostic paracentesis. Cirrhotic liver morphology is incidentally noted. IMPRESSION: There is a small volume of abdominal ascites. There was insufficient fluid for paracentesis attempt. Electronically signed by: Jarod Trevizo M.D. 04/16/2017 3:45 PM Dictated Date/Time: 04/16/2017 3:44 PM
--- NOTE | 2017-04-16 16:28 | DIAGNOSTIC IMAGING REPORT ---
ULTRASOUND BILATERAL LOWER EXTREMITY VENOUS CLINICAL HISTORY: Lower extremity edema. COMPARISON STUDY: No priors. TECHNIQUE: Real-time, grayscale, and color Doppler sonography of the deep veins of the right and left lower extremity was performed from the inguinal crease to the calf. Compression and augmentation were utilized. FINDINGS: There is no sonographic evidence of deep venous thrombosis identified in the right or left lower extremity. The common femoral, superficial femoral, and popliteal veins are patent and normally compressible bilaterally. The greater saphenous vein and the profunda femoris vein at the junction with the common femoral vein are clear in both legs. The visualized calf veins are patent bilaterally. IMPRESSION: There is no sonographic evidence of deep venous thrombosis identified in the right or left lower extremity. Electronically signed by: Jarod Trevizo M.D. 04/16/2017 4:27 PM Dictated Date/Time: 04/16/2017 4:26 PM
--- NOTE | 2017-04-16 16:32 | DIAGNOSTIC IMAGING REPORT ---
DOPPLER ULTRASOUND OF THE HEPATIC AND PORTAL VASCULATURE CLINICAL HISTORY: Cirrhosis and ascites. COMPARISON STUDY: Abdominal CT dated 04/15/2017. TECHNIQUE: Real-time, grayscale, color Doppler sonography of the hepatic and portal vasculature is performed. FINDINGS: The main portal vein as well as the right and left portal veins are patent with normal direction of flow. The inferior vena cava is patent. The hepatic veins are patent, noting loss of the normal hepatic venous waveforms. The hepatic artery is patent with velocities measuring up to 58 cm/s. IMPRESSION: 1. The hepatic veins and portal veins are patent with normal direction of flow. 2. There is loss of the normal hepatic venous waveforms, likely related to cirrhosis and portal hypertension. Electronically signed by: Jarod Trevizo M.D. 04/16/2017 4:31 PM Dictated Date/Time: 04/16/2017 4:28 PM
[2017-04-16] MEDS: ALBUMIN HUMAN 25% 12.5 GM/50 ML VIAL IV SCH ×2 (16:41→20:11)
--- NOTE | 2017-04-16 17:41 | Progress Note ---
Subjective Date of Service: Apr 16, 2017. Subjective Pt evaluation today including: conversation w/ patient, conversation w/ family , physical exam, lab review, review of studies, review of inpatient medication list Saw/examined the patient in room 422 paracentesis could not be performed due to minimal ascites patient still has labile mood; but feeling better after discussion cough and shortness of breath is improved. Problem List Medical Problems: (1) Abdominal pain Status: Acute (2) Abdominal pain Status: Acute (3) Acute alcohol intoxication Status: Acute (4) Alcohol intoxication Status: Acute (5) Alcoholic cirrhosis Status: Acute (6) Anemia Status: Acute (7) Dehydration Status: Acute (8) Elevated INR Status: Acute (9) Headache Status: Acute (10) Hepatic encephalopathy Status: Acute (11) History of liver disease Status: Acute (12) Hyperammonemia Status: Acute (13) Hyperammonemia Status: Acute (14) Hyperbilirubinemia Status: Acute (15) Hyperbilirubinemia Status: Acute (16) Hyperbilirubinemia Status: Acute (17) Hyperbilirubinemia Status: Acute (18) Hypocalcemia Status: Acute (19) Hypomagnesemia Status: Acute (20) Hypomagnesemia Status: Acute (21) Hypophosphatemia Status: Acute (22) Influenza A Status: Acute (23) SOB (shortness of breath) Status: Acute (24) Thrombocytopenia Status: Acute Review of Systems Constitutional: No fever, No chills Respiratory: No shortness of breath Cardiac: No chest pain Abdomen: No pain, No nausea, No vomiting, No diarrhea, No constipation, No GI bleeding Medications Current Inpatient Medications Medications (Trade) Dose Ordered Sig/Fariba Route Start Time Stop Time Status Last Admin Dose Admin Oseltamivir Phosphate (Tamiflu Susp) 30 mg BID PO 04/15/17 08:00 04/20/17 08:59 04/16/17 08:19 30 MG Hydromorphone HCl (Dilaudid Inj) 0.5 mg Q6H PRN IV 04/15/17 00:30 04/29/17 00:29 04/15/17 09:50 0.5 MG Prochlorperazine Edisylate 5 mg/ Syringe 5 ml @ 5 mls/min Q6H PRN IV 04/15/17 00:30 05/15/17 00:29 Acetaminophen (Tylenol Tab) 325 mg Q6H PRN PO 04/15/17 02:15 05/15/17 02:14 Prochlorperazine Edisylate 5 mg/ Syringe 5 ml @ 5 mls/min Q6H PRN IV 04/15/17 02:15 05/15/17 02:14 Folic Acid (Folvite Tab) 1 mg QAM PO 04/15/17 08:00 05/15/17 08:59 04/16/17 08:20 1 MG Lactulose (Chronulac Syrup) 20 gm TID PO 04/15/17 08:00 05/15/17 08:59 04/16/17 13:43 20 GM Levothyroxine Sodium (Synthroid Tab) 137 mcg DAILYBB PO 04/15/17 06:30 05/15/17 06:29 04/16/17 06:09 137 MCG Loratadine (Claritin Tab) 10 mg DAILY PRN PO 04/15/17 02:15 05/15/17 02:14 Lorazepam (Ativan Tab) 1 mg BID PO 04/15/17 08:00 05/15/17 08:59 04/16/17 08:19 1 MG Multivitamins (Multivitamin Tab) 1 tab QAM PO 04/15/17 08:00 05/15/17 08:59 04/16/17 08:20 1 TAB Propranolol HCl (Inderal Tab) 10 mg TID PO 04/15/17 08:00 05/15/17 08:59 04/16/17 08:20 10 MG Rifaximin (Xifaxan Tab) 550 mg BID PO 04/15/17 08:00 05/15/17 08:59 04/16/17 08:19 550 MG Sertraline HCl (Zoloft Tab) 50 mg HS PO 04/15/17 21:00 05/15/17 20:59 04/15/17 19:54 50 MG Pantoprazole Sodium (Protonix Tab) 40 mg DAILY PO 04/15/17 08:00 05/15/17 08:59 04/16/17 08:20 40 MG Tramadol HCl (Ultram Tab) not relieved ... Q6H PRN PO 04/15/17 02:15 05/15/17 02:14 Ampicillin Sodium/ Sulbactam Sodium (Consult) 1 ea UD PRN N/A 04/15/17 08:00 05/15/17 07:59 Ampicillin Sodium/ Sulbactam Sodium 3000 mg/Sodium Chloride 108 ml @ 216 mls/hr Q6H IV 04/15/17 08:00 04/22/17 07:59 04/16/17 13:42 216 MLS/HR Ipratropium [place] (Atrovent 0.02% 0.5MG/2.5ML Neb) 0.5 mg Q6R INH 04/15/17 09:00 05/15/17 08:59 04/16/17 14:03 0.5 MG Levalbuterol (Xopenex 1.25MG/ 0.5ML Neb) 1.25 mg Q6R INH 04/15/17 09:00 05/15/17 08:59 04/16/17 14:03 1.25 MG Ipratropium [place] (Atrovent 0.02% 0.5MG/2.5ML Neb) 0.5 mg Q4H PRN INH 04/15/17 03:15 05/15/17 03:14 Levalbuterol (Xopenex 1.25MG/ 0.5ML Neb) 1.25 mg Q4H PRN INH 04/15/17 03:15 05/15/17 03:14 Potassium Chloride/Dextrose/ Sod Cl 1,000 ml @ 50 mls/hr Q20H IV 04/15/17 05:15 05/15/17 05:14 04/16/17 12:35 50 MLS/HR Benzonatate (Tessalon Perles Cap) 100 mg Q8H PRN PO 04/15/17 20:30 05/15/17 20:29 Phenol (Chloraseptic 1.4% [place]) 4 sprays QID PRN MT 04/16/17 09:15 05/16/17 09:14 Guaifenesin (Robitussin Sugar Free Syrup) 100 mg Q6H PRN PO 04/16/17 09:15 05/16/17 09:14 04/16/17 10:32 100 MG Albumin Human (Albumin 25%) 25 gm TID IV 04/16/17 14:00 04/19/17 13:59 04/16/17 16:41 25 GM Furosemide (Lasix Tab) 40 mg QAM PO 04/17/17 08:00 05/17/17 07:59 Spironolactone (Aldactone Tab) 100 mg QAM PO 04/17/17 08:00 05/17/17 07:59 Objective Vital Signs Date Time Temp Pulse Resp B/P (MAP) Pulse Ox O2 Delivery O2 Flow Rate FiO2 04/16/17 17:09 36.5 98 18 110/75 (87) 98 Room Air 04/16/17 14:03 60 18 98 Room Air 04/16/17 12:20 37.0 59 18 118/75 99 04/16/17 11:49 36.9 68 18 104/67 99 04/16/17 10:50 36.9 73 19 109/70 95 04/16/17 10:20 37.1 68 16 120/71 100 04/16/17 09:45 36.6 63 16 119/69 100 04/16/17 08:02 36.8 72 19 127/73 (91) 100 Room Air 04/16/17 08:00 100 Room Air 04/16/17 06:24 70 20 100 Room Air 04/16/17 02:10 36.9 75 22 119/64 98 04/16/17 01:55 76 20 95 Room Air 04/16/17 01:20 36.8 85 20 109/69 (82) 96 Room Air 04/16/17 01:10 36.8 78 20 116/70 98 04/16/17 00:40 37.1 78 20 110/67 97 04/16/17 00:25 36.9 74 20 106/61 96 04/16/17 00:10 Room Air 04/16/17 00:07 37.0 76 20 119/63 95 0.0 04/15/17 23:40 37.0 84 20 127/72 95 04/15/17 22:40 36.8 89 20 102/65 95 04/15/17 22:10 37.3 77 20 107/69 97 04/15/17 21:40 37.3 76 20 120/69 97 04/15/17 21:25 37.4 71 20 120/64 97 04/15/17 21:09 36.7 75 20 118/64 98 04/15/17 20:15 Room Air 04/15/17 19:06 73 20 93 Room Air Physical Exam General Appearance: no apparent distress Respiratory/Chest: lungs clear, normal breath sounds, no respiratory distress, no accessory muscle use Cardiovascular: regular rate, rhythm, no murmur Abdomen: + distended Extremities: + pertinent finding (+1 pitting edema b/l LE) Neurologic/Psychiatric: no motor/sensory deficits, alert, + depressed affect Laboratory Results Last 24 Hours Test 04/16/17 05:47 04/16/17 08:00 04/16/17 13:36 04/16/17 13:50 White Blood Count 5.13 K/uL 5.28 K/uL Red Blood Count 1.85 M/uL 2.18 M/uL Hemoglobin 6.3 g/dL 7.4 g/dL Hematocrit 18.3 % 21.2 % Mean Corpuscular Volume 98.9 fL 97.2 fL Mean Corpuscular Hemoglobin 34.1 pg 33.9 pg Mean Corpuscular Hemoglobin Concent 34.4 g/dl 34.9 g/dl Platelet Count 73 K/uL 62 K/uL Mean Platelet Volume 10.2 fL 9.7 fL Neutrophils (%) (Auto) 84.6 % Lymphocytes (%) (Auto) 10.5 % Monocytes (%) (Auto) 4.3 % Eosinophils (%) (Auto) 0.2 % Basophils (%) (Auto) 0.0 % Neutrophils # (Auto) 4.34 K/uL Lymphocytes # (Auto) 0.54 K/uL Monocytes # (Auto) 0.22 K/uL Eosinophils # (Auto) 0.01 K/uL Basophils # (Auto) 0.00 K/uL RDW Standard Deviation 66.0 fL 62.9 fL RDW Coefficient of Variation 18.5 % 18.0 % Immature Granulocyte % (Auto) 0.4 % Immature Granulocyte # (Auto) 0.02 K/uL Echinocytes 2+ Acanthocytes 1+ Schistocytes 1+ Prothrombin Time 20.9 SECONDS 22.5 SECONDS Prothromb Time International Ratio 2.0 2.2 Sodium Level 137 mmol/L Potassium Level 4.0 mmol/L Chloride Level 110 mmol/L Carbon Dioxide Level 17 mmol/L Anion Gap 10.0 mmol/L Blood Urea Nitrogen 22 mg/dl Creatinine 1.22 mg/dl Est Creatinine Clear Calc Drug Dose 49.8 ml/min Estimated GFR () 59.4 Estimated GFR (Non- 51.3 BUN/Creatinine Ratio 18.0 Random Glucose 143 mg/dl Calcium Level 7.6 mg/dl Urine Random Sodium 72 mEq/L Assessment and Plan This is a 51 year old female with a PMH of alcoholic liver cirrhosis and complications including ascites, esophageal varices, pulmonary HTN, hyperammonemia, anemia; depression/anxiety, hypothyroidism - presents with flu- like symptoms, shortness of breath, cough Influenza A Acute Complicated Bronchitis 04/16 continue Tamiflu and Unasyn for five days total continue nebulizer treatments will need nebulizer machine and Xopenex on discharge 04/15 patient presents with positive influenza A has had flu-like symptoms for weeks unsure if Tamiflu will help, but patient states her breathing is an issue will complete a five day course at renal dosing patient is started on Unasyn for bronchitis vs. aspiration pneumonia - leaning towards bronchitis at this point will continue Unasyn for now continue Xopenex/Atrovent breathing treatments as this helps avoiding steroids as this caused significant edema Ascites secondary to Alcoholic Liver Cirrhosis 04/16 paracentesis could not be performed due to minimal ascites albumin started as per GI continue further management as per GI restart diuretics, likely in AM (04/17) 04/15 patient with significant abdominal swelling abdominal/pelvis CT suggests abdominal ascites; gallbladder thickening is not new plan for ultrasound guided paracentesis in AM continue Rifaximin, lactulose, folic acid, thiamine; holding diuretics due to intravascular depletion Acute Kidney Injury due to dehydration currently on gentle IV fluids, will monitor due to third spacing/ascites Anemia/Thrombocytopenia 04/16 s/p one unit of platelets, one unit of FFP and one unit of pRBCs monitor CBC daily 04/15 noted to have both anemia and thrombocytopenia secondary to alcoholic liver cirrhosis Liver Disease Coagulopathy INR = 2.2 monitor for any bleeding Mood Disorder continue home medications Hypothyroidism continue Synthroid DVT ppx SCDs FULL CODE
[2017-04-16] MEDS: SERTRALINE HCL 50 MG TAB PO SCH (20:22)
[2017-04-17] VITALS (10 sets, daily range): BP systolic 103–119; BP diastolic 67–73; PULSE 66–82; TEMP 36.5–36.8; O2SAT 95–99
[2017-04-17] MEDS: LEVALBUTEROL 1.25MG/0.5ML NEB INH SCH ×4 (02:10→19:22)
[2017-04-17] MEDS: IPRATROPIUM BROMIDE NEB SOLN 0.02% 2.5 ML VIAL INH SCH ×4 (02:10→19:22)
[2017-04-17] MEDS: AMPICILLIN/SULBACTAM SOD INJ 3,000 MG in SODIUM CHLORIDE 0.9% 100ML 100 ML IV SCH ×2 (03:57→07:55)
[2017-04-17] MEDS: LEVOTHYROXINE 137 MCG TAB PO SCH (05:53)
[2017-04-17 06:13] LABS: HEMATOCRIT 20.4 % (37-47); HEMOGLOBIN 7.1 g/dL (12.0-16.0); MEAN CELL VOLUME 97.6 fL (80-100); MEAN CORPUSCULAR HGB CONC 34.8 g/dl (32-36); PLATELET COUNT 58 K/uL (130-400); RED CELL DISTRIBUTION WIDTH CV 18.8 % (11.5-14.5); RED CELL DISTRIBUTION WIDTH SD 67.2 fL (36.4-46.3); WHITE BLOOD COUNT 4.83 K/uL (4.8-10.8)
[2017-04-17 06:33] LABS: BASO % 0.2 %; BASO ABS # 0.01 K/uL (0-0.2); EOS % 5.8 %; EOS ABS # 0.28 K/uL (0-0.5); IG# 0.02 K/uL (0.00-0.02); LYMPH % 24.6 %; LYMPH ABS # 1.19 K/uL (1.2-3.4); MONO % 8.5 %; MONO ABS # 0.41 K/uL (0.11-0.59); NEUT % 60.5 %; NEUT ABS # 2.92 K/uL (1.4-6.5)
[2017-04-17 06:48] LABS: CALCIUM 7.8 mg/dl (8.5-10.1); CREATININE 0.9 mg/dl (0.60-1.20); POTASSIUM 3.9 mmol/L (3.5-5.1)
[2017-04-17] MEDS: LORAZEPAM 1 MG TAB PO SCH ×2 (07:50→20:13)
[2017-04-17] MEDS: OSELTAMIVIR PHOSPHATE SUSP 30 MG/5 ML UDP PO SCH (07:51)
[2017-04-17] MEDS: RIFAXIMIN TAB 550 MG TAB PO SCH ×2 (07:51→20:14)
[2017-04-17] MEDS: SPIRONOLACTONE 100 MG TAB PO SCH (07:51)
[2017-04-17] MEDS: FUROSEMIDE 40 MG TAB PO SCH (07:52)
[2017-04-17] MEDS: MULTIVITAMIN TAB PO SCH (07:52)
[2017-04-17] MEDS: PANTOprazole SOD 40 MG TAB PO SCH (07:52)
[2017-04-17] MEDS: PROPRANOLOL HCL 10 MG TAB PO SCH ×3 (07:53→20:15)
[2017-04-17] MEDS: LACTULOSE SYRUP 20 GM/30 ML UDC PO SCH ×3 (07:53→20:11)
[2017-04-17] MEDS: ALBUMIN HUMAN 25% 12.5 GM/50 ML VIAL IV SCH (08:10)
--- NOTE | 2017-04-17 10:05 | Gastroenterology Progress Note ---
Progress Note Date of Service: Apr 17, 2017 Subjective Pt evaluation today including: conversation w/ patient, physical exam, chart review, lab review Pt was seen and evaluated, chart reviewed. No acute events overnight. She was unable to get paracentesis yesterday due to low fluid volume. Continues to improve overall. Notes less cough, congestion. No SOB. She is having diarrhea, she notes episode of incontinence last night. Stools are green. No black or bloody stools. Is still taking lactulose. Tolerating diet, no abd pain, nausea, vomiting. No fever, chills, CP, SOB. 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 There was insufficient fluid for paracentesis attempt. Hepatic Duplex 04/16/17: The hepatic veins and portal veins are patent with normal direction of flow. There is loss of the normal hepatic venous waveforms , likely related to cirrhosis and portal hypertension. CT ABD/Pelvis 04/15/17: Suboptimal examination without oral and IV contrast. Cirrhotic liver morphology with evidence of portal hypertension includingabdominal ascites and marked splenomegaly. Esophageal varices are suspected. Cholelithiasis. Gallbladder wall thickening is nonspecific and similar to the 02/22/2016 examination. This is likely related to ascites and liver disease.Correlate clinically for evidence of acute cholecystitis.Trace pleural effusions.Body wall edema. Moderate to large hiatal hernia. Review of Systems Constitutional: + fatigue, No fever, No chills, No weight loss, No weakness Respiratory: + cough, No sputum, No shortness of breath Cardiac: No chest pain, No edema Abdomen: + diarrhea, No pain, No nausea, No vomiting, No constipation, No GI bleeding Skin: No rash, No itch, No color change, No jaundice Medications Current Inpatient Medications Medications (Trade) Dose Ordered Sig/Fariba Route Start Time Stop Time Status Last Admin Dose Admin Hydromorphone HCl (Dilaudid Inj) 0.5 mg Q6H PRN IV 04/15/17 00:30 04/29/17 00:29 04/15/17 09:50 0.5 MG Prochlorperazine Edisylate 5 mg/ Syringe 5 ml @ 5 mls/min Q6H PRN IV 04/15/17 00:30 05/15/17 00:29 Acetaminophen (Tylenol Tab) 325 mg Q6H PRN PO 04/15/17 02:15 05/15/17 02:14 Prochlorperazine Edisylate 5 mg/ Syringe 5 ml @ 5 mls/min Q6H PRN IV 04/15/17 02:15 05/15/17 02:14 Folic Acid (Folvite Tab) 1 mg QAM PO 04/15/17 08:00 05/15/17 08:59 04/17/17 07:52 1 MG Lactulose (Chronulac Syrup) 20 gm TID PO 04/15/17 08:00 05/15/17 08:59 04/17/17 07:53 10 GM Levothyroxine Sodium (Synthroid Tab) 137 mcg DAILYBB PO 04/15/17 06:30 05/15/17 06:29 04/17/17 05:53 137 MCG Loratadine (Claritin Tab) 10 mg DAILY PRN PO 04/15/17 02:15 05/15/17 02:14 Lorazepam (Ativan Tab) 1 mg BID PO 04/15/17 08:00 05/15/17 08:59 04/17/17 07:50 1 MG Multivitamins (Multivitamin Tab) 1 tab QAM PO 04/15/17 08:00 05/15/17 08:59 04/17/17 07:52 1 TAB Propranolol HCl (Inderal Tab) 10 mg TID PO 04/15/17 08:00 05/15/17 08:59 04/17/17 07:53 10 MG Rifaximin (Xifaxan Tab) 550 mg BID PO 04/15/17 08:00 05/15/17 08:59 04/17/17 07:51 550 MG Sertraline HCl (Zoloft Tab) 50 mg HS PO 04/15/17 21:00 05/15/17 20:59 04/16/17 20:22 50 MG Pantoprazole Sodium (Protonix Tab) 40 mg DAILY PO 04/15/17 08:00 05/15/17 08:59 04/17/17 07:52 40 MG Tramadol HCl (Ultram Tab) not relieved ... Q6H PRN PO 04/15/17 02:15 05/15/17 02:14 Ampicillin Sodium/ Sulbactam Sodium (Consult) 1 ea UD PRN N/A 04/15/17 08:00 05/15/17 07:59 Ampicillin Sodium/ Sulbactam Sodium 3000 mg/Sodium Chloride 108 ml @ 216 mls/hr Q6H IV 04/15/17 08:00 04/22/17 07:59 04/17/17 07:55 216 MLS/HR Ipratropium [place] (Atrovent 0.02% 0.5MG/2.5ML Neb) 0.5 mg Q6R INH 04/15/17 09:00 05/15/17 08:59 04/17/17 07:24 0.5 MG Levalbuterol (Xopenex 1.25MG/ 0.5ML Neb) 1.25 mg Q6R INH 04/15/17 09:00 05/15/17 08:59 04/17/17 07:24 1.25 MG Ipratropium [place] (Atrovent 0.02% 0.5MG/2.5ML Neb) 0.5 mg Q4H PRN INH 04/15/17 03:15 05/15/17 03:14 Levalbuterol (Xopenex 1.25MG/ 0.5ML Neb) 1.25 mg Q4H PRN INH 04/15/17 03:15 05/15/17 03:14 Potassium Chloride/Dextrose/ Sod Cl 1,000 ml @ 50 mls/hr Q20H IV 04/15/17 05:15 05/15/17 05:14 04/16/17 12:35 50 MLS/HR Benzonatate (Tessalon Perles Cap) 100 mg Q8H PRN PO 04/15/17 20:30 05/15/17 20:29 Phenol (Chloraseptic 1.4% [place]) 4 sprays QID PRN MT 04/16/17 09:15 05/16/17 09:14 Guaifenesin (Robitussin Sugar Free Syrup) 100 mg Q6H PRN PO 04/16/17 09:15 05/16/17 09:14 04/16/17 10:32 100 MG Albumin Human (Albumin 25%) 25 gm TID IV 04/16/17 14:00 04/19/17 13:59 04/17/17 08:10 25 GM Furosemide (Lasix Tab) 40 mg QAM PO 04/17/17 08:00 05/17/17 07:59 04/17/17 07:52 40 MG Spironolactone (Aldactone Tab) 100 mg QAM PO 04/17/17 08:00 05/17/17 07:59 04/17/17 07:51 100 MG Heparin Sodium (Porcine) (Heparin 10 Unit/ ml 5 ml Flush) 5 ml PRN PRN FLUSH 04/17/17 07:30 05/17/17 07:29 Oseltamivir Phosphate (Tamiflu Cap) 75 mg BID PO 04/17/17 14:00 04/19/17 23:59 Objective Vital Signs Date Time Temp Pulse Resp B/P (MAP) Pulse Ox O2 Delivery O2 Flow Rate FiO2 04/17/17 08:00 Room Air 04/17/17 07:25 66 18 96 Room Air 04/17/17 07:15 36.6 73 20 105/67 (80) 98 Room Air 04/17/17 07:12 36.6 73 20 105/67 (80) 98 Room Air 04/17/17 00:00 Room Air 04/16/17 20:19 69 18 133/82 (99) 99 Room Air 04/16/17 20:00 Room Air 04/16/17 19:47 68 18 96 Room Air 04/16/17 17:09 36.5 98 18 110/75 (87) 98 Room Air 04/16/17 16:00 98 Room Air 04/16/17 14:03 60 18 98 Room Air 04/16/17 12:20 37.0 59 18 118/75 99 04/16/17 11:49 36.9 68 18 104/67 99 04/16/17 10:50 36.9 73 19 109/70 95 04/16/17 10:20 37.1 68 16 120/71 100 Physical Exam General Appearance: no apparent distress Eyes: PERRL ENT: hearing grossly normal Neck: supple Respiratory/Chest: lungs clear, normal breath sounds Cardiovascular: regular rate, rhythm, no edema, no gallop, no JVD Abdomen: normal bowel sounds, non tender, soft, no organomegaly, no pulsatile mass Neurologic/Psych: alert, normal mood/affect, oriented x 3 Skin: warm/dry, no rash, + jaundice Laboratory Results Last 24 Hours Test 04/16/17 13:36 04/16/17 13:50 04/17/17 05:46 White Blood Count 5.28 K/uL 4.83 K/uL Red Blood Count 2.18 M/uL 2.09 M/uL Hemoglobin 7.4 g/dL 7.1 g/dL Hematocrit 21.2 % 20.4 % Mean Corpuscular Volume 97.2 fL 97.6 fL Mean Corpuscular Hemoglobin 33.9 pg 34.0 pg Mean Corpuscular Hemoglobin Concent 34.9 g/dl 34.8 g/dl RDW Standard Deviation 62.9 fL 67.2 fL RDW Coefficient of Variation 18.0 % 18.8 % Platelet Count 62 K/uL 58 K/uL Mean Platelet Volume 9.7 fL 10.0 fL Prothrombin Time 22.5 SECONDS Prothromb Time International Ratio 2.2 Urine Random Sodium 72 mEq/L Neutrophils (%) (Auto) 60.5 % Lymphocytes (%) (Auto) 24.6 % Monocytes (%) (Auto) 8.5 % Eosinophils (%) (Auto) 5.8 % Basophils (%) (Auto) 0.2 % Neutrophils # (Auto) 2.92 K/uL Lymphocytes # (Auto) 1.19 K/uL Monocytes # (Auto) 0.41 K/uL Eosinophils # (Auto) 0.28 K/uL Basophils # (Auto) 0.01 K/uL Immature Granulocyte % (Auto) 0.4 % Immature Granulocyte # (Auto) 0.02 K/uL Acanthocytes 1+ Sodium Level 138 mmol/L Potassium Level 3.9 mmol/L Chloride Level 111 mmol/L Carbon Dioxide Level 21 mmol/L Anion Gap 6.0 mmol/L Blood Urea Nitrogen 16 mg/dl Creatinine 0.90 mg/dl Est Creatinine Clear Calc Drug Dose 67.5 ml/min Estimated GFR () 85.8 Estimated GFR (Non- 74.0 BUN/Creatinine Ratio 18.3 Random Glucose 80 mg/dl Calcium Level 7.8 mg/dl Assessment and Plan Patient is a 51 year old female with decompensated cirrhosis, admitted with influenzae a with bilateral lower extremity edema, ascites and weight gain. Thinking clearly, no black or bloody stools/emesis. Kidney function returned to baseline. Low ascites so unable to perform paracentesis. She is having diarrhea , on lactulose. MELD 23 - Electrolyte management per the primary service - [facility] Management - kidney function back to baseline - urine NA 72 not compatible with HRS - Ok to D/C Albumin 25% 25G TID - Varices - propranolol 10 TID - Monitor stools for s/s of GI blood loss - Ascites Management - Less than 2G NA daily - hepatic duplex negative - Lasix 40 mg daily - Aldactone 100 mg daily - Cipro 500 daily for prophylaxis - Diarrhea - Please titrate lactulose based on patient response - if diarrhea persist - Stool culture - Stool c.diff - Cirrhosis Management - No ETOH - Transplant follow up - OP follow up - less than 2G tylenol daily - HCC screen every 6 months - Immunizations towards Hep A/Hep B Attg add: I reviewed chart and labs. Feels much better, no complaints. Plan as above.
[2017-04-17] MEDS: IPRATROPIUM BROMIDE NEB SOLN 0.02% 2.5 ML VIAL INH PRN (12:15)
[2017-04-17] MEDS: LEVALBUTEROL 1.25MG/0.5ML NEB INH PRN (12:15)
--- NOTE | 2017-04-17 13:34 | Progress Note ---
Medicine Progress Note Date & Time of Visit: Apr 17, 2017 at 13:25. Subjective seen resting in bed, comfortable states she feels improved compared to yesterday appetite better less productive cough, denies dyspnea, no chest pain no abdominal pain, nausea no other symptoms Objective Last 8 Hrs Date Time Temp Pulse Resp B/P (MAP) Pulse Ox O2 Delivery O2 Flow Rate FiO2 04/17/17 12:16 69 18 96 Room Air 04/17/17 08:00 Room Air 04/17/17 07:25 66 18 96 Room Air 04/17/17 07:15 36.6 73 20 105/67 (80) 98 Room Air 04/17/17 07:12 36.6 73 20 105/67 (80) 98 Room Air Physical Exam: General- oriented x 3, not in distress, speaks in sentences with no effort Head- atraumatic Eyes- anicteric ENT- oropharynx clear Neck- supple, no JVD, no adenopathy Lungs- very mild rhonchi at the bases, no rales/wheezes Heart- regular rhythm; no murmur, normal rate Abdomen- normal bowel sounds, soft, non distended, nontender Extremities- no pretibial edema, no calf tenderness; peripheral pulses intact Neuro- alert, oriented x 3; no gross focal deficits Skin- warm & dry Laboratory Results: Last 24 Hours Test 04/16/17 13:36 04/16/17 13:50 04/17/17 05:46 White Blood Count 5.28 K/uL 4.83 K/uL Red Blood Count 2.18 M/uL 2.09 M/uL Hemoglobin 7.4 g/dL 7.1 g/dL Hematocrit 21.2 % 20.4 % Mean Corpuscular Volume 97.2 fL 97.6 fL Mean Corpuscular Hemoglobin 33.9 pg 34.0 pg Mean Corpuscular Hemoglobin Concent 34.9 g/dl 34.8 g/dl RDW Standard Deviation 62.9 fL 67.2 fL RDW Coefficient of Variation 18.0 % 18.8 % Platelet Count 62 K/uL 58 K/uL Mean Platelet Volume 9.7 fL 10.0 fL Prothrombin Time 22.5 SECONDS Prothromb Time International Ratio 2.2 Urine Random Sodium 72 mEq/L Neutrophils (%) (Auto) 60.5 % Lymphocytes (%) (Auto) 24.6 % Monocytes (%) (Auto) 8.5 % Eosinophils (%) (Auto) 5.8 % Basophils (%) (Auto) 0.2 % Neutrophils # (Auto) 2.92 K/uL Lymphocytes # (Auto) 1.19 K/uL Monocytes # (Auto) 0.41 K/uL Eosinophils # (Auto) 0.28 K/uL Basophils # (Auto) 0.01 K/uL Immature Granulocyte % (Auto) 0.4 % Immature Granulocyte # (Auto) 0.02 K/uL Acanthocytes 1+ Sodium Level 138 mmol/L Potassium Level 3.9 mmol/L Chloride Level 111 mmol/L Carbon Dioxide Level 21 mmol/L Anion Gap 6.0 mmol/L Blood Urea Nitrogen 16 mg/dl Creatinine 0.90 mg/dl Est Creatinine Clear Calc Drug Dose 67.5 ml/min Estimated GFR () 85.8 Estimated GFR (Non- 74.0 BUN/Creatinine Ratio 18.3 Random Glucose 80 mg/dl Calcium Level 7.8 mg/dl Assessment & Plan This is a 51 year old female with a PMH of alcoholic liver cirrhosis and complications including ascites, esophageal varices, pulmonary HTN, hyperammonemia, anemia; depression/anxiety, hypothyroidism - presents with flu- like symptoms, shortness of breath, cough Influenza A Acute Complicated Bronchitis improving continue Tamiflu day 3/5 change Zosyn to Doxycycline 100mg po BID x 5 more days continue Nebs will need Nebulizer machine and Xopenex Inhaler on discharge Ascites secondary to Alcoholic Liver Cirrhosis patient with significant abdominal swelling abdominal/pelvis CT suggests abdominal ascites; gallbladder thickening is not new paracentesis could not be performed due to minimal ascites abdomen not distended, soft, non tender Albumin started per GI, now discontinued continue Lasix + Aldactone continue Rifaximin, lactulose, folic acid, thiamine Acute Kidney Injury due to dehydration given IV NSS resolved Anemia/Thrombocytopenia no signs of active bleeding 3/5 s/p one unit of platelets, one unit of FFP and one unit of pRBCs monitor CBC daily monitor Liver Disease Coagulopathy INR = 2.2 no bleeding Mood Disorder continue home medications Hypothyroidism continue Synthroid DVT ppx SCDs due to thrombocytopenia FULL CODE Disposition pending will order PT evaluation anticipate d/c home when medically stable will need nebulizer machine on discharge Current Inpatient Medications: Current Inpatient Medications Medications (Trade) Dose Ordered Sig/Fariba Route Start Time Stop Time Status Last Admin Dose Admin Hydromorphone HCl (Dilaudid Inj) 0.5 mg Q6H PRN IV 04/15/17 00:30 04/29/17 00:29 04/15/17 09:50 0.5 MG Prochlorperazine Edisylate 5 mg/ Syringe 5 ml @ 5 mls/min Q6H PRN IV 04/15/17 00:30 05/15/17 00:29 Acetaminophen (Tylenol Tab) 325 mg Q6H PRN PO 04/15/17 02:15 05/15/17 02:14 Prochlorperazine Edisylate 5 mg/ Syringe 5 ml @ 5 mls/min Q6H PRN IV 04/15/17 02:15 05/15/17 02:14 Folic Acid (Folvite Tab) 1 mg QAM PO 04/15/17 08:00 05/15/17 08:59 04/17/17 07:52 1 MG Lactulose (Chronulac Syrup) 20 gm TID PO 04/15/17 08:00 05/15/17 08:59 04/17/17 07:53 10 GM Levothyroxine Sodium (Synthroid Tab) 137 mcg DAILYBB PO 04/15/17 06:30 05/15/17 06:29 04/17/17 05:53 137 MCG Loratadine (Claritin Tab) 10 mg DAILY PRN PO 04/15/17 02:15 05/15/17 02:14 Lorazepam (Ativan Tab) 1 mg BID PO 04/15/17 08:00 05/15/17 08:59 04/17/17 07:50 1 MG Multivitamins (Multivitamin Tab) 1 tab QAM PO 04/15/17 08:00 05/15/17 08:59 04/17/17 07:52 1 TAB Propranolol HCl (Inderal Tab) 10 mg TID PO 04/15/17 08:00 05/15/17 08:59 04/17/17 07:53 10 MG Rifaximin (Xifaxan Tab) 550 mg BID PO 04/15/17 08:00 05/15/17 08:59 04/17/17 07:51 550 MG Sertraline HCl (Zoloft Tab) 50 mg HS PO 04/15/17 21:00 05/15/17 20:59 04/16/17 20:22 50 MG Pantoprazole Sodium (Protonix Tab) 40 mg DAILY PO 04/15/17 08:00 05/15/17 08:59 04/17/17 07:52 40 MG Tramadol HCl (Ultram Tab) not relieved ... Q6H PRN PO 04/15/17 02:15 05/15/17 02:14 Ampicillin Sodium/ Sulbactam Sodium (Consult) 1 ea UD PRN N/A 04/15/17 08:00 05/15/17 07:59 Ampicillin Sodium/ Sulbactam Sodium 3000 mg/Sodium Chloride 108 ml @ 216 mls/hr Q6H IV 04/15/17 08:00 04/22/17 07:59 04/17/17 07:55 216 MLS/HR Ipratropium [place] (Atrovent 0.02% 0.5MG/2.5ML Neb) 0.5 mg Q6R INH 04/15/17 09:00 05/15/17 08:59 04/17/17 07:24 0.5 MG Levalbuterol (Xopenex 1.25MG/ 0.5ML Neb) 1.25 mg Q6R INH 04/15/17 09:00 05/15/17 08:59 04/17/17 07:24 1.25 MG Ipratropium [place] (Atrovent 0.02% 0.5MG/2.5ML Neb) 0.5 mg Q4H PRN INH 04/15/17 03:15 05/15/17 03:14 04/17/17 12:15 0.5 MG Levalbuterol (Xopenex 1.25MG/ 0.5ML Neb) 1.25 mg Q4H PRN INH 04/15/17 03:15 05/15/17 03:14 04/17/17 12:15 1.25 MG Benzonatate (Tessalon Perles Cap) 100 mg Q8H PRN PO 04/15/17 20:30 05/15/17 20:29 Phenol (Chloraseptic 1.4% [place]) 4 sprays QID PRN MT 04/16/17 09:15 05/16/17 09:14 Guaifenesin (Robitussin Sugar Free Syrup) 100 mg Q6H PRN PO 04/16/17 09:15 05/16/17 09:14 04/16/17 10:32 100 MG Furosemide (Lasix Tab) 40 mg QAM PO 04/17/17 08:00 05/17/17 07:59 04/17/17 07:52 40 MG Spironolactone (Aldactone Tab) 100 mg QAM PO 04/17/17 08:00 05/17/17 07:59 04/17/17 07:51 100 MG Heparin Sodium (Porcine) (Heparin 10 Unit/ ml 5 ml Flush) 5 ml PRN PRN FLUSH 04/17/17 07:30 05/17/17 07:29 Oseltamivir Phosphate (Tamiflu Cap) 75 mg BID PO 04/17/17 14:00 04/19/17 23:59
[2017-04-17] MEDS: OSELTAMIVIR PHOSPHATE 75 MG CAP PO SCH (14:19)
[2017-04-17] MEDS: DOXYCYCLINE HYCLATE 100 MG CAP PO SCH ×2 (14:19→20:14)
[2017-04-17] MEDS: GUAIFENESIN SUGAR FREE 100 MG/5 ML UDC PO PRN (18:30)
[2017-04-17] MEDS: SERTRALINE HCL 50 MG TAB PO SCH (20:13)
[2017-04-18 01:50] VITALS: PULSE 62; O2SAT 96
[2017-04-18] MEDS: IPRATROPIUM BROMIDE NEB SOLN 0.02% 2.5 ML VIAL INH SCH ×4 (01:50→19:17)
[2017-04-18] MEDS: LEVALBUTEROL 1.25MG/0.5ML NEB INH SCH ×4 (01:50→19:18)
[2017-04-18] MEDS: LEVOTHYROXINE 137 MCG TAB PO SCH (06:00)
[2017-04-18 06:06] LABS: HEMATOCRIT 20.4 % (37-47); MEAN CELL VOLUME 98.6 fL (80-100); MEAN CORPUSCULAR HEMOGLOBIN 33.8 pg (25-34); MEAN CORPUSCULAR HGB CONC 34.3 g/dl (32-36); MEAN PLATELET VOLUME 9.9 fL (7.4-10.4); PLATELET COUNT 61 K/uL (130-400); RED CELL DISTRIBUTION WIDTH CV 18.4 % (11.5-14.5); RED CELL DISTRIBUTION WIDTH SD 65.4 fL (36.4-46.3); WHITE BLOOD COUNT 4.26 K/uL (4.8-10.8)
[2017-04-18 06:37] LABS: BASO % 0.5 %; BASO ABS # 0.02 K/uL (0-0.2); EOS % 5.2 %; EOS ABS # 0.22 K/uL (0-0.5); IG# 0.03 K/uL (0.00-0.02); LYMPH % 28.6 %; LYMPH ABS # 1.22 K/uL (1.2-3.4); MONO % 14.1 %; NEUT % 50.9 %; NEUT ABS # 2.17 K/uL (1.4-6.5)
[2017-04-18 06:43] LABS: CALCIUM 7.4 mg/dl (8.5-10.1); CREATININE 0.9 mg/dl (0.60-1.20)
[2017-04-18 07:20] VITALS: BP 108/58; PULSE 79; TEMP 37; O2SAT 93
[2017-04-18 07:45] VITALS: PULSE 65; O2SAT 96
[2017-04-18] MEDS: PANTOprazole SOD 40 MG TAB PO SCH (08:29)
[2017-04-18] MEDS: MULTIVITAMIN TAB PO SCH (08:29)
[2017-04-18] MEDS: FUROSEMIDE 40 MG TAB PO SCH (08:30)
[2017-04-18] MEDS: DOXYCYCLINE HYCLATE 100 MG CAP PO SCH ×2 (08:30→20:32)
[2017-04-18] MEDS: RIFAXIMIN TAB 550 MG TAB PO SCH ×2 (08:31→20:32)
[2017-04-18] MEDS: PROPRANOLOL HCL 10 MG TAB PO SCH ×3 (08:31→20:32)
[2017-04-18] MEDS: SPIRONOLACTONE 100 MG TAB PO SCH (08:32)
[2017-04-18] MEDS: BENZONATATE 100MG CAP PO PRN ×2 (08:32→20:33)
[2017-04-18] MEDS: OSELTAMIVIR PHOSPHATE 75 MG CAP PO SCH ×2 (08:32→20:31)
[2017-04-18] MEDS: LACTULOSE SYRUP 20 GM/30 ML UDC PO SCH ×3 (08:33→20:32)
[2017-04-18] MEDS: LORAZEPAM 1 MG TAB PO SCH ×2 (08:45→20:00)
--- NOTE | 2017-04-18 09:25 | Gastroenterology Progress Note ---
Progress Note Date of Service: Apr 18, 2017 Subjective Pt evaluation today including: conversation w/ patient, physical exam, chart review, lab review Pt was seen and evaluated, chart reviewed. She notes she feels much more weak compared to yesterday. Continues to have loose stools, green. No black or bloody stools. Today, she has had some abdominal pressure, no abd pain or cramping. Last night she had one episode of emesis after a coughing spell. This was food and bile, no coffee ground appearing material, hematemesis. Reports continues body aches, no fever, chills. Continues to have a productive cough. 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 There was insufficient fluid for paracentesis attempt. Hepatic Duplex 04/16/17: The hepatic veins and portal veins are patent with normal direction of flow. There is loss of the normal hepatic venous waveforms , likely related to cirrhosis and portal hypertension. CT ABD/Pelvis 04/15/17: Suboptimal examination without oral and IV contrast. Cirrhotic liver morphology with evidence of portal hypertension includingabdominal ascites and marked splenomegaly. Esophageal varices are suspected. Cholelithiasis. Gallbladder wall thickening is nonspecific and similar to the 02/22/2016 examination. This is likely related to ascites and liver disease.Correlate clinically for evidence of acute cholecystitis.Trace pleural effusions.Body wall edema. Moderate to large hiatal hernia. Review of Systems Constitutional: + weakness, + fatigue, No fever, No chills Respiratory: + cough, + sputum, No shortness of breath, No hemoptysis Cardiac: No chest pain, No edema Abdomen: + pain, + diarrhea, + jaundice, + dark urine, No nausea, No vomiting, No constipation, No GI bleeding, No dysphagia, No odynophagia Skin: + jaundice, No rash, No itch, No color change Medications Current Inpatient Medications Medications (Trade) Dose Ordered Sig/Fariba Route Start Time Stop Time Status Last Admin Dose Admin Hydromorphone HCl (Dilaudid Inj) 0.5 mg Q6H PRN IV 04/15/17 00:30 04/29/17 00:29 04/15/17 09:50 0.5 MG Prochlorperazine Edisylate 5 mg/ Syringe 5 ml @ 5 mls/min Q6H PRN IV 04/15/17 00:30 05/15/17 00:29 04/18/17 00:50 5 MLS/MIN Acetaminophen (Tylenol Tab) 325 mg Q6H PRN PO 04/15/17 02:15 05/15/17 02:14 Prochlorperazine Edisylate 5 mg/ Syringe 5 ml @ 5 mls/min Q6H PRN IV 04/15/17 02:15 05/15/17 02:14 Folic Acid (Folvite Tab) 1 mg QAM PO 04/15/17 08:00 05/15/17 08:59 04/18/17 08:33 1 MG Lactulose (Chronulac Syrup) 20 gm TID PO 04/15/17 08:00 05/15/17 08:59 04/18/17 08:33 20 GM Levothyroxine Sodium (Synthroid Tab) 137 mcg DAILYBB PO 04/15/17 06:30 05/15/17 06:29 04/18/17 06:00 137 MCG Loratadine (Claritin Tab) 10 mg DAILY PRN PO 04/15/17 02:15 05/15/17 02:14 Lorazepam (Ativan Tab) 1 mg BID PO 04/15/17 08:00 05/15/17 08:59 04/18/17 08:45 1 MG Multivitamins (Multivitamin Tab) 1 tab QAM PO 04/15/17 08:00 05/15/17 08:59 04/18/17 08:29 1 TAB Propranolol HCl (Inderal Tab) 10 mg TID PO 04/15/17 08:00 05/15/17 08:59 04/18/17 08:31 10 MG Rifaximin (Xifaxan Tab) 550 mg BID PO 04/15/17 08:00 05/15/17 08:59 04/18/17 08:31 550 MG Sertraline HCl (Zoloft Tab) 50 mg HS PO 04/15/17 21:00 05/15/17 20:59 04/17/17 20:13 50 MG Pantoprazole Sodium (Protonix Tab) 40 mg DAILY PO 04/15/17 08:00 05/15/17 08:59 04/18/17 08:29 40 MG Tramadol HCl (Ultram Tab) not relieved ... Q6H PRN PO 04/15/17 02:15 05/15/17 02:14 Ipratropium [place] (Atrovent 0.02% 0.5MG/2.5ML Neb) 0.5 mg Q6R INH 04/15/17 09:00 05/15/17 08:59 04/18/17 07:30 0.5 MG Levalbuterol (Xopenex 1.25MG/ 0.5ML Neb) 1.25 mg Q6R INH 04/15/17 09:00 05/15/17 08:59 04/18/17 07:31 1.25 MG Ipratropium [place] (Atrovent 0.02% 0.5MG/2.5ML Neb) 0.5 mg Q4H PRN INH 04/15/17 03:15 05/15/17 03:14 04/17/17 12:15 0.5 MG Levalbuterol (Xopenex 1.25MG/ 0.5ML Neb) 1.25 mg Q4H PRN INH 04/15/17 03:15 05/15/17 03:14 04/17/17 12:15 1.25 MG Benzonatate (Tessalon Perles Cap) 100 mg Q8H PRN PO 04/15/17 20:30 05/15/17 20:29 04/18/17 08:32 100 MG Phenol (Chloraseptic 1.4% [place]) 4 sprays QID PRN MT 04/16/17 09:15 05/16/17 09:14 Guaifenesin (Robitussin Sugar Free Syrup) 100 mg Q6H PRN PO 04/16/17 09:15 05/16/17 09:14 04/17/17 18:30 100 MG Furosemide (Lasix Tab) 40 mg QAM PO 04/17/17 08:00 05/17/17 07:59 04/18/17 08:30 40 MG Spironolactone (Aldactone Tab) 100 mg QAM PO 04/17/17 08:00 05/17/17 07:59 04/18/17 08:32 100 MG Heparin Sodium (Porcine) (Heparin 10 Unit/ ml 5 ml Flush) 5 ml PRN PRN FLUSH 04/17/17 07:30 05/17/17 07:29 04/18/17 05:41 5 ML Oseltamivir Phosphate (Tamiflu Cap) 75 mg BID PO 04/17/17 14:00 04/19/17 23:59 04/18/17 08:32 75 MG Doxycycline Hyclate (Vibramycin Cap) 100 mg BID PO 04/17/17 14:00 04/24/17 13:59 04/18/17 08:30 100 MG Objective Vital Signs Date Time Temp Pulse Resp B/P (MAP) Pulse Ox O2 Delivery O2 Flow Rate FiO2 04/18/17 07:45 65 16 96 Room Air 04/18/17 07:20 37.0 79 24 108/58 (75) 93 Room Air 04/18/17 07:20 Room Air 04/18/17 01:50 62 16 96 Room Air 04/18/17 00:07 Room Air 04/17/17 23:59 36.5 82 19 103/67 (79) 96 Room Air 04/17/17 20:16 82 119/73 (88) 04/17/17 19:22 68 16 95 Room Air 04/17/17 16:00 99 Room Air 04/17/17 15:33 36.8 76 18 117/69 (85) 99 04/17/17 14:07 69 18 96 Room Air 04/17/17 12:16 69 18 96 Room Air Physical Exam General Appearance: + mild distress (pt appears ill and weak in bed) Eyes: normal inspection ENT: hearing grossly normal Neck: supple, trachea midline Respiratory/Chest: lungs clear, normal breath sounds, no respiratory distress, no accessory muscle use Cardiovascular: regular rate, rhythm, no JVD Abdomen: normal bowel sounds, non tender, soft, no organomegaly, no pulsatile mass Neurologic/Psych: alert, normal mood/affect, oriented x 3 Skin: warm/dry, + jaundice Laboratory Results Last 24 Hours Test 04/18/17 05:43 White Blood Count 4.26 K/uL Red Blood Count 2.07 M/uL Hemoglobin 7.0 g/dL Hematocrit 20.4 % Mean Corpuscular Volume 98.6 fL Mean Corpuscular Hemoglobin 33.8 pg Mean Corpuscular Hemoglobin Concent 34.3 g/dl Platelet Count 61 K/uL Mean Platelet Volume 9.9 fL Neutrophils (%) (Auto) 50.9 % Lymphocytes (%) (Auto) 28.6 % Monocytes (%) (Auto) 14.1 % Eosinophils (%) (Auto) 5.2 % Basophils (%) (Auto) 0.5 % Neutrophils # (Auto) 2.17 K/uL Lymphocytes # (Auto) 1.22 K/uL Monocytes # (Auto) 0.60 K/uL Eosinophils # (Auto) 0.22 K/uL Basophils # (Auto) 0.02 K/uL RDW Standard Deviation 65.4 fL RDW Coefficient of Variation 18.4 % Immature Granulocyte % (Auto) 0.7 % Immature Granulocyte # (Auto) 0.03 K/uL Echinocytes 1+ Schistocytes 1+ Sodium Level 138 mmol/L Potassium Level 4.0 mmol/L Chloride Level 111 mmol/L Carbon Dioxide Level 20 mmol/L Anion Gap 7.0 mmol/L Blood Urea Nitrogen 12 mg/dl Creatinine 0.90 mg/dl Est Creatinine Clear Calc Drug Dose 67.5 ml/min Estimated GFR () 85.8 Estimated GFR (Non- 74.0 BUN/Creatinine Ratio 13.4 Random Glucose 106 mg/dl Calcium Level 7.4 mg/dl Assessment and Plan Patient is a 51 year old female with decompensated cirrhosis, admitted with influenzae a with bilateral lower extremity edema, ascites and weight gain. Thinking clearly, no black or bloody stools/emesis. Kidney function returned to baseline. Low ascites so unable to perform paracentesis. She is having diarrhea , on lactulose. She is alert and oriented x 3, mild asterixis noted on exam. MELD 23 - LFTs added - Electrolyte management per the primary service - [facility] Management - kidney function back to baseline - urine NA 72 not compatible with HRS - Ok to D/C Albumin 25% 25G TID - Varices - propranolol 10 TID - Monitor stools for s/s of GI blood loss - Ascites Management - Less than 2G NA daily - hepatic duplex negative - Lasix 40 mg daily - Aldactone 100 mg daily - Cipro 500 daily for prophylaxis - Diarrhea - Please titrate lactulose based on patient response - Check Stool culture - Check Stool c.diff - Cirrhosis Management - No ETOH - Transplant follow up - OP follow up - less than 2G tylenol daily - HCC screen every 6 months - Immunizations towards Hep A/Hep B C.diff negative. GI to sign off. Please call with any questions or concerns. Attg add: I reviewed chart and labs. Pt with improved creat and mental status; otherwise without evidence of hepatic decompensation. Will sign off, please call if needed.
[2017-04-18 10:17] LABS: ALBUMIN 2.4 gm/dl (3.4-5.0); TOTAL PROTEIN 5.2 gm/dl (6.4-8.2)
[2017-04-18 14:17] VITALS: BP 110/72; PULSE 77; TEMP 37.3; O2SAT 97
[2017-04-18 14:21] VITALS: PULSE 75; O2SAT 93
--- NOTE | 2017-04-18 16:34 | DIAGNOSTIC IMAGING REPORT ---
CHEST ONE VIEW PORTABLE CLINICAL HISTORY: 51 years-old Female presenting with wheezing. TECHNIQUE: Portable upright AP view of the chest was obtained. COMPARISON: 04/14/2017. FINDINGS: Interval placement of a left upper extremity PICC, which terminates in the lower SVC. Cardiac silhouette top normal in size. No focal opacity. Trace bilateral pleural effusions may be present. No pneumothorax. Osseous structures normal. Hiatal hernia suspected. IMPRESSION: 1. Interval placement of a left upper extremity PICC, which is appropriately positioned. No pneumothorax. 2. Trace bilateral pleural effusions suspected. Electronically signed by: Augustine Do M.D. 04/18/2017 4:32 PM Dictated Date/Time: 04/18/2017 4:31 PM
--- NOTE | 2017-04-18 18:15 | Progress Note ---
Medicine Progress Note Date & Time of Visit: Apr 18, 2017 at 17:58. Subjective seen resting in bed, comfortable states her breathing is improved compared to yesterday less cough getting energy back denies abdominal pain ,nausea no bleeding no other symptoms Objective Last 8 Hrs Date Time Temp Pulse Resp B/P (MAP) Pulse Ox O2 Delivery O2 Flow Rate FiO2 04/18/17 16:00 Room Air 04/18/17 14:21 75 16 93 Room Air 04/18/17 14:17 37.3 77 20 110/72 (85) 97 Physical Exam: General- oriented x 3, not in distress, speaks in sentences with no effort Eyes- anicteric Neck- supple, no JVD Lungs- faint scattered wheezes, and rhonchi, but with good air entry Heart- regular rhythm; no murmur, normal rate Abdomen- normal bowel sounds, soft, non distended, nontender Extremities- no pretibial edema, no calf tenderness; peripheral pulses intact Neuro- alert, oriented x 3; no gross focal deficits Skin- warm & dry Laboratory Results: Last 24 Hours Test 04/18/17 05:43 White Blood Count 4.26 K/uL Red Blood Count 2.07 M/uL Hemoglobin 7.0 g/dL Hematocrit 20.4 % Mean Corpuscular Volume 98.6 fL Mean Corpuscular Hemoglobin 33.8 pg Mean Corpuscular Hemoglobin Concent 34.3 g/dl Platelet Count 61 K/uL Mean Platelet Volume 9.9 fL Neutrophils (%) (Auto) 50.9 % Lymphocytes (%) (Auto) 28.6 % Monocytes (%) (Auto) 14.1 % Eosinophils (%) (Auto) 5.2 % Basophils (%) (Auto) 0.5 % Neutrophils # (Auto) 2.17 K/uL Lymphocytes # (Auto) 1.22 K/uL Monocytes # (Auto) 0.60 K/uL Eosinophils # (Auto) 0.22 K/uL Basophils # (Auto) 0.02 K/uL RDW Standard Deviation 65.4 fL RDW Coefficient of Variation 18.4 % Immature Granulocyte % (Auto) 0.7 % Immature Granulocyte # (Auto) 0.03 K/uL Echinocytes 1+ Schistocytes 1+ Sodium Level 138 mmol/L Potassium Level 4.0 mmol/L Chloride Level 111 mmol/L Carbon Dioxide Level 20 mmol/L Anion Gap 7.0 mmol/L Blood Urea Nitrogen 12 mg/dl Creatinine 0.90 mg/dl Est Creatinine Clear Calc Drug Dose 67.5 ml/min Estimated GFR () 85.8 Estimated GFR (Non- 74.0 BUN/Creatinine Ratio 13.4 Random Glucose 106 mg/dl Calcium Level 7.4 mg/dl Total Bilirubin 6.7 mg/dl Direct Bilirubin 3.3 mg/dl Aspartate Amino Transf (AST/SGOT) 40 U/L Alanine Aminotransferase (ALT/SGPT) 38 U/L Alkaline Phosphatase 156 U/L Total Protein 5.2 gm/dl Albumin 2.4 gm/dl Date/Time Source Procedure Growth Status 04/18/17 12:50 Stool C.difficile Toxin B Gene (PCR) - Final No C. difficile toxin B gene detected Complete 04/18/17 12:50 Stool Shiga Toxin Test Pending Received 04/18/17 12:50 Stool Stool Culture Pending Received Assessment & Plan This is a 51 year old female with a PMH of alcoholic liver cirrhosis and complications including ascites, esophageal varices, pulmonary HTN, hyperammonemia, anemia; depression/anxiety, hypothyroidism - presents with flu- like symptoms, shortness of breath, cough Influenza A Acute Complicated Bronchitis improving gradually has some faint wheezes today CXR: no acute infiltrates will add Prednisone 40mg po , then monitor if further doses needed continue Tamiflu day 4/5 change Zosyn to Doxycycline 100mg po BID x 5 more days continue Nebs will need Nebulizer machine and Xopenex Inhaler on discharge Ascites secondary to Alcoholic Liver Cirrhosis patient with significant abdominal swelling abdominal/pelvis CT suggests abdominal ascites; gallbladder thickening is not new paracentesis could not be performed due to minimal ascites abdomen not distended, soft, non tender Albumin started per GI, now discontinued continue Lasix + Aldactone continue Rifaximin, lactulose, folic acid, thiamine Acute Kidney Injury due to dehydration given IV NSS resolved Anemia/Thrombocytopenia no signs of active bleeding Hg 7, asymptomatic will not transfuse unless Hg <7 due to Portal HTN 3/ s/p one unit of platelets, one unit of FFP and one unit of pRBCs Liver Disease Coagulopathy INR = 2.2 no bleeding Mood Disorder continue home medications Hypothyroidism continue Synthroid DVT ppx SCDs due to thrombocytopenia FULL CODE Disposition pending PT evaluation in progress will need nebulizer machine on discharge Current Inpatient Medications: Current Inpatient Medications Medications (Trade) Dose Ordered Sig/Fariba Route Start Time Stop Time Status Last Admin Dose Admin Hydromorphone HCl (Dilaudid Inj) 0.5 mg Q6H PRN IV 04/15/17 00:30 04/29/17 00:29 04/15/17 09:50 0.5 MG Prochlorperazine Edisylate 5 mg/ Syringe 5 ml @ 5 mls/min Q6H PRN IV 04/15/17 00:30 05/15/17 00:29 04/18/17 00:50 5 MLS/MIN Acetaminophen (Tylenol Tab) 325 mg Q6H PRN PO 04/15/17 02:15 05/15/17 02:14 Folic Acid (Folvite Tab) 1 mg QAM PO 04/15/17 08:00 05/15/17 08:59 04/18/17 08:33 1 MG Lactulose (Chronulac Syrup) 20 gm TID PO 04/15/17 08:00 05/15/17 08:59 04/18/17 14:59 20 GM Levothyroxine Sodium (Synthroid Tab) 137 mcg DAILYBB PO 04/15/17 06:30 05/15/17 06:29 04/18/17 06:00 137 MCG Loratadine (Claritin Tab) 10 mg DAILY PRN PO 04/15/17 02:15 05/15/17 02:14 Lorazepam (Ativan Tab) 1 mg BID PO 04/15/17 08:00 05/15/17 08:59 04/18/17 08:45 1 MG Multivitamins (Multivitamin Tab) 1 tab QAM PO 04/15/17 08:00 05/15/17 08:59 04/18/17 08:29 1 TAB Propranolol HCl (Inderal Tab) 10 mg TID PO 04/15/17 08:00 05/15/17 08:59 04/18/17 14:59 10 MG Rifaximin (Xifaxan Tab) 550 mg BID PO 04/15/17 08:00 05/15/17 08:59 04/18/17 08:31 550 MG Sertraline HCl (Zoloft Tab) 50 mg HS PO 04/15/17 21:00 05/15/17 20:59 04/17/17 20:13 50 MG Pantoprazole Sodium (Protonix Tab) 40 mg DAILY PO 04/15/17 08:00 05/15/17 08:59 04/18/17 08:29 40 MG Tramadol HCl (Ultram Tab) not relieved ... Q6H PRN PO 04/15/17 02:15 05/15/17 02:14 Ipratropium [place] (Atrovent 0.02% 0.5MG/2.5ML Neb) 0.5 mg Q6R INH 04/15/17 09:00 05/15/17 08:59 04/18/17 14:20 0.5 MG Levalbuterol (Xopenex 1.25MG/ 0.5ML Neb) 1.25 mg Q6R INH 04/15/17 09:00 05/15/17 08:59 04/18/17 14:20 1.25 MG Ipratropium [place] (Atrovent 0.02% 0.5MG/2.5ML Neb) 0.5 mg Q4H PRN INH 04/15/17 03:15 05/15/17 03:14 04/17/17 12:15 0.5 MG Levalbuterol (Xopenex 1.25MG/ 0.5ML Neb) 1.25 mg Q4H PRN INH 04/15/17 03:15 05/15/17 03:14 04/17/17 12:15 1.25 MG Benzonatate (Tessalon Perles Cap) 100 mg Q8H PRN PO 04/15/17 20:30 05/15/17 20:29 04/18/17 08:32 100 MG Phenol (Chloraseptic 1.4% [place]) 4 sprays QID PRN MT 04/16/17 09:15 05/16/17 09:14 Guaifenesin (Robitussin Sugar Free Syrup) 100 mg Q6H PRN PO 04/16/17 09:15 05/16/17 09:14 04/17/17 18:30 100 MG Furosemide (Lasix Tab) 40 mg QAM PO 04/17/17 08:00 05/17/17 07:59 04/18/17 08:30 40 MG Spironolactone (Aldactone Tab) 100 mg QAM PO 04/17/17 08:00 05/17/17 07:59 04/18/17 08:32 100 MG Heparin Sodium (Porcine) (Heparin 10 Unit/ ml 5 ml Flush) 5 ml PRN PRN FLUSH 04/17/17 07:30 05/17/17 07:29 04/18/17 05:41 5 ML Oseltamivir Phosphate (Tamiflu Cap) 75 mg BID PO 04/17/17 14:00 04/19/17 23:59 04/18/17 08:32 75 MG Doxycycline Hyclate (Vibramycin Cap) 100 mg BID PO 04/17/17 14:00 04/24/17 13:59 04/18/17 08:30 100 MG
[2017-04-18 19:18] VITALS: PULSE 68; O2SAT 94
[2017-04-18] MEDS: SERTRALINE HCL 50 MG TAB PO SCH (20:32)
[2017-04-19] VITALS (11 sets, daily range): BP systolic 91–120; BP diastolic 53–76; PULSE 66–82; TEMP 36.4–36.9; O2SAT 92–98
[2017-04-19] MEDS: IPRATROPIUM BROMIDE NEB SOLN 0.02% 2.5 ML VIAL INH SCH ×4 (01:59→19:45)
[2017-04-19] MEDS: LEVALBUTEROL 1.25MG/0.5ML NEB INH SCH ×4 (01:59→19:45)
[2017-04-19] MEDS: LEVOTHYROXINE 137 MCG TAB PO SCH (04:53)
[2017-04-19 06:03] LABS: HEMATOCRIT 21.8 % (37-47); HEMOGLOBIN 7.5 g/dL (12.0-16.0); MEAN CELL VOLUME 98.2 fL (80-100); MEAN CORPUSCULAR HEMOGLOBIN 33.8 pg (25-34); MEAN CORPUSCULAR HGB CONC 34.4 g/dl (32-36); WHITE BLOOD COUNT 4.39 K/uL (4.8-10.8)
[2017-04-19 06:10] LABS: MEAN PLATELET VOLUME 10.1 fL (7.4-10.4); PLATELET COUNT 54 K/uL (130-400)
[2017-04-19 06:35] LABS: BASO % 0.5 %; BASO ABS # 0.02 K/uL (0-0.2); EOS % 0.5 %; EOS ABS # 0.02 K/uL (0-0.5); IG# 0.05 K/uL (0.00-0.02); LYMPH % 17.3 %; LYMPH ABS # 0.76 K/uL (1.2-3.4); MONO % 4.3 %; MONO ABS # 0.19 K/uL (0.11-0.59); NEUT % 76.3 %; NEUT ABS # 3.35 K/uL (1.4-6.5)
[2017-04-19 07:03] LABS: CALCIUM 7.3 mg/dl (8.5-10.1); CREATININE 0.78 mg/dl (0.60-1.20); POTASSIUM 3.9 mmol/L (3.5-5.1)
[2017-04-19] MEDS: GUAIFENESIN SUGAR FREE 100 MG/5 ML UDC PO PRN ×2 (07:39→20:08)
[2017-04-19] MEDS: MULTIVITAMIN TAB PO SCH (07:44)
[2017-04-19] MEDS: FUROSEMIDE 40 MG TAB PO SCH (07:45)
[2017-04-19] MEDS: PANTOprazole SOD 40 MG TAB PO SCH (07:45)
[2017-04-19] MEDS: SPIRONOLACTONE 100 MG TAB PO SCH (07:46)
[2017-04-19] MEDS: RIFAXIMIN TAB 550 MG TAB PO SCH ×2 (07:46→20:11)
[2017-04-19] MEDS: DOXYCYCLINE HYCLATE 100 MG CAP PO SCH ×2 (07:46→20:10)
[2017-04-19] MEDS: LACTULOSE SYRUP 20 GM/30 ML UDC PO SCH ×3 (07:47→20:09)
[2017-04-19] MEDS: OSELTAMIVIR PHOSPHATE 75 MG CAP PO SCH ×2 (07:47→20:10)
[2017-04-19] MEDS: PROPRANOLOL HCL 10 MG TAB PO SCH ×3 (07:48→20:10)
[2017-04-19] MEDS: LORAZEPAM 1 MG TAB PO SCH ×2 (07:49→20:08)
--- NOTE | 2017-04-19 15:36 | Progress Note ---
Medicine Progress Note Date & Time of Visit: Apr 19, 2017 at 15:36. Subjective resting in bed, comfortable states she feels improved today ambulated in the halls, no issues breathing is improving, less cough no other symptoms Objective Last 8 Hrs Date Time Temp Pulse Resp B/P (MAP) Pulse Ox O2 Delivery O2 Flow Rate FiO2 04/19/17 14:22 77 16 98 Room Air 04/19/17 13:32 77 120/76 (91) 04/19/17 08:17 36.4 66 18 101/62 (75) 97 Room Air 04/19/17 08:00 Room Air Physical Exam: General- oriented x 3, not in distress, speaks in sentences with no effort Eyes- anicteric Neck- no JVD Lungs- no wheezes, mild rhonchi, good air entry Heart- regular rhythm; no murmur, normal rate Abdomen- normal bowel sounds, soft, non distended, nontender Extremities- no pretibial edema, no calf tenderness; peripheral pulses intact Neuro- alert, oriented x 3; no gross focal deficits Skin- warm & dry Laboratory Results: Last 24 Hours Test 04/19/17 05:40 White Blood Count 4.39 K/uL Red Blood Count 2.22 M/uL Hemoglobin 7.5 g/dL Hematocrit 21.8 % Mean Corpuscular Volume 98.2 fL Mean Corpuscular Hemoglobin 33.8 pg Mean Corpuscular Hemoglobin Concent 34.4 g/dl Platelet Count 54 K/uL Mean Platelet Volume 10.1 fL Neutrophils (%) (Auto) 76.3 % Lymphocytes (%) (Auto) 17.3 % Monocytes (%) (Auto) 4.3 % Eosinophils (%) (Auto) 0.5 % Basophils (%) (Auto) 0.5 % Neutrophils # (Auto) 3.35 K/uL Lymphocytes # (Auto) 0.76 K/uL Monocytes # (Auto) 0.19 K/uL Eosinophils # (Auto) 0.02 K/uL Basophils # (Auto) 0.02 K/uL RDW Standard Deviation 65.0 fL RDW Coefficient of Variation 18.0 % Immature Granulocyte % (Auto) 1.1 % Immature Granulocyte # (Auto) 0.05 K/uL Echinocytes 1+ Schistocytes 1+ Sodium Level 135 mmol/L Potassium Level 3.9 mmol/L Chloride Level 107 mmol/L Carbon Dioxide Level 21 mmol/L Anion Gap 7.0 mmol/L Blood Urea Nitrogen 11 mg/dl Creatinine 0.78 mg/dl Est Creatinine Clear Calc Drug Dose 77.9 ml/min Estimated GFR () 102.0 Estimated GFR (Non- 88.0 BUN/Creatinine Ratio 14.0 Random Glucose 152 mg/dl Calcium Level 7.3 mg/dl Assessment & Plan MR Cristobal is a 51 year old female with a PMH of alcoholic liver cirrhosis and complications including ascites, esophageal varices, pulmonary HTN, hyperammonemia, anemia; depression/anxiety, hypothyroidism - presents with flu- like symptoms, shortness of breath, cough Influenza A Acute Complicated Bronchitis improving gradually has some faint wheezes today CXR: no acute infiltrates continue Prednisone 30mg po taper by 10mg po daily til done continue Tamiflu day 06/16 change Zosyn to Doxycycline 100mg po BID x 3 more days continue Nebs will need Nebulizer machine and Xopenex Inhaler on discharge Ascites secondary to Alcoholic Liver Cirrhosis patient with significant abdominal swelling abdominal/pelvis CT suggests abdominal ascites; gallbladder thickening is not new paracentesis could not be performed due to minimal ascites abdomen not distended, soft, non tender Albumin started per GI, now discontinued continue Lasix + Aldactone continue Rifaximin, lactulose, folic acid, thiamine Acute Kidney Injury due to dehydration given IV NSS resolved Anemia/Thrombocytopenia no signs of active bleeding Hg 7.5, asymptomatic will not transfuse unless Hg <7 due to Portal HTN 04/16 s/p one unit of platelets, one unit of FFP and one unit of pRBCs Liver Disease Coagulopathy INR = 2.2 no bleeding Mood Disorder continue home medications Hypothyroidism continue Synthroid DVT ppx SCDs due to thrombocytopenia FULL CODE Disposition pending PT evaluation in progress will need nebulizer machine on discharge Current Inpatient Medications: Current Inpatient Medications Medications (Trade) Dose Ordered Sig/Fariba Route Start Time Stop Time Status Last Admin Dose Admin Hydromorphone HCl (Dilaudid Inj) 0.5 mg Q6H PRN IV 04/15/17 00:30 04/29/17 00:29 04/15/17 09:50 0.5 MG Prochlorperazine Edisylate 5 mg/ Syringe 5 ml @ 5 mls/min Q6H PRN IV 04/15/17 00:30 05/15/17 00:29 04/18/17 00:50 5 MLS/MIN Acetaminophen (Tylenol Tab) 325 mg Q6H PRN PO 04/15/17 02:15 05/15/17 02:14 Folic Acid (Folvite Tab) 1 mg QAM PO 04/15/17 08:00 05/15/17 08:59 04/19/17 07:45 1 MG Lactulose (Chronulac Syrup) 20 gm TID PO 04/15/17 08:00 05/15/17 08:59 04/19/17 07:47 20 GM Levothyroxine Sodium (Synthroid Tab) 137 mcg DAILYBB PO 04/15/17 06:30 05/15/17 06:29 04/19/17 04:53 137 MCG Loratadine (Claritin Tab) 10 mg DAILY PRN PO 04/15/17 02:15 05/15/17 02:14 Lorazepam (Ativan Tab) 1 mg BID PO 04/15/17 08:00 05/15/17 08:59 04/19/17 07:49 1 MG Multivitamins (Multivitamin Tab) 1 tab QAM PO 04/15/17 08:00 05/15/17 08:59 04/19/17 07:44 1 TAB Propranolol HCl (Inderal Tab) 10 mg TID PO 04/15/17 08:00 05/15/17 08:59 04/19/17 14:08 10 MG Rifaximin (Xifaxan Tab) 550 mg BID PO 04/15/17 08:00 05/15/17 08:59 04/19/17 07:46 550 MG Sertraline HCl (Zoloft Tab) 50 mg HS PO 04/15/17 21:00 05/15/17 20:59 04/18/17 20:32 50 MG Pantoprazole Sodium (Protonix Tab) 40 mg DAILY PO 04/15/17 08:00 05/15/17 08:59 04/19/17 07:45 40 MG Tramadol HCl (Ultram Tab) not relieved ... Q6H PRN PO 04/15/17 02:15 05/15/17 02:14 Ipratropium [place] (Atrovent 0.02% 0.5MG/2.5ML Neb) 0.5 mg Q6R INH 04/15/17 09:00 05/15/17 08:59 04/19/17 14:22 0.5 MG Levalbuterol (Xopenex 1.25MG/ 0.5ML Neb) 1.25 mg Q6R INH 04/15/17 09:00 05/15/17 08:59 04/19/17 14:21 1.25 MG Ipratropium [place] (Atrovent 0.02% 0.5MG/2.5ML Neb) 0.5 mg Q4H PRN INH 04/15/17 03:15 05/15/17 03:14 04/17/17 12:15 0.5 MG Levalbuterol (Xopenex 1.25MG/ 0.5ML Neb) 1.25 mg Q4H PRN INH 04/15/17 03:15 05/15/17 03:14 04/17/17 12:15 1.25 MG Benzonatate (Tessalon Perles Cap) 100 mg Q8H PRN PO 04/15/17 20:30 05/15/17 20:29 04/18/17 20:33 100 MG Phenol (Chloraseptic 1.4% [place]) 4 sprays QID PRN MT 04/16/17 09:15 05/16/17 09:14 Guaifenesin (Robitussin Sugar Free Syrup) 100 mg Q6H PRN PO 04/16/17 09:15 05/16/17 09:14 04/19/17 07:39 100 MG Furosemide (Lasix Tab) 40 mg QAM PO 04/17/17 08:00 05/17/17 07:59 04/19/17 07:45 40 MG Spironolactone (Aldactone Tab) 100 mg QAM PO 04/17/17 08:00 05/17/17 07:59 04/19/17 07:46 100 MG Heparin Sodium (Porcine) (Heparin 10 Unit/ ml 5 ml Flush) 5 ml PRN PRN FLUSH 04/17/17 07:30 05/17/17 07:29 04/19/17 05:57 5 ML Oseltamivir Phosphate (Tamiflu Cap) 75 mg BID PO 04/17/17 14:00 04/19/17 23:59 04/19/17 07:47 75 MG Doxycycline Hyclate (Vibramycin Cap) 100 mg BID PO 04/17/17 14:00 04/24/17 13:59 04/19/17 07:46 100 MG Prednisone (PredniSONE TAB) 30 mg ONE PO 04/19/17 15:45 05/19/17 15:44 UNV Prednisone (PredniSONE TAB) 20 mg ONE PO 04/20/17 15:00 05/20/17 14:59 UNV Prednisone (PredniSONE TAB) 10 mg ONE PO 04/21/17 15:00 05/21/17 14:59 UNV
[2017-04-19] MEDS ORDERED: COUGH DROP (SUGAR FREE) LOZ 24 LOZ/1 BOX LOZ ONE (16:35)
[2017-04-19] MEDS ORDERED: COUGH DROP (SUGAR FREE) LOZ 24 LOZ/1 BOX LOZ PRN (16:45)
[2017-04-19] MEDS ORDERED: NURSING VERBAL MED ORDER ONE (16:45)
[2017-04-19] MEDS: SERTRALINE HCL 50 MG TAB PO SCH (20:11)
[2017-04-20] VITALS (8 sets, daily range): BP systolic 119–128; BP diastolic 72–80; PULSE 70–84; TEMP 36.4–36.8; O2SAT 94–98
[2017-04-20] MEDS: HYDROmorphone INJ 0.5 MG/0.5 ML SYR IV PRN ×3 (01:10→17:36)
[2017-04-20] MEDS: LEVALBUTEROL 1.25MG/0.5ML NEB INH SCH ×4 (02:01→19:46)
[2017-04-20] MEDS: IPRATROPIUM BROMIDE NEB SOLN 0.02% 2.5 ML VIAL INH SCH ×4 (02:01→19:46)
[2017-04-20] MEDS: LEVOTHYROXINE 137 MCG TAB PO SCH (05:21)
[2017-04-20 05:41] LABS: HEMOGLOBIN 7.8 g/dL (12.0-16.0); MEAN CELL VOLUME 99.2 fL (80-100); MEAN CORPUSCULAR HEMOGLOBIN 32.2 pg (25-34); MEAN CORPUSCULAR HGB CONC 32.5 g/dl (32-36); RED CELL DISTRIBUTION WIDTH CV 17.5 % (11.5-14.5); RED CELL DISTRIBUTION WIDTH SD 63.7 fL (36.4-46.3); WHITE BLOOD COUNT 6.91 K/uL (4.8-10.8)
[2017-04-20 05:42] LABS: MEAN PLATELET VOLUME 11.7 fL (7.4-10.4); PLATELET COUNT 64 K/uL (130-400)
[2017-04-20 06:07] LABS: BASO % 0.1 %; BASO ABS # 0.01 K/uL (0-0.2); EOS % 2.2 %; EOS ABS # 0.15 K/uL (0-0.5); IG# 0.27 K/uL (0.00-0.02); LYMPH % 13.3 %; LYMPH ABS # 0.92 K/uL (1.2-3.4); MONO % 7.8 %; MONO ABS # 0.54 K/uL (0.11-0.59); NEUT % 72.7 %; NEUT ABS # 5.02 K/uL (1.4-6.5)
[2017-04-20 06:16] LABS: CALCIUM 7.3 mg/dl (8.5-10.1); CREATININE 0.81 mg/dl (0.60-1.20)
[2017-04-20] MEDS: LORAZEPAM 1 MG TAB PO SCH ×2 (07:47→20:18)
[2017-04-20] MEDS: PANTOprazole SOD 40 MG TAB PO SCH (07:47)
[2017-04-20] MEDS: PROPRANOLOL HCL 10 MG TAB PO SCH ×3 (07:48→20:19)
[2017-04-20] MEDS: FUROSEMIDE 40 MG TAB PO SCH (07:48)
[2017-04-20] MEDS: SPIRONOLACTONE 100 MG TAB PO SCH (07:48)
[2017-04-20] MEDS: DOXYCYCLINE HYCLATE 100 MG CAP PO SCH ×2 (07:49→20:19)
[2017-04-20] MEDS: LACTULOSE SYRUP 20 GM/30 ML UDC PO SCH ×3 (07:49→20:18)
[2017-04-20] MEDS: RIFAXIMIN TAB 550 MG TAB PO SCH ×2 (07:49→20:19)
[2017-04-20] MEDS: MULTIVITAMIN TAB PO SCH (08:53)
--- NOTE | 2017-04-20 19:59 | Progress Note ---
Medicine Progress Note Date & Time of Visit: Apr 20, 2017 at 19:59. Subjective delayed entry date of service 04/20/17 seen sitting up in bed comfortable using laptop computer states she feels that she continues to improve has less cough no dyspnea with ambulation no other symptoms Objective Last 8 Hrs Date Time Temp Pulse Resp B/P (MAP) Pulse Ox O2 Delivery O2 Flow Rate FiO2 04/20/17 15:01 Room Air 04/20/17 15:01 36.8 71 20 119/74 (89) 96 Room Air 04/20/17 14:19 81 16 96 Room Air 04/20/17 13:55 72 125/72 (89) Physical Exam: General- oriented x 3, not in distress, speaks in sentences with no effort Eyes- anicteric Neck- no JVD Lungs- mild scattered faint wheeze, rhonchi, bl Heart- regular rhythm; no murmur, normal rate Abdomen- normal bowel sounds, soft, non distended, nontender Extremities- no pretibial edema, no calf tenderness Neuro- alert, oriented x 3; no gross focal deficits Skin- warm & dry Laboratory Results: Last 24 Hours Test 04/20/17 05:07 White Blood Count 6.91 K/uL Red Blood Count 2.42 M/uL Hemoglobin 7.8 g/dL Hematocrit 24.0 % Mean Corpuscular Volume 99.2 fL Mean Corpuscular Hemoglobin 32.2 pg Mean Corpuscular Hemoglobin Concent 32.5 g/dl Platelet Count 64 K/uL Mean Platelet Volume 11.7 fL Neutrophils (%) (Auto) 72.7 % Lymphocytes (%) (Auto) 13.3 % Monocytes (%) (Auto) 7.8 % Eosinophils (%) (Auto) 2.2 % Basophils (%) (Auto) 0.1 % Neutrophils # (Auto) 5.02 K/uL Lymphocytes # (Auto) 0.92 K/uL Monocytes # (Auto) 0.54 K/uL Eosinophils # (Auto) 0.15 K/uL Basophils # (Auto) 0.01 K/uL RDW Standard Deviation 63.7 fL RDW Coefficient of Variation 17.5 % Immature Granulocyte % (Auto) 3.9 % Immature Granulocyte # (Auto) 0.27 K/uL Polychromasia 1+ Anisocytosis PRESENT Echinocytes 1+ Schistocytes 1+ Sodium Level 135 mmol/L Potassium Level 4.0 mmol/L Chloride Level 106 mmol/L Carbon Dioxide Level 22 mmol/L Anion Gap 7.0 mmol/L Blood Urea Nitrogen 13 mg/dl Creatinine 0.81 mg/dl Est Creatinine Clear Calc Drug Dose 75.0 ml/min Estimated GFR () 97.5 Estimated GFR (Non- 84.1 BUN/Creatinine Ratio 15.7 Random Glucose 112 mg/dl Calcium Level 7.3 mg/dl Assessment & Plan This is a 51 year old female with a PMH of alcoholic liver cirrhosis and complications including ascites, esophageal varices, pulmonary HTN, hyperammonemia, anemia; depression/anxiety, hypothyroidism - presents with flu- like symptoms, shortness of breath, cough Influenza A Acute Complicated Bronchitis improving gradually CXR: no acute infiltrates has mild wheeze again resume Prednisone 40mg po completed Tamiflu day 06/16 change Zosyn to Doxycycline 100mg po BID x 2 more days continue Nebs will need Nebulizer machine and Xopenex Inhaler on discharge Ascites secondary to Alcoholic Liver Cirrhosis patient with significant abdominal swelling abdominal/pelvis CT suggests abdominal ascites; gallbladder thickening is not new paracentesis could not be performed due to minimal ascites abdomen not distended, soft, non tender Albumin started per GI, now discontinued continue Lasix + Aldactone continue Rifaximin, lactulose, folic acid, thiamine Acute Kidney Injury due to dehydration given IV NSS resolved Anemia/Thrombocytopenia no signs of active bleeding Hg 7.7, asymptomatic will not transfuse unless Hg <7 due to Portal HTN 04/16 s/p one unit of platelets, one unit of FFP and one unit of pRBCs Liver Disease Coagulopathy INR = 2.2 no bleeding Mood Disorder continue home medications Hypothyroidism continue Synthroid DVT ppx SCDs due to thrombocytopenia FULL CODE Disposition pending PT evaluation in progress will need nebulizer machine on discharge Current Inpatient Medications: Current Inpatient Medications Medications (Trade) Dose Ordered Sig/Fariba Route Start Time Stop Time Status Last Admin Dose Admin Hydromorphone HCl (Dilaudid Inj) 0.5 mg Q6H PRN IV 04/15/17 00:30 04/29/17 00:29 04/20/17 17:36 0.5 MG Prochlorperazine Edisylate 5 mg/ Syringe 5 ml @ 5 mls/min Q6H PRN IV 04/15/17 00:30 05/15/17 00:29 04/18/17 00:50 5 MLS/MIN Acetaminophen (Tylenol Tab) 325 mg Q6H PRN PO 04/15/17 02:15 05/15/17 02:14 Folic Acid (Folvite Tab) 1 mg QAM PO 04/15/17 08:00 05/15/17 08:59 04/20/17 07:47 1 MG Lactulose (Chronulac Syrup) 20 gm TID PO 04/15/17 08:00 05/15/17 08:59 04/20/17 13:54 20 GM Levothyroxine Sodium (Synthroid Tab) 137 mcg DAILYBB PO 04/15/17 06:30 05/15/17 06:29 04/20/17 05:21 137 MCG Loratadine (Claritin Tab) 10 mg DAILY PRN PO 04/15/17 02:15 05/15/17 02:14 Lorazepam (Ativan Tab) 1 mg BID PO 04/15/17 08:00 05/15/17 08:59 04/20/17 07:47 1 MG Multivitamins (Multivitamin Tab) 1 tab QAM PO 04/15/17 08:00 05/15/17 08:59 04/20/17 08:53 1 TAB Propranolol HCl (Inderal Tab) 10 mg TID PO 04/15/17 08:00 05/15/17 08:59 04/20/17 13:55 10 MG Rifaximin (Xifaxan Tab) 550 mg BID PO 04/15/17 08:00 05/15/17 08:59 04/20/17 07:49 550 MG Sertraline HCl (Zoloft Tab) 50 mg HS PO 04/15/17 21:00 05/15/17 20:59 04/19/17 20:11 50 MG Pantoprazole Sodium (Protonix Tab) 40 mg DAILY PO 04/15/17 08:00 05/15/17 08:59 04/20/17 07:47 40 MG Tramadol HCl (Ultram Tab) not relieved ... Q6H PRN PO 04/15/17 02:15 05/15/17 02:14 04/20/17 05:14 50 MG Ipratropium [place] (Atrovent 0.02% 0.5MG/2.5ML Neb) 0.5 mg Q6R INH 04/15/17 09:00 05/15/17 08:59 04/20/17 14:19 0.5 MG Levalbuterol (Xopenex 1.25MG/ 0.5ML Neb) 1.25 mg Q6R INH 04/15/17 09:00 05/15/17 08:59 04/20/17 14:19 1.25 MG Ipratropium [place] (Atrovent 0.02% 0.5MG/2.5ML Neb) 0.5 mg Q4H PRN INH 04/15/17 03:15 05/15/17 03:14 04/17/17 12:15 0.5 MG Levalbuterol (Xopenex 1.25MG/ 0.5ML Neb) 1.25 mg Q4H PRN INH 04/15/17 03:15 05/15/17 03:14 04/17/17 12:15 1.25 MG Benzonatate (Tessalon Perles Cap) 100 mg Q8H PRN PO 04/15/17 20:30 05/15/17 20:29 04/18/17 20:33 100 MG Phenol (Chloraseptic 1.4% [place]) 4 sprays QID PRN MT 04/16/17 09:15 05/16/17 09:14 Guaifenesin (Robitussin Sugar Free Syrup) 100 mg Q6H PRN PO 04/16/17 09:15 05/16/17 09:14 04/19/17 20:08 100 MG Furosemide (Lasix Tab) 40 mg QAM PO 04/17/17 08:00 05/17/17 07:59 04/20/17 07:48 40 MG Spironolactone (Aldactone Tab) 100 mg QAM PO 04/17/17 08:00 05/17/17 07:59 04/20/17 07:48 100 MG Heparin Sodium (Porcine) (Heparin 10 Unit/ ml 5 ml Flush) 5 ml PRN PRN FLUSH 04/17/17 07:30 05/17/17 07:29 04/20/17 17:37 5 ML Doxycycline Hyclate (Vibramycin Cap) 100 mg BID PO 04/17/17 14:00 04/24/17 13:59 04/20/17 07:49 100 MG Prednisone (PredniSONE TAB) 20 mg Taper DAILY@1600 PO 04/19/17 16:00 04/22/17 15:59 04/20/17 17:35 20 MG Menthol (Nice Hasmukh) 1 hasmukh PRN PRN HASMUKH 04/19/17 16:45 05/19/17 16:44
[2017-04-20] MEDS: SERTRALINE HCL 50 MG TAB PO SCH (20:20)
[2017-04-21] VITALS (12 sets, daily range): BP systolic 97–127; BP diastolic 57–79; PULSE 72–80; TEMP 36.5–36.7; O2SAT 93–98
[2017-04-21] MEDS: LEVALBUTEROL 1.25MG/0.5ML NEB INH SCH ×4 (02:03→20:05)
[2017-04-21] MEDS: IPRATROPIUM BROMIDE NEB SOLN 0.02% 2.5 ML VIAL INH SCH ×4 (02:03→20:04)
[2017-04-21 05:58] LABS: HEMATOCRIT 22.3 % (37-47); HEMOGLOBIN 7.7 g/dL (12.0-16.0); MEAN CELL VOLUME 99.1 fL (80-100); MEAN CORPUSCULAR HEMOGLOBIN 34.2 pg (25-34); MEAN CORPUSCULAR HGB CONC 34.5 g/dl (32-36); RED CELL DISTRIBUTION WIDTH CV 18.2 % (11.5-14.5); RED CELL DISTRIBUTION WIDTH SD 65.1 fL (36.4-46.3); WHITE BLOOD COUNT 8.28 K/uL (4.8-10.8)
[2017-04-21 06:16] LABS: MEAN PLATELET VOLUME 11.7 fL (7.4-10.4); PLATELET COUNT 61 K/uL (130-400)
[2017-04-21] MEDS: HYDROmorphone INJ 0.5 MG/0.5 ML SYR IV PRN ×2 (06:16→22:15)
[2017-04-21] MEDS: LEVOTHYROXINE 137 MCG TAB PO SCH (06:17)
[2017-04-21 06:26] LABS: BASO % 0.2 %; BASO ABS # 0.02 K/uL (0-0.2); EOS % 1.8 %; EOS ABS # 0.15 K/uL (0-0.5); IG# 0.45 K/uL (0.00-0.02); LYMPH % 11.6 %; LYMPH ABS # 0.96 K/uL (1.2-3.4); MONO % 7.9 %; MONO ABS # 0.65 K/uL (0.11-0.59); NEUT % 73.1 %; NEUT ABS # 6.05 K/uL (1.4-6.5)
[2017-04-21 06:32] LABS: CALCIUM 7.6 mg/dl (8.5-10.1); CREATININE 1.08 mg/dl (0.60-1.20); POTASSIUM 4.2 mmol/L (3.5-5.1)
[2017-04-21] MEDS: LORAZEPAM 1 MG TAB PO SCH ×2 (08:34→20:31)
[2017-04-21] MEDS: LACTULOSE SYRUP 20 GM/30 ML UDC PO SCH ×3 (08:34→20:31)
[2017-04-21] MEDS: PROPRANOLOL HCL 10 MG TAB PO SCH ×3 (08:34→20:00)
[2017-04-21] MEDS: RIFAXIMIN TAB 550 MG TAB PO SCH ×2 (08:35→20:32)
[2017-04-21] MEDS: MULTIVITAMIN TAB PO SCH (08:35)
[2017-04-21] MEDS: PANTOprazole SOD 40 MG TAB PO SCH (08:35)
[2017-04-21] MEDS: DOXYCYCLINE HYCLATE 100 MG CAP PO SCH ×2 (08:35→20:31)
[2017-04-21] MEDS: FUROSEMIDE 40 MG TAB PO SCH (08:36)
[2017-04-21] MEDS: SPIRONOLACTONE 100 MG TAB PO SCH (08:36)
--- NOTE | 2017-04-21 10:02 | Progress Note ---
Medicine Progress Note Date & Time of Visit: Apr 21, 2017 at 10:02. Subjective seen resting in bed, comfortable states she feels improved compared to yesterday less cough no abdominal pain, nausea denies dyspnea with ambulation no other symptoms Objective Last 8 Hrs Date Time Temp Pulse Resp B/P (MAP) Pulse Ox O2 Delivery O2 Flow Rate FiO2 04/21/17 07:36 36.7 73 16 106/57 (73) 95 04/21/17 07:28 73 18 96 Room Air 04/21/17 02:04 76 18 95 Room Air Physical Exam: General- oriented x 3, not in distress, speaks in sentences with no effort Eyes- anicteric Neck- no JVD Lungs- (+) mild rhonchi bl, good air entry Heart- regular rhythm; no murmur, normal rate Abdomen- normal bowel sounds, soft, non distended, nontender Extremities- no pretibial edema, no calf tenderness Neuro- alert, oriented x 3; no gross focal deficits Skin- warm & dry Laboratory Results: Last 24 Hours Test 04/21/17 05:40 White Blood Count 8.28 K/uL Red Blood Count 2.25 M/uL Hemoglobin 7.7 g/dL Hematocrit 22.3 % Mean Corpuscular Volume 99.1 fL Mean Corpuscular Hemoglobin 34.2 pg Mean Corpuscular Hemoglobin Concent 34.5 g/dl Platelet Count 61 K/uL Mean Platelet Volume 11.7 fL Neutrophils (%) (Auto) 73.1 % Lymphocytes (%) (Auto) 11.6 % Monocytes (%) (Auto) 7.9 % Eosinophils (%) (Auto) 1.8 % Basophils (%) (Auto) 0.2 % Neutrophils # (Auto) 6.05 K/uL Lymphocytes # (Auto) 0.96 K/uL Monocytes # (Auto) 0.65 K/uL Eosinophils # (Auto) 0.15 K/uL Basophils # (Auto) 0.02 K/uL RDW Standard Deviation 65.1 fL RDW Coefficient of Variation 18.2 % Immature Granulocyte % (Auto) 5.4 % Immature Granulocyte # (Auto) 0.45 K/uL Echinocytes 2+ Sodium Level 133 mmol/L Potassium Level 4.2 mmol/L Chloride Level 105 mmol/L Carbon Dioxide Level 20 mmol/L Anion Gap 8.0 mmol/L Blood Urea Nitrogen 16 mg/dl Creatinine 1.08 mg/dl Est Creatinine Clear Calc Drug Dose 56.3 ml/min Estimated GFR () 68.8 Estimated GFR (Non- 59.4 BUN/Creatinine Ratio 14.8 Random Glucose 149 mg/dl Calcium Level 7.6 mg/dl Assessment & Plan MR Cristobal is a 51 year old female with a PMH of alcoholic liver cirrhosis and complications including ascites, esophageal varices, pulmonary HTN, hyperammonemia, anemia; depression/anxiety, hypothyroidism - presents with flu- like symptoms, shortness of breath, cough Influenza A Acute Complicated Bronchitis improving gradually CXR: no acute infiltrates wheeze improving continue Prednisone 40mg po completed Tamiflu day 06/16 change Zosyn to Doxycycline 100mg po BID x 1 more day continue Nebs add Mucomyst will need Nebulizer machine and Xopenex Inhaler on discharge Ascites secondary to Alcoholic Liver Cirrhosis patient with significant abdominal swelling abdominal/pelvis CT suggests abdominal ascites; gallbladder thickening is not new paracentesis could not be performed due to minimal ascites abdomen not distended, soft, non tender Albumin started per GI, now discontinued continue Lasix + Aldactone continue Rifaximin, lactulose, folic acid, thiamine Acute Kidney Injury due to dehydration given IV NSS resolved Anemia/Thrombocytopenia no signs of active bleeding Hg 7.7, asymptomatic will not transfuse unless Hg <7 due to Portal HTN 04/16 s/p one unit of platelets, one unit of FFP and one unit of pRBCs Liver Disease Coagulopathy INR = 2.2 no bleeding Mood Disorder continue home medications Hypothyroidism continue Synthroid DVT ppx SCDs due to thrombocytopenia FULL CODE Disposition pending PT evaluation in progress will need nebulizer machine on discharge Current Inpatient Medications: Current Inpatient Medications Medications (Trade) Dose Ordered Sig/Fariba Route Start Time Stop Time Status Last Admin Dose Admin Hydromorphone HCl (Dilaudid Inj) 0.5 mg Q6H PRN IV 04/15/17 00:30 04/29/17 00:29 04/21/17 06:16 0.5 MG Prochlorperazine Edisylate 5 mg/ Syringe 5 ml @ 5 mls/min Q6H PRN IV 04/15/17 00:30 05/15/17 00:29 04/18/17 00:50 5 MLS/MIN Acetaminophen (Tylenol Tab) 325 mg Q6H PRN PO 04/15/17 02:15 05/15/17 02:14 Folic Acid (Folvite Tab) 1 mg QAM PO 04/15/17 08:00 05/15/17 08:59 04/21/17 08:36 1 MG Lactulose (Chronulac Syrup) 20 gm TID PO 04/15/17 08:00 05/15/17 08:59 04/21/17 08:34 20 GM Levothyroxine Sodium (Synthroid Tab) 137 mcg DAILYBB PO 04/15/17 06:30 05/15/17 06:29 04/21/17 06:17 137 MCG Loratadine (Claritin Tab) 10 mg DAILY PRN PO 04/15/17 02:15 05/15/17 02:14 Lorazepam (Ativan Tab) 1 mg BID PO 04/15/17 08:00 05/15/17 08:59 04/21/17 08:34 1 MG Multivitamins (Multivitamin Tab) 1 tab QAM PO 04/15/17 08:00 05/15/17 08:59 04/21/17 08:35 1 TAB Propranolol HCl (Inderal Tab) 10 mg TID PO 04/15/17 08:00 05/15/17 08:59 04/21/17 08:34 10 MG Rifaximin (Xifaxan Tab) 550 mg BID PO 04/15/17 08:00 05/15/17 08:59 04/21/17 08:35 550 MG Sertraline HCl (Zoloft Tab) 50 mg HS PO 04/15/17 21:00 05/15/17 20:59 04/20/17 20:20 50 MG Pantoprazole Sodium (Protonix Tab) 40 mg DAILY PO 04/15/17 08:00 05/15/17 08:59 04/21/17 08:35 40 MG Tramadol HCl (Ultram Tab) not relieved ... Q6H PRN PO 04/15/17 02:15 05/15/17 02:14 04/20/17 05:14 50 MG Ipratropium [place] (Atrovent 0.02% 0.5MG/2.5ML Neb) 0.5 mg Q6R INH 04/15/17 09:00 05/15/17 08:59 04/21/17 07:28 0.5 MG Levalbuterol (Xopenex 1.25MG/ 0.5ML Neb) 1.25 mg Q6R INH 04/15/17 09:00 05/15/17 08:59 04/21/17 07:28 1.25 MG Ipratropium [place] (Atrovent 0.02% 0.5MG/2.5ML Neb) 0.5 mg Q4H PRN INH 04/15/17 03:15 05/15/17 03:14 04/17/17 12:15 0.5 MG Levalbuterol (Xopenex 1.25MG/ 0.5ML Neb) 1.25 mg Q4H PRN INH 04/15/17 03:15 05/15/17 03:14 04/17/17 12:15 1.25 MG Benzonatate (Tessalon Perles Cap) 100 mg Q8H PRN PO 04/15/17 20:30 05/15/17 20:29 04/18/17 20:33 100 MG Phenol (Chloraseptic 1.4% [place]) 4 sprays QID PRN MT 04/16/17 09:15 05/16/17 09:14 Guaifenesin (Robitussin Sugar Free Syrup) 100 mg Q6H PRN PO 04/16/17 09:15 05/16/17 09:14 04/19/17 20:08 100 MG Furosemide (Lasix Tab) 40 mg QAM PO 04/17/17 08:00 05/17/17 07:59 04/21/17 08:36 40 MG Spironolactone (Aldactone Tab) 100 mg QAM PO 04/17/17 08:00 05/17/17 07:59 04/21/17 08:36 100 MG Heparin Sodium (Porcine) (Heparin 10 Unit/ ml 5 ml Flush) 5 ml PRN PRN FLUSH 04/17/17 07:30 05/17/17 07:29 04/21/17 05:40 5 ML Doxycycline Hyclate (Vibramycin Cap) 100 mg BID PO 04/17/17 14:00 04/24/17 13:59 04/21/17 08:35 100 MG Prednisone (PredniSONE TAB) 20 mg Taper DAILY@1600 PO 04/19/17 16:00 04/22/17 15:59 04/20/17 17:35 20 MG Menthol (Nice Hasmukh) 1 hasmukh PRN PRN HASMUKH 04/19/17 16:45 05/19/17 16:44 Acetylcysteine (Mucomyst 20% Inh Sol[place]) 3 ml BID INH 04/21/17 10:00 05/21/17 09:59 UNV
[2017-04-21] MEDS: LEVALBUTEROL 1.25MG/0.5ML NEB INH PRN (11:43)
[2017-04-21] MEDS: IPRATROPIUM BROMIDE NEB SOLN 0.02% 2.5 ML VIAL INH PRN (11:43)
[2017-04-21] MEDS: ACETYLCYSTEINE 20% INHAL SOLN ***DISPENSED BY RESP. INH SCH ×2 (11:44→20:05)
[2017-04-21] MEDS: SERTRALINE HCL 50 MG TAB PO SCH (20:31)
[2017-04-22] VITALS (10 sets, daily range): BP systolic 95–122; BP diastolic 61–65; PULSE 68–82; TEMP 36.6; O2SAT 94–98
[2017-04-22] MEDS: LEVALBUTEROL 1.25MG/0.5ML NEB INH SCH ×3 (01:48→13:58)
[2017-04-22] MEDS: IPRATROPIUM BROMIDE NEB SOLN 0.02% 2.5 ML VIAL INH SCH ×3 (01:48→13:58)
[2017-04-22 05:32] LABS: MEAN CORPUSCULAR HGB CONC 34.1 g/dl (32-36)
[2017-04-22 05:40] LABS: HEMATOCRIT 22.3 % (37-47); HEMOGLOBIN 7.6 g/dL (12.0-16.0); MEAN CELL VOLUME 99.1 fL (80-100); MEAN CORPUSCULAR HEMOGLOBIN 33.8 pg (25-34); RED CELL DISTRIBUTION WIDTH CV 18.1 % (11.5-14.5); WHITE BLOOD COUNT 9.63 K/uL (4.8-10.8)
[2017-04-22 05:48] LABS: PLATELET COUNT 63 K/uL (130-400)
[2017-04-22 05:59] LABS: CALCIUM 7.9 mg/dl (8.5-10.1); CREATININE 1.05 mg/dl (0.60-1.20); POTASSIUM 4.3 mmol/L (3.5-5.1)
[2017-04-22 06:20] LABS: BASO % 0.1 %; BASO ABS # 0.01 K/uL (0-0.2); EOS % 0.6 %; EOS ABS # 0.06 K/uL (0-0.5); IG# 0.49 K/uL (0.00-0.02); LYMPH % 11.7 %; LYMPH ABS # 1.13 K/uL (1.2-3.4); MONO % 8.9 %; MONO ABS # 0.86 K/uL (0.11-0.59); NEUT % 73.6 %; NEUT ABS # 7.08 K/uL (1.4-6.5)
[2017-04-22] MEDS: LEVOTHYROXINE 137 MCG TAB PO SCH (06:34)
[2017-04-22] MEDS: ACETYLCYSTEINE 20% INHAL SOLN ***DISPENSED BY RESP. INH SCH (07:06)
[2017-04-22] MEDS: HYDROmorphone INJ 0.5 MG/0.5 ML SYR IV PRN (07:43)
[2017-04-22] MEDS: LORAZEPAM 1 MG TAB PO SCH (07:44)
[2017-04-22] MEDS: SPIRONOLACTONE 100 MG TAB PO SCH (07:44)
[2017-04-22] MEDS: LACTULOSE SYRUP 20 GM/30 ML UDC PO SCH ×2 (07:44→14:03)
[2017-04-22] MEDS: PANTOprazole SOD 40 MG TAB PO SCH (07:44)
[2017-04-22] MEDS: MULTIVITAMIN TAB PO SCH (07:44)
[2017-04-22] MEDS: PROPRANOLOL HCL 10 MG TAB PO SCH ×2 (07:45→14:04)
[2017-04-22] MEDS: RIFAXIMIN TAB 550 MG TAB PO SCH (07:46)
[2017-04-22] MEDS: DOXYCYCLINE HYCLATE 100 MG CAP PO SCH (07:47)
[2017-04-22] MEDS: FUROSEMIDE 40 MG TAB PO SCH (07:48)
--- NOTE | 2017-04-22 12:40 | Progress Note ---
Medicine Progress Note Date & Time of Visit: Apr 22, 2017 at 12:29. Subjective seen sitting up in bed comfortable using her laptop computer states she feels better overall breathing and cough continues to improve ambulated, no desaturation, no shortness of breath no other symptoms states she is ready and would like to be discharged today Objective Last 8 Hrs Date Time Temp Pulse Resp B/P (MAP) Pulse Ox O2 Delivery O2 Flow Rate FiO2 04/22/17 10:54 97 Room Air 04/22/17 08:20 36.6 71 18 95/62 (73) 94 Room Air 04/22/17 08:00 94 Room Air 04/22/17 07:40 79 106/61 (76) 04/22/17 07:05 77 18 94 Room Air Physical Exam: General- oriented x 3, not in distress, speaks in sentences with no effort Eyes- anicteric Neck- no JVD Lungs- (+) mild rhonchi bilaterally, no wheezing, good air entry Heart- regular rhythm; no murmur, normal rate Abdomen- normal bowel sounds, soft, non distended, nontender Extremities- no pretibial edema, no calf tenderness Neuro- alert, oriented x 3; no gross focal deficits Skin- warm & dry Laboratory Results: Last 24 Hours Test 04/22/17 04:50 White Blood Count 9.63 K/uL Red Blood Count 2.25 M/uL Hemoglobin 7.6 g/dL Hematocrit 22.3 % Mean Corpuscular Volume 99.1 fL Mean Corpuscular Hemoglobin 33.8 pg Mean Corpuscular Hemoglobin Concent 34.1 g/dl Platelet Count 63 K/uL Neutrophils (%) (Auto) 73.6 % Lymphocytes (%) (Auto) 11.7 % Monocytes (%) (Auto) 8.9 % Eosinophils (%) (Auto) 0.6 % Basophils (%) (Auto) 0.1 % Neutrophils # (Auto) 7.08 K/uL Lymphocytes # (Auto) 1.13 K/uL Monocytes # (Auto) 0.86 K/uL Eosinophils # (Auto) 0.06 K/uL Basophils # (Auto) 0.01 K/uL RDW Standard Deviation 64.0 fL RDW Coefficient of Variation 18.1 % Immature Granulocyte % (Auto) 5.1 % Immature Granulocyte # (Auto) 0.49 K/uL Anisocytosis PRESENT Ovalocytes 1+ Echinocytes 1+ Acanthocytes 1+ Sodium Level 134 mmol/L Potassium Level 4.3 mmol/L Chloride Level 104 mmol/L Carbon Dioxide Level 21 mmol/L Anion Gap 9.0 mmol/L Blood Urea Nitrogen 21 mg/dl Creatinine 1.05 mg/dl Est Creatinine Clear Calc Drug Dose 57.9 ml/min Estimated GFR () 71.2 Estimated GFR (Non- 61.4 BUN/Creatinine Ratio 19.6 Random Glucose 109 mg/dl Calcium Level 7.9 mg/dl Assessment & Plan MR This is a 51 year old female with a PMH of alcoholic liver cirrhosis and complications including ascites, esophageal varices, pulmonary HTN, hyperammonemia, anemia; depression/anxiety, hypothyroidism - presents with flu- like symptoms, shortness of breath, cough Influenza A Acute Complicated Bronchitis CXR: no acute infiltrates complete 5 days Tamiflu, 7 days Doxycycline PO given Nebs, Mucomyst, Prednisone taper wheeze resolved, still has some rhonchi but clinically much better ambulating with no dyspnea , no desaturation on discharge, continue: Nebs QID Mucomyst BID Prednisone taper Ascites secondary to Alcoholic Liver Cirrhosis patient with significant abdominal swelling abdominal/pelvis CT suggests abdominal ascites; gallbladder thickening is not new paracentesis could not be performed due to minimal ascites abdomen not distended, soft, non tender Albumin started per GI, discontinued continue Lasix + Aldactone continue Rifaximin, lactulose, folic acid, thiamine ff up with GI 2 days post discharge Acute Kidney Injury due to dehydration given IV NSS resolved Anemia/Thrombocytopenia no signs of active bleeding Hg remained ~7, asymptomatic will not transfuse unless Hg <7 due to Portal HTN monitor as outpatient Liver Disease Coagulopathy INR = 2.2 no bleeding Mood Disorder continue home medications Hypothyroidism continue Synthroid Intermittent Epistaxis outpatient ENT referral DVT ppx SCDs due to thrombocytopenia FULL CODE Disposition pending d/c home today ff up with PCP on Sun ff up with GI on Current Inpatient Medications: Current Inpatient Medications Medications (Trade) Dose Ordered Sig/Fariba Route Start Time Stop Time Status Last Admin Dose Admin Hydromorphone HCl (Dilaudid Inj) 0.5 mg Q6H PRN IV 04/15/17 00:30 04/29/17 00:29 04/22/17 07:43 0.5 MG Prochlorperazine Edisylate 5 mg/ Syringe 5 ml @ 5 mls/min Q6H PRN IV 04/15/17 00:30 05/15/17 00:29 04/18/17 00:50 5 MLS/MIN Acetaminophen (Tylenol Tab) 325 mg Q6H PRN PO 04/15/17 02:15 05/15/17 02:14 Folic Acid (Folvite Tab) 1 mg QAM PO 04/15/17 08:00 05/15/17 08:59 04/22/17 07:44 1 MG Lactulose (Chronulac Syrup) 20 gm TID PO 04/15/17 08:00 05/15/17 08:59 04/22/17 07:44 20 GM Levothyroxine Sodium (Synthroid Tab) 137 mcg DAILYBB PO 04/15/17 06:30 05/15/17 06:29 04/22/17 06:34 137 MCG Loratadine (Claritin Tab) 10 mg DAILY PRN PO 04/15/17 02:15 05/15/17 02:14 Lorazepam (Ativan Tab) 1 mg BID PO 04/15/17 08:00 05/15/17 08:59 04/22/17 07:44 1 MG Multivitamins (Multivitamin Tab) 1 tab QAM PO 04/15/17 08:00 05/15/17 08:59 04/22/17 07:44 1 TAB Propranolol HCl (Inderal Tab) 10 mg TID PO 04/15/17 08:00 05/15/17 08:59 04/22/17 07:45 10 MG Rifaximin (Xifaxan Tab) 550 mg BID PO 04/15/17 08:00 05/15/17 08:59 04/22/17 07:46 550 MG Sertraline HCl (Zoloft Tab) 50 mg HS PO 04/15/17 21:00 05/15/17 20:59 04/21/17 20:31 50 MG Pantoprazole Sodium (Protonix Tab) 40 mg DAILY PO 04/15/17 08:00 05/15/17 08:59 04/22/17 07:44 40 MG Tramadol HCl (Ultram Tab) not relieved ... Q6H PRN PO 04/15/17 02:15 05/15/17 02:14 04/20/17 05:14 50 MG Ipratropium [place] (Atrovent 0.02% 0.5MG/2.5ML Neb) 0.5 mg Q6R INH 04/15/17 09:00 05/15/17 08:59 04/22/17 07:05 0.5 MG Levalbuterol (Xopenex 1.25MG/ 0.5ML Neb) 1.25 mg Q6R INH 04/15/17 09:00 05/15/17 08:59 04/22/17 07:05 1.25 MG Ipratropium [place] (Atrovent 0.02% 0.5MG/2.5ML Neb) 0.5 mg Q4H PRN INH 04/15/17 03:15 05/15/17 03:14 04/21/17 11:43 0.5 MG Levalbuterol (Xopenex 1.25MG/ 0.5ML Neb) 1.25 mg Q4H PRN INH 04/15/17 03:15 05/15/17 03:14 04/21/17 11:43 1.25 MG Benzonatate (Tessalon Perles Cap) 100 mg Q8H PRN PO 04/15/17 20:30 05/15/17 20:29 04/18/17 20:33 100 MG Phenol (Chloraseptic 1.4% [place]) 4 sprays QID PRN MT 04/16/17 09:15 05/16/17 09:14 Guaifenesin (Robitussin Sugar Free Syrup) 100 mg Q6H PRN PO 04/16/17 09:15 05/16/17 09:14 04/19/17 20:08 100 MG Furosemide (Lasix Tab) 40 mg QAM PO 04/17/17 08:00 05/17/17 07:59 04/22/17 07:48 40 MG Spironolactone (Aldactone Tab) 100 mg QAM PO 04/17/17 08:00 05/17/17 07:59 04/22/17 07:44 100 MG Heparin Sodium (Porcine) (Heparin 10 Unit/ ml 5 ml Flush) 5 ml PRN PRN FLUSH 04/17/17 07:30 05/17/17 07:29 04/22/17 04:50 5 ML Doxycycline Hyclate (Vibramycin Cap) 100 mg BID PO 04/17/17 14:00 04/24/17 13:59 04/22/17 07:47 100 MG Prednisone (PredniSONE TAB) 10 mg Taper DAILY@1600 PO 04/19/17 16:00 04/22/17 15:59 04/21/17 16:56 10 MG Menthol (Nice Hasmukh) 1 hasmukh PRN PRN HASMUKH 04/19/17 16:45 05/19/17 16:44 Acetylcysteine (Mucomyst 20% Inh Soln) 3 ml BIDR INH 04/21/17 10:00 05/21/17 09:59 04/22/17 07:06 3 ML
[2017-04-22] MEDS ORDERED: PRD10 PO (12:49)
[2017-04-22] MEDS ORDERED: MCMIN20ML INH (12:49)
[2017-04-22] MEDS ORDERED: XPNINS1255 INH (12:49)
[2017-04-22] MEDS ORDERED: LACT10SO17 PO (12:49)
[2017-04-22] MEDS ORDERED: ATRINS INH (12:49)
--- NOTE | 2017-04-22 12:55 | Discharge Instructions ---
Discharge Instructions Date of Service Apr 22, 2017. Admission Reason for Admission: Decompensated Hepatic Cirrhosis Discharge Discharge Diagnosis / Problem: INFLUENZA A INFECTION, ACUTE BRONCHITIS Discharge Goals Goal(s): Diagnostic testing, Therapeutic intervention Activity Recommendations Activity Limitations: as noted below (NO HEAVY EXERTION UNTIL RE-EVALUATED BY PRIMARY CARE PHYSICIAN) Lifting Limitations: until after follow-up appointment Exercise/Sports Limitations: until after follow-up appointment Driving or Machine Use: NO DRIVING UNTIL RE-EVALUATED BY PRIMARY CARE PHYSICIAN . Instructions / Follow-Up Instructions / Follow-Up PLEASE REFER TO YOUR NEW MEDICATION LIST AND FOLLOW INSTRUCTIONS CAREFULLY. CALL PRIMARY CARE PHYSICIAN OR RETURN TO ER IMMEDIATELY IF WITH: RECURRENCE OF SYMPTOMS INCREASING COUGH, PHLEGM, SHORTNESS OF BREATH, FEVER/CHILLS INCREASING ABDOMINAL DISTENSION, LEG SWELLING USE XOPENEX AND ATROVENT BREATHING TREATMENTS PRIOR TO USING MUCOMYST FOLLOW UP WITH DR. BARTHOLOMEW ON Sunday04/25/17 AT 1:00PM. FOLLOW UP WITH DR. THORPE ON 04/24/17 AT 1:40PM. Current Hospital Diet Patient's current hospital diet: Low Sodium Diet (2gm Na) Discharge Diet Recommended Diet: Low Sodium Diet (2gm Na) Pending Studies Studies pending at discharge: no Medical Emergencies . Who to Call and When: Medical Emergencies: If at any time you feel your situation is an emergency, please call 911 immediately. . Non-Emergent Contact Non-Emergency issues call your: Primary Care Provider, Transaction Manager Call Non-Emergent contact if: you have a fever, your pain is not controlled, your pain is worsening, you have any medication questions . . "Provider Documentation" section prepared by Ulices Freeman. .
[2017-04-22] MEDS ORDERED: AFRINWC (12:59)
--- NOTE | 2017-04-22 13:03 | Discharge Summary ---
Discharge Summary Date of Service Apr 22, 2017. Discharge Summary Admission Date: Apr 15, 2017 at 01:23 Discharge Date: Apr 22, 2017 Discharge Disposition: Home with services Principal Diagnosis: Influenza A; Acute Complicated Bronchitis Secondary Diagnoses/Problems: Please refer to hospital course below. Procedures: CHEST ONE VIEW PORTABLE CLINICAL HISTORY: 51 years-old Female presenting with ABDOMINAL PAIN/GI. TECHNIQUE: Portable upright AP view of the chest was obtained. COMPARISON: 09/16/2016. FINDINGS: Cardiomediastinal silhouette normal. Mildly low lung volumes. Bandlike opacity in the right mid lung persists. No new focal opacity. No large effusion or pneumothorax. Osseous structures normal. Hiatal hernia suspected. IMPRESSION: 1. Chronic scarring or atelectasis in the right midlung. No convincing evidence of acute cardiopulmonary disease. Electronically signed by: Augustine Do M.D. 04/14/2017 9:[address] SCAN OF THE ABDOMEN AND PELVIS WITHOUT IV CONTRAST CLINICAL HISTORY: Nausea and vomiting. COMPARISON STUDY: Abdominal CT dated 02/22/2016. TECHNIQUE: CT scan of the abdomen and pelvis is performed from the lung bases to the proximal femora. Images are reviewed in the axial, sagittal, and coronal planes. IV contrast was not administered for this examination as per the referring clinician. Note that the examination was performed and significantly suboptimal fashion without oral and IV contrast. A dose lowering technique was utilized adhering to the principles of ALARA. CT DOSE: 796.40 mGy.cm FINDINGS: Lung bases: The heart is normal in size and without pericardial effusion. There are foci of bibasilar scarring versus atelectasis. Trace pleural effusions are identified. Esophageal varices are suspected. Liver: The unenhanced liver is cirrhotic in morphology and heterogeneous in attenuation. There is marked nodularity of the surface contour. There is no intrahepatic biliary ductal dilatation. Calcified hepatic granuloma is incidentally noted. Gallbladder: There are small calcified gallstones. Nonspecific gallbladder wall thickening is identified. Spleen: The spleen is markedly enlarged, measuring 19.5 cm in length. Pancreas: The unenhanced pancreas is atrophic and grossly unremarkable. Adrenal glands: Unremarkable. Kidneys: The unenhanced kidneys demonstrate mild cortical atrophy and are without hydronephrosis. There are no renal calculi identified. There is no evidence of contour deforming renal mass lesion. Abdominal vasculature: The abdominal aorta is normal in course and caliber noting mild atherosclerotic calcification. Stomach and bowel: There is a moderate to large hiatal hernia. Approximately 1/3 of the stomach is located in the thoracic cavity. The small bowel and colon are normal in course and caliber. The appendix is normal as visualized. Peritoneum: There is no intraperitoneal free air is seen. There is a small to moderate volume of abdominal ascites. Ascitic fluid is contained with an umbilical hernia. Lymphadenopathy: None. Pelvic viscera: The bladder, uterus, and adnexa are normal as visualized. Skeletal structures: The skeletal structures are osteopenic. Mild lumbosacral spondylosis is observed. Sclerotic change is seen in the sacroiliac joints. No lytic or blastic lesions are seen. Soft tissues: There is body wall edema. IMPRESSION: 1. Suboptimal examination without oral and IV contrast. 2. Cirrhotic liver morphology with evidence of portal hypertension including abdominal ascites and marked splenomegaly. Esophageal varices are suspected. 3. Cholelithiasis. Gallbladder wall thickening is nonspecific and similar to the 02/22/2016 examination. This is likely related to ascites and liver disease. Correlate clinically for evidence of acute cholecystitis. 4. Trace pleural effusions. 5. Body wall edema. 6. Moderate to large hiatal hernia. 7. Additional findings as above. DOPPLER ULTRASOUND OF THE HEPATIC AND PORTAL VASCULATURE CLINICAL HISTORY: Cirrhosis and ascites. COMPARISON STUDY: Abdominal CT dated 04/15/2017. TECHNIQUE: Real-time, grayscale, color Doppler sonography of the hepatic and portal vasculature is performed. FINDINGS: The main portal vein as well as the right and left portal veins are patent with normal direction of flow. The inferior vena cava is patent. The hepatic veins are patent, noting loss of the normal hepatic venous waveforms. The hepatic artery is patent with velocities measuring up to 58 cm/s. IMPRESSION: 1. The hepatic veins and portal veins are patent with normal direction of flow. 2. There is loss of the normal hepatic venous waveforms, likely related to cirrhosis and portal hypertension. Electronically signed by: Jarod Tervizo M.D. 04/16/2017 4:31 PM ULTRASOUND ASCITES CHECK CLINICAL HISTORY: Generalized abdominal pain. Cirrhosis and ascites. COMPARISON STUDY: Abdominal CT dated 04/15/2017. FINDINGS: Real-time grayscale sonography of all 4 quadrants of the abdomen was performed to assess for abdominal ascites. There is a small volume of abdominal ascites. There was insufficient fluid for paracentesis. A safe window was not identified for diagnostic paracentesis. Cirrhotic liver morphology is incidentally noted. IMPRESSION: There is a small volume of abdominal ascites. There was insufficient fluid for paracentesis attempt. CHEST ONE VIEW PORTABLE CLINICAL HISTORY: 51 years-old Female presenting with wheezing. TECHNIQUE: Portable upright AP view of the chest was obtained. COMPARISON: 04/14/2017. FINDINGS: Interval placement of a left upper extremity PICC, which terminates in the lower SVC. Cardiac silhouette top normal in size. No focal opacity. Trace bilateral pleural effusions may be present. No pneumothorax. Osseous structures normal. Hiatal hernia suspected. IMPRESSION: 1. Interval placement of a left upper extremity PICC, which is appropriately positioned. No pneumothorax. 2. Trace bilateral pleural effusions suspected. Electronically signed by: Augustine Do M.D. 04/18/2017 4:32 PM Consultations: SNEHAL THORPE Pending Studies/Follow-Up: PLEASE REFER TO HOSPITAL COURSE BELOW. Medication Reconciliation New Medications: Oxymetazoline Hcl (Afrin 0.05% Nasal [place]) 1 Btl [place] 2 SPRAY NA BID PRN for nosebleed for 3 Days, #1 BTL 0 Refills use 2 sprays on the affected nostril up to twice a day; DO NOT USE MORE THAN 3 days Acetylcysteine (Acetylcysteine) 1 Ml Soln 3 ML INH BIDR for 7 Days, #42 ML 0 Refills Ipratropium [place] (Ipratropium [place]) 0.5 Mg/2.5 Ml Nebu 0.5 MG INH TID for 10 Days, #50 UNITS 2 Refills may also use every 4 hours as needed for shortness of breath/wheezing Levalbuterol (Levalbuterol) 1.25 Mg/0.5 Ml Nebu 1.25 MG INH TID for 10 Days, #50 UNITS 2 Refills may also use every 4 hours as needed for shortness of breath/wheezing Prednisone (Prednisone) 10 Mg Tab 10 MG PO UD for 6 Days, #12 TAB 0 Refills take 3 tabs po daily x 2 days, then take 2 tabs po daily x 2 days, then take 1 tab po daily x 2 days, then STOP Changed Medications: Lactulose (Chronulac) 10 Gm/15 Ml Syrp 30 ML PO TID for 30 Days, #1350 ML 2 Refills (Changed from: Removed Reason; Refills: ) hold the next dose for 2-3 Bowel movement in 24 hours; then resume the next day Continued Medications: Benzonatate (Tessalon Perles) 100 Mg Cap 1 CAP PO TID PRN for Cough for 10 Days, #30 CAP Biotin W/ Vitamins C & E (Hair Skin & Nails ... 1250-7.5-7.5 Mcg-mg-Unt) 1 Chw Chw 1 TAB PO QAM Cholecalciferol (Vitamin D 1000 Unit) 1,000 Unit Cap 1000 INTER.UNIT PO DAILY, CAP Cranberry (Vaccinium Macrocarp (Cranberry) 125 Mg Tab 1 TAB PO DAILY Cyanocobalamin (Vitamin B12) 1,000 Mcg Tab 1000 MCG PO QAM Folic Acid (Folvite) 1 Mg Tab 1 MG PO QAM for 90 Days, #90 TAB 1 Refill Furosemide (Lasix) 40 Mg Tab 40 MG PO QAM, TAB Levothyroxine Sodium (Levothyroxine Sodium) 137 Mcg Tab 137 MCG PO QAM for 90 Days, #90 TAB 3 Refills Loratadine (Claritin) 10 Mg Tab 10 MG PO DAILY PRN for ALLERGIC REACTION, TAB Lorazepam (Lorazepam) 1 Mg Tab 1 MG PO BID, #60 Melatonin ( Melatonin) 3 Mg Tab 3 MG PO HS PRN for Sleep for 30 Days, #30 TAB 2 Refills Milk Thistle (Silybum Marianum (Milk Thistle) Unknown Strength Cap 1 TAB PO DAILY Multivitamin (Multivitamin) Tab 1 TAB PO QAM, TAB Omeprazole (Prilosec) 40 Mg Cap 40 MG PO DAILY, CAP Ondansetron Hcl (Zofran) 8 Mg Tab 8 MG PO Q8H PRN for Nausea, TAB Pramoxine Hcl (Sarna Sensitive Anti-Itch) 1 % Lot 1 APPLN TOP BID Propranolol (Inderal) 10 Mg Tab 10 MG PO TID, TAB Rifaximin (Xifaxan) 550 Mg Tab 550 MG PO BID, TAB Sertraline HCl (Sertraline HCl) 50 Mg Tab 50 MG PO HS, #30 Spironolactone (Aldactone) 100 Mg Tab 100 MG PO HS, TAB Sumatriptan Succinate (Imitrex) 50 Mg Tab 50 MG PO UD PRN for Headache, TAB Tramadol (Ultram) 50 Mg Tab 50 MG PO Q6 PRN for Pain, TAB Discontinued Medications: Ciprofloxacin Hcl (Cipro) 500 Mg Tab 500 MG PO DAILY, TAB Magnesium Chloride-Calcium Car (Slow-Mag) 1 Tab Tab 1 TAB PO BID Potassium Chloride (Micro-K Ext Rel) 10 Meq Capcr 10 MEQ PO BID, CAP Admission Information HPI (per Admitting provider): CHIEF COMPLAINT: Vomiting, shortness of breath, abdominal pain. HISTORY OF PRESENT ILLNESS: History obtained from patient and records. Medical history significant for history of alcoholic cirrhosis, past tobacco/ ETOH abuse, chronic anemia (baseline hemoglobin 8), mood disorder, portal hypertension, recurrent SBP on Cipro Rx, hypothyroidism. Recent confinement last June 2016 for alcoholic intoxication, acute renal failure. Patient seen at PCP's office about 2 weeks ago for flu-like illness, cough with wheezing. Prescribed prednisone course. Patient noted increased fluid retention following steroid prescription. Increased abdominal distention, bilateral leg swelling. Compliant with home diuretics. Cough productive of yellow sputum, increased shortness of breath, generalized headache symptoms. Patient subsequently noted achy epigastric pain, nausea, vomiting, good bowel movement. Denies black/bloody stools. Patient brought to the Emergency Room. Physical Exam (per Admitting): VITAL SIGNS: Blood pressure was noted to be 120/72, pulse rate 79, RR 26, T 37 sats 99 on room air. GENERAL: Noted to be uncomfortable, respiratory distress. Obese. SKIN: Pallor. Warm HEENT: Pale palpebral conjunctivae. No ptosis. Dry mucosa. Wearing a mask. NECK: Supple, nontender. CHEST: Expiratory wheezes. No tenderness. HEART: Regular rate and rhythm, no murmur. ABDOMEN: Epigastric tenderness. No Goldstein sign. Increased abdominal distention, positive fluid wave. EXTREMITIES: Bilateral lower extremity edema, no tenderness. No other gross deformities. NEUROLOGIC: Coherent. No gross focality. RECTAL: Intact sphincter, dark stool, heme negative. Hospital Course This is a 51 year old female with a PMH of alcoholic liver cirrhosis and complications including ascites, esophageal varices, pulmonary HTN, hyperammonemia, anemia; depression/anxiety, hypothyroidism - presents with flu- like symptoms, shortness of breath, cough Influenza A Acute Complicated Bronchitis CXR: no acute infiltrates completeD 5 days Tamiflu, 7 days Doxycycline PO given Nebs, Mucomyst, Prednisone taper gradually improved wheeze resolved, still has some rhonchi but clinically much better ambulating with no dyspnea , no desaturation on discharge, continue: Nebs QID Mucomyst BID Prednisone taper ff up with PCP in 3-5 days Ascites secondary to Alcoholic Liver Cirrhosis patient with significant abdominal swelling abdominal/pelvis CT suggests abdominal ascites; gallbladder thickening is not new paracentesis could not be performed due to minimal ascites abdomen: not distended, soft, non tender Albumin started per GI, discontinued continue Lasix + Aldactone continue Rifaximin, lactulose, folic acid, thiamine ff up with GI 2 days post discharge Acute Kidney Injury due to dehydration given IV NSS resolved Anemia/Thrombocytopenia no signs of active bleeding Hg remained ~7, asymptomatic will not transfuse unless Hg <7 due to Portal HTN monitor as outpatient Liver Disease Coagulopathy INR = 2.2 no bleeding monitor as outpatient Mood Disorder continue home medications Hypothyroidism continue Synthroid Intermittent Epistaxis outpatient ENT referral Disposition d/c home with home health services ff up with PCP on Sun ff up with GI on Total time spent on discharge = 40 minutes This includes examination of the patient, discharge planning, medication reconciliation, and communication with other providers. Discharge Instructions Discharge Instructions Date of Service Apr 22, 2017. Admission Reason for Admission: Decompensated Hepatic Cirrhosis Discharge Discharge Diagnosis / Problem: INFLUENZA A INFECTION, ACUTE BRONCHITIS Discharge Goals Goal(s): Diagnostic testing, Therapeutic intervention Activity Recommendations Activity Limitations: as noted below (NO HEAVY EXERTION UNTIL RE-EVALUATED BY PRIMARY CARE PHYSICIAN) Lifting Limitations: until after follow-up appointment Exercise/Sports Limitations: until after follow-up appointment Driving or Machine Use: NO DRIVING UNTIL RE-EVALUATED BY PRIMARY CARE PHYSICIAN . Instructions / Follow-Up Instructions / Follow-Up PLEASE REFER TO YOUR NEW MEDICATION LIST AND FOLLOW INSTRUCTIONS CAREFULLY. CALL PRIMARY CARE PHYSICIAN OR RETURN TO ER IMMEDIATELY IF WITH: RECURRENCE OF SYMPTOMS INCREASING COUGH, PHLEGM, SHORTNESS OF BREATH, FEVER/CHILLS INCREASING ABDOMINAL DISTENSION, LEG SWELLING USE XOPENEX AND ATROVENT BREATHING TREATMENTS PRIOR TO USING MUCOMYST FOLLOW UP WITH DR. BARTHOLOMEW ON Sunday04/25/17 AT 1:00PM. FOLLOW UP WITH DR. THORPE ON 04/24/17 AT 1:40PM. Current Hospital Diet Patient's current hospital diet: Low Sodium Diet (2gm Na) Discharge Diet Recommended Diet: Low Sodium Diet (2gm Na) Pending Studies Studies pending at discharge: no Medical Emergencies . Who to Call and When: Medical Emergencies: If at any time you feel your situation is an emergency, please call 911 immediately. . Non-Emergent Contact Non-Emergency issues call your: Primary Care Provider, Structural Iron Worker Call Non-Emergent contact if: you have a fever, your pain is not controlled, your pain is worsening, you have any medication questions . . "Provider Documentation" section prepared by Ulices Freeman. .
== END 2017-04-22 17:32 | disposition home health service (06) | DRG 194 ==
LOC: C.EDB 20:28 → C.4E 04-15 01:23 → EDBEDREQ 04-15 01:33 → ENRESERV 04-15 01:48
PROVIDERS: ADMIT Family Medicine; ATTEND Internal Medicine
DX: J10.1 Influenza due to other identified influenza virus with other respiratory manifestations (principal); N17.9 Acute kidney failure, unspecified; D68.4 Acquired coagulation factor deficiency; I85.10 Secondary esophageal varices without bleeding; K76.6 Portal hypertension; K70.31 Alcoholic cirrhosis of liver with ascites; J20.9 Acute bronchitis, unspecified; E86.0 Dehydration; R04.0 Epistaxis; R19.7 Diarrhea, unspecified; E87.70 Fluid overload, unspecified; R10.9 Unspecified abdominal pain; R60.0 Localized edema; D69.6 Thrombocytopenia, unspecified; D64.9 Anemia, unspecified; I10 Essential (primary) hypertension; E03.9 Hypothyroidism, unspecified; F10.11 Alcohol abuse, in remission; F41.9 Anxiety disorder, unspecified; F32.9 Major depressive disorder, single episode, unspecified; Z53.09 Procedure and treatment not carried out because of other contraindication; Z87.891 Personal history of nicotine dependence; Z86.14 Personal history of Methicillin resistant Staphylococcus aureus infection; Z79.2 Long term (current) use of antibiotics; Z79.899 Other long term (current) drug therapy; Z88.6 Allergy status to analgesic agent; Z88.8 Allergy status to other drugs, medicaments and biological substances

== ENCOUNTER 2017-05-02 14:16 | Emergency (ER) | payer OTHER ==
[~2017-05-02 14:16] MED LIST changes: +AFRINWC; +ATRINS INH; -ATV1 PO; -CLR10 PO; -CPR500HP PO; -CYAN100020 PO; -FOLI1TAB8 PO; -LEVO137T3 PO; -MAGNTAB17 PO; +MCMIN20ML INH; -MULT-506 PO; -POTA10CA28 PO; +PRD10 PO; -SUMA50TA15 PO; +XPNINS1255 INH; -ZLF/50 PO
[2017-05-02 14:24] VITALS: TEMP 36.7; Ht 156.2 cm
[2017-05-02] MEDS ORDERED: LEVO137T3 PO (14:39)
[2017-05-02] MEDS ORDERED: SODIUM CHLORIDE 0.9% 500ML 500 ML IV STA (14:55)
[2017-05-02] MEDS ORDERED: ALBUT/IPRATROP 3MG/0.5MG NEB 3 ML VIAL INH STA (14:56)
[2017-05-02] MEDS ORDERED: ATRINS NEB (15:18)
[2017-05-02] MEDS ORDERED: LACT10SO17 PO (15:18)
[2017-05-02] MEDS ORDERED: PRMVC PV (15:18)
--- NOTE | 2017-05-02 15:20 | DIAGNOSTIC IMAGING REPORT ---
HEAD CT NONCONTRAST CT DOSE: 1033.24 mGy.cm HISTORY: Severe headache. s/p fall, cirrhotic TECHNIQUE: Multiaxial CT images of the head were performed without the use of intravenous contrast. Automated exposure control was utilized for this study. A dose lowering technique was utilized adhering to the principles of ALARA. Comparison: Head CT 04/15/2017. Findings: Small amount of secretions within the left sphenoid sinus. The mastoid air cells are clear. The calvarium and skull base are intact. The ventricles and sulci are within normal limits. There is no mass, hematoma, midline shift, or acute infarct. Impression: No acute intracranial abnormality. Electronically signed by: Esteban Jaramillo M.D. 05/02/2017 3:19 PM Dictated Date/Time: 05/02/2017 3:14 PM
--- NOTE | 2017-05-02 15:27 | DIAGNOSTIC IMAGING REPORT ---
CERVICAL SPINE CT CT DOSE: HISTORY: Neck pain. fall TECHNIQUE: Multiaxial CT images of the cervical spine were performed and reformatted in the sagittal and coronal plane without the use of contrast. A dose lowering technique was utilized adhering to the principles of ALARA. COMPARISON: None. FINDINGS: No fractures. No subluxation. Prevertebral soft tissues and the C1-C2 interval are intact. No pneumothorax. Mild reversal of the normal lordotic curvature. There is an 11 mm nasopharyngeal polyp best seen on axial image 21 of 100. There is a 3.6 mm right upper lobe pulmonary nodule best seen on image 556 of 635. IMPRESSION: 1. No fractures within the cervical spine. 2. An 11 mm nasopharyngeal polyp. Direct visualization is recommended. 3. A 3.6 mm right upper lobe pulmonary nodule. Please refer to the chart below for recommended follow-up. Please refer to below summary of Fleischner criteria recommendations for follow-up of incidental CT nodules (Jad Ashley, Guidelines for management of small pulmonary nodules detected on CT scans: A statement from the Fleischner Society, Radiology 237: [phone].) SOLID NODULES Solitary nodule size: <6 mm * Low risk patients: no follow-up needed * high risk patients: optional CT at 12 months Solitary nodule size: 6-8 mm * Low risk patients: follow-up at 6-12 months, then consider further follow-up at 18-24 months * high risk patients: initial follow-up CT at 6-12 months and then at 18-24 months if no change Solitary nodule size: >8 mm * either low or high risk patients - consider follow-up CT at 3 months, and/or CT-PET, and/or biopsy Multiple nodules size: <6 mm * Low risk patients: no routine follow-up * high risk patients: optional CT at 12 months Multiple nodules size: 6-8 mm * Low risk patients: follow-up at 3-6 months, then consider further follow-up at 18-24 months * high risk patients: follow-up at 3-6 months, then at 18-24 months if no change Multiple nodules size: >8 mm * Low risk patients: follow-up at 3-6 months, then consider further follow-up at 18-24 months * high risk patients: follow-up at 3-6 months, then at 18-24 months if no change Note: newly detected indeterminate nodule in persons 35 years of age or older. * Low risk patients: minimal or absent history of smoking and/or other known risk factors * high risk patients: history of smoking or of other known risk factors (e.g. first degree relative with lung cancer, or exposure to asbestos, radon, uranium) * if a nodule up to 8 mm is partly solid or is ground glass further follow-up is required after 24 months to exclude possible slow growing adenocarcinoma (BRYAN) SUBSOLID NODULES Solitary pure ground-glass nodule * nodule size <6 mm - no CT follow-up required * nodule size >=6 mm - follow-up CT at 6-12 months, then every 2 years until 5 years Solitary part-solid nodule * nodule size <6 mm - no CT follow-up required * nodule size >=6 mm - follow-up CT at 3-6 months. If unchanged, and solid component remains <6 mm, then annual follow-up for 5 years Multiple subsolid nodules * nodule size <6 mm - follow-up CT at 3-6 months, consider further follow-up at 2 and 4 years if stable * nodule size >=6 mm - follow-up CT at 3-6 months, subsequent management based on the most suspicious nodule(s) Electronically signed by: Esteban Jaramillo M.D. 05/02/2017 3:25 PM Dictated Date/Time: 05/02/2017 3:19 PM
[2017-05-02] MEDS ORDERED: CLR10 PO (16:16)
[2017-05-02] MEDS ORDERED: SUMA50TA15 PO (16:16)
[2017-05-02] MEDS ORDERED: MULT-506 PO (16:16)
[2017-05-02] MEDS ORDERED: FOLI1TAB8 PO (16:17)
[2017-05-02] MEDS ORDERED: ZLF/50 PO (16:20)
[2017-05-02] MEDS ORDERED: ATV1 PO (16:21)
[2017-05-02] MEDS ORDERED: DiphenhydrAMINE HCL 50 MG/ML VIAL IV STA (16:30)
[2017-05-02] MEDS ORDERED: PROCHLORPERAZINE 5 MG/ML 2 ML VIAL IV STA (16:30)
--- NOTE | 2017-05-02 16:30 | EMERGENCY ROOM VISIT NOTE ---
History Report prepared by Elda: Emmett Taylor Under the Supervision of: Dr. Mason Ohara M.D. First contact with patient: 14:29 Chief Complaint: FALL Stated Complaint: FELL 2 DAYS AGO - SEVERE HEADACHE, CONFUSION History of Present Illness The patient is a 51 year old white female with a past medical history of alcohol abuse, alcoholic liver disease, anxiety, cirrhosis, depression, HTN, hypothyroid, portal hypertension with esophageal varices, s/p esophagogastroduodenoscopy, s/p tubal ligation, s/p section who presents to the ED with a cc of constant right-sided head pain s/p fall occurring two days ago. Describes pain as "sharp". Positive confusion, fatigue, non-productive cough. Per , the patient has fallen twice recently. He states that he witnessed the second fall. He witnessed her hit her head. The patient not lose consciousness. Her pain is improved with sleep. Negative new SOB (states she feels short of breath, has been using nebulizers). She states that she no longer uses alcohol. She reports taking her medications as prescribed. Source of History: patient Onset: Two days ago Position: head (right side) Quality: sharp Timing: constant Associated Symptoms: + cough (non-productive), + fatigue, No SOB (new) Note: Positive: confusion. Review of Systems See HPI for pertinent positives and negatives. A total of ten systems were reviewed and were otherwise negative. Past Medical & Surgical Medical Problems: (1) Abdominal pain (2) Alcohol dependence (3) Alcoholic liver disease (4) Allergic rhinitis (5) Anxiety (6) ARF (acute renal failure) (7) Bipolar 1 disorder (8) Chest pain (9) Decompensated hepatic cirrhosis (10) Depression (11) Encephalopathy (12) Essential tremor (13) GERD (gastroesophageal reflux disease) (14) History of gastric ulcer (15) History of GI bleed (16) HTN (hypertension) (17) Hyperkalemia (18) Hypothyroidism (19) Migraine (20) Portal hypertension with esophageal varices Surgical Problems: (1) H/O colonoscopy (2) H/O esophagogastroduodenoscopy (3) History of section (4) History of tubal ligation Family History Anxiety disorder BROTHER FH: bipolar disorder MOTHER Social History Smoking Status: Former Smoker Alcohol Use: other Drug Use: none Marital Status: , in relationship Housing Status: lives with family Occupation Status: unemployed Current/Historical Medications Scheduled Biotin W/ Vitamins C & E (Hair Skin & Nails ... 1250-7.5-7.5 Mcg-mg-Unt), 1 TAB PO QAM Cholecalciferol (Vitamin D 1000 Unit), 1,000 INTER.UNIT PO DAILY Cranberry (Vaccinium Macrocarp (Cranberry), 1 TAB PO DAILY Cyanocobalamin (Vitamin B12), 1,000 MCG PO QAM Estrogens, Conjugated (Premarin), 1 APPLN PV HS Folic Acid (Folvite), 1 MG PO QAM Furosemide (Lasix), 40 MG PO QAM Ipratropium Laporte (Ipratropium Laporte), 1 VIAL NEB TID Lactulose (Chronulac), 30 ML PO TID Levalbuterol (Levalbuterol), 1.25 MG INH TID Levothyroxine Sodium (Levothyroxine Sodium), 137 MCG PO QAM Lorazepam (Lorazepam), 1 MG PO BID Milk Thistle (Silybum Marianum (Milk Thistle), 1 TAB PO DAILY Multivitamin (Multivitamin), 1 TAB PO QAM Omeprazole (Prilosec), 40 MG PO DAILY Pramoxine Hcl (Sarna Sensitive Anti-Itch), 1 APPLN TOP BID Prednisone (Prednisone), 10 MG PO UD Propranolol (Inderal), 20 MG PO QAM Rifaximin (Xifaxan), 550 MG PO BID Sertraline HCl (Sertraline HCl), 50 MG PO HS Spironolactone (Aldactone), 100 MG PO HS Scheduled PRN Benzonatate (Tessalon Perles), 1 CAP PO TID PRN for Cough Loratadine (Claritin), 10 MG PO DAILY PRN for ALLERGIC REACTION Melatonin (Kp Melatonin), 3 MG PO HS PRN for Sleep Ondansetron Hcl (Zofran), 8 MG PO Q8H PRN for Nausea Oxymetazoline Hcl (Afrin 0.05% Nasal Ermine), 2 SPRAY NA BID PRN for nosebleed Sumatriptan Succinate (Imitrex), 50 MG PO UD PRN for Headache Tramadol (Ultram), 50 MG PO Q6 PRN for Pain Allergies Coded Allergies: Alcohol (Verified Allergy, Severe, LIVER DAMAGE, 04/14/17) Citalopram (Verified Allergy, Severe, ENLARED HEART VALVES, 12/01/16) Quetiapine (Verified Allergy, Intermediate, unknown., 12/01/16) NSAIDs (Verified Adverse Reaction, Severe, GI PROBLEMS, 04/14/17) Physical Exam Vital Signs Date Time Temp Pulse Resp B/P (MAP) Pulse Ox O2 Delivery O2 Flow Rate FiO2 05/02/17 18:21 67 18 95/51 95 05/02/17 18:01 94/51 05/02/17 18:00 67 18 05/02/17 17:31 94/43 05/02/17 17:30 65 19 05/02/17 17:01 98/47 05/02/17 17:00 65 19 97 Room Air 05/02/17 16:46 68 05/02/17 16:32 117/37 05/02/17 16:30 62 20 100 Room Air 05/02/17 16:20 61 18 159/112 94 Room Air 05/02/17 14:24 36.7 68 16 90/60 95 Room Air Physical Exam GENERAL: Awake, alert, chronically ill-appearing, NAD HENT: Normocephalic, atraumatic. EYES: Normal conjunctiva. Scleral icterus noted. NECK: Supple. No nuchal rigidity. FROM. RESPIRATORY: Diffuse wheezing throughout. CARDIAC: RRR, no MRG ABDOMEN: Soft, NTND, BS+ MSK: No chest wall TTP, no LE edema NEURO: CN 2-12 intact, 5/5 upper and lower extremity strength, no dysmetria, no drift, good finger to nose, no sensory deficits. Finger count grossly normal. PERRL. SKIN: No rash. Jaundiced. Medical Decision & Procedures ER Provider Diagnostic Interpretation: Radiology results as stated below per my review and radiologist interpretation: CERVICAL SPINE CT FINDINGS: No fractures. No subluxation. Prevertebral soft tissues and the C1-C2 interval are intact. No pneumothorax. Mild reversal of the normal lordotic curvature. There is an 11 mm nasopharyngeal polyp best seen on axial image 21 of 100. There is a 3.6 mm right upper lobe pulmonary nodule best seen on image 556 of 635. IMPRESSION: 1. No fractures within the cervical spine. 2. An 11 mm nasopharyngeal polyp. Direct visualization is recommended. 3. A 3.6 mm right upper lobe pulmonary nodule. Please refer to the chart below for recommended follow-up. Please refer to below summary of Fleischner criteria recommendations for follow-up of incidental CT nodules (Jad Ashley, Guidelines for management of small pulmonary nodules detected on CT scans: A statement from the Fleischner Society, Radiology 237: [phone].) SOLID NODULES Solitary nodule size: <6 mm * Low risk patients: no follow-up needed * high risk patients: optional CT at 12 months Solitary nodule size: 6-8 mm * Low risk patients: follow-up at 6-12 months, then consider further follow-up at 18-24 months * high risk patients: initial follow-up CT at 6-12 months and then at 18-24 months if no change Solitary nodule size: >8 mm * either low or high risk patients - consider follow-up CT at 3 months, and/or CT-PET, and/or biopsy Multiple nodules size: <6 mm * Low risk patients: no routine follow-up * high risk patients: optional CT at 12 months Multiple nodules size: 6-8 mm * Low risk patients: follow-up at 3-6 months, then consider further follow-up at 18-24 months * high risk patients: follow-up at 3-6 months, then at 18-24 months if no change Multiple nodules size: >8 mm * Low risk patients: follow-up at 3-6 months, then consider further follow-up at 18-24 months * high risk patients: follow-up at 3-6 months, then at 18-24 months if no change Note: newly detected indeterminate nodule in persons 35 years of age or older. * Low risk patients: minimal or absent history of smoking and/or other known risk factors * high risk patients: history of smoking or of other known risk factors (e.g. first degree relative with lung cancer, or exposure to asbestos, radon, uranium) * if a nodule up to 8 mm is partly solid or is ground glass further follow-up is required after 24 months to exclude possible slow growing adenocarcinoma (BRYAN) SUBSOLID NODULES Solitary pure ground-glass nodule * nodule size <6 mm - no CT follow-up required * nodule size >=6 mm - follow-up CT at 6-12 months, then every 2 years until 5 years Solitary part-solid nodule * nodule size <6 mm - no CT follow-up required * nodule size >=6 mm - follow-up CT at 3-6 months. If unchanged, and solid component remains <6 mm, then annual follow-up for 5 years Multiple subsolid nodules * nodule size <6 mm - follow-up CT at 3-6 months, consider further follow-up at 2 and 4 years if stable * nodule size >=6 mm - follow-up CT at 3-6 months, subsequent management based on the most suspicious nodule(s) Electronically signed by: Esteban Jaramillo M.D. 05/02/2017 3:[address] NONCONTRAST Findings: Small amount of secretions within the left sphenoid sinus. The mastoid air cells are clear. The calvarium and skull base are intact. The ventricles and sulci are within normal limits. There is no mass, hematoma, midline shift, or acute infarct. Impression: No acute intracranial abnormality. Electronically signed by: Esteban Jaramillo M.D. 05/02/2017 3:19 PM CHEST ONE VIEW PORTABLE FINDINGS: Cardiac silhouette is mildly enlarged, unchanged. Linear lucency projecting over the lateral aspect of the right lung base suggests interval. No pneumothorax, large pleural effusion, focal airspace consolidation or overt pulmonary edema. Mild blunting of the right costophrenic angle may reflect trace effusion. Moderate sized hiatal hernia redemonstrated. Bones of the chest appear grossly intact. IMPRESSION: 1. Mild cardiomegaly without acute processes of the chest. 2. Suspected trace right pleural effusion. 3. Moderate hiatal hernia. The above report was generated using voice recognition software. It may contain grammatical, syntax or spelling errors. Electronically signed by: Octavio Roth M.D. 05/02/2017 5:18 PM Laboratory Results 05/02/17 16:07 Red Blood Count 2.40, Mean Corpuscular Volume 107.1, Mean Corpuscular Hemoglobin 36.7, Mean Corpuscular Hemoglobin Concent 34.2, Neutrophils (%) (Auto ) 74.3, Lymphocytes (%) (Auto) 8.1, Monocytes (%) (Auto) 11.3, Eosinophils (%) ( Auto) 4.0, Basophils (%) (Auto) 0.1, Neutrophils # (Auto) 11.76, Lymphocytes # ( Auto) 1.29, Monocytes # (Auto) 1.80, Eosinophils # (Auto) 0.64, Basophils # ( Auto) 0.02 05/02/17 17:17 Test 05/02/17 16:07 05/02/17 17:17 White Blood Count 15.86 K/uL (4.8-10.8) Red Blood Count 2.40 M/uL (4.2-5.4) Hemoglobin 8.8 g/dL (12.0-16.0) Hematocrit 25.7 % (37-47) Mean Corpuscular Volume 107.1 fL (80-100) Mean Corpuscular Hemoglobin 36.7 pg (25-34) Mean Corpuscular Hemoglobin Concent 34.2 g/dl (32-36) Platelet Count 46 K/uL (130-400) Neutrophils (%) (Auto) 74.3 % Lymphocytes (%) (Auto) 8.1 % Monocytes (%) (Auto) 11.3 % Eosinophils (%) (Auto) 4.0 % Basophils (%) (Auto) 0.1 % Neutrophils # (Auto) 11.76 K/uL (1.4-6.5) Lymphocytes # (Auto) 1.29 K/uL (1.2-3.4) Monocytes # (Auto) 1.80 K/uL (0.11-0.59) Eosinophils # (Auto) 0.64 K/uL (0-0.5) Basophils # (Auto) 0.02 K/uL (0-0.2) RDW Standard Deviation 78.2 fL (36.4-46.3) RDW Coefficient of Variation 21.4 % (11.5-14.5) Immature Granulocyte % (Auto) 2.2 % Immature Granulocyte # (Auto) 0.35 K/uL (0.00-0.02) Toxic Vacuolation 1+ Platelet Estimate DECREASED Anisocytosis PRESENT Macrocytosis PRESENT Acanthocytes 2+ Schistocytes 1+ Prothrombin Time 25.1 SECONDS (9.0-12.0) Prothromb Time International Ratio 2.4 (0.9-1.1) Activated Partial Thromboplast Time 63.4 SECONDS (21.0-31.0) Partial Thromboplastin Ratio 2.4 Anion Gap 11.0 mmol/L (3-11) Estimated GFR () 44.8 Estimated GFR (Non- 38.7 BUN/Creatinine Ratio 20.7 (10-20) Calcium Level 8.0 mg/dl (8.5-10.1) Total Bilirubin 16.3 mg/dl (0.2-1) Direct Bilirubin 8.8 mg/dl (0-0.2) Aspartate Amino Transf (AST/SGOT) 44 U/L (15-37) Alanine Aminotransferase (ALT/SGPT) 54 U/L (12-78) Alkaline Phosphatase 144 U/L (45-117) Ammonia < 10.0 umol/L (11-32) Total Protein 5.7 gm/dl (6.4-8.2) Albumin 2.3 gm/dl (3.4-5.0) Lipase 186 U/L (73-393) Laboratory results reviewed by me Medications Administered Medications (Trade) Dose Ordered Sig/Fariba Route Start Time Stop Time Status Last Admin Dose Admin Sodium Chloride 500 ml @ 500 mls/hr Q1H STAT IV 05/02/17 14:55 05/02/17 15:54 DC 05/02/17 16:20 500 MLS/HR Albuterol/ Ipratropium (Duoneb) 3 ml ONE STAT INH 05/02/17 14:56 05/02/17 14:57 DC 05/02/17 16:18 3 ML Prochlorperazine Edisylate (Compazine Inj) 5 mg NOW STAT IV 05/02/17 16:30 05/02/17 16:31 DC 05/02/17 16:46 5 MG Tramadol HCl (Ultram Tab) 50 mg NOW STAT PO 05/02/17 17:16 05/02/17 17:17 DC 05/02/17 18:05 50 MG ED Course 1439: The patient was evaluated in room B3B. A complete history and physical exam was performed. Medical Decision The patient is a 51 year old white female with a past medical history of alcohol abuse, alcoholic liver disease, anxiety, cirrhosis, depression, HTN, hypothyroid, portal hypertension with esophageal varices, s/p esophagogastroduodenoscopy, s/p tubal ligation, s/p section who presents to the ED with a cc of constant right-sided head pain s/p fall occurring two days ago. Differential diagnosis: Etiologies such as migraine headache, meningitis, sinusitis, CO exposure, ICH, SAH, infection, tumor, headache, sinus thrombosis, arterial dissection, as well as others were entertained. Nursing notes reviewed. Ancillary studies and prior records reviewed. Patient was seen and evaluated the bedside. Patient reportedly had 2 falls approximately 2 days prior. Patient is complaining some mild right-sided headache. Patient denies any spontaneous bleeding. Patient has no vision changes. Patient denies any numbness tingling or weakness. On exam the patient has a fairly normal neurologic exam patient is notably jaundiced with some scleral icterus. Patient has good finger to nose and no asterixis. Patient data blood work completed along with pneumonia, urinalysis, CT brain, CT C-spine, chest x-ray. There was a prolonged time to get the patient's blood work. Patient CT of the head and neck negative acute. No evidence of ICH. Patient's initial blood work did show white blood cell count of 15,000. Patient did have a chest x-ray completed given the patient's wheezing. Patient' s chest x-ray is otherwise clear. Patient does have some thrombocytopenia. Patient's anemia is chronic but stable. Patient has no evidence of spontaneous bleeding. Patient was still describes a mild headache so she was given some medications to help. Patient was also given crackers, sandwich, and water which she was able to take without issue. Patient's additional labs returned after some time given hemolysis and difficulty IV access. Patient WBC 15. Notable elevations in bili but fairly stable AST/ALT and alk phos. Bili greater than priors. I did consider ascending cholangitis; however, patient not febrile, no ab pain, no difficulty with tolerating PO and reason for presentation is for fall and VALENCIA. May be related to worsening burden of disease; however, told to return if worsening symptoms. Patient has had intermittent lower BPs. Chart review shows similar pattern. Some of these taken w/ patient supine and sleeping. When awake BP higher. Patient feeling improved. Discussed difficulty w/ Rx medications or taking OTC meds like motrin/tylenol, which is not very feasible given patient's burden of disease. Patient chronically ill w/ known ESLD who symptomatically improved with improvement in symptoms. Believe she is safe for d/c. GIven f/u, d/c, and return precautions. Patient agreed w/ POC, all questions answered, d/c'ed to home. Medication Reconcilliation Current Medication List: was personally reviewed by me Blood Pressure Screening Patient's blood pressure: Normal blood pressure Blood pressure disposition: Did not require urgent referral Impression Primary Impression: Fall Additional Impressions: Anemia Headache Hyperbilirubinemia Scribe Attestation The scribe's documentation has been prepared under my direction and personally reviewed by me in its entirety. I confirm that the note above accurately reflects all work, treatment, procedures, and medical decision making performed by me. Departure Information Dispostion Home / Self-Care Referrals Osorio Chase M.D. (PCP) Patient Instructions ED Mechanical Fall, ED Prevention Fall, Headache Pain, My [facility] Additional Instructions Please return to the emergency department if you have worsening or recurrent symptoms not amenable to at-home treatment. Please call for a follow-up appointment with her primary care physician. Please take your medications as prescribed. If you have other concerns and/or complaints please feel free to also call your primary care physician's office or return the ED for further evaluation, management, and treatment. Take your medications as prescribed. You have been examined and treated today on an emergency basis only. This is not a substitute for, or an effort to provide, complete comprehensive medical care. It is impossible to recognize and treat all injuries or illnesses in a single emergency department visit. It is therefore important that you follow up closely with [facility], your PCP, and/or your specialist(s). Call as soon as possible for an appointment. Thank you for your time and consideration. I look forward to speaking with you again soon. Please don't hesitate to call us if you have any questions. Problem Qualifiers Primary Impression: Fall Encounter type: initial encounter Qualified Codes: W19.XXXA - Unspecified fall, initial encounter Additional Impressions: Anemia Anemia type: unspecified type Qualified Codes: D64.9 - Anemia, unspecified Headache Headache type: unspecified Headache chronicity pattern: acute headache Intractability: not intractable Qualified Codes: R51 - Headache
[2017-05-02 16:54] LABS: HEMATOCRIT 25.7 % (37-47); HEMOGLOBIN 8.8 g/dL (12.0-16.0); MEAN CELL VOLUME 107.1 fL (80-100); MEAN CORPUSCULAR HEMOGLOBIN 36.7 pg (25-34); MEAN CORPUSCULAR HGB CONC 34.2 g/dl (32-36); PLATELET COUNT 46 K/uL (130-400); RED CELL DISTRIBUTION WIDTH CV 21.4 % (11.5-14.5); RED CELL DISTRIBUTION WIDTH SD 78.2 fL (36.4-46.3); WHITE BLOOD COUNT 15.86 K/uL (4.8-10.8)
[2017-05-02 16:56] LABS: BASO % 0.1 %; BASO ABS # 0.02 K/uL (0-0.2); EOS ABS # 0.64 K/uL (0-0.5); IG# 0.35 K/uL (0.00-0.02); LYMPH % 8.1 %; LYMPH ABS # 1.29 K/uL (1.2-3.4); MONO % 11.3 %; NEUT % 74.3 %; NEUT ABS # 11.76 K/uL (1.4-6.5)
[2017-05-02] MEDS ORDERED: TRAMADOL HCL 50 MG TAB PO STA (17:16)
--- NOTE | 2017-05-02 17:19 | DIAGNOSTIC IMAGING REPORT ---
CHEST ONE VIEW PORTABLE HISTORY: 51 years-old Female wheezing, SOB acute wheezing with shortness of breath COMPARISON: Chest radiograph 04/18/2017, CT 04/15/2017 TECHNIQUE: Portable AP view of the chest FINDINGS: Cardiac silhouette is mildly enlarged, unchanged. Linear lucency projecting over the lateral aspect of the right lung base suggests interval. No pneumothorax, large pleural effusion, focal airspace consolidation or overt pulmonary edema. Mild blunting of the right costophrenic angle may reflect trace effusion. Moderate sized hiatal hernia redemonstrated. Bones of the chest appear grossly intact. IMPRESSION: 1. Mild cardiomegaly without acute processes of the chest. 2. Suspected trace right pleural effusion. 3. Moderate hiatal hernia. The above report was generated using voice recognition software. It may contain grammatical, syntax or spelling errors. Electronically signed by: Octavio Roth M.D. 05/02/2017 5:18 PM Dictated Date/Time: 05/02/2017 5:15 PM
[2017-05-02] MEDS ORDERED: CYAN100020 PO (17:37)
[2017-05-02 17:49] LABS: ALBUMIN 2.3 gm/dl (3.4-5.0); ALKALINE PHOSPHATASE 144 U/L (45-117); ALT/SGPT 54 U/L (12-78); AST/SGOT 44 U/L (15-37); BLOOD UREA NITROGEN 32 mg/dl (7-18); CARBON DIOXIDE 18 mmol/L (21-32); CREATININE 1.54 mg/dl (0.60-1.20); GLUCOSE 92 mg/dl (70-99); LIPASE 186 U/L (73-393); POTASSIUM 3.7 mmol/L (3.5-5.1); SODIUM 132 mmol/L (136-145); TOTAL PROTEIN 5.7 gm/dl (6.4-8.2)
[2017-05-02 18:06] LABS: INR 2.4 (0.9-1.1)
[2017-05-02 18:13] LABS: PTT PATIENT 63.4 SECONDS (21.0-31.0)
[2017-05-02 18:21] VITALS: BP 95/51; PULSE 67; O2SAT 95
[2017-05-02] MEDS ORDERED: PRAM1LOT TOP (23:10)
[2017-05-02] MEDS ORDERED: CHOL100027 PO (23:10)
[2017-05-02] MEDS ORDERED: CRAN1TAB PO (23:10)
[2017-05-02] MEDS ORDERED: TRAM-10 PO (23:10)
[2017-05-02] MEDS ORDERED: BENZ100C84 PO (23:10)
[2017-05-02] MEDS ORDERED: MILK140C PO (23:10)
[2017-05-02] MEDS ORDERED: RIFA550T2 PO (23:17)
== END 2017-05-02 18:21 | disposition home or self-care (01) ==
LOC: C.EDB 14:18
DX: S09.90XA Unspecified injury of head, initial encounter (principal); R51 Headache; W19.XXXA Unspecified fall, initial encounter; R41.0 Disorientation, unspecified; D64.9 Anemia, unspecified; E80.6 Other disorders of bilirubin metabolism; E03.9 Hypothyroidism, unspecified; F10.11 Alcohol abuse, in remission; F41.9 Anxiety disorder, unspecified; F32.9 Major depressive disorder, single episode, unspecified; Z79.899 Other long term (current) drug therapy; F31.9 Bipolar disorder, unspecified